=== PATIENT | female | born 1970 | race Caucasian/White ===

== ENCOUNTER 2023-08-01 10:53 | Emergency (ER) | payer OTHER, SELFPAY ==
[2023-08-01 10:53] VITALS: BP 134/74; PULSE 87; RESP 18; TEMP 35.9; O2SAT 99
[2023-08-01 11:59] LABS: Influenza A QL RT-PCR Negative (Negative); Influenza B QL RT-PCR Negative (Negative); SARS-CoV-2 RNA PCR Negative (Negative)
[2023-08-01 12:00] LABS: RSV RNA, RT-PCR Negative (Negative)
--- NOTE | 2023-08-01 12:11 | ED.URI ---
HPI - URI/Sore Throat General Chief Complaint: Upper Respiratory Infection Stated Complaint: body aches/nausea Time Seen by Provider: 08/01/23 10:58 Source: patient Mode of arrival: ambulatory Limitations: no limitations History of Present Illness HPI Narrative: patient is a 52-year-old female with coughing congestion for the past few days. She has multiple sick contacts in the house with the same symptoms. MD elicited complaint: cough and nasal congestion Consistency: constant Severity: mild Able to tolerate fluids by mouth: Yes Exacerbating factors: nothing Relieving factors: nothing Context: sick contacts Associated symptoms: myalgias, headache, nasal congestion and sore throat Treatments prior to arrival: none Related Data Home Medications Medication Instructions Recorded Confirmed albuterol sulfate 2.5 mg/3 mL 2.5 mg inhalation PRN PRN Wheezing 08/01/23 08/01/23 (0.083 %) solution for nebulization atorvastatin 80 mg tablet 80 mg PO DAILY 08/01/23 08/01/23 dulaglutide 0.75 mg/0.5 mL 0.75 mg subcut USEASDIRECTD 08/01/23 08/01/23 subcutaneous pen injector ([employer]) fenofibrate micronized 134 mg 134 mg PO DAILY 08/01/23 08/01/23 capsule furosemide 20 mg tablet 40 mg PO DAILY 08/01/23 08/01/23 gabapentin 300 mg capsule 300 mg PO PRN PRN Pain, Moderate 08/01/23 08/01/23 hydrochlorothiazide 12.5 mg capsule 12.5 mg PO DAILY 08/01/23 08/01/23 metformin 500 mg tablet,extended 1,000 mg PO BID 08/01/23 08/01/23 release 24 hr montelukast 10 mg tablet 10 mg PO DAILY 08/01/23 08/01/23 omeprazole 20 mg capsule,delayed 40 mg PO DAILY 08/01/23 08/01/23 release sitagliptin phosphate 100 mg 100 mg PO DAILY 08/01/23 08/01/23 tablet (Januvia) Allergies Allergy/AdvReac Type Severity Reaction Status Date / Time codeine Allergy Mild n/v Verified 08/01/23 11:05 ampicillin Allergy Unknown Anaphylactic Verified 08/01/23 11:05 Shock latex Allergy Unknown Unknown Verified 08/01/23 11:05 Review of Systems Review of Systems: All systems reviewed & are unremarkable except as noted in HPI and below Constitutional: Constitutional: Reports no additional constitutional complaints Eyes: Eyes: Reports no additional eye complaints ENT: Reports system reviewed and no additional complaints, except as documented Cardiovascular: Cardiovascular: Reports no additional cardiovascular complaints Respiratory: Respiratory: Reports no additional respiratory complaints Gastrointestinal: Gastrointestinal: Reports no additional gastrointestinal complaints Genitourinary: Genitourinary: Reports no additional female genitourinary complaints Musculoskeletal: Musculoskeletal: Reports no additional musculoskeletal complaints Integumentary/Breasts: Skin/Breast: Reports system reviewed and no additional complaints, except as docu Neurologic: Reports system reviewed and no additional complaints, except as documented Psychiatric: Psychiatric: Reports no additional psychiatric complaints Endocrine: Endocrine: Reports no additional endocrine complaints Hematologic/Lymphatic: Hematologic/Lymphatic: Reports no additional hematologic/lymphatic complaints Allergic/Immunologic: Allergic/Immunologic: Reports no additional allergic/immunologic complaints Exam Const: General: healthy appearing, no acute distress and alert Nutritional Appearance: well nourished HENMT: Head: normal to inspection Ears: external ears normal Face/Nose/Sinus: Normal external nose present Eyes: Conjunctivae: conjunctivae normal Pupils: Equal, round and reactive pupils present EOM: EOMs intact bilaterally Chest: Chest palpation & inspection: normal inspection of the chest Resp: Effort & Inspection: normal respiratory effort Auscultation: clear to auscultation bilaterally Cardio: Rate: regular rate Rhythm: regular rhythm Heart sounds: no murmurs GI: Inspection: non-distended GI Palp: Yes Soft to palpation, No Tenderness to palpation present (GI), N
[2023-08-01 12:13] LABS: Glucose Point of Care 250 mg/dl (65-105)
--- NOTE | 2023-08-01 12:59 | PC.NURSE ---
1230 DR THAKKAR IS AWARE OF FSBS, PT TO BE DE HOME.
== END 2023-08-01 12:54 | disposition home or self-care (01) ==
PROVIDERS: Emergency Provider Emergency Medicine; PCP Family Medicine
DX: J06.9 Acute upper respiratory infection, unspecified (principal); Z79.899 Other long term (current) drug therapy; Z79.84 Long term (current) use of oral hypoglycemic drugs; Z20.822 Contact with and (suspected) exposure to COVID-19
CPT/HCPCS: 82948; 87637; 99283

== ENCOUNTER 2024-05-07 21:50 | Emergency (ER) | payer OTHER, SELFPAY ==
--- NOTE | ~2024-05-07 | XR_ITS ---
EXAM: XR hip LT 2V w AP pelvis DATE: 05/07/2024 22:15 HISTORY: FALL,LT HIP BRUISING,LROM . COMPARISON: None available. FINDINGS: Normal mineralization. No fracture or dislocation. No lytic or blastic lesion. Degenerativ e changes in the bilateral hips and pubic symphysis. No erosion or periosteal change. Soft tissues wi thin normal limits. IMPRESSION: No acute osseous finding in the pelvis or left hip. Reviewed, dictated and finalized at location K.
[2024-05-07 21:56] VITALS: BP 154/86; PULSE 100; RESP 18; TEMP 36.6; O2SAT 96
--- NOTE | 2024-05-07 22:08 | ED.GENADULT ---
HPI - General Adult General Chief complaint: Fall Stated complaint: Fall History of Present Illness HPI narrative: This is a 53-year-old female presenting with hip pain. She was pulled over by her dog and landed on her left hip. She now has a bruise. She has been able to ambulate without difficulty. She has not taken anything for pain control. Related Data Home Medications Medication Instructions Recorded Confirmed albuterol sulfate 2.5 mg/3 mL 2.5 mg inhalation PRN PRN Wheezing 08/01/23 08/01/23 (0.083 %) solution for nebulization atorvastatin 80 mg tablet 80 mg PO DAILY 08/01/23 08/01/23 dulaglutide 0.75 mg/0.5 mL 0.75 mg subcut USEASDIRECTD 08/01/23 08/01/23 subcutaneous pen injector (Polar) fenofibrate micronized 134 mg 134 mg PO DAILY 08/01/23 08/01/23 capsule furosemide 20 mg tablet 40 mg PO DAILY 08/01/23 08/01/23 gabapentin 300 mg capsule 300 mg PO PRN PRN Pain, Moderate 08/01/23 08/01/23 hydrochlorothiazide 12.5 mg capsule 12.5 mg PO DAILY 08/01/23 08/01/23 metformin 500 mg tablet,extended 1,000 mg PO BID 08/01/23 08/01/23 release 24 hr montelukast 10 mg tablet 10 mg PO DAILY 08/01/23 08/01/23 omeprazole 20 mg capsule,delayed 40 mg PO DAILY 08/01/23 08/01/23 release sitagliptin phosphate 100 mg 100 mg PO DAILY 08/01/23 08/01/23 tablet (Januvia) Allergies Allergy/AdvReac Type Severity Reaction Status Date / Time codeine Allergy Mild n/v Verified 08/01/23 11:05 ampicillin Allergy Unknown Anaphylactic Verified 08/01/23 11:05 Shock latex Allergy Unknown Unknown Verified 08/01/23 11:05 Exam Narrative: APPEARANCE: No apparent distress. Head: atraumatic. EYES: EOMI, NOSE: Atraumatic NECK: Trachea midline RESPIRATORY: No increased rate of breathing CARDIOVASCULAR: RRR, ABDOMINAL: Non-distended MUSCULOSKELETAl: patient is able ambulate without difficulty NEURO: Alert. Moving 4/4 extremities SKIN:: 2 x 2 cm bruise over the patient's left PSYCHIATRIC: Normal affect Course Vital Signs Vital signs: Vital Signs Temperature 97.8 F 05/07/24 21:56 Pulse Rate 100 05/07/24 21:56 Respiratory Rate 18 05/07/24 21:56 Blood Pressure 154/86 H 05/07/24 21:56 Pulse Oximetry 96 05/07/24 21:56 Oxygen Delivery Room Air 05/07/24 21:56 Temperature 97.8 F 05/07/24 21:56 Pulse Rate 100 05/07/24 21:56 Respiratory Rate 18 05/07/24 21:56 Blood Pressure 154/86 H 05/07/24 21:56 Pulse Oximetry 96 05/07/24 21:56 Oxygen Delivery Room Air 05/07/24 21:56 Medical Decision Making MDM Narrative Medical decision making narrative: Course: for the 3-year-old female presenting ED after a fall. Her injuries include some abrasions on her left forearm and a bruise over her left hip. patient given tetanus MotrinTylenol/robaxin and discharged. Given return precautions. -DDX includes but is not limited to: Soft tissue injury, bony injury -Co-morbidities complicating care: diabetes, diabetic neuropathy -Independent interpretation of studies: pelvis x-ray negative for fracture -Interventions: Tdap, Motrin Tylenol Robaxin -Shared decision making / Disposition: discharged -RX Motrin Tylenol Robaxin Vital Signs Vital Signs: Vital Signs Temperature 97.8 F 05/07/24 21:56 Pulse Rate 100 05/07/24 21:56 Respiratory Rate 18 05/07/24 21:56 Blood Pressure 154/86 H 05/07/24 21:56 Pulse Oximetry 96 05/07/24 21:56 Oxygen Delivery Room Air 05/07/24 21:56 Temperature 97.8 F 05/07/24 21:56 Pulse Rate 100 05/07/24 21:56 Respiratory Rate 18 05/07/24 21:56 Blood Pressure 154/86 H 05/07/24 21:56 Pulse Oximetry 96 05/07/24 21:56 Oxygen Delivery Room Air 05/07/24 21:56 Discharge Plan Discharge Clinical Impression: Superficial bruising of hip Patient Disposition: Home, Self-Care Condition: Stable Instructions: Antibiotic Form, Contusion in Adults (ED), Abrasion (ED) Additional Instructions: he was seen in t
[2024-05-07] MEDS: IBUPROFEN 400 MG TABLET 800 MG PO (22:44)
[2024-05-07] MEDS: IBUPROFEN 400 MG TABLET (22:44)
[2024-05-07] MEDS: methocarbamoL 750 MG TABLET 1500 MG PO (22:44)
--- NOTE | 2024-05-07 22:44 | PC.NURSE ---
patient dropped ibuprofen on the floor. obtained another 400 mg ibuprofen from the pyxis.
[2024-05-07] MEDS: TETANUS,DIPHTHERIA,AC PERTUSSIS ADULT 0.5 ML (ADACEL) IM (22:45)
[2024-05-07] MEDS: ACETAMINOPHEN 500 MG TABLET 1000 MG PO (22:45)
== END 2024-05-07 22:55 | disposition home or self-care (01) ==
LOC: CHSED 22:23
PROVIDERS: Emergency Provider Emergency Medicine; PCP Family Medicine
DX: S70.02XA Contusion of left hip, initial encounter (principal); Z23 Encounter for immunization; W01.0XXA Fall on same level from slipping, tripping and stumbling without subsequent striking against object, initial encounter
CPT/HCPCS: 73502; 90471; 90715; 99283; A9270

== ENCOUNTER 2024-05-27 16:47 | Emergency (ER) | payer OTHER, SELFPAY ==
--- NOTE | ~2024-05-27 | XR_ITS ---
EXAM: XR wrist LT min 3V DATE: 05/27/2024 17:10 HISTORY: wrist injury . COMPARISON: None available. FINDINGS: Decreased mineralization. No fracture or dislocation. No lytic or blastic lesion. Mild deg enerative change in the wrist. Ulnar positive variance with mild changes of impaction syndrome. No er osion or periosteal change. Soft tissues within normal limits. IMPRESSION: No acute osseous finding in the left wrist. Reviewed, dictated and finalized at location K.
--- NOTE | ~2024-05-27 | XR_ITS ---
EXAM: XR ankle LT min 3V DATE: 05/27/2024 17:10 HISTORY: ankle injury . COMPARISON: None available. FINDINGS: Normal mineralization. Small ossific fragment adjacent to the lateral aspect of the calcan eus. Curvilinear ossific fragment projecting superior to the talus in the lateral view. Ankle joint e ffusion. Achilles and plantar enthesopathy. No lytic or blastic lesion. Joint spaces are maintained. No erosion or periosteal change. Anterior and lateral soft tissue swelling. IMPRESSION: Acute appearing anterior capsular avulsion fracture. Acute versus chronic ossific fragmen t adjacent to the lateral calcaneus which can be seen with extensor digitorum brevis avulsion, correl ate for history of prior injury or point tenderness. Reviewed, dictated and finalized at location K. IMPRESSION: Acute appearing anterior capsular avulsion fracture. Acute versus c hronic ossific fragment adjacent to the lateral calcaneus which can be seen wit h extensor digitorum brevis avulsion, correlate for history of prior injury or point tenderness.
[2024-05-27 16:47] VITALS: BP 155/78; PULSE 86; RESP 16; TEMP 36.6; O2SAT 95
[2024-05-27] MEDS: KETOROLAC (*BKC) 60 MG/2 ML VIAL IM (16:59)
--- NOTE | 2024-05-27 17:05 | ED.FALL ---
HPI - Fall General Chief Complaint: Fall Stated Complaint: fall Time Seen by Provider: 05/27/24 16:50 Source: patient Mode of arrival: ambulatory Limitations: no limitations History of Present Illness HPI Narrative: this is a 53-year-old female presents with some ankle and wrist pain on the left side after she sustained a fall while she was outdoors in her yd and she stepped on a bag of soil that toppled over and she fell over injuring her left ankle and left wrist. Has an abrasion to her left knee otherwise patient is up-to-date with her tetanus no other injuries. No loss of consciousness no blurry vision no nausea vomiting. MD complaint: fall Onset (ago): hour(s) Fall from: standing Place fall occurred: home Loss of consciousness: none Prolonged down time: no Symptoms prior to fall: none Context: tripped/slipped Location of injury: other Location of injury - extremities: Left: hand ( tenderness with movement and palpation) and ankle ( Swelling and tenderness with movement palpation) Related Data Home Medications Medication Instructions Recorded Confirmed albuterol sulfate 2.5 mg/3 mL 2.5 mg inhalation PRN PRN Wheezing 08/01/23 08/01/23 (0.083 %) solution for nebulization atorvastatin 80 mg tablet 80 mg PO DAILY 08/01/23 08/01/23 dulaglutide 0.75 mg/0.5 mL 0.75 mg subcut USEASDIRECTD 08/01/23 08/01/23 [facility] fenofibrate micronized 134 mg 134 mg PO DAILY 08/01/23 08/01/23 capsule furosemide 20 mg tablet 40 mg PO DAILY 08/01/23 08/01/23 gabapentin 300 mg capsule 300 mg PO PRN PRN Pain, Moderate 08/01/23 08/01/23 hydrochlorothiazide 12.5 mg capsule 12.5 mg PO DAILY 08/01/23 08/01/23 metformin 500 mg tablet,extended 1,000 mg PO BID 08/01/23 08/01/23 release 24 hr montelukast 10 mg tablet 10 mg PO DAILY 08/01/23 08/01/23 omeprazole 20 mg capsule,delayed 40 mg PO DAILY 08/01/23 08/01/23 release sitagliptin phosphate 100 mg 100 mg PO DAILY 08/01/23 08/01/23 tablet (Januvia) Allergies Allergy/AdvReac Type Severity Reaction Status Date / Time codeine Allergy Mild n/v Verified 05/27/24 17:02 ampicillin Allergy Unknown Anaphylactic Verified 05/27/24 17:02 Shock latex Allergy Unknown Unknown Verified 05/27/24 17:02 Review of Systems Review of Systems: All systems reviewed & are unremarkable except as noted in HPI and below PMFSH Past Medical History Medical History Patient denies medical problems Exam Const: General: healthy appearing and no acute distress Nutritional Appearance: well nourished Orientation/consciousness: patient oriented x3 Limitations: no limitations Eyes: Conjunctivae: conjunctivae normal Neck: Neck: normal visual inspection, no lymphadenopathy and no meningeal signs Chest: Chest palpation & inspection: normal inspection of the chest Resp: Effort & Inspection: normal respiratory effort Auscultation: clear to auscultation bilaterally Cardio: Rate: regular rate Rhythm: regular rhythm Extrem: Other: swelling lateral aspect of her left ankle and tenderness with movement and palpation as well as left wrist pain with movement and palpation. Course Course Emergency Course: She received a dose of 60mg IM Toradol, and x-rays performed and reviewed Vital Signs Vital signs: Vital Signs Temperature 36.6 C 05/27/24 16:47 Pulse Rate 86 05/27/24 16:47 Respiratory Rate 16 05/27/24 16:47 Blood Pressure 155/78 H 05/27/24 16:47 Pulse Oximetry 95 05/27/24 16:47 Oxygen Delivery Room Air 05/27/24 16:47 Temperature 36.7 C 05/27/24 18:06 Pulse Rate 81 05/27/24 18:06 Respiratory Rate 16 05/27/24 18:06 Blood Pressure 122/68 05/27/24 18:06 Pulse Oximetry 96 05/27/24 18:06 Oxygen Delivery Room Air 05/27/24 18:06 Critical Care Time Critical Care Time Critical Care Time: No Discharge Plan Discharge Clinical Impression: Ankle fract
[2024-05-27 18:06] VITALS: BP 122/68; PULSE 81; RESP 16; TEMP 36.7; O2SAT 96
== END 2024-05-27 18:06 | disposition home or self-care (01) ==
PROVIDERS: Emergency Provider Emergency Medicine; PCP Family Medicine
DX: S82.892A Other fracture of left lower leg, initial encounter for closed fracture (principal); S63.502A Unspecified sprain of left wrist, initial encounter; W01.0XXA Fall on same level from slipping, tripping and stumbling without subsequent striking against object, initial encounter; Y92.007 Garden or yard of unspecified non-institutional (private) residence as the place of occurrence of the external cause
CPT/HCPCS: 29515; 73110; 73610; 96372; 99284; J1885

== ENCOUNTER 2024-07-28 20:08 | Emergency (ER) | payer OTHER, SELFPAY ==
--- NOTE | ~2024-07-28 | XR_ITS ---
EXAMINATION: XR ankle RT min 3V, XR tibia fibula RT 2V, XR foot RT min 3V DATE: 07/28/2024 20:28 INDICATION: Anterior and lateral right foot and ankle pain post fall TECHNIQUE: 1. Anteroposterior and lateral views of the right tibia and fibula were obtained. 2. Anteroposterior, mortise, additional oblique and lateral view of the right ankle were obtained. 3. Dorsoplantar, two oblique and lateral views of the right foot were obtained. COMPARISON: None. FINDINGS: Normal alignment from the right knee through the foot. No fracture. Mild osteoarthritis at the first metatarsophalangeal and a few of the tarsal metatarsal and interphalangeal joints. Moderate-sized Ach illes and plantar calcaneal spurs. No right knee or ankle joint effusion. The soft tissues are unrema rkable. IMPRESSION: 1. Degenerative skeletal changes in the right foot. No acute osseous abnormality. Reviewed, dictated and finalized at location A. IMPRESSION: 1. Degenerative skeletal changes in the right foot. No acute osseous abnormalit y. IMPRESSION: 1. Degenerative skeletal changes in the right foot. No acute osseous abnormalit y.
[2024-07-28 20:08] VITALS: BP 158/78; PULSE 81; RESP 18; TEMP 36.8; O2SAT 96
--- NOTE | 2024-07-28 20:15 | ED.LOWEXIN ---
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 She has pain above the ankle at the ankle and below the ankle. MD complaint: leg injury, ankle injury and foot injury Onset (ago): hour(s) (1) Type of Injury: inversion Place: work Severity: moderate Severity scale (1-10): 5 Relieving factors: immobilization Exacerbating factors: weight bearing, movement and palpation Context: fall ( Slipped on a wet floor) Associated symptoms: swelling and able to partially bear weight Other symptoms: none Related Data Home Medications Medication Instructions Recorded Confirmed albuterol sulfate 2.5 mg/3 mL 2.5 mg inhalation PRN PRN Wheezing 08/01/23 07/28/24 (0.083 %) solution for nebulization atorvastatin 80 mg tablet 80 mg PO DAILY 08/01/23 07/28/24 dulaglutide 0.75 mg/0.5 mL 0.75 mg subcut USEASDIRECTD 08/01/23 07/28/24 subcutaneous pen injector ([facility]) fenofibrate micronized 134 mg 134 mg PO DAILY 08/01/23 07/28/24 capsule furosemide 20 mg tablet 40 mg PO DAILY 08/01/23 07/28/24 gabapentin 300 mg capsule 300 mg PO PRN PRN Pain, Moderate 08/01/23 07/28/24 hydrochlorothiazide 12.5 mg capsule 12.5 mg PO DAILY 08/01/23 07/28/24 metformin 500 mg tablet,extended 1,000 mg PO BID 08/01/23 07/28/24 release 24 hr montelukast 10 mg tablet 10 mg PO DAILY 08/01/23 07/28/24 omeprazole 20 mg capsule,delayed 40 mg PO DAILY 08/01/23 07/28/24 release sitagliptin phosphate 100 mg 100 mg PO DAILY 08/01/23 07/28/24 tablet (Januvia) Allergies Allergy/AdvReac Type Severity Reaction Status Date / Time codeine Allergy Mild n/v Verified 05/27/24 17:02 ampicillin Allergy Unknown Anaphylactic Verified 05/27/24 17:02 Shock latex Allergy Unknown Unknown Verified 05/27/24 17:02 Review of Systems Review of Systems: All systems reviewed & are unremarkable except as noted in HPI and below Constitutional: Constitutional: Reports no additional constitutional complaints Eyes: Eyes: Reports no additional eye complaints ENT: Reports system reviewed and no additional complaints, except as documented Cardiovascular: Cardiovascular: Reports no additional cardiovascular complaints Respiratory: Respiratory: Reports no additional respiratory complaints Gastrointestinal: Gastrointestinal: Reports no additional gastrointestinal complaints Genitourinary: Genitourinary: Reports no additional female genitourinary complaints Musculoskeletal: Musculoskeletal: Reports no additional musculoskeletal complaints Integumentary/Breasts: Skin/Breast: Reports system reviewed and no additional complaints, except as docu Neurologic: Reports system reviewed and no additional complaints, except as documented Psychiatric: Psychiatric: Reports no additional psychiatric complaints Endocrine: Endocrine: Reports no additional endocrine complaints Hematologic/Lymphatic: Hematologic/Lymphatic: Reports no additional hematologic/lymphatic complaints Allergic/Immunologic: Allergic/Immunologic: Reports no additional allergic/immunologic complaints PMFSH Past Medical History Medical History Patient denies medical problems Exam Const: General: healthy appearing Nutritional Appearance: well nourished Orientation/consciousness: patient oriented x3 HENMT: Head: normal to inspection Ears: external ears normal Face/Nose/Sinus: Normal external nose present Eyes: Conjunctivae: conjunctivae normal Pupils: Equal, round and reactive pupils present EOM: EOMs intact bilaterally Neck: Neck: normal visual inspection Chest: Chest palpatio
--- NOTE | 2024-07-28 20:17 | PC.NURSE ---
Dr Rose at the bedside. Radiology outside the room
== END 2024-07-28 20:51 | disposition home or self-care (01) ==
PROVIDERS: Emergency Provider Emergency Medicine; PCP Family Medicine
DX: S93.401A Sprain of unspecified ligament of right ankle, initial encounter (principal); S96.911A Strain of unspecified muscle and tendon at ankle and foot level, right foot, initial encounter; Z79.899 Other long term (current) drug therapy; Z79.84 Long term (current) use of oral hypoglycemic drugs; W01.0XXA Fall on same level from slipping, tripping and stumbling without subsequent striking against object, initial encounter
CPT/HCPCS: 29515; 73590; 73610; 73630; 99284; L4350

== ENCOUNTER 2025-02-24 11:14 | Emergency (ER) | payer OTHER, SELFPAY ==
[2025-02-24] VITALS (39 sets, daily range): BP systolic 141–176; BP diastolic 57–91; PULSE 68–115; RESP 12–22; TEMP 36.6–37; O2SAT 90–100
--- NOTE | ~2025-02-24 | CT_ITS ---
EXAMINATION: CT abdomen pelvis w con DATE: 02/24/2025 12:53 INDICATION: 2 days of abdominal pain, nausea and vomiting TECHNIQUE: Computed tomography (CT) of the abdomen and pelvis was performed with 100 mL Omnipaque-350 intravenous contrast. Automated exposure control and iterative reconstruction technique were employe d. The dose-length product was 1053.92 mGy-cm. COMPARISON: None FINDINGS: Lung bases are clear. Heart size is normal. No pericardial or pleural effusion. Small sliding-type hi atal hernia. Mild hepatosplenomegaly with diffuse hepatic steatosis. Focal adenomyomatosis at the gal lbladder fundus. Pancreas, bilateral adrenal glands and kidneys are normal. Bladder is normal. Bowels including the appendix are normal. The uterus is not identified and has likely been surgically resec tal. No free intraperitoneal gas or fluid. No pathologically enlarged abdominal or pelvic lymphade nopathy. Mild lumbar and lower thoracic spondylosis. IMPRESSION: 1. No acute intra-abdominal/pelvic process. 2. Mild hepatosplenomegaly with diffuse hepatic steatosis. 2. Small sliding-type hiatal hernia. Reviewed, dictated and finalized at location B.
[2025-02-24 11:22] LABS: Glucose Point of Care 370 mg/dl (65-105)
--- NOTE | 2025-02-24 11:28 | ED_ITS ---
HPI - General Adult General Chief complaint: Abdominal Pain Stated complaint: vomiting Time Seen by Provider: 02/24/25 11:28 Source: patient Mode of arrival: ambulatory History of Present Illness HPI narrative: 54 years old white female drove herself to the emergency room complaining not feeling well, nausea, vomiting, generalized abdominal pain started yesterday. Patient was not able to take her diabetes medicine for 2 days. History of diabetes hypertension hyperlipidemia, and hysterectomy. Patient denies smoking or drinking or using drugs. Related Data Home Medications ?Medication ?Instructions ?Recorded ?Confirmed ?Last Taken ?Type albuterol sulfate 2.5 mg/3 mL 2.5 mg inhalation PRN PRN Wheezing 08/01/23 07/28/24 Unknown History (0.083 %) solution for nebulization atorvastatin 80 mg tablet 80 mg PO DAILY 08/01/23 07/28/24 Unknown History dulaglutide 0.75 mg/0.5 mL 0.75 mg subcut USEASDIRECTD 08/01/23 07/28/24 Unknown History subcutaneous pen injector ([facility]) fenofibrate micronized 134 mg 134 mg PO DAILY 08/01/23 07/28/24 Unknown History capsule furosemide 20 mg tablet 40 mg PO DAILY 08/01/23 07/28/24 Unknown History gabapentin 300 mg capsule 300 mg PO PRN PRN Pain, Moderate 08/01/23 07/28/24 Unknown History hydrochlorothiazide 12.5 mg capsule 12.5 mg PO DAILY 08/01/23 07/28/24 Unknown History metformin 500 mg tablet,extended 1,000 mg PO BID 08/01/23 07/28/24 Unknown History release 24 hr montelukast 10 mg tablet 10 mg PO DAILY 08/01/23 07/28/24 Unknown History omeprazole 20 mg capsule,delayed 40 mg PO DAILY 08/01/23 07/28/24 Unknown History release sitagliptin phosphate 100 mg 100 mg PO DAILY 08/01/23 07/28/24 Unknown History tablet (Januvia) Allergies Allergy/AdvReac Type Severity Reaction Status Date / Time codeine Allergy Mild n/v Verified 02/24/25 11:24 ampicillin Allergy Unknown Anaphylactic Verified 02/24/25 11:24 Shock latex Allergy Unknown Unknown Verified 02/24/25 11:24 Review of Systems 2 Review of Systems: All systems reviewed & are unremarkable except as noted in HPI and below PMFSH Past Medical History Medical History Patient denies medical problems Exam 2 Narrative: General appearance: Well-developed, well-nourished, ill looking Skin: Normal color Head: Normocephalic, nontraumatic Eyes: Clear conjunctiva ENT: Oropharynx normal, ears normal, nose normal Neck: Supple, nontender Chest and respiratory: Airway patent, no respiratory distress, no accessory muscle use Heart: Regular rate/rhythm Abdomen: Soft, Generalized tenderness,, no organomegaly, quiet bowel sounds Vascular: Normal peripheral pulses, normal capillary refill. Musculoskeletal: Normal range of motion, nontender back Neurologic: Alert and oriented ?3, MANAGER PROGRAM MANAGEMENT is normal as tested, no gross motor deficit Course Consultations Consultation #1: [facility] BRAGG[facility]RS Date: 02/24/25 Consultation #2: DR STARR ICU AT [facility] WHO ACCEPTED PATIENT TRANSFER Date: 02/24/25 Vital Signs Vital signs: Vital Signs Temperature 36.6 C 02/24/25 11:14 Pulse Rate 108 H 02/24/25 11:14 Respiratory Rate 20 02/24/25 11:14 Blood Pressure 160/87 H 02/24/25 11:14 Pulse Oximetry 96 02/24/25 11:14 Oxygen Delivery Room Air 02/24/25 11:14 Temperature 36.6 C 02/24/25 11:14 Pulse Rate 107 H 02/24/25 13:31 Respiratory Rate 16 02/24/25 13:31 Blood Pressure 150/91 H 02/24/25 13:31 Pulse Oximetry 94 02/24/25 13:31 Oxygen Delivery Room Air 02/24/25 11:14 Medical Decision Making [facility] Narrative Medical decision making narrative: patient presents with nausea and vomiting and abdominal pain vital signs showing blood pressure 160/87, heart rate 108 otherwise within normal limit Physical examination showing ill looking patient, with dry heaves Differential diagnosis include DKA, hyperglycemia, electrolyte imbalance, dehydration, colitis, diverticulitis, appendicitis, cholecystitis, noncompliance with medication, urinary tract infection Blood workup today includes CBC, CMP, lipase, phosphorus , hemoglobin A1c, magnesium level, beta hydroxybutyrate, showed HEMOGLOBIN 17.1, HEMOGLOBIN A1C 13.1, GLUCOSE 476 ALT 81, ALKALINE PHOSPHATASE 182 Venous blood gas showed PH OF 7.28 Urinalysis showed RESPIRATORY PANEL NEGATIVE FOR COVID FLU RSV CT abdomen and pelvis with IV contrast NO ACUTE ABNORMALITIES PATIENT WAS ACCEPTED FOR TRANSFER TO [facility] DIAGNOSIS DKA Differential Diagnosis Differential Diagnosis: as above Vital Signs Vital Signs: Vital Signs Temperature 36.6 C 02/24/25 11:14 Pulse Rate 108 H 02/24/25 11:14 Respiratory Rate 20 02/24/25 11:14 Blood Pressure 160/87 H 02/24/25 11:14 Pulse Oximetry 96 02/24/25 11:14 Oxygen Delivery Room Air 02/24/25 11:14 Temperature 36.6 C 02/24/25 11:14 Pulse Rate 107 H 02/24/25 13:31 Respiratory Rate 16 02/24/25 13:31 Blood Pressure 150/91 H 02/24/25 13:31 Pulse Oximetry 94 02/24/25 13:31 Oxygen Delivery Room Air 02/24/25 11:14 Lab Data 02/24/25 11:49 02/24/25 11:49 Labs: Lab Results 02/24/25 02/24/25 02/24/25 Range/Units 11:20 11:49 12:36 WBC 10.2 (4.8-10.8) K/mm3 RBC 6.24 H (4.20-5.40) M/mm3 Hgb 17.1 H (12.0-15.0) g/dL Hct 53.9 H (35.0-49.0) % MCV 86.4 (78.0-102.0) fL MCH 27.4 (27.0-31.0) pg MCHC 31.7 L (32-36) g/dL RDW 12.2 (11.6-14.4) % Plt Count 234 (150-420) K/mm3 MPV 10.8 (9.2-11.8) fl Immature Gran % (Auto) 0.8 H (0.0-0.0) % Neut % (Auto) 90.6 H (50.0-70.0) % Lymph % (Auto) 4.9 L (18.0-42.0) % [place] % (Auto) 3.3 (2.0-11.0) % Eos % (Auto) 0.2 L (1.0-6.0) % Baso % (Auto) 0.2 (0.0-1.0) % Lymph # (Auto) 0.50 L (1.10-4.50) K/mm3 [place] # (Auto) 0.34 (0.10-0.90) K/mm3 Eos # (Auto) 0.02 (0.02-0.50) K/mm3 Baso # (Auto) 0.02 (0.00-0.10) K/mm3 Abs Immat Gran (auto) 0.08 H (0.00-0.00) K/mm3 Absolute Neuts (auto) 9.25 H (1.70-7.20) K/mm3 Absolute Nucleated RBC 0.00 (0.00-0.00) K/mm3 Nucleated RBC % 0.0 (0-0.0) % Sodium 139 (136-145) mmol/L Potassium 4.1 (3.5-5.1) mmol/L Chloride 97 L (98-108) mmol/L Carbon Dioxide 22 (21-32) mmol/L Anion Gap 20 H (4-12) mmol/L BUN 18 (7-18) mg/dL Creatinine 0.99 (0.55-1.02) mg/dL Estim Creat Clear Calc 62 ml/min Estimated GFR 58 L (59 - ) Glucose 476 H* (70-99) mg/dL POC Capillary Glucose 370 H 369 H (65-105) mg/dl Hemoglobin A1c 13.0 H (<5.7) % Calculated Osmolality 310 H (285-295) mOsm/kg Calcium 9.5 (8.5-10.1) mg/dL Phosphorus 6.0 H (2.6-4.7) mg/dL Magnesium 2.3 (1.8-2.4) mg/dL Total Bilirubin 0.9 (0.00-1.00) mg/dL AST 31 (15-37) U/L ALT 81 H (14-59) U/L Alkaline Phosphatase 182 H (46-116) U/L Total Protein 8.8 H (6.4-8.2) g/dL Albumin 4.2 (3.4-5.0) g/dL Lipase 10 L (16-77) U/L Influenza A (RT-PCR) Negative (Negative) Influenza B (RT-PCR) Negative (Negative) RSV (RT-PCR) Negative (Negative) SARS-CoV-2 RNA (RT-PCR) Negative (Negative) 02/24/25 Range/Units 13:42 WBC (4.8-10.8) K/mm3 RBC (4.20-5.40) M/mm3 Hgb (12.0-15.0) g/dL Hct (35.0-49.0) % MCV (78.0-102.0) fL MCH (27.0-31.0) pg MCHC (32-36) g/dL RDW (11.6-14.4) % Plt Count (150-420) K/mm3 MPV (9.2-11.8) fl Immature Gran % (Auto) (0.0-0.0) % Neut % (Auto) (50.0-70.0) % Lymph % (Auto) (18.0-42.0) % [place] % (Auto) (2.0-11.0) % Eos % (Auto) (1.0-6.0) % Baso % (Auto) (0.0-1.0) % Lymph # (Auto) (1.10-4.50) K/mm3 [place] # (Auto) (0.10-0.90) K/mm3 Eos # (Auto) (0.02-0.50) K/mm3 Baso # (Auto) (0.00-0.10) K/mm3 Abs Immat Gran (auto) (0.00-0.00) K/mm3 Absolute Neuts (auto) (1.70-7.20) K/mm3 Absolute Nucleated RBC (0.00-0.00) K/mm3 Nucleated RBC % (0-0.0) % Sodium (136-145) mmol/L Potassium (3.5-5.1) mmol/L Chloride (98-108) mmol/L Carbon Dioxide (21-32) mmol/L Anion Gap (4-12) mmol/L BUN (7-18) mg/dL Creatinine (0.55-1.02) mg/dL Estim Creat Clear Calc ml/min Estimated GFR (59 - ) Glucose (70-99) mg/dL POC Capillary Glucose 325 H (65-105) mg/dl Hemoglobin A1c (<5.7) % Calculated Osmolality (285-295) mOsm/kg Calcium (8.5-10.1) mg/dL Phosphorus (2.6-4.7) mg/dL Magnesium (1.8-2.4) mg/dL Total Bilirubin (0.00-1.00) mg/dL AST (15-37) U/L ALT (14-59) U/L Alkaline Phosphatase (46-116) U/L Total Protein (6.4-8.2) g/dL Albumin (3.4-5.0) g/dL Lipase (16-77) U/L Influenza A (RT-PCR) (Negative) Influenza B (RT-PCR) (Negative) RSV (RT-PCR) (Negative) SARS-CoV-2 RNA (RT-PCR) (Negative) ABG Data ABG results: 02/24/25 11:49 VBG pH 7.28 L VBG pCO2 43.2 VBG pO2 47.0 H VBG HCO3 19.8 L O2 Delivery Device Room air O2 Liters/Min 0.0 Imaging Data Radiologist's impression: Impressions Abdomen/Pelvis CT 02/24/25 12:59 IMPRESSION: 1. No acute intra-abdominal/pelvic process. 2. Mild hepatosplenomegaly with diffuse hepatic steatosis. 2. Small sliding-type hiatal hernia. Critical Care Time Critical Care Time Critical Care Time: Yes Total Critical Care Time: 30 Discharge Plan Discharge Clinical Impression: DKA (diabetic ketoacidosis) Patient Disposition: Acute Care Hospital Condition: Improved Patient Language: Turkmen Prescriptions: No Action ibuprofen 800 mg tablet 800 mg PO TID PRN (Reason: pain) 7 Days Qty: 21 0RF acetaminophen 500 mg tablet 1,000 mg PO TID PRN (Reason: kg) 7 Days Qty: 42 0RF methocarbamol 750 mg tablet 1,500 mg PO TID Qty: 35 0RF atorvastatin 80 mg tablet 80 mg PO DAILY albuterol sulfate 2.5 mg /3 mL (0.083 %) solution for nebulization 2.5 mg inhalation PRN PRN (Reason: Wheezing) fenofibrate micronized 134 mg capsule 134 mg PO DAILY hydrochlorothiazide 12.5 mg capsule 12.5 mg PO DAILY gabapentin 300 mg capsule 300 mg PO PRN PRN (Reason: Pain, Moderate) omeprazole 20 mg capsule,delayed release(DR/EC) 40 mg PO DAILY montelukast 10 mg tablet 10 mg PO DAILY furosemide 20 mg tablet 40 mg PO DAILY metformin 500 mg tablet extended release 24 hr 1,000 mg PO BID Januvia 100 mg tablet 100 mg PO DAILY Trulicity 0.75 mg/0.5 mL pen injector 0.75 mg SUBCUT USEASDIRECTD Rx Instructions: TWICE MONTHLY naproxen 500 mg tablet 500 mg PO BID PRN (Reason: pain) Qty: 14 0RF Follow-up/Referrals: Rush,MD Jose [Primary Care Provider] -
[2025-02-24] MEDS: SODIUM CHLORIDE 0.9% IV 2,000 ML 999 ML IV CONT (11:44)
[2025-02-24] MEDS: ONDANSETRON INJ 4 MG/2 ML VIAL 8 MG IV PUSH (11:45)
[2025-02-24] MEDS: INSULIN HUMAN REGULAR (*BKC) 1,000 UNITS/10 ML VIAL 13.1 UNITS IV PUSH (11:46)
[2025-02-24 11:55] LABS: Basophils Absolute Auto 0.02 K/mm3 (0.00-0.10); Basophils Percent Auto 0.2 % (0.0-1.0); Eosinophils Absolute Auto 0.02 K/mm3 (0.02-0.50); Eosinophils Percent Auto 0.2 % (1.0-6.0); Hematocrit 53.9 % (35.0-49.0); Hemoglobin 17.1 g/dL (12.0-15.0); Immature Granulocyte Absolute 0.08 K/mm3 (0.00-0.00); Immature Granulocyte Percent A 0.8 % (0.0-0.0); Lymphocytes Percent Auto 4.9 % (18.0-42.0); Mean Corpuscular HGB Conc 31.7 g/dL (32-36); Mean Corpuscular Hemoglobin 27.4 pg (27.0-31.0); Mean Corpuscular Volume 86.4 fL (78.0-102.0); Mean Platelet Volume 10.8 fl (9.2-11.8); Monocytes Absolute Auto 0.34 K/mm3 (0.10-0.90); Monocytes Percent Auto 3.3 % (2.0-11.0); Neutrophils Absolute Auto 9.25 K/mm3 (1.70-7.20); Neutrophils Percent Auto 90.6 % (50.0-70.0); Platelet Count Result 234 K/mm3 (150-420); Red Blood Count 6.24 M/mm3 (4.20-5.40); Red Cell Distribution Width 12.2 % (11.6-14.4); White Blood Count 10.2 K/mm3 (4.8-10.8)
[2025-02-24 12:09] LABS: HCO3 VBG 19.8 mEq/l (24.0-30.0); PCO2 VBG 43.2 mmHg (42.0-48.0); pH VBG 7.28 (7.33-7.43)
[2025-02-24 12:11] LABS: Device ROOM AIR
[2025-02-24 12:17] LABS: Alanine Aminotransferase 81 U/L (14-59); Albumin Level 4.2 g/dL (3.4-5.0); Alkaline Phosphatase 182 U/L (46-116); Anion Gap 20 mmol/L (4-12); Aspartate Amino Transferase 31 U/L (15-37); Bilirubin,Total 0.9 mg/dL (0.00-1.00); Blood Urea Nitrogen 18 mg/dL (7-18); Calcium 9.5 mg/dL (8.5-10.1); Carbon Dioxide 22 mmol/L (21-32); Chloride 97 mmol/L (98-108); Estimated CRCL calculation 62 ml/min; Estimated Glomerular Filt Rate 58; Lipase 10 U/L (16-77); Osmolality Calculated 310 mOsm/kg (285-295); Potassium 4.1 mmol/L (3.5-5.1); Sodium 139 mmol/L (136-145); Total Protein 8.8 g/dL (6.4-8.2)
[2025-02-24 12:23] LABS: Glucose 476 mg/dL (70-99)
[2025-02-24 12:32] LABS: Influenza A QL RT-PCR Negative (Negative); Influenza B QL RT-PCR Negative (Negative); RSV RNA, RT-PCR Negative (Negative); SARS-CoV-2 RNA PCR Negative (Negative)
[2025-02-24 12:33] LABS: Magnesium 2.3 mg/dL (1.8-2.4)
[2025-02-24 12:39] LABS: Glucose Point of Care 369 mg/dl (65-105)
--- OUTSIDE RECORDS SUMMARY | 2025-02-24 12:48 | XMS_ITS | Encounter Summary ---
Author Organization [facility] Address [address] [place] [id number] Care Team Providers Care Kaiako Kohanga Reo Name Role Phone Jose Beverly MD Primary Care Provider [phone] Kortney Coronado HOUSE VISITOR Unavailable [phone] Encounter Details Date Type Department Care Team (Latest Contact Info) Description 02/23/2025 Travel Social History Tobacco Use Types Packs/Day Years Used Date Smoking Tobacco: Never Smokeless Tobacco: Never Alcohol Use Standard Drinks/Week Comments Yes 0 (1 standard drink = 0.6 oz pur e alcohol) seldom AUDIT-C Answer Date Recorded Frequency of Alcohol Consumption Never 01/11/2019 Average Number of Drinks Not on file 019 Frequency of Binge Drinking Not on file 12/28 Comments No Sex and Gender Information Value Date Recorded Sex Assigned at Female 01/14/2025 12:08 PM BUSINESS OFFICE TECHNICIAN Legal Sex Female 9:38 PM BUSINESS OFFICE TECHNICIAN Gender Identity Not on file Sexual Orientation Not on file documented as of this encounter Plan of Treatment Not on file documented as of this encounter Visit Diagnoses Not on filedocumented in this encounter Additional Health Concerns Infection Onset Date Last Indicated Resolved Time Respiratory Rule-Out 02/23/2025 02/23/2025 025 11:00 AM CDT documented as of this encounter Care Teams Kaiako Kohanga Reo Relationship Specialty Start Date End Date Jose Beverly MD [address] [place] [phone] PCP - General FAMILY PRACTICE 01/11/19 Kortney Coronado NP [address] [place] [address] Nurse Practitioner Nurse Practitioner Family 03/27/24 documented as of this encounter
--- OUTSIDE RECORDS SUMMARY | 2025-02-24 12:48 | XMS_ITS | Encounter Summary ---
Author Organization [facility] Address [address] [place] [address] Care Team Providers Care Marketing Communications Manager Name Role Phone Jose Beverly MD Primary Care Provider [phone] Brad Riojas MD Unavailable [phone] Kortney Coronado NP Unavailable [phone] Encounter Details Date Type Department Care Team (Late st Contact Info) Description 05/04/2019 Abstract [facility] CONVERSION [address] [place] [address] , Generic Conversion, Social History Tobacco Use Types Packs/Day Years Used Date Smoking Tobacco: Never Smokeless Tobacco: Never Alcohol Use Standard Drinks/Week Comments No 0 (1 standard drink = 0.6 oz pur e alcohol) AUDIT-C Answer Date Recorded Frequency of Alcohol Consumption Never 01/11/2019 Average Number of Drinks Not on file 019 Frequency of Binge Drinking Not on file 12/28 Comments No Sex and Gender Information Value Date Recorded Sex Assigned at Female 01/14/2025 12:08 PM LIVE OUT NANNY Legal Sex Female 9:38 PM LIVE OUT NANNY Gender Identity Not on file Sexual Orientation Not on file documented as of this encounter Plan of Treatment Not on file documented as of this encounter Visit Diagnoses Not on filedocumented in this encounter Additional Health Concerns Infection Onset Date Last Indicated Resolved Time COVID-19 Rule Out 09/16/2022 09/16/2022 09/16/2022 12:39 PM CDT COVID-19 Rule Out 03/13/2024 03/13/2024 03/13/2024 9:19 PM CDT Respiratory Rule-Out 02/23/2025 02/23/2025 025 11:00 AM CDT documented as of this encounter Care Teams Marketing Communications Manager Relationship Specialty Start Date End Date Jose Beverly MD [address] [place] [phone] PCP - General FAMILY PRACTICE 01/11/19 Brad Riojas MD [address] [place] [phone] Vascular/Athletic Events Scorer VASCULAR SURGERY 12/26/23 01/31/25 Kortney Coronado NP [address] [place] [id number] Nurse Practitioner Nurse Practitioner Family 03/27/24 documented as of this encounter
--- OUTSIDE RECORDS SUMMARY | 2025-02-24 12:48 | XMS_ITS | Continuity of Care Document ---
Author Organization [facility]. If a dditional information is needed, contact Health Information Management at [phone] Address [address] [place] [address] Phone Care Team Providers Care Credit Control Manager Name Role Phone Unavailable Unavailable Unavailable Unavailable Unavailable Unavailable Problems Otitis externa Onset:05-Jun-2019 Increased blood pressure Onset:05-Jun-2019 Allergies and Adverse Reactions Penicillins(Allergy) Onset: 05-Jun-2019 Reaction:UNKNOWN latex(Allergy) Onset: 05-Jun-2019 Reaction:UNKNOWN Social History Smoking Status Tobacco smoking consumption unknown Recorded:
--- OUTSIDE RECORDS SUMMARY | 2025-02-24 12:48 | XMS_ITS | Clinical Summary ---
Author Organization 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 Active ATORVASTATIN CALCIUM PO Take 80 mg by mouth daily. Active benzonatate (TESSALON) 100 MG Capsule Take 100 mg by mouth 3 times daily as needed. Active Omeprazole 20 MG Tablet Delayed Response Take 1 Tab by mouth daily. 30 Tab 0 Active Loperamide HCl (Imodium A-D) 2 MG Tablet Take 2 mg by mouth 4 times daily as needed. Active ergocalciferol (VITAMIN D) 43974 UNIT Capsule Take 1 Capsule by mouth daily. 3 Active Fenofibrate Micronized 134 MG Capsule Take 134 mg by mouth daily. 3 Active furosemide (LASIX) 20 MG Tablet Take 20 mg by mouth daily. 2 Active hydroCHLOROthia zide (MICROZIDE) 12.5 MG Capsule Take 12.5 mg by mouth daily. 3 Active gabapentin (NEURONTIN) 300 MG Capsule Take 300 mg by mouth 3 times daily. Active ondansetron (ZOFRAN-ODT) 4 MG TABLET DISPERSIBLE Take 1 Tablet by mouth every 6 hours as needed for Nausea - 1st line. 10 Tablet 3 Active polyethylene glycol (GLYCOLAX, MIRALAX) 17 g Pack Take 1 Packet by mouth 2 times daily as needed for Constipation - 1st line. Dissolve in 4-8 oz of liquid. Indications: Constipation 90 Packet 3 Active senna (SENOKOT) 8.6 MG Tablet Take 1 Tablet by mouth 2 times daily as needed for Constipation - 2nd line. 30 Tablet 3 Active Glucose Blood Strip Diagnosis: Diabetes type 2 Blood testing frequency: 3 times a day 100 Each 3 3 Active naproxen sodium (ANAPROX) 550 MG Tablet Take 1 Tablet by mouth 2 times daily (with meals). 30 Tablet 3 Active Additional Information Patient not taking.Reported on 10/30/2024 albuterol 108 (90 Base) MCG/ACT Aerosol Solution take 2 Puffs by inhalation every 6 hours as needed for Wheezing or Cough. 8 g 4 Active Lancets Misc Use as directed 200 Lancet . 4 Active Insulin Lispro, 1 Unit Dial, (HumaLOG KwikPen) 100 UNIT/ML Solution Pen-injector 12 Units by Subcutaneous route 3 times daily (after meals) for 90 days. In addition to the provided sliding scale. 32.4 mL 4 025 insulin glargine (Lantus SoloStar) 100 UNIT/ML Solution Pen-injector 30 Units by Subcutaneous route every morning for 90 days. 27 mL 4 025 Active Problems Problem Noted Date Diagnosed Date Diabetic ketoacidosis 10/30/2024 Hyperosmolar hyperglycemic state (HHS) 3 Pneumonia due to COVID-19 virus 11/06/2020 Acute respiratory failure with hypoxia 0 Type 2 diabetes mellitus, wi th long-term current use of insulin Hyperlipemia Hypertension Liver disease Overview (11/06/2020): stage 3 Encounters Date Type Department Care Team Description 01/15/2025 10:46 AM IRRIGATION EQUIPMENT REMOVER - 01/15/2025 3:52 PM IRRIGATION EQUIPMENT REMOVER Emergency [facility] Emergency [address] [place] [address] Alejandro Simeon, Chest pain Discharge Disposition: Discharged to home or Selfcare 01/15/2025 Travel from Last 3 Months Social History Tobacco Use Types Packs/Day Years Used Date Smoking Tobacco: Never Smokeless Tobacco: Never Alcohol Use Standard Drinks/Week Comments Yes 1 (1 standard drink = 0.6 oz pur e alcohol) [facility] Utilities Answer Date Recorded In the past 12 months has th e electric, gas, oil, or water company threatened to shut off services in your home? Patient declined 10/30/2024 Social Connection and Isolation Panel [NHANES] A nswer Date Recorded In a typical week, how many times do you talk on the phone with family, friends, or neighbors? Patient declined 10/30/2024 How often do you get togethe r with friends or relatives? Patient declined 10/30/2024 How often do you attend roman catholic or baptism serv ices? Patient declined 10/30/2024 Do you belong to any clubs o r organizations such as roman catholic groups, unions, fraternal or athletic groups, or school groups? Patient declined 10/30/2024 How often do you attend meet ings of the clubs or organizations you belong to? Patient declined 10/30/2024 Are you , , di vorced, , never , or living with a partner? Patient declined 10/30/2024 AUDIT-C Answer Date Recorded Q1: How often do you have a drink containing alc ohol? Patient declined 10/30/2024 Q2: How many drinks containi ng alcohol do you have on a typical day when you are drinking? Patient declined 10/30/2024 Q3: How often do you have si x or more drinks on one occasion? Patient declined 10/30/2024 Overall Financial Resource Strain (CARDIA) Answe r Date Recorded How hard is it for you to pa y for the very basics like food, housing, medical care, and heating? Patient declined 10/30/2024 [facility] [place] [facility] - Occupational Stress Questionnaire Answer Date Recorded Do you feel stress - tense, restless, nervous, or anxious, or unable to sleep at night because your mind is troubled all the time - these days? Patient declined 10/30/2024 Exercise Vital Sign Answer Date Recorde d On average, how many days pe r week do you engage in moderate to strenuous exercise (like a brisk walk)? Patient declined On average, how many minutes do you engage in exercise at this level? Patient declined 10/30/2024 Hunger Vital Sign Answer Date Recorded Within the past 12 months, y ou worried that your food would run out before you got the money to buy more. Patient declined Within the past 12 months, t he food you bought just didn't last and you didn't have money to get more. Patient declined 02/2024 PRAPARE - Transportation Answer Date Re corded In the past 12 months, has l ack of transportation kept you from medical appointments or from getting medications? Patient declined 10/30/2024 In the past 12 months, has l ack of transportation kept you from meetings, work, or from getting things needed for daily living? Patient declined 10/30/2024 Housing Stability Vital Sign Answer Nikolas e Recorded In the last 12 months, was t here a time when you were not able to pay the mortgage or rent on time? Patient declined 10/30/20 24 In the past 12 months, how m any times have you moved where you were living? 0 10/30/2024 At any time in the past 12 m [facility], were you homeless or living in a care home (including now)? Patient declined 10/30/2024 Sexually Active Control Partners Comments Not Currently Comments No Sex and Gender Information Value Date Recorded Sex Assigned at Female 11/02/2024 6:03 AM IRRIGATION EQUIPMENT REMOVER Legal Sex Female 10:10 PM CDT Gender Identity Female 11/02/2024 6:03 AM IRRIGATION EQUIPMENT REMOVER Sexual Orientation Not on file Last Filed Vital Signs Vital Sign Reading Time Taken Comments Blood Pressure 115/63 01/15/2025 3:30 PM IRRIGATION EQUIPMENT REMOVER Pulse 89 01/15/2025 3:45 PM IRRIGATION EQUIPMENT REMOVER Temperature 36.3 C (97.3 F) 01/15/2025 10:51 AM IRRIGATION EQUIPMENT REMOVER Respiratory Rate 19 01/15/2025 3:02 PM IRRIGATION EQUIPMENT REMOVER Oxygen Saturation 92% 01/15/2025 3:45 PM IRRIGATION EQUIPMENT REMOVER Inhaled Oxygen Concentration - - Weight 87.8 kg (193 lb 9 oz) 01/15/2025 10:51 AM IRRIGATION EQUIPMENT REMOVER Height 167.6 cm (5' 6 ) 01/15/2025 10:51 AM IRRIGATION EQUIPMENT REMOVER Body Mass Index 31.24 01/15/2025 10:51 AM IRRIGATION EQUIPMENT REMOVER Plan of Treatment Health Maintenance Due Date Last Done Comments Diabetes: Eye Exam 1968 Diabetes: Foot Exam 1968 Hepatitis B Immunization (1 of 3 - 19+ 3-dose series) 1987 Pneumococcal Immunization (50+ years) (1 of 2 - PCV) 1987 Colonoscopy 2013 Colorectal Cancer Screening 2013 Cologuard 2018 Immunochemical Fecal Occult Blood 2018 Zoster Immunization (1 of 2) 2018 Influenza Immunization (#1) 2024 08/22/2022, 1 SARS-COV-2 Immunization ( season) 2024 Diabetes: Hemoglobin A1c 04/30/2025 024, 04/27/2023, 11/05/2020 Mammogram 01/14/2026 01/14/2025, 12/28, 12/15/2023, Additional history exists Diabetes: Nephropathy Screening 01/15/2026 01/15/2025, 11/02/2024, 07/31/2023, Additional history exists Respiratory Syncytial Virus (RSV) Immunization (Adult) (1 - 1-dose 75+ series) 2043 Hepatitis C Virus (HCV) Screening Completed 11/07/2020 DTaP/Tdap/Td Immunization Discontinued 2023, 12/19/2020, 08/13/2010 TdaP Immunization Completed 05/07/2024, 08/13/2010 Meningococcal Immunization (ACWY) Aged Out No longer eligible based on patient's age to complete this topic Rotavirus Immunization Aged Out No lo nger eligible based on patient's age to complete this topic Procedures Procedure Name Priority Date/Time Associated Diagnosis Comments TROPONIN I, HIGH SENSITIVITY (HSTRP) STAT 01/15/2025 2:10 PM IRRIGATION EQUIPMENT REMOVER XR CHEST SINGLE VIEW PORTABLE STAT 01/15/2025 11:30 AM IRRIGATION EQUIPMENT REMOVER RSV,SARS-COV-2,INFLUE NZA A&B BY PCR STAT 01/15/2025 11:20 AM IRRIGATION EQUIPMENT REMOVER GOLD TOP TUBE STAT 01/15/2025 10:55 AM IRRIGATION EQUIPMENT REMOVER BLUE TOP TUBE STAT 01/15/2025 10:55 AM IRRIGATION EQUIPMENT REMOVER CBC WITH AUTO DIFFERENTIAL STAT 01/15/2025 10:55 AM IRRIGATION EQUIPMENT REMOVER EXTRA TUBES STAT 01/15/2025 10:55 AM IRRIGATION EQUIPMENT REMOVER TROPONIN I, HIGH SENSITIVITY (HSTRP) STAT 01/15/2025 10:55 AM IRRIGATION EQUIPMENT REMOVER COMPLETE BLOOD COUNT (CBC) WITH DIFF STAT 01/15/2025 10:55 AM IRRIGATION EQUIPMENT REMOVER CMP (COMPREHENSIVE METABOLIC PANEL) STAT 01/15/2025 10:55 AM IRRIGATION EQUIPMENT REMOVER EKG 12 LEAD STAT 01/15/2025 10:52 AM IRRIGATION EQUIPMENT REMOVER EKG SCAN 01/15/2025 12:00 AM IRRIGATION EQUIPMENT REMOVER HEMOGLOBIN A1C W/ ESTIMATED GLUCOSE STAT 10/30/2024 1:21 PM IRRIGATION EQUIPMENT REMOVER HEPATITIS PANEL ACUTE (AHP) Routine 11/07/2020 4:30 AM IRRIGATION EQUIPMENT REMOVER from Last 3 Months or Most Recently Relevant to Health Maintenance Results * TROPONIN I, HIGH SENSITIVITY (HSTRP) (01/15/2025 2:10 PM IRRIGATION EQUIPMENT REMOVER) Only the most recent of2 resultswithin the time period is included. TROPONIN I, HIGH SENSITIVITY- PHIPPS <3 <=14 ng/L 01/15/2025 3:18 PM IRRIGATION EQUIPMENT REMOVER [facility] Comment: High-sensitivity troponin I results are reported in ng/L making the result appear to be 1,000 times higher than the contemporary troponin I value which is reported in ng/ml. Results from [facility]. Blood Venipuncture / Unknown 01/15/2025 2:10 PM IRRIGATION EQUIPMENT REMOVER 01/15/2025 2:47 PM IRRIGATION EQUIPMENT REMOVER us Alejandro Simeon DO CHEMISTRY ORDERABLES Fi nal Result [facility] [address] [place] [address] * XR CHEST SINGLE VIEW PORTABLE (01/15/2025 11:30 AM IRRIGATION EQUIPMENT REMOVER) Anatomical Region Laterality Modality Chest N/A Digital Radiogra phy 01/15/2025 12:0 0 PM IRRIGATION EQUIPMENT REMOVER Impressions 01/15/2025 12:03 PM IRRIGATION EQUIPMENT REMOVER IMPRESSION: No radiographic evidence of an acute cardiopulmonary abnormality. Narrative 01/15/2025 12:03 PM IRRIGATION EQUIPMENT REMOVER EXAM DESCRIPTION: XR CHEST SINGLE VIEW PORTABLE REASON FOR STUDY: sob chest pain, dizziness, headache x 1 day. Hx. asthma TECHNIQUE: Single radiographic view of the chest. COMPARISON: 02/16/2024, 07/31/2023, 05/20/2023, 11/16/2020 FINDINGS: Suboptimal evaluation due to patient positioning, rotation, and/or technique. Findings made within these confines. LINES/TUBES: Overlying ECG leads. LUNGS: No focal consolidation. No pneumothorax. No pleural effusion. HEART/MEDIASTINUM: Cardiomediastinal contours are within normal limits. BONES/SOFT TISSUES: No acute osseous abnormality. THIS IS AN ELECTRONICALLY VERIFIED FINAL REPORT 01/15/2025 12:00 PM - Electronically signed by Donny Gould M.D. NS: NS Report ID: [id number] Reading Location: [id number] Procedure Note Donny Gould MD - 01/15/2025 EXAM DESCRIPTION: XR CHEST SINGLE VIEW PORTABLE REASON FOR STUDY: sob chest pain, dizziness, headache x 1 day. Hx. asthma TECHNIQUE: Single radiographic view of the chest. COMPARISON: 02/16/2024, 07/31/2023, 05/20/2023, 11/16/2020 FINDINGS: Suboptimal evaluation due to patient positioning, rotation, and/or technique. Findings made within these confines. LINES/TUBES: Overlying ECG leads. LUNGS: No focal consolidation. No pneumothorax. No pleural effusion. HEART/MEDIASTINUM: Cardiomediastinal contours are within normal limits. BONES/SOFT TISSUES: No acute osseous abnormality. THIS IS AN ELECTRONICALLY VERIFIED FINAL REPORT 01/15/2025 12:00 PM - Electronically signed by Donny Gould M.D. NS: NS Report ID: [id number] Reading Location: [place] [address] IMPRESSION: No radiographic evidence of an acute cardiopulmonary abnormality. us Alejandro Simeon DO IMG DIAGNOSTIC ORDERABL ES Final Result * RSV,SARS-COV-2,INFLUENZA A&B BY PCR (01/15/2025 11:20 AM IRRIGATION EQUIPMENT REMOVER) FLU A Negative Negative, Error 01/15/2025 12:49 PM IRRIGATION EQUIPMENT REMOVER [facility] FLU B Negative Negative 01/15/2025 12:49 PM IRRIGATION EQUIPMENT REMOVER [facility] RESP SYNC VIRUS Negative Negative 12:49 PM IRRIGATION EQUIPMENT REMOVER [facility] SARSCOV2 NOT DETECTED (Reference Range for this test is Not Detected) 01/15/2025 12:49 PM IRRIGATION EQUIPMENT REMOVER [facility] Comment:This test was perfor med by a Reverse Predatory Game Hunter PCR Method. Swab NASOPHARYNGEAL STRUCTURE / Unknown Non-Phlebotomy Collection / Unknown 01/15/2025 11:20 AM IRRIGATION EQUIPMENT REMOVER 01/15/2025 11:44 AM IRRIGATION EQUIPMENT REMOVER us Alejandro Simeon DO MICROBIOLOGY - GENERAL ORDERABLES Final Result [facility] [address] [place] [address] * Gold Top Tube (01/15/2025 10:55 AM IRRIGATION EQUIPMENT REMOVER) Blood No Phlebotomy Charged / Unknown 01/15/2025 10:55 AM IRRIGATION EQUIPMENT REMOVER 01/15/2025 11:05 AM IRRIGATION EQUIPMENT REMOVER us Alejandro Simeon DO CHEMISTRY ORDERABLES Fi nal Result [facility] [address] [place] [address] * Blue Top Tube (01/15/2025 10:55 AM IRRIGATION EQUIPMENT REMOVER) Blood No Phlebotomy Charged / Unknown 01/15/2025 10:55 AM IRRIGATION EQUIPMENT REMOVER 01/15/2025 11:05 AM IRRIGATION EQUIPMENT REMOVER us Alejandro Simeon DO HEMATOLOGY ORDERABLES F inal Result Performing Organization Address City/[facility]/ZIP Co de Phone Number [facility] [address] [place] [address] * CBC with Auto Differential (01/15/2025 10:55 AM IRRIGATION EQUIPMENT REMOVER) WBC 7.64 4.00 - 12.00 10(3)/mcL 01/15/2025 11:08 AM IRRIGATION EQUIPMENT REMOVER [facility] RBC 5.22 3.80 - 5.30 10(6)/mcL 01/15/2025 11:08 AM [facility] HEMOGLOBIN (HGB) 15.1 12.0 - 15.8 g/dL 01/15/2025 11:08 AM [facility] HEMATOCRIT (HCT) 44.4 36.0 - 47.0 % 01/15/2025 11:08 AM IRRIGATION EQUIPMENT REMOVER [facility] MCV 85.1 82.0 - 96.0 fL 01/15/2025 11:08 AM IRRIGATION EQUIPMENT REMOVER [facility] MCH 28.9 26.0 - 34.0 pg 01/15/2025 11:08 AM IRRIGATION EQUIPMENT REMOVER [facility] MCHC 34.0 31.0 - 36.0 g/dL 01/15/2025 11:08 AM IRRIGATION EQUIPMENT REMOVER [facility] PLATELET COUNT 260 140 - 440 10(3)/mcL 01/15/2025 11:08 AM [facility] RDW 12.0 11.8 - 15.5 % 01/15/2025 11:08 AM [facility] MPV 10.6 9.7 - 12.4 fL 01/15/2025 11:08 AM [facility] NEUTROPHILS 53.7 47.0 - 73.0 % 01/15/2025 11:08 AM [facility] LYMPHOCYTES 32.5 18.0 - 42.0 % 01/15/2025 11:08 AM [facility] MONOCYTES 11.0 4.0 - 12.0 % 01/15/2025 11:08 AM [facility] EOSINOPHILS 2.4 0.0 - 5.0 % 01/15/2025 11:08 AM [facility] BASOPHILS 0.4 0.0 - 1.0 % 01/15/2025 11:08 AM [facility] ABSOLUTE NEUTROPHILS 4.11 1.60 - 7.70 10(3)/[facility] 01/15/2025 11:08 AM [facility] ABSOLUTE LYMPHOCYTES 2.48 1.30 - 3.20 10(3)/[facility] 01/15/2025 11:08 AM [facility] ABSOLUTE MONOCYTES 0.84 0.20 - 1.00 10(3)/[facility] 01/15/2025 11:08 AM [facility] ABSOLUTE EOSINOPHIL 0.18 0.00 - 0.40 10(3)/[facility] 01/15/2025 11:08 AM [facility] ABSOLUTE BASOPHILS 0.03 0.00 - 0.10 10(3)/[facility] 01/15/2025 11:08 AM [facility] NRBC PER 100 WBC 0 01/15/20 11:08 AM [facility] Blood Venipuncture / Unknown 01/15/2025 10:55 AM IRRIGATION EQUIPMENT REMOVER 01/15/2025 11:03 AM IRRIGATION EQUIPMENT REMOVER us Alejandro Simeon DO HEMATOLOGY ORDERABLES F inal Result [facility] [address] [place] [address] * (ABNORMAL) CMP (Comprehensive Metabolic Panel) (01/15/2025 10:55 AM IRRIGATION EQUIPMENT REMOVER) SODIUM 139 136 - 145 mmol/L 01/15/2025 11:34 AM [facility] POTASSIUM 3.9 3.5 - 5.1 mmol/L 01/15/2025 11:34 AM [facility] CHLORIDE 101 98 - 107 mmol/L 01/15/2025 11:34 AM [facility] CO2, VENOUS 25 22 - 30 mmol/L 01/15/2025 11:34 AM [facility] ANION GAP 16.9 <18.0 mmol/L 01/15/2025 11:34 AM [facility] GLUCOSE 335(H) 70 - 99 mg/dL 01/15/2025 11:34 AM [facility] BUN 15 10 - 20 mg/dL 01/15/2025 11:34 AM [facility] CREATININE, BLOOD 0.89 0.60 - 1.00 mg/dL 01/15/2025 11:34 AM [facility] BUN/CREATININE RATIO 17 12 - 20 ratio 01/15/2025 11:34 AM [facility] TOTAL PROTEIN 7.7 6.0 - 8.0 g/dL 01/15/2025 11:34 AM [facility] ALBUMIN 4.3 3.5 - 5.0 g/dL 01/15/2025 11:34 AM [facility] A/G RATIO 1.3 1.0 - 2.2 01/15/2025 11:34 AM [facility] CALCIUM 9.7 8.7 - 10.5 mg/dL 01/15/2025 11:34 AM [facility] T BILI 0.3 0.2 - 1.2 mg/dL 01/15/2025 11:34 AM IRRIGATION EQUIPMENT REMOVER [facility] SGOT (AST) 29 <43 U/L 01/15/2025 11:34 AM IRRIGATION EQUIPMENT REMOVER [facility] SGPT (ALT) 35 <56 U/L 01/15/2025 11:34 AM IRRIGATION EQUIPMENT REMOVER [facility] ALKALINE PHOSPHATASE 115 40 - 150 U/L 01/15/2025 11:34 AM IRRIGATION EQUIPMENT REMOVER [facility] GFR, ESTIMATED >60 >=60 01/15/2025 11:34 AM [facility] Comment: Creatinine Clearance is the preferred criteria for selecting drug dose adjustments in renally impaired patients. The GFR is provided as additional pertinent clinical information. GFR is reported in mL/min/1.73 sq m. Calculation based on the Chronic Kidney Disease Epidemiology Collaboration (CKD- EPI) equation refit without adjustment for race. GFR, EST. >60 >=60 11:34 AM IRRIGATION EQUIPMENT REMOVER [facility] GFR, EST. NONAFRICAN >60 >=60 01/15/2025 11:34 AM IRRIGATION EQUIPMENT REMOVER [facility] Blood Venipuncture / Unknown 01/15/2025 10:55 AM IRRIGATION EQUIPMENT REMOVER 01/15/2025 11:03 AM IRRIGATION EQUIPMENT REMOVER us Alejandro Simeon DO CHEMISTRY ORDERABLES Fi nal Result [facility] [address] [place] [address] * EKG 12 LEAD (01/15/2025 10:52 AM IRRIGATION EQUIPMENT REMOVER) Ventricular Rate 99 BPM EXTERNAL EKG Atrial Rate 99 BPM EXTERNAL EKG P-R Interval 152 ms EXTERNAL EKG QRS Duration 78 ms EXTERNAL EKG Q-T Duration 350 ms EXTERNAL EKG QTC CALCULATION 449 ms EXTERNAL EKG P Bennet 43 degrees EXTERNAL EKG R Bennet -13 degrees EXTERNAL EKG T Bennet 49 degrees EXTERNAL EKG 01/15/2025 10:5 2 AM IRRIGATION EQUIPMENT REMOVER Impressions EXTERNAL EKG - 01/16/2025 11:05 PM IRRIGATION EQUIPMENT REMOVER Normal sinus rhythm POOR R-WAVE PROGRESSION Nonspecific ST and T wave abnormality Abnormal ECG When compared with ECG of 30-OCT-2024 13:07, No significant change was found Confirmed by Stephanie Arellano ([id number]) on 01/16/2025 11:05:21 PM Narrative Procedure Note Stephanie Arellano MD - 01/16/2025 IMPRESSION: Normal sinus rhythm POOR R-WAVE PROGRESSION Nonspecific ST and T wave abnormality Abnormal ECG When compared with ECG of 30-OCT-2024 13:07, No significant change was found Confirmed by Stephanie Arellano ([id number]) on 01/16/2025 11:05:21 PM us Alejandro Simeon DO IMG ECG ORDERABLES Kaykay l Result EXTERNAL EKG * EKG SCAN (01/15/2025 12:00 AM IRRIGATION EQUIPMENT REMOVER) 01/15/2025 us Provider Scan IMG ECG ORDERABLES Final Result RESULTING AGENCY * (ABNORMAL) Hemoglobin A1C (10/30/2024 1:21 PM IRRIGATION EQUIPMENT REMOVER) HGB-A1C 13.1(H) 4.0 - 6.0 % 10/30/2024 2:18 PM IRRIGATION EQUIPMENT REMOVER [facility] Est Average Glucose 329.3 mg/dL 10/30/2024 2:18 PM IRRIGATION EQUIPMENT REMOVER [facility] Blood Venipuncture / Unknown 10/30/2024 1:21 PM IRRIGATION EQUIPMENT REMOVER 10/30/2024 1:44 PM IRRIGATION EQUIPMENT REMOVER Narrative [facility] - 10/30/2024 2:18 PM IRRIGATION EQUIPMENT REMOVER HEMOGLOBIN A1C: DIABETIC PATIENTS: WELL-CONTROLLED: 6.2 - 7.0 INTERMEDIATE WELL-CONTROLLED: 7.0 - 9.0 POORLY-CONTROLLED: >9.0 us Mikaela Tang APRN, MARCO CHEMISTRY ORDERABLES Final Result Performing Organization Address City/[facility]/ZIP Co de Phone Number [facility] [address] [place] [address] * Hepatitis Panel Acute (AHP) (11/07/2020 4:30 AM IRRIGATION EQUIPMENT REMOVER) HEPATITIS A IGM ANTIBODY NON DETECTED NON DETECTED [facility] [id number] 11/07/2020 2:40 PM IRRIGATION EQUIPMENT REMOVER [facility] Comment: IGM Antibodies to HAV not detected. Does not exclude early acute or recovered HAV infection. HEP B CORE AB (IGM) NON DETECTED NON DETECTED [facility] [id number] A 11/07/2020 2:40 PM IRRIGATION EQUIPMENT REMOVER [facility] Comment:IGM anti-HBC not det ected. Does not exclude the possibility of exposure to or infection with HBV. HEPATITIS B SURFACE ANTIGEN NON DETECTED NON DETECTED [place] [id number] B 11/07/2020 2:40 PM IRRIGATION EQUIPMENT REMOVER [facility] Comment:A nonreactive test r esult does not exclude the possibility of exposure to or infection with Hepatitis B virus. A nonreactive test result in individuals with prior exposure to hepatitis B may be due to antigen levels below the detection limit of this assay or lack of antigen reactivity to the antibodies in this assay. hepatitis C antibody 0.32 <1 S/CO [facility] [id number] 11/07/2020 2:40 PM IRRIGATION EQUIPMENT REMOVER [facility] Comment: Signal/Cutoff ratio < 0.79 is Nondetected Signal/Cutoff ratio 0.80-0.99 is Grayzone Signal/Cutoff ratio > 0.99 is Detected Supplemental assays are recommended if signal/cutoff ratio is >/=1.00. Signal/cutoff ratio result >/= 5.00 is 97% predictive of positivity for recombinant immunoblot assay (RIBA) and will be reported to the [place] Department of Public Health as required. Blood Venipuncture / Unknown 11/07/2020 4:30 AM IRRIGATION EQUIPMENT REMOVER 11/07/2020 4:45 AM IRRIGATION EQUIPMENT REMOVER us Wellington Lujan MD HEMATOLOGY ORDERABLES Final R esult [facility] [address] [place] [address], from Last 3 Months or Most Recently Relevant to Health Maintenance Insurance MEDICAID [employer] [facility] Advance Directives * Full Code (Latest Code Status on File) Date Activated Date Inactivated Comments 10/30/2024 3:29 PM CPR-Full Treat ment: FULL ARREST: Attempt Resuscitation/CPR wit intubation and mechanical ventilation. PRE-ARREST: Use entire range of life support measures to stabilize the patient. * Full Code Date Activated Date Inactivated Comments 04/27/2023 2:50 AM 04/28/2023 4:58 PM CPR-Full Treat ment: FULL ARREST: Attempt Resuscitation/CPR wit intubation and mechanical ventilation. PRE-ARREST: Use entire range of life support measures to stabilize the patient. * Full Code Date Activated Date Inactivated Comments 11/06/2020 1:13 AM 11/17/2020 9:34 PM CPR-Full T reatment: FULL ARREST: Attempt Resuscitation/CPR wit intubation and mechanical ventilation. PRE-ARREST: Use entire range of life support measures to stabilize the patient. Care Teams Battery Parts Assembler Relationship Specialty Start Date End Date Jose Beverly MD [address] [place] [address] PCP - General Family Medicine 05/02/16
--- OUTSIDE RECORDS SUMMARY | 2025-02-24 12:48 | XMS_ITS | Encounter Summary ---
Author Organization [facility] Address [facility] [place] [address] Care Team Providers Care Operations Lieutenant Name Role Phone Jose Beverly MD Primary Care Provider Brad Riojas MD Unavailable [phone] Kortney Coronado NP Unavailable [phone] Encounter Details Date Type Department Care Team (Late st Contact Info) Description 02/10/2018 Abstract [facility] CONVERSION [address] [place] [address] , Generic Conversion, Social History Tobacco Use Types Packs/Day Years Used Date Smoking Tobacco: Never Assessed Comments Unknown Sex and Gender Information Value Date Recorded Sex Assigned at Female 01/14/2025 12:08 PM TANKMAN Legal Sex Female 9:38 PM TANKMAN Gender Identity Not on file Sexual Orientation [...] 03/13/2024 9:19 PM CDT Respiratory Rule-Out 02/23/2025 02/23/202530/2 025 11:00 AM CDT documented as of this encounter Care Teams Operations Lieutenant Relationship Specialty Start Date End Date Jose Beverly MD [address] [place] [phone] PCP - General FAMILY PRACTICE 01/11/19 Brad Riojas MD [address] [place] [phone] Vascular/Translator VASCULAR SURGERY 12/26/23 01/31/25 Kortney Coronado NP [address] [place] [phone] Nurse Practitioner Nurse Practitioner Family 03/27/24 documented as of this encounter
--- OUTSIDE RECORDS SUMMARY | 2025-02-24 12:48 | XMS_ITS | Encounter Summary ---
Author Organization [facility] Address [address] [place] [address] Care Team Providers Care Pan Shover Name Role Phone Jose Beverly MD Primary Care Provider Kortney Coronado PETROLEUM SAMPLER Unavailable [phone] Reason for Visit * Reason Comments Chest Pain Shortness Of Breath Encounter Details Date Type Department Care Team (Late st Contact Info) Description 02/23/2025 9:47 AM CDT - 02/23/2025 1:18 PM CDT Emergency [facility] Emergency [address] [place] [address] Alex Duarte MD [address] [place] [id number] Chest Pain; Shortness Of Breath Discharge Disposition: Home or Self Care (Routine Discharge) Social History Tobacco Use Types Packs/Day Years [...] Sex Assigned at Female 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 Gender Identity Not on file Sexual Orientation Not on file documented as of this encounter Last Filed Vital Signs Vital Sign Reading Time Taken Comments Blood Pressure 125/68 02/23/2025 12:15 PM CDT Pulse 81 02/23/2025 12:15 PM CDT Temperature 36.6 C (97.9 F) 02/23/2025 9:46 AM CDT Respiratory Rate 19 02/23/2025 12:1 5 PM CDT Oxygen Saturation 96% 02/23/2025 12: 24 PM CDT WALKING PULSE OX Inhaled Oxygen Concentration - - Weight 87.9 kg (193 lb 12.6 oz) 02/23/2025 9:46 AM CDT Height 167.6 cm (5' 6 ) 02/23/2025 9:46 AM CDT Body Mass Index 31.28 02/23/2025 9:46 AM CDT documented in this encounter Discharge Instructions * Discharge Instructions* Alex Duarte MD - 02/23/2025 11:16 AM CDT Follow with your doctor or doctor referral call for appointment to be seen as soon as possible. If prescribed meds, fill them and take as directed. return if change or worsen in condition or if new symptoms develop. We want to provide the highest level of care and hope you are happy with the service you receive. You will be mailed a patient satisfaction survey and hope that you will return it indicating that everything was very good: all 5's Thank you for selecting [facility] Emergency Department * Attachments The following attachments cannot be sent through Care Everywhere. * Chest Pain That Is Not Caused by the Heart Discharge Instructions (Kinyarwanda) documented in this encounter Medications at Time of Discharge albuterol (PROVENTIL) (2.5 MG/3ML) 0.083% nebulizer solution Take 3 mLs (2.5 mg total) by nebulization 4 (four) times daily. 11/09/2022 aspirin EC (ECOTRIN) 81 MG tablet Take 1 tablet (81 mg total) by mouth daily. 90 tablet 3 11/11/2024 atorvastatin (LIPITOR) 80 MG tablet Take 1 tablet (80 mg total) by mouth daily. cilostazol (PLETAL) 100 MG tablet Take 1 tablet (100 mg total) by mouth 2 (two) times daily. 180 tablet 3 11/12/2024 conjugated estrogens (PREMARIN) 0.625 MG/GM vaginal cream Place vaginally daily. fenofibrate micronized (LOFIBRA) 134 MG capsule Take 1 capsule (134 mg total) by mouth daily. 01/09/2023 furosemide (LASIX) 20 MG tablet 1 tablet (20 mg total) 2 (two) times daily. 12/14/2021 gabapentin (NEURONTIN) 400 MG capsule Take 1 capsule (400 mg total) by mouth 3 (three) times daily. hydroCHLOROthiaz rikki (MICROZIDE) 12.5 MG capsule Take 1 capsule (12.5 mg total) by mouth every morning. 12/23/2022 insulin lispro 100 UNIT/ML injection (VIAL) Inject 50 Units into the skin 3 (three) times daily before meals. meloxicam (MOBIC) 15 MG tablet Take 1 tablet (15 mg total) by mouth daily as needed for Pain. 05/02/2024 metFORMIN ER, OSM, (FORTAMET) 500 MG 24 hr tablet Take 2 tablets (1,000 mg total) by mouth 2 (two) times daily with meals. montelukast 10 MG tablet Take 1 tablet (10 mg total) by mouth nightly at bedtime. nystatin (MYCOSTATIN) powder Apply topically 4 (four) times daily. 30 g 04/02/2023 omeprazole (PRILOSEC) 40 MG capsule Take 2 capsules (80 mg total) by mouth daily. vitamin D2, ergocalciferol, (DRISDOL) 1.25 mg capsule Take 1 capsule (1.25 mg total) by mouth every 7 days. documented as of this encounter ED Notes * Carol Walsh MD - 02/23/2025 9:59 AM CDT Emergency Department Note Chief Complaint Chief Complaint Patient presents with Chest Pain Shortness Of Breath History of Present Illness Chest Pain Associated symptoms: cough and shortness of breath Associated symptoms: no abdominal pain, no dizziness, no fever, no headache, no nausea, no palpitations, no vomiting and no weakness Shortness Of Breath Associated symptoms include chest pain. Pertinent negatives include no abdominal pain, fever, headaches, rash, sore throat or vomiting. Shanta Bose is a 54-year-old female who presents to this ED with c/o of chest pain that started at 730 this morning. Pain is left-sided and dull wraps around the side to the back associated with shortness of breath. Patient states that she felt short of breath last night and had a dry cough. She has been afebrile. Patient mentions that the pain caused her to feel nauseous and have dry heaves this morning. Worse with deep inspiration. She also mentions worsening shortness of breath and coughing when lying flat last night. She denies any history of blood clots. No recent long distance travel, trauma, immobilization, surgery, or hospitalization. She is not on any estrogen containing medicines. She reports history of peripheral vascular disease in her right lower extremity and states that this leg has been swollen for about 3 months and she was told that there was not anything to do becausethe artery was too narrow and they could cause more damage. Medical History ALLERGIES: Review of patient's allergies indicates: Allergen Reactions Codeine Dizziness and Vomiting Latex Swelling Penicillins Swelling MEDICATIONS: Prior to Admission medications Medication Sig Start Date End Date Taking? Authorizing Provider albuterol (PROVENTIL) (2.5 MG/3ML) 0.083% nebulizer solution Take 3 mLs (2.5 mg total) by nebulization 4 (four) times daily. 11/09/22 Default History Genericprovider aspirin EC (ECOTRIN) 81 MG tablet Take 1 tablet (81 mg total) by mouth daily. 11/11/24 Brad Riojas MD atorvastatin (LIPITOR) 80 MG tablet Take 1 tablet (80 mg total) by mouth daily. Doc [facility] cilostazol (PLETAL) 100 MG tablet Take 1 tablet (100 mg total) by mouth 2 (two) times daily. 11/12/24 Brad Riojas MD conjugated estrogens (PREMARIN) 0.625 MG/GM vaginal cream Place vaginally daily. Default History Genericprovider fenofibrate micronized (LOFIBRA) 134 MG capsule Take 1 capsule (134 mg total) by mouth daily. 01/09/23 Default History Genericprovider furosemide (LASIX) 20 MG tablet 1 tablet (20 mg total) 2 (two) times daily. 12/14/21 Doc [facility] gabapentin (NEURONTIN) 400 MG capsule Take 1 capsule (400 mg total) by mouth 3 (three) times daily.Doc [facility] hydroCHLOROthiazide (MICROZIDE) 12.5 MG capsule Take 1 capsule (12.5 mg total) by mouth every morning. 12/23/22 Default History Genericprovider insulin lispro 100 UNIT/ML injection (VIAL) Inject 50 Units into the skin 3 (three) times daily before meals. Doc [facility] meloxicam (MOBIC) 15 MG tablet Take 1 tablet (15 mg total) by mouth daily as needed for Pain. 05/02/24 Default History Genericprovider metFORMIN ER, OSM, (FORTAMET) 500 MG 24 hr tablet Take 2 tablets (1,000 mg total) by mouth 2 (two) times daily with meals. Doc [facility] montelukast 10 MG tablet Take 1 tablet (10 mg total) by mouth nightly at bedtime. Doc [facility] nystatin (MYCOSTATIN) powder Apply topically 4 (four) times daily. 04/02/23 Brittany Jimenez, DO omeprazole (PRILOSEC) 40 MG capsule Take 2 capsules (80 mg total) by mouth daily. Doc [facility] vitamin D2, ergocalciferol, (DRISDOL) 1.25 mg capsule Take 1 capsule (1.25 mg total) by mouth every7 days. Default History Genericprovider PAST MEDICAL HISTORY: Past Medical History: Diagnosis Date Chest pain Claudication bilateral calves/feet Diabetes mellitus (CMS/HCC HHS/HCC) Esophageal reflux Hypercholesteremia Hypertension Liver disease Mixed hyperlipidemia Peripheral vascular disease Severe obstructive sleep apnea Thyroid enlarged PAST SURGICAL HISTORY: Past Surgical History: Procedure Laterality Date CARPAL TUNNEL RELEASE Bilateral SECTION x6 HC LAPARASCOPY W/CHOLECYSTECTOMY HYSTERECTOMY FAMILY HISTORY: Family History Problem Relation Name Age of Onset Stroke Mother Heart Disease Mother Cancer Mother Ovarian Cancer Mother 40 Heart Disease Father Ovarian Cancer Maternal Grandmother age unknown SOCIAL HISTORY: Social History Tobacco Use Smoking status: Never Smokeless tobacco: Never Vaping Use Vaping status: Never Used Substance Use Topics Alcohol use: Yes Comment: seldom Drug use: No Review of Systems Review of Systems Constitutional: Negative for chills and fever. HENT: Negative for congestion and sore throat. Eyes: Negative for pain and redness. Respiratory: Positive for cough and shortness of breath. Cardiovascular: Positive for chest pain. Negative for palpitations. Gastrointestinal: Negative for abdominal pain, diarrhea, nausea and vomiting. Genitourinary: Negative for dysuria and hematuria. Musculoskeletal: Negative for arthralgias and myalgias. Skin: Negative for rash. Neurological: Negative for dizziness, weakness and headaches. Psychiatric/Behavioral: Negative for agitation and hallucinations. Physical Exam Filed Vitals: 02/23/25 0946 02/23/25 1215 02/23/25 1224 BP: (!) 155/81 125/68 Pulse: 85 81 Resp: 16 19 Temp: 97.9 ??F (36.6 ??C) TempSrc: Oral SpO2: 94% 92% (S) 96% Weight: 87.9 kg (193 lb 12.6 oz) Height: 1.676 m (5' 6 ) Physical Exam Vitals and nursing note reviewed. Constitutional: Appearance: Normal appearance. She is not ill-appearing or diaphoretic. HENT: Head: Normocephalic and atraumatic. Nose: Nose normal. Mouth/Throat: Mouth: Mucous membranes are moist. Pharynx: Oropharynx is clear. Eyes: Extraocular Movements: Extraocular movements intact. Pupils: Pupils are equal, round, and reactive to light. Cardiovascular: Rate and Rhythm: Normal rate and regular rhythm. Pulses: Normal pulses. Pulmonary: Effort: Pulmonary effort is normal. Breath sounds: Normal breath sounds. No wheezing or rhonchi. Abdominal: General: Abdomen is flat. Bowel sounds are normal. Palpations: Abdomen is soft. Musculoskeletal: Cervical back: Normal range of motion and neck supple. Comments: Right lower extremity is mildly edematous and larger than left, non-pitting Skin: General: Skin is warm and dry. Capillary Refill: Capillary refill takes less than 2 seconds. Neurological: General: No focal deficit present. Mental Status: She is alert and oriented to person, place, and time. Psychiatric: Mood and Affect: Mood normal. Behavior: Behavior normal. Diagnostic Studies / Procedures Orders Placed This Encounter XR CHEST PORTABLE CBC W/DIFF AUTOMATED TROPONIN, QUANT D-DIMER, QUANTITATIVE BASIC METABOLIC PANEL PRO-BRAIN NATRIURETIC PEPTIDE TROPONIN, QUANT ED Cardiac Monitoring DISCONTD: normal saline 0.9 % flush 3-10 mL DISCONTD: normal saline 0.9 % flush 3-10 mL ondansetron (ZOFRAN) injection 4 mg fentaNYL (SUBLIMAZE) injection 50 mcg ECG 12 lead INFLUENZA A & B ELECTROCARDIOGRAMS: Results for orders placed or performed during the hospital encounter of 02/23/25 ECG 12 lead Narrative SJS-ED Test Date: 2025-02-23 Pat Name: SHANTA BOSE Department: 70 Room: EXAM 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7 27.0 - 31.0 PG MCHC 33.7 33.0 - 36.0 G/DL RDW 12.2 11.5 - 14.5 % PLT 189 150 - 350 x10'3/uL MPV 10.9 (H) 7.4 - 10.4 FL DIFFERENTIAL TYPE AUTOMATED DIFFERENTIAL SEG NEUTROPHILS 63.6 % LYMPHOCYTES 23.0 % MONOCYTES 10.7 % EOSINOPHILS 1.9 % BASOPHILS 0.4 % IMMATURE GRANS % 0.4 % ABS. NEUTROPHILS 4.35 1.60 - 8.30 x10'3/uL ABS. LYMPHOCYTES 1.57 0.80 - 4.70 x10'3/uL ABS. MONOCYTES 0.73 0.00 - 1.50 x10'3/uL ABS. EOSINOPHILS 0.13 0.00 - 0.40 x10'3/uL ABS. BASOPHILS 0.03 0.00 - 0.20 x10'3/uL ABS. IMMATURE GRANULOCYTES 0.03 0.00 - 0.03 x10'3/uL ABS. NUCLEATED RBC'S 0.00 0.00 - 0.01 x10'3/uL NRBC % 0.0 % TROPONIN, QUANT Result Value Ref Range TROPONIN I HIGH SENSITIVITY 7 0 - 53 ng/L D-DIMER, QUANTITATIVE Result Value Ref Range D-DIMER 327 0 - 500 ng[FEU]/mL EXCLUSION STATEMENT BASIC METABOLIC PANEL Result Value Ref Range SODIUM S/P/B 131 (L) 136 - 145 MMOL/L POTASSIUM S/P/B 4.1 3.5 - 5.1 MMOL/L CHLORIDE S/P/B 98 97 - 115 MMOL/L CO2 24.0 21.0 - 32.0 MMOL/L GLUCOSE 420 (H) 74 - 106 MG/DL BUN 15 7 - 18 MG/DL CREATININE S/P/B 0.73 0.55 - 1.02 MG/DL CALCIUM S/P/B 10.0 8.5 - 10.1 MG/DL ANION GAP 9.0 2.0 - 10.0 MMOL/L OSMOLALITY (CALC) 291 MOSM/KG GFR ESTIMATE >90 >90 ML/MIN/1.73 M2 GFR NOTES GFR REFERENCES: PRO-BRAIN NATRIURETIC PEPTIDE Result Value Ref Range PRO-B TYPE NATRIURETIC PEPTIDE 37 <125 PG/ML TROPONIN, QUANT Result Value Ref Range TROPONIN I HIGH SENSITIVITY 6 0 - 53 ng/L INFLUENZA A & B Specimen: NASOPHARYNGEAL SWAB Result Value Ref Range SPECIMEN TYPE (INFLUENZA) NASOPHARYNGEAL SWAB INFLUENZA A NEGATIVE NEGATIVE INFLUENZA B NEGATIVE NEGATIVE IMAGING STUDIES XR CHEST PORTABLE Final Result by User, [id number] (02/23 1025) [facility] [address] [place], [place] [address] Examination: XR CHEST PORTABLE Exam time: 02/23/2025 10:02 AM Clinical history: Chest pain and shortness of breath. Comparison: Prior studies were done September 2024. Technique: One view chest. Findings: Cardiac size is normal. Trachea is in the midline. In the lung parenchyma there are no acute infiltrates. There is no pneumothorax or effusion. Osseous structures are intact. IMPRESSION: 1) No acute or focal infiltrates. Ordered By: CAROL WALSH Interpreted By: Gee Orourke MD, 02/23/2025 10:23 AM ED Course / Medical Decision Making MDM Number of Diagnoses or Management Options Non-cardiac chest pain Diagnosis management comments: Patient is a 54-year-old female history of diabetes, hypertension, hyper lipidemia, and peripheral vascular disease who presents today for concerns of left-sided chest pain with associated shortness of breath. She also reports dry cough since yesterday. Pain was worsewith deep inspiration. She does have unilateral leg swelling of the right lower extremity which hasbeen ongoing for the past 3 months. She has been previously evaluated for this and told that it wasassociated with peripheral arterial disease and there was a narrowing in the artery that was not amenable to stenting or other intervention. Will obtain CBC, BMP, troponin x 2, D-dimer, EKG, and chest x-ray. Amount and/or Complexity of Data Reviewed Clinical lab tests: reviewed Tests in the radiology section of CPT??: reviewed Tests in the medicine section of CPT??: reviewed ED Course as of 02/23/25 1704 Sun Feb 23, 2025 1005 54-year-old female presents emergency department complaint of left-sided chest pain which started approximately 7 this morning constant dull 8 out of 10 in severity no exacerbating relieving features wrapping to axilla and left scapula. Associated with shortness of breath. Reports nausea denies vomiting or diarrhea. The patient denies any fevers she has a mild dry cough. The patient does have left lower extremity swelling which is chronic status post arterial surgery. Concerns would be forthromboembolic disorder. Will do serial troponins to exclude acute coronary syndrome. At this time most likely will not be needing held for stress tomorrow. [NB] 1018 Twelve-lead EKG by my independent review and interpretation shows normal sinus rhythm at a rate of 80 without ectopy no evidence of acute ischemia or infarction. [NB] 1037 Cxr neg [NB] 1109 INFLUENZA A: NEGATIVE [NB] 1109 CREATININE S/P/B: 0.73 [NB] 1109 D-DIMER: 327 [NB] 1112 PRO-B TYPE NATRIURETIC PEPTIDE: 37 [NB] 1115 Updated patient with results and need for repeat troponin. She is resting comfortably nausea is better pain is better. [NB] 1300 TROPONIN I HIGH SENSITIVITY: 6 [NB] ED Course User Index [NB] Alex Duarte MD Medications ondansetron (ZOFRAN) injection 4 mg (4 mg Intravenous Given 02/23/25 1020) fentaNYL (SUBLIMAZE) injection 50 mcg (50 mcg Intravenous Given 02/23/25 1020) Clinical Impression Non-cardiac chest pain (Primary) Discharge Medication List as of 02/23/2025 1:05 PM Disposition: Discharge Follow Up: Jose Beverly MD [address] [place] [phone] Carol Walsh MD 02/23/2025 Cosigned by Alex Duarte MD at 02/23/2025 5:46 PM CDT Associated attestation - Alex Duarte MD - 02/23/2025 5:46 PM CDT Teaching Physician - I, ALEX DUARTE MD, performed a History and Physical examination of the patient and discussed the management with the resident. I reviewed the Resident's note and agree withthe findings and plan of care, except as I have documented. Teaching physician supervised resident in person. * Sandi Navarrete RN - 02/23/2025 9:37 AM CDT PT to ED via POV with c/o SOB, cough and chest pain since yesterday. She reports that the pain is worse with deep breathing. She has not taken any OTC meds. documented in this encounter Plan of Treatment Not on file documented as of this encounter Procedures Procedure Name Priority Date/Time Associated Diagnosis Comments TROPONIN, QUANT TIMED 02/23/2025 12:15 PM CDT INFLUENZA A & B Nurse Collected Priority 02/23/2025 10:23 AM CDT PRO-BRAIN NATRIURETIC PEPTIDE STAT 02/23/2025 10:16 AM CDT BASIC METABOLIC PANEL STAT 02/23/2025 10:16 AM CDT D-DIMER, QUANTITATIVE STAT 02/23/2025 10:16 AM CDT CBC W/DIFF AUTOMATED STAT 02/23/2025 10:16 AM CDT TROPONIN, QUANT STAT 02/23/2025 10:16 AM CDT ECG 12-LEAD STAT 02/23/2025 10:15 AM CDT XR CHEST PORTABLE STAT 02/23/2025 10: 05 AM CDT documented in this encounter Results * TROPONIN, QUANT (02/23/2025 12:15 PM CDT) [facility] TROPONIN I HIGH SENSITIVITY 6 0 - 53 ng/L 02/23/2025 12:54 PM CDT [facility] 02/23/2025 12:1 5 PM CDT Alex Duarte MD LABORATORY Final Result [facility] [address] [place] [id number], [id number] * INFLUENZA A & B (02/23/2025 10:23 AM CDT) Pathologist [facility] SPECIMEN TYPE (INFLUENZA) NASOPHARYNGEAL SWAB 02/23/2025 10:24 AM CDT [facility] INFLUENZA A NEGATIVE NEGATIVE 02/23/2025 10:59 AM CDT [facility] Comment:NEGATIVE FOR INFLUEN ZA A VIRUS ANTIGEN INFLUENZA B NEGATIVE NEGATIVE 02/23/2025 10:59 AM CDT [facility] Comment:NEGATIVE FOR INFLUEN ZA B VIRUS ANTIGEN NASOPHARYNGEAL SWAB / Unknown 02/23/2025 10:23 AM CDT us Carol Walsh MD MICROBIOLOGY - GENERAL ORDERABL ES Final Result Performing Organization Address [facility] de Phone Number [facility] [address] [place] [address], [id number] * PRO-BRAIN NATRIURETIC PEPTIDE (02/23/2025 10:16 AM CDT) PRO-B TYPE NATRIURETIC PEPTIDE 37 <125 PG/ML 02/23/2025 11:11 AM CDT [facility] Comment: AGE INDEPENDENT: <300 PG/ML HAS A 99% NEGATIVE PREDICTIVE VALUE FOR EXCLUDING ACUTE CHF <50 YEARS: >450 PG/ML IS CONSISTENT WITH ACUTE CHF 50-75 YEARS: >900 PG/ML IS CONSISTENT WITH ACUTE CHF >75 YEARS: >1800 PG/ML IS CONSISTENT WITH ACUTE CHF IN PATIENTS WITH RENAL INSUFFICIENCY (GFR <60), >1200 PG/ML YIELDS A DIAGNOSTIC SENSITIVITY AND SPECIFICITY OF 89% AND 72% FOR ACUTE CHF. 02/23/2025 10:1 6 AM CDT us Carol Walsh MD LABORATORY Final Result Performing Organization Address [facility] de Phone Number [facility] [address] [place] [address], [place] [phone] * (ABNORMAL) BASIC METABOLIC PANEL (02/23/2025 10:16 AM CDT) SODIUM S/P/B 131(L) 136 - 145 MMOL/L 02/23/2025 11:07 AM CDT [facility] POTASSIUM S/P/B 4.1 3.5 - 5.1 MMOL/L 02/23/2025 11:07 AM CDT [facility] Comment:SLIGHT HEMOLYSIS, RE SULT MAY BE AFFECTED. CHLORIDE S/P/B 98 97 - 115 MMOL/L 02/23/2025 11:07 AM CDT [facility] CO2 24.0 21.0 - 32.0 MMOL/L 02/23/2025 11:07 AM T [facility] GLUCOSE 420(H) 74 - 106 MG/DL 02/23/2025 11:07 AM T [facility] BUN 15 7 - 18 MG/DL 02/23/2025 11:07 AM T [facility] CREATININE S/P/B 0.73 0.55 - 1.02 MG/DL 02/23/2025 11:07 AM T [facility] CALCIUM S/P/B 10.0 8.5 - 10.1 MG/DL 02/23/2025 11:07 AM T [facility] ANION GAP 9.0 2.0 - 10.0 MMOL/L 02/23/2025 11:07 AM T [facility] OSMOLALITY (CALC) 291 MOSM/KG 025 11:07 AM [facility] Comment:REFERENCE RANGE NOT ESTABLISHED GFR ESTIMATE >90 >90 ML/MIN/1. 73 M2 02/23/2025 11:07 AM T [facility] GFR NOTES GFR REFERENCE S: 02/23/2025 11:07 AM [facility] Comment: THE ESTIMATED GFR IS CALCULATED USING THE 2020 CKD-EPI EQUATION. THE FOLLOWING CATEGORIES FOR GRADING RENAL FUNCTION ARE RECOMMENDED BY THE INTERNATIONAL SOCIETY OF NEPHROLOGY (KDIGO 2012 CLINICAL PRACTICE GUIDELINE). G1,NORMAL OR HIGH: >89 ml/min/1.73 m2 G2,MILDLY DECREASED: 60-89 ml/min/1.73 m2 G3A,MILDLY TO MODERATELY DECREASED: 45-59 ml/min/1.73 m2 G3B,MODERATELY TO SEVERELY DECREASED: 30-44 ml/min/1.73 m2 G4,SEVERELY DECREASED: 15-29 ml/min/1.73 m2 G5,KIDNEY FAILURE: <15 ml/min/1.73 m2 02/23/2025 10:1 6 AM CDT Carol Walsh MD LABORATORY Final Result Performing Organization Address [facility] Co de Phone Number [facility] [address] [place] [address], [place] [phone] * D-DIMER, QUANTITATIVE (02/23/2025 10:16 AM CDT) Pathologist [facility] D-DIMER 327 0 - 500 ng{FEU}/mL 02/23/2025 11:03 AM CDT [facility] EXCLUSION STATEMENT 02/23/2025 11:03 AM CDT [facility] Comment: D-Dimer values less than or equal to 500 ng/mL FEU have a negative predictive value of >95% for exclusion of deep vein thrombosis and pulmonary embolism. In patients over 50 (who tend to have higher normal baseline D-Dimer values), recent studies suggest age-adjusted D-Dimer cutoff values (calculated as: age [years] x 10 ng/mL) result in equivalent outcomes and no additional false negative findings. 02/23/2025 10:1 6 AM CDT Carol Walsh MD LABORATORY Final Result Performing Organization Address [facility] de Phone Number [facility] [address] [place] [address], [place] [phone] * TROPONIN, QUANT (02/23/2025 10:16 AM CDT) [facility] TROPONIN I HIGH SENSITIVITY 7 0 - 53 ng/L 02/23/2025 11:11 AM CDT [facility] 02/23/2025 10:1 6 AM CDT Carol Walsh MD LABORATORY Final Result Performing Organization Address [facility] Co de Phone Number [facility] [address] [place] [address], [place] [phone] * (ABNORMAL) CBC W/DIFF AUTOMATED (02/23/2025 10:16 AM CDT) WBC 6.84 4.00 - 10.80 x10'3/uL 02/23/2025 10:43 AM CDT [facility] RBC 5.35 4.10 - 5.40 x10'6/uL 02/23/2025 10:43 AM CDT [facility] HGB 14.8 12.0 - 16.0 G/DL 02/23/2025 10:43 AM CDT [facility] HCT 43.9 36.0 - 47.0 % 02/23/2025 10:43 AM CDT [facility] MCV 82.1 78.0 - 100.0 FL 02/23/2025 10:43 AM CDT [facility] MCH 27.7 27.0 - 31.0 PG 02/23/2025 10:43 AM CDT [facility] MCHC 33.7 33.0 - 36.0 G/DL 02/23/2025 10:43 AM CDT [facility] RDW 12.2 11.5 - 14.5 % 02/23/2025 10:43 AM CDT [facility] PLT 189 150 - 350 x10'3/uL 02/23/2025 10:43 AM CDT [facility] MPV 10.9(H) 7.4 - 10.4 FL 02/23/2025 10:43 AM CDT [facility] DIFFERENTIAL TYPE AUTOMATED DIFFERENTIAL 02/23/2025 10:43 AM CDT [facility] SEG NEUTROPHILS 63.6 % 10:43 AM CDT [facility] LYMPHOCYTES 23.0 % 02/23/2025 10:43 AM CDT [facility] MONOCYTES 10.7 % 02/23/2025 10:43 AM CDT [facility] EOSINOPHILS 1.9 % 02/23/2025 10:43 AM CDT [facility] BASOPHILS 0.4 % 02/23/2025 10:43 AM CDT [facility] IMMATURE GRANS % 0.4 % 02/24/20 10:43 AM CDT [facility] ABS. NEUTROPHILS 4.35 1.60 - 8.30 x10'3/uL 02/23/2025 10:43 AM CDT [facility] ABS. LYMPHOCYTES 1.57 0.80 - 4.70 x10'3/uL 02/23/2025 10:43 AM CDT [facility] ABS. MONOCYTES 0.73 0.00 - 1.50 x10'3/uL 02/23/2025 10:43 AM CDT [facility] ABS. EOSINOPHILS 0.13 0.00 - 0.40 x10'3/uL 02/23/2025 10:43 AM CDT [facility] ABS. BASOPHILS 0.03 0.00 - 0.20 x10'3/uL 02/23/2025 10:43 AM CDT [facility] ABS. IMMATURE GRANULOCYTES 0.03 0.00 - 0.03 x10'3/uL 02/23/2025 10:43 AM CDT [facility] ABS. 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1970 Requested By: CAROL WALSH Order Number: [id number] Reading MD: Bora Hoffman Measurements Intervals Warren Rate: 82 P: 44 HI: 152 QRS: -7 QRSD: 85 T: 42 QT: 390 QTc: 458 Interpretive Statements SINUS RHYTHM POSSIBLE ANTERIOR MYOCARDIAL INFARCTION , PROBABLY OLD [30 ms Q WAVE IN V3/V4, OR R < 0.2 mV IN V4] Procedure Note Bora Hoffman MD - 02/23/2025 [facility] Test Date: 2025-02-23 Pat Name: SHANTA BOSE Department: 70 Room: EXAM QQ 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: Female 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1970 Requested By: CAROL WALSH Order Number: [id number] Reading MD: Bora Hoffman Measurements Intervals Warren Rate: 82 P: 44 HI: 152 QRS: -7 QRSD: 85 T: 42 QT: 390 QTc: 458 Interpretive Statements SINUS RHYTHM POSSIBLE ANTERIOR MYOCARDIAL INFARCTION , PROBABLY OLD [30 ms Q WAVE IN V3/V4, OR R < 0.2 mV IN V4] us Carol Walsh MD ECG ORDERABLES Final Result [facility] * XR CHEST PORTABLE (02/23/2025 10:05 AM CDT) Anatomical Region Laterality Modality Chest Radiographic Lorin ging 02/23/2025 10:2 3 AM CDT Impressions 02/23/2025 10:24 AM CDT IMPRESSION: 1) No acute or focal infiltrates. Ordered By: CAROL WALSH Interpreted By: Gee Orourke MD, 02/23/2025 10:23 AM Narrative 02/23/2025 10:24 AM CDT [facility] [address], [place] [address] Examination: XR CHEST PORTABLE Exam time: 02/23/2025 10:02 AM Clinical history: Chest pain and shortness of breath. Comparison: Prior studies were done September 2024. Technique: One view chest. Findings: Cardiac size is normal. Trachea is in the midline. In the lung parenchyma there are no acute infiltrates. There is no pneumothorax or effusion. Osseous structures are intact. Procedure Note Gee Orourke MD - 02/23/2025 [facility] [address], [place] [address] Examination: XR CHEST PORTABLE Exam time: 02/23/2025 10:02 AM Clinical history: Chest pain and shortness of breath. Comparison: Prior studies were done September 2024. Technique: One view chest. Findings: Cardiac size is normal. Trachea is in the midline. In the lungparenchyma there are no acute infiltrates. There is no pneumothorax oreffusion. Osseous structures are intact. IMPRESSION: 1) No acute or focal infiltrates. Ordered By: CAROL WALSH Interpreted By: Gee Orourke MD, 02/23/2025 10:23 AM Carol Walsh MD GENERAL IMAGING Final Result documented in this encounter Visit Diagnoses Diagnosis Non-cardiac chest pain- Primary Other chest pain documented in this encounter Administered Medications Inactive Administered Medications - up to 3 most recent administrations Medication Order MAR Action Action Date Dose Rate Site fentaNYL (SUBLIMAZE) injection 50 mcg 50 mcg, Intravenous, Once, 1 dose, On 02/23/25 at 1015, If intravenous (IV) route has been ordered, give over 1-2 minutes. Given 02/23/2025 10:20 AM CDT 50 mcg normal saline 0.9 % flush 3-10 mL 3-10 mL, Intravenous, Every 8 hours, First dose on 02/23/25 at 1000, Until Discontinued Given 02/23/2025 10:23 AM CDT 5 mLs normal saline 0.9 % flush 3-10 mL 3-10 mL, Intravenous, As needed, Line care, Starting on 02/23/25 at 0959, Until 02/23/25 at 1518 ondansetron (ZOFRAN) injection 4 mg 4 mg, Intravenous, Once, 1 dose, On 02/23/25 at 1015, IV push over 2-5 minutes. Given 02/23/2025 10:20 AM CDT 4 mg documented in this encounter Active and Recently Administered Medications Times are shown in CDT. Scheduled Medication Order 02/21/2025 02/22/2025 02/23/2025 fentaNYL (SUBLIMAZE) injection 50 mcg (COMPLETED) 50 mcg, Intravenous, Once, 1 dose, On 02/23/25 at 1015, If intravenous (IV) route has been ordered, give over 1-2 minutes. 1020 (Given - Provid er: Moise Marks RN) normal saline 0.9 % flush 3-10 mL 3-10 mL, Intravenous, Every 8 hours, First dose on 02/23/25 at 1000, Until Discontinued 1023 (Given - Provid er: Moise Marks RN) ondansetron (ZOFRAN) injection 4 mg (COMPLETED) 4 mg, Intravenous, Once, 1 dose, On 02/23/25 at 1015, IV push over 2-5 minutes. 1020 (Given - Provid er: Moise Marks RN) PRN Medication Order 02/21/2025 02/22/2025 02/23/2025 normal saline 0.9 % flush 3-10 mL 3-10 mL, Intravenous, As needed, Line care, Starting on 02/23/25 at 0959, Until Mon02/23/25 at 1518 documented in this encounter Additional Health Concerns Infection Onset Date Last Indicated Resolved Time Respiratory Rule-Out 02/23/2025 02/23/2025 025 11:00 AM CDT documented as of this encounter Care Teams Pan Shover Relationship Specialty Start Date End Date Jose Beverly MD [address] [place] [address] PCP - General FAMILY PRACTICE 01/11/19 Kortney Coronado NP [address] [place] [address] Nurse Practitioner Nurse Practitioner Family 03/27/24 documented as of this encounter
--- OUTSIDE RECORDS SUMMARY | 2025-02-24 12:48 | XMS_ITS | Clinical Summary ---
Author Organization [facility] Address [facility] [place] [address] Care Team Providers Care Center Specialists Name Role Phone Jose Delarosa MD Primary Care Provider Kortney Coronado DOOR CLOSER Unavailable [phone] Allergies Active Allergy Reactions Criticality Noted Date Comments Codeine Dizziness,Vomiting 01/11/2019 Latex Swelling 01/11/2019 Penicillins Swelling 01/11/2019 Medications atorvastatin (LIPITOR) 80 MG tablet Take 1 tablet (80 mg total) by mouth daily. Active omeprazole (PRILOSEC) 40 MG capsule Take 2 capsules (80 mg total) by mouth daily. Active montelukast 10 MG tablet Take 1 tablet (10 mg total) by mouth nightly at bedtime. Active insulin lispro 100 UNIT/ML injection (VIAL) Inject 50 Units into the skin 3 (three) times daily before meals. Active gabapentin (NEURONTIN) 400 MG capsule Take 1 capsule (400 mg total) by mouth 3 (three) times daily. Active furosemide (LASIX) 20 MG tablet 1 tablet (20 mg total) 2 (two) times daily. 12/14/19 22 Active metFORMIN ER, OSM, (FORTAMET) 500 MG 24 hr tablet Take 2 tablets (1,000 mg total) by mouth 2 (two) times daily with meals. Active albuterol (PROVENTIL) (2.5 MG/3ML) 0.083% nebulizer solution Take 3 mLs (2.5 mg total) by nebulization 4 (four) times daily. 11/09/20 22 Active fenofibrate micronized (LOFIBRA) 134 MG capsule Take 1 capsule (134 mg total) by mouth daily. 01/09/20 23 Active hydroCHLOROthi azide (MICROZIDE) 12.5 MG capsule Take 1 capsule (12.5 mg total) by mouth every morning. 12/23/19 23 Active vitamin D2, ergocalciferol , (DRISDOL) 1.25 mg capsule Take 1 capsule (1.25 mg total) by mouth every 7 days. Active nystatin (MYCOSTATIN) powder Apply topically 4 (four) times daily. 30 g 04/02/20 23 Active conjugated estrogens (PREMARIN) 0.625 MG/GM vaginal cream Place vaginally daily. Active meloxicam (MOBIC) 15 MG tablet Take 1 tablet (15 mg total) by mouth daily as needed for Pain. 05/02/20 24 Active aspirin EC (ECOTRIN) 81 MG tablet Take 1 tablet (81 mg total) by mouth daily. 90 tablet 3 11/11/20 24 Active cilostazol (PLETAL) 100 MG tablet Take 1 tablet (100 mg total) by mouth 2 (two) times daily. 180 tablet 3 11/12/20 24 Active metoprolol tartrate (LOPRESSOR) 50 MG tablet Please take 2 tablets (100mg) 2 hours before your test. Please bring third tablet with you. 3 tablet 01/22/20 25 025 Discontinu ed(Other- Please enter comment in Notes field) Active Problems Problem Noted Date Diagnosed Date Other chest pain 10/30/2024 Sprain of left ankle, unspec ified ligament, initial encounter 06/20/2024 De Quervain's tenosynovitis, left 06/20/2024 PVD (peripheral vascular disease) 01/09/2024 Encounters Date Type Department Care Team Description 02/23/2025 9:47 AM CDT - 02/23/2025 1:18 PM CDT Emergency [place] [address] [place] [address] Alex Duarte MD Chest Pain; Shortness Of Breath Discharge Disposition: Home or Self Care (Routine Discharge) 02/23/2025 Travel 02/17/2025 Telephone [facility] [address] [place] [address] Kortney Coronado NP Fax 02/10/2025 Telephone [facility] [address] [facility] [address] [place] [address] Apple Middleton PA Referral (Chronic RIGHT ankle pain) 02/06/2025 12:46 PM CDT - 02/06/2025 11:59 PM CDT Hospital Encounter [facility] [address] [place] [address] Belén Goode MD Discharge Disposition: Home or Self Care (Routine Discharge) 02/06/2025 Travel 01/22/2025 9:45 AM REAL ESTATE UNDERWRITER [facility] [address] [place] [phone] Belén Goode MD Follow Up 01/22/2025 7:41 AM REAL ESTATE UNDERWRITER - 01/22/2025 11:59 PM REAL ESTATE UNDERWRITER Hospital Encounter [facility] [address] [place] [address] Zainab Huerta NP Discharge Disposition: Home or Self Care (Routine Discharge) 01/22/2025 Travel 01/17/2025 [facility]phone [facility] [address] [place] [address] Belén Goode MD Appointment Request 01/14/2025 12:09 PM REAL ESTATE UNDERWRITER - 01/14/2025 11:59 PM REAL ESTATE UNDERWRITER Hospital Encounter [facility] [address] [facility] [place] [address] Jose Delarosa MD Discharge Disposition: Home or Self Care (Routine Discharge) 01/14/2025 Travel from Last 3 Months Immunizations Name Administration Dates Next Due Td (TDVAX) 12/19/2020 Family History Medical History Relation Comments Heart Disease Father Ovarian Cancer Maternal Grandmother age unknown Cancer Mother Heart Disease Mother Ovarian Cancer Mother Stroke Mother Relation Status Comments Father Maternal Grandmother Mother Alive Social History Tobacco Use Types Packs/Day Years Used Date Smoking Tobacco: Never Smokeless Tobacco: Never Tobacco Cessation:Counseling Given: Not Answered Alcohol Use Standard Drinks/Week Comments Yes 0 (1 standard drink = 0.6 oz pur e alcohol) seldom AUDIT-C Answer Date Recorded Frequency of Alcohol Consumption Never 01/11/2019 Average Number of Drinks Not on file 019 Frequency of Binge Drinking Not on file 12/28 Comments No Sex and Gender Information Value Date Recorded Sex Assigned at Female 01/14/2025 12:08 PM REAL ESTATE UNDERWRITER Legal Sex Female 9:38 PM REAL ESTATE UNDERWRITER Gender Identity Not on file Sexual Orientation Not on file Last Filed [...] Mass Index 31.28 02/23/2025 9:46 AM CDT Plan of Treatment Health Maintenance Due Date Last Done Comments ASCVD Statin 1970 Colorectal Cancer Screening Colonoscopy (10 Years) 1968 Kidney Health Evaluation 1970 Annual Physical 1971 Pneumococcal Vaccine: Pediatrics (0 to 5 Years) and At-Risk Patients (6 to 64 Years) (1 of 2 - PCV) 1974 Diabetes: Retinopathy Eye Exam 1986 Hepatitis B Vaccines (1 of 3 - 19+ 3-dose series) 1987 Zoster Vaccines (1 of 2) 2018 ASCVD LDL 01/31/2019 01/31/2018, 06/21/2017 DTaP, Tdap and Td Vaccines (1 - Tdap) 12/20/2020 12/19/2020 Lipid Panel 11/13/2021 11/13/2020, 10/27, 01/31/2018, Additional history exists COVID-19 Vaccine ( season) 2024 Hemoglobin A1C 01/28/2025 10/30/2024, 06/0 11/2022, 11/05/2020, Additional history exists Mammogram Screening 01/14/2027 01/14/2025, 12/15/2023, 01/19/2022, Additional history exists Hepatitis C Completed 11/07/2020 Meningococcal B Vaccine Aged Out No l onger eligible based on patient's age to complete this topic Meningococcal Vaccine Aged Out No dayami romeo eligible based on patient's age to complete this topic RSV Immunizations Under 20 Months Aged Out No longer eligible based on patient's age to complete this topic Procedures Procedure Name Priority Date/Time Associated Diagnosis Comments TROPONIN, QUANT TIMED 02/23/2025 12:15 PM CDT INFLUENZA A & B Nurse Collected Priority 02/23/2025 10:23 AM CDT PRO-BRAIN NATRIURETIC PEPTIDE STAT 02/23/2025 10:16 AM CDT BASIC METABOLIC PANEL STAT 02/23/2025 10:16 AM CDT D-DIMER, QUANTITATIVE STAT 02/23/2025 10:16 AM CDT TROPONIN, QUANT STAT 02/23/2025 10:16 AM CDT CBC W/DIFF AUTOMATED STAT 02/23/2025 10:16 AM CDT ECG 12-LEAD STAT 02/23/2025 10:15 AM CDT XR CHEST PORTABLE STAT 02/23/2025 10: 05 AM CDT CTA CORONARY INCIDENTAL FINDINGS Routine 02/06/2025 1:29 PM CDT Other chest pain PVD (peripheral vascular disease) CTA AORTO ILIOFEM RUNOFF Routine 01/22/2025 9:00 AM REAL ESTATE UNDERWRITER Leg pain, bilateral CREATININE STAT 01/22/2025 8:00 AM REAL ESTATE UNDERWRITER MG SCREENING W DOMENICA AMAN DIGI Routine 01/14/2025 12:45 PM REAL ESTATE UNDERWRITER Visit for screening mammogram LIPID PANEL Routine 01/31/2018 11:23 AM REAL ESTATE UNDERWRITER HEMOGLOBIN, GLYCOSYLATED Routine 01/31/2018 11:23 AM REAL ESTATE UNDERWRITER from Last 3 Months or Most Recently Relevant to Health Maintenance Results * TROPONIN, QUANT (02/23/2025 12:15 PM CDT) Only the most recent of2 resultswithin the time period is included. TROPONIN I HIGH SENSITIVITY 6 0 - 53 ng/L 02/23/2025 12:54 PM CDT [facility] 02/23/2025 12:1 5 PM CDT us Alex Duarte MD LABORATORY Final Result Performing Organization Address City/[facility]/ZIP Co de Phone Number [facility] [address] [place] [address], [phone] * INFLUENZA A & B (02/23/2025 10:23 AM CDT) Pathologist [facility] SPECIMEN TYPE (INFLUENZA) NASOPHARYNGEAL SWAB 02/23/2025 10:24 AM CDT [facility] INFLUENZA A NEGATIVE NEGATIVE 02/23/2025 10:59 AM CDT [facility] Comment:NEGATIVE FOR INFLUEN ZA A VIRUS ANTIGEN INFLUENZA B NEGATIVE NEGATIVE 02/23/2025 10:59 AM CDT [facility] Comment:NEGATIVE FOR INFLUEN ZA B VIRUS ANTIGEN NASOPHARYNGEAL SWAB / Unknown 02/23/2025 10:23 AM CDT Carol Walsh MD MICROBIOLOGY - GENERAL ORDERABL ES Final Result [facility] [address] [place] [address], [id number] * PRO-BRAIN NATRIURETIC PEPTIDE (02/23/2025 10:16 AM CDT) PRO-B TYPE NATRIURETIC PEPTIDE 37 <125 PG/ML 02/23/2025 11:11 AM CDT [facility] Comment: AGE INDEPENDENT: <300 PG/ML HAS [...] ACUTE CHF. 02/23/2025 10:1 6 AM CDT Carol Walsh MD LABORATORY Final Result [facility] [address] [place] [address], [id number] * (ABNORMAL) BASIC METABOLIC PANEL (02/23/2025 10:16 AM CDT) SODIUM S/P/B 131(L) 136 - 145 MMOL/L 02/23/2025 11:07 AM CDT [facility] POTASSIUM S/P/B 4.1 3.5 - 5.1 MMOL/L 02/23/2025 11:07 AM CDT [facility] Comment:SLIGHT HEMOLYSIS, RE SULT MAY BE AFFECTED. CHLORIDE S/P/B 98 97 - 115 MMOL/L 02/23/2025 11:07 AM CDT [facility] CO2 24.0 21.0 - 32.0 MMOL/L 02/23/2025 11:07 AM CDT [facility] GLUCOSE 420(H) 74 - 106 MG/DL 02/23/2025 11:07 AM CDT [facility] BUN 15 7 - 18 MG/DL 02/23/2025 11:07 AM CDT [facility] CREATININE S/P/B 0.73 0.55 - 1.02 MG/DL 02/23/2025 11:07 AM CDT [facility] CALCIUM S/P/B 10.0 8.5 - 10.1 MG/DL 02/23/2025 11:07 AM CDT [facility] ANION GAP 9.0 2.0 - 10.0 MMOL/L 02/23/2025 11:07 AM CDT [facility] OSMOLALITY (CALC) 291 MOSM/KG 025 11:07 AM T [facility] Comment:REFERENCE RANGE NOT ESTABLISHED GFR ESTIMATE >90 >90 ML/MIN/1. 73 M2 02/23/2025 11:07 AM CDT [facility] GFR NOTES GFR REFERENCE S: 02/23/2025 11:07 AM T [facility] Comment: THE ESTIMATED GFR IS CALCULATED [...] CDT Carol Walsh MD LABORATORY Final Result [facility] [address] [place] [address], [id number] * D-DIMER, QUANTITATIVE (02/23/2025 10:16 AM CDT) [facility] D-DIMER 327 0 - 500 ng{FEU}/mL 02/23/2025 11:03 AM CDT [facility] EXCLUSION STATEMENT 02/23/2025 11:03 AM CDT [facility] Comment: D-Dimer values less than or [...] negative findings. 02/23/2025 10:1 6 AM CDT us Carol Walsh MD LABORATORY Final Result [facility] [address] [place] [address], [phone] * (ABNORMAL) CBC W/DIFF AUTOMATED (02/23/2025 10:16 AM CDT) [facility] WBC 6.84 4.00 - 10.80 x10'3/uL 02/23/2025 10:43 AM CDT [facility] RBC 5.35 4.10 - 5.40 x10'6/uL 02/23/2025 10:43 AM CDT [facility] HGB 14.8 12.0 - 16.0 G/DL 02/23/2025 10:43 AM CDT [facility] HCT 43.9 36.0 - 47.0 % 02/23/2025 10:43 AM CDT [facility] MCV 82.1 78.0 - 100.0 FL 02/23/2025 10:43 AM CDT [facility] MCH 27.7 27.0 - 31.0 PG 02/23/2025 10:43 AM CDT [facility] MCHC 33.7 33.0 - 36.0 G/DL 02/23/2025 10:43 AM CDT [facility] RDW 12.2 11.5 - 14.5 % 02/23/2025 10:43 AM CDT [facility] PLT 189 150 - 350 x10'3/uL 02/23/2025 10:43 AM CDT [facility] MPV 10.9(H) 7.4 - 10.4 FL 02/23/2025 10:43 AM CDT [facility] DIFFERENTIAL TYPE AUTOMATED DIFFERENTIAL 02/23/2025 10:43 AM CDT [facility] SEG NEUTROPHILS 63.6 % 10:43 AM CDT [facility] LYMPHOCYTES 23.0 % 02/23/2025 10:43 AM CDT [facility] MONOCYTES 10.7 % 02/23/2025 10:43 AM CDT [facility] EOSINOPHILS 1.9 % 02/23/2025 10:43 AM CDT [facility] BASOPHILS 0.4 % 02/23/2025 10:43 AM CDT [facility] IMMATURE GRANS % 0.4 % 02/24/20 10:43 AM CDT [facility] ABS. NEUTROPHILS 4.35 1.60 - 8.30 x10'3/uL 02/23/2025 10:43 AM CDT [facility] ABS. LYMPHOCYTES 1.57 0.80 - 4.70 x10'3/uL 02/23/2025 10:43 AM CDT [facility] ABS. MONOCYTES 0.73 0.00 - 1.50 x10'3/uL 02/23/2025 10:43 AM CDT [facility] ABS. EOSINOPHILS 0.13 0.00 - 0.40 x10'3/uL 02/23/2025 10:43 AM CDT [facility] ABS. BASOPHILS 0.03 0.00 - 0.20 x10'3/uL 02/23/2025 10:43 AM CDT [facility] ABS. IMMATURE GRANULOCYTES 0.03 0.00 - 0.03 x10'3/uL 02/23/2025 10:43 AM CDT [facility] ABS. NUCLEATED RBC'S 0.00 0.00 - 0.01 x10'3/uL 02/23/2025 10:43 AM CDT [facility] NRBC % 0.0 % 02/23/2025 10:43 AM CDT [facility] 02/23/2025 10:1 6 AM CDT Carol Walsh MD LABORATORY Final Result Performing Organization Address City/State/[facility] Co de Phone Number [facility] [address] [place] [phone], [id number] * ECG 12 lead (02/23/2025 10:15 AM CDT) 02/23/2025 10:1 5 AM CDT Narrative [facility] - 02/23/2025 1:25 PM CDT [facility] Test Date: 2025-02-23 Pat Name: SHANTA BOSE Department: 70 Room: EXAM Gender: Female American History Teacher: : 1970 Requested By: CAROL WALSH Order Number: [id number] Reading MD: Bora Hoffman Measurements Intervals [place] Rate: 82 P: 44 CT: 152 QRS: -7 QRSD: 85 T: 42 QT: 390 QTc: 458 Interpretive Statements SINUS RHYTHM POSSIBLE ANTERIOR MYOCARDIAL INFARCTION , PROBABLY OLD [30 ms Q WAVE IN V3/V4, OR R < 0.2 mV IN V4] Procedure Note Bora Hoffman MD - 02/23/2025 [facility] Test Date: 2025-02-23 Pat Name: SHANTA BOSE Department: 70 Room: EXAM QQ Gender: Female American History Teacher: : 1970 Requested By: CAROL WALSH Order Number: [id number] Reading MD: Bora Hoffman Measurements Intervals [place] Rate: 82 P: 44 CT: 152 QRS: -7 QRSD: 85 T: 42 QT: 390 QTc: 458 Interpretive Statements SINUS RHYTHM POSSIBLE ANTERIOR MYOCARDIAL INFARCTION , PROBABLY OLD [30 ms Q WAVE IN V3/V4, OR R < 0.2 mV IN V4] us Carol Walsh MD ECG ORDERABLES Final Result [facility] * XR CHEST PORTABLE (02/23/2025 10:05 AM CDT) Anatomical Region Laterality Modality Chest Radiographic Lorin ging 02/23/2025 10:2 3 AM CDT Impressions 02/23/2025 10:24 AM CDT IMPRESSION: 1) No acute or focal infiltrates. Ordered By: CAROL WALSH Interpreted By: Gee Orourke MD, 02/23/2025 10:23 AM Narrative 02/23/2025 10:24 AM CDT [address] [address] Examination: XR CHEST PORTABLE Exam time: 02/23/2025 [...] Procedure Note Gee Orourke MD - 02/23/[address] [address] Examination: XR CHEST PORTABLE Exam time: 02/23/2025 [...] Carol Walsh MD GENERAL IMAGING Final Result * CTA CORONARY INCIDENTAL FINDINGS (02/06/2025 1:29 PM CDT) Anatomical Region Laterality Modality Chest Computed Tomogra phy 02/07/2025 10:1 7 AM CDT Impressions 02/07/2025 1:26 PM CDT IMPRESSION: 1. Cardiac findings interpreted by equine pharmacology technician. 2. Sub-4 mm lung nodules. Follow-up CT chest in one year. Ordered By: BELÉN GOODE Interpreted By: Sanford Vee MD, 02/07/2025 10:17 AM Narrative 02/07/2025 1:[address] [facility] [address] [place], [place] [address] EXAMINATION: CARDIAC COMPUTED TOMOGRAPHY ANGIOGRAM, ROUTINE CORONARY CTA. LUNG OVER READ. DATE: 02/06/2025 HISTORY: 54-year old female Other chest pain, Peripheral vascular disease, unspecified. Chest pain COMPARISON: CT chest on 09/27/2024 TECHNIQUE: Multidetector computerized tomography coronary angiogram was obtained using retrospective ECG gating after the administration of 80 mL of Isovue-370 intravenous contrast at 5 mL/sec with 50 mL saline push according to coronary CTA protocol. ECG tube modulation was used to reduce the radiation exposure. A dose lowering technique was used for this procedure, which may include, but is not limited to, dose reduction technique, automated exposure control, the use of iterative reconstruction, and ALARA (As Low As Reasonably Achievable) / Image Gently techniques. Medications: Administered by cardiology service. Vital signs: Recorded by cardiology service. Procedure Complications/Allergic reactions: None. Coronary CT angiogram quality: Determined by cardiology service. FINDINGS: CORONARY ARTERY ANGIOGRAM AND OTHER CARDIAC FINDINGS: Interpreted by equine pharmacology technician. EXTRACARDIAC FINDINGS: Sub-4 mm lung nodules. Dependent atelectasis. The visualized thoracic aorta is normal. Visualized pulmonary artery appears normal. Small hiatal hernia. Spondylosis. Procedure Note Sanford Vee MD - 02/07/2025 [place] [address] EXAMINATION: CARDIAC COMPUTED TOMOGRAPHY ANGIOGRAM, ROUTINE CORONARY CTA.LUNG OVER READ. DATE: 02/06/2025 HISTORY: 54-year old female Other chest pain, Peripheral vasculardisease, unspecified. Chest pain COMPARISON: CT chest on 09/27/2024 TECHNIQUE: Multidetector computerized tomography coronary angiogram wasobtained using retrospective ECG gating after the administration of 80 mLof Isovue-370 intravenous contrast at 5 mL/sec with 50 mL saline pushaccording to coronary CTA protocol. ECG tube modulation was used to reducethe radiation exposure. A dose lowering technique was used for thisprocedure, which may include, but is not limited to, dose reductiontechnique, automated exposure control, the use of iterativereconstruction, and ALARA (As Low As Reasonably Achievable) / Image Gentlytechniques. Medications: Administered by cardiology service. Vital signs: Recorded by cardiology service. Procedure Complications/Allergic reactions: None. Coronary CT angiogram quality: Determined by cardiology service. FINDINGS: CORONARY ARTERY ANGIOGRAM AND OTHER CARDIAC FINDINGS: Interpreted bycardiologist. EXTRACARDIAC FINDINGS: Sub-4 mm lung nodules. Dependent atelectasis. The visualized thoracicaorta is normal. Visualized pulmonary artery appears normal. Small hiatalhernia. Spondylosis. IMPRESSION: 1. Cardiac findings interpreted by equine pharmacology technician. 2. Sub-4 mm lung nodules. Follow-up CT chest in one year. Ordered By: BELÉN GOODE Interpreted By: Sanford Vee MD, 02/07/2025 10:17 AM us Belén Goode MD CT Final Result * CTA AORTO ILIOFEM RUNOFF (01/22/2025 9:00 AM REAL ESTATE UNDERWRITER) Anatomical Region Laterality Modality Abdomen, Pelvis, Extremity Compu tal Tomography 01/22/2025 6:25 PM REAL ESTATE UNDERWRITER Impressions 01/22/2025 6:35 PM REAL ESTATE UNDERWRITER IMPRESSION: 1. There is no evidence for abdominal aortic aneurysm or significant stenosis. There are no inflow issues. There is a two-vessel runoff on the right via the anterior tibial artery and peroneal artery. There is a three-vessel runoff on the left. 2. Hepatosplenomegaly. Referred By: ZAINAB HUERTA Interpreted By: Humberto Alvarado MD, 01/22/2025 6:25 PM Narrative 01/22/2025 6:35 PM REAL ESTATE UNDERWRITER [place] [address] [facility] [place] [address] Examination: CTA AORTO ILIOFEM RUNOFF Exam time: 01/22/2025 8:45 AM INDICATION: Right lower leg pain TECHNIQUE: After administration of 120 mL Isovue-370 IV contrast via the right antecubital fossa, arterial phase multidetector CT images were obtained from the lung bases to the feet. Multiplanar and MIP images were created and reviewed. In addition, 3D image processing was performed on a separate workstation by a technologist, with images sent to PACS for review. A dose lowering technique was used for this procedure, which may include, but is not limited to, dose reduction techniques, automated exposure control, the use of a iterative reconstruction, and ALARA (as low as reasonably achievable)/image gently techniques. COMPARISON: CT abdomen and pelvis 04/10/2024 FINDINGS: Vascular findings: Abdominal aorta: There is mild atherosclerosis of the abdominal aorta without aneurysm or significant stenosis. The celiac artery, superior mesenteric artery, and inferior mesenteric artery are patent. There are patent single renal arteries. The left gastric artery has a separate origin from the abdominal aorta, normal variant. Pelvis: The common and external iliac arteries are patent. Right lower extremity: The common femoral artery, deep femoral artery, and superficial femoral artery are patent. The popliteal artery is patent. There is a two-vessel runoff via the anterior tibial artery and peroneal artery. Left lower extremity: The common femoral artery, deep femoral artery, and superficial femoral artery are patent. The popliteal artery is patent. Three-vessel runoff. Nonvascular findings: There is mild dependent atelectasis in the visualized lungs. The liver is enlarged, measuring about 23 cm in length. The spleen is enlarged, measuring about 16.4 cm in length. There is no cholelithiasis. No peripancreatic fluid. No adrenal mass. No hydronephrosis. There is symmetric renal enhancement. No ureteral calculus. There is no calculus in the urinary bladder. Hysterectomy. No bowel obstruction or free intraperitoneal air. There is no lymphadenopathy. No acute osseous abnormality. Procedure Note Humberto Alvarado MD - 01/22/[address] [place] [address] Examination: CTA AORTO ILIOFEM RUNOFF Exam time: 01/22/2025 8:45 AM INDICATION: Right lower leg pain TECHNIQUE: After administration of 120 mL Isovue-370 IV contrast via theright antecubital fossa, arterial phase multidetector CT images wereobtained from the lung bases to the feet. Multiplanar and MIP images werecreated and reviewed. In addition, 3D image processing was performed on MDdat[employer]or workstation by a technologist, with images sent to PACS forreview. A dose lowering technique was used for this procedure, which mayinclude, but is not limited to, dose reduction techniques, automatedexposure control, the use of a iterative reconstruction, and ALARA (as lowas reasonably achievable)/image gently techniques. COMPARISON: CT abdomen and pelvis 04/10/2024 FINDINGS: Vascular findings: Abdominal aorta: There is mild atherosclerosis of the abdominal aortawithout aneurysm or significant stenosis. The celiac artery, superiormesenteric artery, and inferior mesenteric artery are patent. There arepatent single renal arteries. The left gastric artery has a separateorigin from the abdominal aorta, normal variant. Pelvis: The common and external iliac arteries are patent. Right lower extremity: The common femoral artery, deep femoral artery, andsuperficial femoral artery are patent. The popliteal artery is patent.There is a two-vessel runoff via the anterior tibial artery and peronealartery. Left lower extremity: The common femoral artery, deep femoral artery, andsuperficial femoral artery are patent. The popliteal artery is patent.Three-vessel runoff. Nonvascular findings: There is mild dependent atelectasis in thevisualized lungs. The liver is enlarged, measuring about 23 cm in length.The spleen is enlarged, measuring about 16.4 cm in length. There is nocholelithiasis. No peripancreatic fluid. No adrenal mass. Nohydronephrosis. There is symmetric renal enhancement. No ureteralcalculus. There is no calculus in the urinary bladder. Hysterectomy. Nobowel obstruction or free intraperitoneal air. There is nolymphadenopathy. No acute osseous abnormality. IMPRESSION: 1. There is no evidence for abdominal aortic aneurysm or significantstenosis. There are no inflow issues. There is a two-vessel runoff onthe right via the anterior tibial artery and peroneal artery. There is athree-vessel runoff on the left. 2. Hepatosplenomegaly. Referred By: ZAINAB HUERTA Interpreted By: Humberto Alvarado MD, 01/22/2025 6:25 PM us Zainab Huerta DOOR CLOSER CT Fin al Result * CREATININE (01/22/2025 8:00 AM REAL ESTATE UNDERWRITER) CREATININE S/P/B 0.60 0.55 - 1.02 MG/DL 01/22/2025 8:46 AM REAL ESTATE UNDERWRITER [facility] GFR ESTIMATE >90 >89 ML/MIN/1. 73 M2 01/22/2025 8:46 AM REAL ESTATE UNDERWRITER [facility] GFR NOTES GFR REFERENCE S: 01/22/2025 8:46 AM REAL ESTATE UNDERWRITER [facility] Comment: THE ESTIMATED GFR IS CALCULATED [...] ml/min/1.73 m2 G5,KIDNEY FAILURE: <15 ml/min/1.73 m2 01/22/2025 8:00 AM REAL ESTATE UNDERWRITER Zainab Kortneychristine Huerta DOOR [facility] Fin al Result [facility] [address] [place] [id number], * MG SCREENING W DOMENICA AMAN DIGI (01/14/2025 12:45 PM REAL ESTATE UNDERWRITER) Anatomical Region Laterality Modality Breast Bilateral Mammography 01/14/2025 4:10 PM REAL ESTATE UNDERWRITER Impressions 01/14/2025 4:10 PM REAL ESTATE UNDERWRITER IMPRESSION: No suspicious change since the previous exams. Recommendation: 1: Routine Screening Bilateral in 1 Year Assessment: ACR BI-RADS 2 - BENIGN FINDING(S) Ordered By: JOSE DELAROSA Interpreted By: Reji Gao MD, 01/14/2025 4:10 PM Narrative 01/14/2025 4:10 PM REAL ESTATE UNDERWRITER [place] [id number] Examination: Digital screening mammogram with CAD. Clinical history: Asymptomatic patient presents for routine screening. Comparison: 12/15/2023, 01/19/2022, 08/11/2020, 11/02/2017. Technique: Bilateral digital mammograms. The exam was interpreted with the use of a computer-aided detection (CAD) system. Additional 3-D tomosynthesis images were acquired. Tissue density: There are scattered areas of fibroglandular density. Findings: The breast tissue contains scattered fibroglandular densities. Benign-appearing calcification noted. No suspicious mass, microcalcification or area of architectural distortion can be identified. From a mammographic standpoint, routine followup in one year would seem adequate. us Jose Delarosa MD MAMMO Final Resul t * (ABNORMAL) HEMOGLOBIN, GLYCOSYLATED (01/31/2018 11:23 AM REAL ESTATE UNDERWRITER) HGB A1C 10.0(H) 4.5 - 6.0 % 01/31/2018 11:55 AM [facility] Comment: ADA GUIDELINES 23859.7 TO 6.4% INCREASED RISK OF DIABETES> OR = 6.5% CONSISTENT WITH DIABETES ESTIMATED AVG GLUCOSE 240(H) 70 - 99 MG/DL 01/31/2018 11:55 AM [facility] 01/31/2018 11:2 3 AM REAL ESTATE UNDERWRITER 01/31/2018 11:25 AM REAL ESTATE UNDERWRITER us Generic Conversion Md [facility] Final R esult [facility] [address] [place] [address], * (ABNORMAL) LIPID PANEL (01/31/2018 11:23 AM REAL ESTATE UNDERWRITER) CHOLESTEROL 211(H) <200 MG/DL 01/31/2018 12:01 PM [facility] TRIGLYCERIDES 190(H) <150 MG/DL 01/31/2018 12:01 PM [facility] HDL 48 >40 MG/DL 01/31/2018 12:01 PM [facility] LDL (CALCULATED) 125 <130 MG/DL 02/01/20 18 12:01 PM [facility] Comment: AN LDL OF <100 IS OPTIMAL; HOWEVER, ELEVATED IS DEFINED >130.BY ATP III GUIDELINES, LDL GOALS ARE DEPENDENT UPON THE PATIENT'S OTHER RISK FACTORS. CHOL/HDL RATIO 4.4 0.0 - 5.0 01/31/2018 12:01 PM REAL ESTATE UNDERWRITER [facility] 01/31/2018 11:2 3 AM REAL ESTATE UNDERWRITER 01/31/2018 11:25 AM REAL ESTATE UNDERWRITER us Generic Conversion Md [facility] Final R esult [facility] [address] [place] [address], from Last 3 Months or Most Recently Relevant to Health Maintenance Insurance T Care Teams Center Specialists Relationship Specialty Start Date End Date Jose Delarosa MD [address] [place] [phone] PCP - General FAMILY PRACTICE 01/11/19 Kortney Coronado NP [address] [place] [phone] Nurse Practitioner Nurse Practitioner Family 03/27/24
--- OUTSIDE RECORDS SUMMARY | 2025-02-24 12:48 | XMS_ITS | Encounter Summary ---
Author Organization [facility] Address [address] [place] [id number] Care Team Providers Care Diesel Tractor Engine Mechanic Name Role Phone Jose Beverly MD Primary Care Provider Brad Riojas MD Unavailable [phone] oKrtney Coronado NP Unavailable [phone] Encounter Details Date Type Department Care Team (Late st Contact Info) Description 06/20/2024 Lagiart Message Enc [facility] [address] [place] [address] [phone] Apple Middleton PA [address] [place], [place] [phone] Visit Follow Up Social History Tobacco Use Types Packs/Day Years [...] Sex Assigned at Female 01/14/2025 12:08 PM RESISTOR INSPECTOR Legal Sex Female 9:38 PM RESISTOR INSPECTOR Gender Identity Not on file Sexual Orientation Not on file documented as of this encounter Plan of Treatment Not on file documented as of this encounter Visit Diagnoses Not on filedocumented in this encounter Additional Health Concerns Infection Onset Date Last Indicated Resolved Time Respiratory Rule-Out 02/23/2025 02/23/2025 025 11:00 AM CDT documented as of this encounter Care Teams Diesel Tractor Engine Mechanic Relationship Specialty Start Date End Date Jose Beverly MD [address] [place] [phone] PCP - General FAMILY PRACTICE 01/11/19 Brad Riojas MD [address] [place] [phone] Vascular/Commercial Agent VASCULAR SURGERY 12/26/23 01/31/25 Kortney Coronado NP [address] [place] [phone] Nurse Practitioner Nurse Practitioner Family 03/27/24 documented as of this encounter
[2025-02-24] MEDS: diphenhydrAMINE HCl INJ 50 MG/ML VIAL IV PUSH (12:55)
[2025-02-24] MEDS: METOCLOPRAMIDE HCL INJ 10 MG/2 ML VIAL IV PUSH (12:55)
[2025-02-24] MEDS: INSULIN REG 100 UNITS/100 ML 100 UNITS/100 ML BAG 8.75 UNITS IV CONT (12:59)
[2025-02-24 13:45] LABS: Glucose Point of Care 325 mg/dl (65-105)
[2025-02-24] MEDS: SODIUM CHLORIDE 0.9% IV 1,000 ML 150 ML IV CONT (13:54)
[2025-02-24 14:55] LABS: Glucose Point of Care 307 mg/dl (65-105)
[2025-02-24 15:55] LABS: Glucose Point of Care 331 mg/dl (65-105)
[2025-02-24 15:59] LABS: Appearance Urine Clear (Clear); Bilirubin Urine Negative (Negative); Blood Urine Negative (Negative); Color Urine Light Yellow (Yellow); Glucose Urine UA 3+ (Negative); Ketones Urine 3+ (Negative); Leukocyte Esterase Ur Negative LEU/UL (Negative); Nitrate Urine Negative (Negative); Urobilinogen Urine 0.2 mg/dL (0.2-1.0); pH Urine 5.5 (5.0-8.0)
[2025-02-24 16:25] LABS: Add Urine Microscopic? NO; Protein Urine Negative (Negative)
== END 2025-02-24 16:15 | disposition short-term general hospital (02) ==
PROVIDERS: Emergency Provider Emergency Medicine; PCP Family Medicine
DX: E11.10 Type 2 diabetes mellitus with ketoacidosis without coma (principal); E11.9 Type 2 diabetes mellitus without complications; I10 Essential (primary) hypertension; E78.5 Hyperlipidemia, unspecified; Z20.822 Contact with and (suspected) exposure to COVID-19
CPT/HCPCS: 36415; 74177; 80053; 81003; 82010; 82803; 82948; 83036; 83690; 83735; 84100; 85025; 87637; 96361; 96374; 96375; 99285; J1200; J1815; J2405; J2765; J7030; Q9967

== ENCOUNTER 2025-03-04 05:17 | Emergency (ER) | payer OTHER, SELFPAY ==
[2025-03-04] VITALS (18 sets, daily range): BP systolic 117–189; BP diastolic 58–101; PULSE 89–96; RESP 16–32; TEMP 36.3–36.6; O2SAT 91–99
--- NOTE | ~2025-03-04 | XR_ITS ---
Portable chest x-ray Comparison: None Clinical History: Vomiting, DKA Findings: Lungs are clear, without focal consolidation or pleural effusion. Cardiomediastinal silho uette is unremarkable. Bones and soft tissues are unremarkable. Impression: Normal chest Reviewed, dictated and finalized at [facility]. Impression: Normal chest
--- OUTSIDE RECORDS SUMMARY | 2025-03-04 05:20 | XMS_ITS | Encounter Summary ---
Author Organization [facility] Address [address] [place] [phone] Care Team Providers Care Stock Plan Administrator Name Role Phone Jose Beverly MD Primary Care Provider Brad Riojas MD Unavailable [phone] Kortney Coronado NP Unavailable [phone] Encounter Details Date Type Department Care Team (Late st Contact Info) Description 02/10/2018 Abstract [facility] CONVERSION [address] [place] [address] , Generic Conversion, Social History Tobacco Use Types Packs/Day Years Used Date Smoking Tobacco: Never Assessed Comments Unknown Sex and Gender Information Value Date Recorded Sex Assigned at Female 01/14/2025 12:08 PM SHUTTLE FILLER Legal Sex Female 9:38 PM SHUTTLE FILLER Gender Identity Not on file Sexual Orientation [...] Rule-Out 02/23/2025 02/23/2025 025 11:00 AM CDT COVID-19 Rule Out 02/26/2025 02/26/2025 02/26/2025 12:12 PM CDT Respiratory Rule-Out 02/26/2025 02/26/2025 025 1:11 PM CDT documented as of this encounter Care Teams Stock Plan Administrator Relationship Specialty Start Date End Date Jose Beverly MD [address] [place] [phone] PCP - General FAMILY PRACTICE 01/11/19 Brad Riojas MD [address] [place] [phone] Vascular/Varnish Remover VASCULAR SURGERY 12/26/23 01/31/25 Kortney Coronado NP [address] [place] [phone] Nurse Practitioner Nurse Practitioner Family 03/27/24 documented as of this encounter
--- OUTSIDE RECORDS SUMMARY | 2025-03-04 05:20 | XMS_ITS | Clinical Summary ---
Author Organization [facility] Address [address] [place] [address] Phone Care Team Providers Care Micro Computer Specialist Name Role Phone Jose Beverly MD Primary Care Provider Allergies Active Allergy Reactions Criticality Noted Date [...] daily as needed. Active ergocalciferol (VITAMIN D) 55177 UNIT Capsule Take 1 Capsule by mouth [...] as directed 200 [place] . 4 Active Active Problems Problem Noted Date Diagnosed Date Diabetic ketoacidosis 10/30/2024 Hyperosmolar hyperglycemic state (HHS) 3 Pneumonia due to COVID-19 virus 11/06/2020 Acute respiratory failure with hypoxia 0 Type 2 diabetes mellitus, wi th long-term current use of insulin Hyperlipemia Hypertension Liver disease Overview (11/06/2020): stage 3 Encounters Date Type Department Care Team Description 01/15/2025 10:46 AM [facility] [facility] [facility] - 01/15/2025 3:52 PM [facility] [facility] Emergency [facility] Emergency [address] [place] [address] Alejandro Simeon, Chest pain Discharge Disposition: Discharged to home or Selfcare 01/15/2025 Travel from Last 3 Months Social History Tobacco Use Types Packs/Day Years Used Date Smoking Tobacco: Never Smokeless Tobacco: Never Alcohol Use Standard Drinks/Week Comments Yes 1 (1 standard drink = 0.6 oz pur e alcohol) [facility] Utilities Answer Date Recorded In the past 12 months has e electric, gas, oil, or water company [...] declined 10/30/2024 How often do you attend rastafari or mu-ism serv ices? Patient declined 10/30/2024 Do you belong to any clubs o r organizations such as rastafari groups, unions, fraternal or athletic groups, or [...] medical care, and heating? Patient declined 10/30/2024 [facility] - Occupational Stress [...] any time in the past 12 m [facility], were you homeless or living in a correction (including now)? Patient declined 10/30/2024 Sexually Active Control Partners Comments Not Currently Comments No Sex and Gender Information Value Date Recorded Sex Assigned at Female 11/02/2024 6:03 AM [facility] [facility] Legal Sex Female 10:10 PM CDT Gender Identity Female 11/02/2024 6:03 AM [facility] [facility] [facility] Sexual Orientation Not on file Last Filed Vital Signs Vital Sign Reading Time Taken Comments Blood Pressure 115/63 01/15/2025 3:30 PM [facility] [facility] [facility] Pulse 89 01/15/2025 3:45 PM [facility] [facility] Temperature 36.3 C (97.3 F) 01/15/2025 10:51 AM [facility] [facility] [facility] Respiratory Rate 19 01/15/2025 3:02 PM [facility] [facility] [facility] Oxygen Saturation 92% 01/15/2025 3:45 PM [facility] [facility] Inhaled Oxygen Concentration - - Weight 87.8 kg (193 lb 9 oz) 01/15/2025 10:51 AM [facility] [facility] Height 167.6 cm (5' 6 ) 01/15/2025 10:51 AM [facility] [facility] [facility] Body Mass Index 31.24 01/15/2025 10:51 AM [facility] [facility] Plan of Treatment Health Maintenance Due Date Last Done Comments Diabetes: Eye Exam 1968 Diabetes: Foot Exam 1968 Hepatitis B Immunization (1 of 3 - 19+ 3-dose series) 1987 Pneumococcal Immunization (50+ years) (1 of 2 - PCV) 1987 Colonoscopy 2013 Colorectal Cancer Screening 2013 Cologuard 2018 Immunochemical Fecal Occult Blood 2018 Zoster Immunization (1 of 2) 2018 SARS-COV-2 Immunization ( - season) 2024 Diabetes: Hemoglobin A1c 04/30/2025 024, 04/27/2023, 11/05/2020 Influenza Immunization (Season Ended) 2025 08/22/2022, 09/07/2016 Mammogram 01/14/2026 01/14/2025, 12/28, 12/15/2023, Additional history [...] HIGH SENSITIVITY (HSTRP) STAT 01/15/2025 2:10 PM [facility] [facility] XR CHEST SINGLE VIEW PORTABLE STAT 01/15/2025 11:30 AM [facility] [facility] RSV,SARS-COV-2,INFLUE NZA A&B BY PCR STAT 01/15/2025 11:20 AM [facility] [facility] GOLD TOP TUBE STAT 01/15/2025 10:55 AM [facility] [facility] BLUE TOP TUBE STAT 01/15/2025 10:55 AM [facility] [facility] CBC WITH AUTO DIFFERENTIAL STAT 01/15/2025 10:55 AM [facility] [facility] EXTRA TUBES STAT 01/15/2025 10:55 AM [facility] [facility] [facility] TROPONIN I, HIGH SENSITIVITY (HSTRP) STAT 01/15/2025 10:55 AM [facility] [facility] COMPLETE BLOOD COUNT (CBC) WITH DIFF STAT 01/15/2025 10:55 AM [facility] [facility] [facility] CMP (COMPREHENSIVE METABOLIC PANEL) STAT 01/15/2025 10:55 AM [facility] [facility] [facility] EKG 12 LEAD STAT 01/15/2025 10:52 AM [facility] [facility] EKG SCAN 01/15/2025 12:00 AM [facility] [facility] [facility] HEMOGLOBIN A1C W/ ESTIMATED GLUCOSE STAT 10/30/2024 1:21 PM [facility] [facility] [facility] HEPATITIS PANEL ACUTE (AHP) Routine 11/07/2020 4:30 AM [facility] [facility] from Last 3 Months or Most Recently Relevant to Health Maintenance Results * TROPONIN I, HIGH SENSITIVITY (HSTRP) (01/15/2025 2:10 PM [facility] [facility]) Only the most recent of2 resultswithin the time period is included. TROPONIN I, HIGH SENSITIVITY- PHIPPS <3 <=14 ng/L 01/15/2025 3:18 PM [facility] [facility] Comment: High-sensitivity troponin I results are reported in ng/L making the result appear to be 1,000 times higher than the contemporary troponin I value which is reported in ng/ml. Results from [facility]. Blood Venipuncture / Unknown 01/15/2025 2:10 PM [facility] [facility] 01/15/2025 2:47 PM [facility] [facility] us Alejandro Simeon DO CHEMISTRY ORDERABLES Fi nal Result [facility] [address] [place] [address] * XR CHEST SINGLE VIEW PORTABLE (01/15/2025 11:30 AM [facility] [facility]) Anatomical Region Laterality Modality Chest N/A Digital Radiogra phy 01/15/2025 12:0 0 PM [facility] [facility] Impressions 01/15/2025 12:03 PM [facility] [facility] [facility] IMPRESSION: No radiographic evidence of an acute cardiopulmonary abnormality. Narrative 01/15/2025 12:03 PM [facility] [facility] EXAM DESCRIPTION: XR CHEST SINGLE VIEW PORTABLE [...] Donny Gould M.D. NS: NS Report ID: [id number] Reading Location: [id number] Procedure Note Donny Gould MD - 01/15/2025 [...] Donny Gould M.D. NS: NS Report ID: [id number] Reading Location: [id number] IMPRESSION: No radiographic evidence of an acute cardiopulmonary abnormality. us Alejandro Simeon DO IMG DIAGNOSTIC ORDERABL ES Final Result * RSV,SARS-COV-2,INFLUENZA A&B BY PCR (01/15/2025 11:20 AM [facility] [facility]) FLU A Negative Negative, Error 01/15/2025 12:49 PM [place] [facility] FLU B Negative Negative 01/15/2025 12:49 PM [place] [facility] RESP SYNC VIRUS Negative Negative 12:49 PM [place] [facility] SARSCOV2 NOT DETECTED (Reference Range for this test is Not Detected) 01/15/2025 12:49 PM [place] [facility] Comment:This test was perfor med by a Reverse Escalator Service Mechanic PCR Method. Swab NASOPHARYNGEAL STRUCTURE / Unknown Non-Phlebotomy Collection / Unknown 01/15/2025 11:20 AM [facility] [facility] 01/15/2025 11:44 AM [facility] [facility] Alejandro Simeon DO MICROBIOLOGY - GENERAL ORDERABLES Final Result Performing Organization Address City/[facility] Co de Phone Number [facility] [address] [place] [address] * Gold Top Tube (01/15/2025 10:55 AM [facility] [facility]) Blood No Phlebotomy Charged / Unknown 01/15/2025 10:55 AM [facility] [facility] 01/15/2025 11:05 AM [place] [facility] Alejandro Simeon DO CHEMISTRY ORDERABLES Fi nal Result [facility] [address] [place] [address] * Blue Top Tube (01/15/2025 10:55 AM [place] [facility]) Blood No Phlebotomy Charged / Unknown 01/15/2025 10:55 AM [facility] [facility] 01/15/2025 11:05 AM [place] [facility] us Alejandro Simeon DO HEMATOLOGY ORDERABLES F inal Result [facility] [address] [place] [address] * CBC with Auto Differential (01/15/2025 10:55 AM [facility] [facility]) WBC 7.64 4.00 - 12.00 10(3)/[facility] 01/15/2025 11:08 AM [facility] RBC 5.22 3.80 - 5.30 10(6)/[facility] 01/15/2025 11:08 AM [facility] HEMOGLOBIN (HGB) 15.1 12.0 - 15.8 g/dL 01/15/2025 11:08 AM [facility] HEMATOCRIT (HCT) 44.4 36.0 - 47.0 % 01/15/2025 11:08 AM [facility] [facility] MCV 85.1 82.0 - 96.0 fL 01/15/2025 11:08 AM [facility] MCH 28.9 26.0 - 34.0 pg 01/15/2025 11:08 AM [facility] MCHC 34.0 31.0 - 36.0 g/dL 01/15/2025 11:08 AM [facility] PLATELET COUNT 260 140 - 440 10(3)/[facility] 01/15/2025 11:08 AM [facility] [facility] RDW 12.0 11.8 - 15.5 % 01/15/2025 11:08 AM [facility] MPV 10.6 9.7 - 12.4 fL 01/15/2025 11:08 AM [facility] NEUTROPHILS 53.7 47.0 - 73.0 % 01/15/2025 11:08 AM [facility] LYMPHOCYTES 32.5 18.0 - 42.0 % 01/15/2025 11:08 AM [facility] MONOCYTES 11.0 4.0 - 12.0 % 01/15/2025 11:08 AM [facility] EOSINOPHILS 2.4 0.0 - 5.0 % 01/15/2025 11:08 AM [facility] BASOPHILS 0.4 0.0 - 1.0 % 01/15/2025 11:08 AM [facility] ABSOLUTE NEUTROPHILS 4.11 1.60 - 7.70 10(3)/[facility] 01/15/2025 11:08 AM [facility] ABSOLUTE LYMPHOCYTES 2.48 1.30 - 3.20 10(3)/[facility] 01/15/2025 11:08 AM [facility] ABSOLUTE MONOCYTES 0.84 0.20 - 1.00 10(3)/[facility] 01/15/2025 11:08 AM [facility] ABSOLUTE EOSINOPHIL 0.18 0.00 - 0.40 10(3)/[facility] 01/15/2025 11:08 AM [facility] ABSOLUTE BASOPHILS 0.03 0.00 - 0.10 10(3)/[facility] 01/15/2025 11:08 AM [facility] NRBC PER 100 WBC 0 01/15/20 11:08 AM [facility] Blood Venipuncture / Unknown 01/15/2025 10:55 AM [facility] 01/15/2025 11:03 AM [facility] us Alejandro Simeon DO HEMATOLOGY ORDERABLES F inal Result [facility] [address] [place] [address] * (ABNORMAL) CMP (Comprehensive Metabolic Panel) (01/15/2025 10:55 AM [facility]) SODIUM 139 136 - 145 mmol/L 01/15/2025 11:34 AM [facility] POTASSIUM 3.9 3.5 - 5.1 mmol/L 01/15/2025 11:34 AM [facility] CHLORIDE 101 98 - 107 mmol/L 01/15/2025 11:34 AM [facility] CO2, VENOUS 25 22 - 30 mmol/L 01/15/2025 11:34 AM [facility] ANION GAP 16.9 <18.0 mmol/L 01/15/2025 11:34 AM [facility] GLUCOSE 335(H) 70 - 99 mg/dL 01/15/2025 11:34 AM [facility] BUN 15 10 - 20 mg/dL 01/15/2025 11:34 AM [facility] CREATININE, BLOOD 0.89 0.60 - 1.00 mg/dL 01/15/2025 11:34 AM [facility] BUN/CREATININE RATIO 17 12 - 20 ratio 01/15/2025 11:34 AM [facility] TOTAL PROTEIN 7.7 6.0 - 8.0 g/dL 01/15/2025 11:34 AM [facility] ALBUMIN 4.3 3.5 - 5.0 g/dL 01/15/2025 11:34 AM [facility] A/G RATIO 1.3 1.0 - 2.2 01/15/2025 11:34 AM [facility] CALCIUM 9.7 8.7 - 10.5 mg/dL 01/15/2025 11:34 AM [facility] T BILI 0.3 0.2 - 1.2 mg/dL 01/15/2025 11:34 AM [facility] SGOT (AST) 29 <43 U/L 01/15/2025 11:34 AM [facility] SGPT (ALT) 35 <56 U/L 01/15/2025 11:34 AM [facility] ALKALINE PHOSPHATASE 115 40 - 150 U/L 01/15/2025 11:34 AM [facility] GFR, ESTIMATED >60 >=60 01/15/2025 11:34 AM [place] [facility] Comment: Creatinine Clearance is the preferred criteria for selecting drug dose adjustments in renally impaired patients. The GFR is provided as additional pertinent clinical information. GFR is reported in mL/min/1.73 sq m. Calculation based on the Chronic Kidney Disease Epidemiology Collaboration (CKD- EPI) equation refit without adjustment for race. GFR, EST. >60 >=60 025 11:34 AM [place] [facility] GFR, EST. NONAFRICAN >60 >=60 01/15/2025 11:34 AM [place] [facility] Blood Venipuncture / Unknown 01/15/2025 10:55 AM [facility] [facility] 01/15/2025 11:03 AM [place] [facility] us Alejandro Simeon DO CHEMISTRY ORDERABLES Fi nal Result [facility] [address] [place] [address] * EKG 12 LEAD (01/15/2025 10:52 AM [place] [facility]) Ventricular Rate 99 BPM EXTERNAL EKG Atrial Rate 99 BPM EXTERNAL EKG P-R Interval 152 ms EXTERNAL EKG QRS Duration 78 ms EXTERNAL EKG Q-T Duration 350 ms EXTERNAL EKG QTC CALCULATION 449 ms EXTERNAL EKG P [place] 43 degrees EXTERNAL EKG R [place] -13 degrees EXTERNAL EKG T [place] 49 degrees EXTERNAL EKG 01/15/2025 10:5 2 AM [facility] [facility] Impressions EXTERNAL EKG - 01/16/2025 11:05 PM [place] [facility] Normal sinus rhythm POOR R-WAVE PROGRESSION Nonspecific ST and T wave abnormality Abnormal ECG When compared with ECG of 30-OCT-2024 13:07, No significant change was found Confirmed by Stephanie Arellano ([id number]) on 01/16/2025 11:05:21 PM Narrative Procedure Note Stephanie Arellano MD - 01/16/2025 IMPRESSION: Normal sinus rhythm POOR R-WAVE PROGRESSION Nonspecific ST and T wave abnormality Abnormal ECG When compared with ECG of 30-OCT-2024 13:07, No significant change was found Confirmed by Stephanie Arellano ([id number]) on 01/16/2025 11:05:21 PM us Alejandro Simeon DO IMG ECG ORDERABLES Kaykay l Result EXTERNAL EKG * EKG SCAN (01/15/2025 12:00 AM [place] [facility]) 01/15/2025 us Provider Scan IMG ECG ORDERABLES Final Result Performing Organization Address City/[facility]/ZIP Co de Phone Number RESULTING AGENCY * (ABNORMAL) Hemoglobin A1C (10/30/2024 1:21 PM [place] [facility]) Pathologist [facility] HGB-A1C 13.1(H) 4.0 - 6.0 % 10/30/2024 2:18 PM [place] [facility] Est Average Glucose 329.3 mg/dL 10/30/2024 2:18 PM [place] [facility] Blood Venipuncture / Unknown 10/30/2024 1:21 PM [place] [facility] 10/30/2024 1:44 PM [place] [facility] Narrative [facility] - 10/30/2024 2:18 PM [place] [facility] HEMOGLOBIN A1C: DIABETIC PATIENTS: WELL-CONTROLLED: 6.2 - 7.0 INTERMEDIATE WELL-CONTROLLED: 7.0 - 9.0 POORLY-CONTROLLED: >9.0 us Mikaela Tang TUBE MACHINE OPERATOR, FLOWER STRIPPER CHEMISTRY ORDERABLES Final Result Performing Organization Address City/[facility]/ZIP Co de Phone Number [facility] [address] [place] [address] * Hepatitis Panel Acute (AHP) (11/07/2020 4:30 AM [place] [facility]) Pathologist [facility] HEPATITIS A IGM ANTIBODY NON DETECTED NON DETECTED [facility] [id number] A 11/07/2020 2:40 PM [place] [facility] Comment: IGM Antibodies to HAV not detected. Does not exclude early acute or recovered HAV infection. HEP B CORE AB (IGM) NON DETECTED NON DETECTED [facility] [id number] A 11/07/2020 2:40 PM [place] [facility] Comment:IGM anti-HBC not det ected. Does not exclude the possibility of exposure to or infection with HBV. HEPATITIS B SURFACE ANTIGEN NON DETECTED NON DETECTED [facility] [id number] B 11/07/2020 2:40 PM [place] [facility] Comment:A nonreactive test r esult does not exclude the possibility of exposure to or infection with Hepatitis B virus. A nonreactive test result in individuals with prior exposure to hepatitis B may be due to antigen levels below the detection limit of this assay or lack of antigen reactivity to the antibodies in this assay. hepatitis C antibody 0.32 <1 S/CO [facility] [id number] B 11/07/2020 2:40 PM [place] [facility] Comment: Signal/Cutoff ratio < 0.79 is Nondetected Signal/Cutoff ratio 0.80-0.99 is Grayzone Signal/Cutoff ratio > 0.99 is Detected Supplemental assays are recommended if signal/cutoff ratio is >/=1.00. Signal/cutoff ratio result >/= 5.00 is 97% predictive of positivity for recombinant immunoblot assay (RIBA) and will be reported to the [place] [facility] Public [facility] as required. Blood Venipuncture / Unknown 11/07/2020 4:30 AM [place] [facility] 11/07/2020 4:45 AM [place] [facility] us Wellington Lujan MD HEMATOLOGY ORDERABLES Final R esult [facility] [address] [place] [address], from Last 3 Months or Most Recently Relevant to Health Maintenance Insurance MEDICAID [employer] [facility] Advance Directives * Full Code (Latest [...] measures to stabilize the patient. Care Teams Micro Computer Specialist Relationship Specialty Start Date End Date Jose Beverly MD [address] [place] [address] PCP - General Family Medicine 05/02/16
--- OUTSIDE RECORDS SUMMARY | 2025-03-04 05:20 | XMS_ITS | Encounter Summary ---
Author Organization [facility] Address [address] [place] [id number] Care Team Providers Care Sales And Marketing Manager Name Role Phone Jose Beverly MD Primary Care Provider Brad Riojas MD Unavailable [phone] Kortney Coronado NP Unavailable [phone] Encounter Details Date Type Department Care Team (Late st Contact Info) Description 05/04/2019 Abstract [facility] CONVERSION [address] [place] [address] , Generic Conversion, Social History Tobacco Use [...] Sex Assigned at Female 01/14/2025 12:08 PM STUDENT DEVELOPMENT ADVISOR Legal Sex Female 9:38 PM STUDENT DEVELOPMENT ADVISOR Gender Identity Not on file Sexual Orientation [...] documented as of this encounter Care Teams Sales And Marketing Manager Relationship Specialty Start Date End Date Jose Beverly MD [address] [place] [phone] PCP - General FAMILY PRACTICE 01/11/19 Brad Riojas MD [address] [place] [phone] Vascular/Senior Production Manager VASCULAR SURGERY 12/26/23 01/31/25 Kortney Coronado NP [address] [place] [id number] Nurse Practitioner Nurse Practitioner Family 03/27/24 documented as of this encounter
--- OUTSIDE RECORDS SUMMARY | 2025-03-04 05:20 | XMS_ITS | Continuity of Care Document ---
Author Organization [facility]. If a dditional information is needed, contact Health Information Management at [phone] Address [address] [place] [address] Phone Care Team Providers Care Pta Name Role Phone Unavailable Unavailable Unavailable Unavailable Unavailable Unavailable Problems Otitis externa Onset:05-Jun-2019 Increased blood pressure Onset:05-Jun-2019 Allergies and Adverse Reactions Penicillins(Allergy) Onset: 05-Jun-2019 Reaction:UNKNOWN latex(Allergy) Onset: 05-Jun-2019 Reaction:UNKNOWN Social History Smoking Status Tobacco smoking consumption unknown Recorded:
--- OUTSIDE RECORDS SUMMARY | 2025-03-04 05:20 | XMS_ITS | Data Portability ---
Author Organization [facility], [address] [place] ([place]) Address [address] 4th [place] [address] Care Team Providers Care Director Of Exhibits Name Role Phone LUX DELAROSA Primary Care Provider [phone] RAJAT COBB Forensics Team Director [phone] Assessment Encounter Date Assessment Date Assessment LastModified by Organization Details LastModified Time 04/30/2024 04/30/2024 In terms of her hepatic steatosis I did tell her she will need to make a different appointment, separate appointment to discuss this, we will see her back in 6 months we will check some liver enzymes, as well as FibroSure blood study. She is well aware that fatty liver can lead to liver cirrhosis down the road, hopefully tightening her diabetic control will help with that, she knows she needs to work harder at losing weight in a gradual fashion, watching her diet better, etc. I told her she does not require any more EGDs for Garrison's surveillance. For this history, her reflux history she will continue on the omeprazole as previous. For her chronic constipation, her IBS-C, I told her she may take MiraLAX chronically, this is safe to do so especially if it really helps her with her bowel movements, I told her how to titrate this to effect. In terms of her epigastric discomfort after eating we will check an ultrasound of her gallbladder for this. In terms of this left upper quadrant discomfort I told her I really cannot tell her what is causing this, it does not appear there is anything with GI given the extensive workup as outlined in the below. I did tell her if there is any concern for her splenomegaly in the setting of not having liver cirrhosis I told her this is not a GI organ, this is a lymphatic/hemat ologic organ if her PCP feels this is contributing to any left upper quadrant discomfort which, which I do feel it is not, she can touch base with her PCP about this. I cannot tell her what is causing the left upper quadrant discomfort, does not appear to be anything GI. She appeared to be perfectly fine with this plan at this point. Not available 04/30/2024 13:54:04 09/09/2024 09/09/2024 Discussed with her in great detail about her LFTs which other than an ALT of 45 the rest the panel was fine, also went over her FibroScan results with her in great detail. She will continue to lose weight in a gradual fashion, does sound like her A1c is slowly decreasing with her insulin pump, we will see her back in 1 year with LFTs and FibroScan prior to that office visit. I did not weigh her today, I just saw her a couple of weeks ago for some other issues please refer that weight as well as the weight from FibroScan report. [email or web address] Not available 09/09/2024 12:09:58 Plan of Treatment Reminders Order Date Submit Date Provider Last Modified By Organization Details Last Modified Time Details Appointments None record ed. Lab None record ed. Referral None record ed. Procedures None record ed. Surgeries None record ed. Imaging None record ed. Medication Orders None record ed. Patient TargetsNo targets recorded. Patient InstructionsNo instructions recorded. Reason for Referral None Reported. Results Created Date Observation Date Name Description Value Unit Range Abnormal Flag Note LastModifiedBy Organization Detail LastModifiedTime 09/02/2009/02/2024 hepat ic funct ion panel , serum liver function panel Not Available [facility] [address] [place] [address], [id number], 09/02/2024 18:42:17 09/02/2009/02/2024 hepat ic funct ion panel , serum albumin 4.5 g/dL 3.5-5. 3 Not Available [facility] [address] [place] [address], [id number], 09/02/2024 18:42:17 09/02/2009/02/2024 hepat ic funct ion panel , serum direct bilirubin <0.1 mg/dL 0.1-0. 5 low Not Available [facility] [address] [place] [address], [id number], 09/02/2024 18:42:17 09/02/20 24 09/02/2024 hepat ic funct ion panel , serum indirect bilirubin * mg/dL 0.1-0. 6 Unabl e to calcu late Indir ect Bilir ubin due to low Direc t Bilir ubin Not Available [facility] [address] [place] [address], [id number], 09/02/2024 18:42:17 09/02/2009/02/2024 hepat ic funct ion panel , serum total bilirubin 0.3 mg/dL 0.2-1. 0 Not Available [facility] [address] [place] [address], [id number], 09/02/2024 18:42:17 09/02/20 24 09/02/2024 hepat ic funct ion panel , serum ALP 125 U/L 44 - 127 Not Available [facility] [address] [place] [address], [id number], 09/02/2024 18:42:17 09/02/20 24 09/02/2024 hepat ic funct ion panel , serum AST (SGOT) 33 U/L 10-40 Not Available [facility] [address] [place] [address], [id number], 09/02/2024 18:42:17 09/02/20 24 09/02/2024 hepat ic funct ion panel , serum ALT (SGPT) 45 U/L 8-35 high Not Available [facility] [address] [place] [address], [id number], 09/02/2024 18:42:17 09/02/20 24 09/02/2024 hepat ic funct ion panel , serum total protein 7.1 g/dL 6.4-8. 3 Not Available [facility] [address] [place] [address], [id number], 09/02/2024 18:42:17 05/13/20 24 05/13/2024 US, abdom en, limit ed [address] [address] Teleph one [phone] Name: Mendez Hernández od [id number] Exam Date: 2023 Age: 53 Physic chelsy: MOISE Berman, Romie harp : 1969 Examin ation: US ABDOME N LIMITE D Examin ation: US ABDOME N LIMITE D Compar racquel: gallbl adder ultras ound 2013 Histor y: Postpr andial epigas tric pain for 10 months Techni que: Transa bdomin al graysc akbar and select ed color images of the gallbl adder were obtain ed. Findin gs: The gallbl adder is free of stones and sludge . There is a normal wall thickn ess. No sonogr aphic Conrad sign. No intra or extrah epatic biliar y dilata tion. Within the gallbl adder fossa there is an oval hypoec hoic area of focal fatty sparin g as there is diffus e fatty infilt ration of the visual ized portio n of the liver. Right kidney is nonhyd roneph rotic. IMPRES CATINA: Negati ve study. Electr onical ly signed in Allen cribe by: AKASH Garnica MD on:04/27 9:35 AM cc: Page [facility] Sc Only - Sc Radiology [facility], [address], 05/16/2024 16:29:07 09/25/20 24 11/03/2023 imagi ng/di agnos tic resul t No observ ation record ed. [email or web address] Not Available 12:56:23 03/03/20 25 02/06/2025 CT, angio gram, coron honey arter ies, [facility] [address] [place] [id number] EXAMIN ATION: CARDIA C COMPUT ED TOMOGR APHY with HIDALGO RY ANGIOG EMMA and HIDALGO RY CALCIU M SCORE. EXAMIN ATION DATE: 025. INDICA TION: Chest pain. TECHNI QUE: 192 dual source multid etecto r comput erized tomogr aphy high pitch (Flash ) non-co ntrast cardia c scan was obtain ed for calciu m scorin g. 192 dual source multid etecto r comput erized tomogr aphy hidalgo ry angiog emma was obtain ed using ECG gating after the admini strati on of 76-100 mL of Isovue -[address] at 5-6 mL/sec with 40 mL saline push accord ing to hidalgo ry CTA protoc ol. In order to provid e better evalua tion of the anatom y and diseas e proces s, advanc ed off-li ne 3-D post proces sing techni ques, includ ing multip lanar recons tructi on, roseanna l intens ity projec tions, curved recons tructi ons, and volume render ing were perfor med at [employer] 3-D workst [facility]. To reduce radiat ion dose, sequen tial scan/p rospec tive gating was prefer red over spiral scan/r etrosp ective gating except when otherw ise dictat ed by proced ure indica tion or type of arrhyt hmia. Other radiat ion dose loweri ng techni ques used for this proced ure may includ e, but are not limite d to, the follow ing: automa tal exposu re contro l, iterat lisbeth recons tructi on and ECG dose modula tion. In genera l, the ALARA (As Low As Reason ably Achiev able) princi ple was adhere d to. Medica tions: Nitrog lyceri n was given to dilate hidalgo ry vessel s. When indica tal, beta-b locker s were given to slow down the heart rate and or reduce heart rate variab ility. Proced ure Compli cation s/Mane rgic reacti ons: None. Hidalgo ry CT angiog emma qualit y: Fair. FINDIN GS: HIDALGO RY ARTERY ANGIOG EMMA FINDIN GS: Hidalgo ry stenos is taylor henley is report ed using the follow ing scheme : Normal : 0% stenos is. Minima l: Plaque with <25 % stenos is. Mild: 25% to 49% stenos is. Modera te: 50-69% stenos is. Severe : 70-99% stenos is. Occlud ed: Occlus ion. Domina nce and origin s of the hidalgo ry artery system : Left domina nt with normal origin s and course . Left main hidalgo ry: Normal . Left anteri or descen ding artery : Normal . Left circum flex artery : Normal . Right hidalgo ry artery : Normal . NONCOR ONARY CARDIA C FINDIN GS: Ventri cular and atrial septum : No ASD or VSD visual ized Perica rdium: Normal . Pulmon honey veins: 3 pulmon honey veins enteri ng normal ly into the left atrium . On the left side there is a common left pulmon honey vein. On the right side there is a right superi or and a right inferi or pulmon honey vein AORTIC ROOT/S INUSES OF VALSAL VA: Aortic root is normal in size. Please see radiol ogist report for evalua tion of portio n of aorta above aortic root. HIDALGO RY CALCIU M SCORE: Calciu m score of 0 . IMPRES CATINA: 1. Normal Hidalgo ry CT Angiog emma. 2. Calciu m score of 0. Ordere d By: BELÉN GOODE Electr onical ly Signed By: Dwayne Olson on 03/03/20 1:22 PM Interp reted By: Dwayne Olson, 03/03/20 1:12 PM [email or web address] Ms Only - [facility] [address] [place], [address], 03/03/2025 15:38:06 Result Notes None recorded. Problems Name Problem SNOMED Code Status Onset Date Resolution Date Notes Provider Name and Address Organization Details Recorded Time Type 2 diabetes mellitus 96801208 Active 2023 Hina Drake [place], [place] - [facility] 14:56:54 Esophageal reflux finding 253351759 Active 2023 Hina Drake null, [facility] 4 14:57:07 Steatosis of liver 391296357 Active 2023 Hina Drake null, [facility] 4 14:57:17 Garrison's esophagus 298030654 Active 2023 Hina Drake null, [facility] 4 14:57:22 Essential hypertension 32785189 Active 2023 Hina Drake null, [facility] 4 14:57:33 Abdominal pain 81990886 Active 2023 Charles Berman APRN, SALVATIONIST [address] [place] [address], [phone], [facility] 4 13:54:09 Obesity 739144395 Active 2023 Charles Berman APRN, SALVATIONIST [address] [place] [address], [address], [facility] 4 13:54:34 Gastroesophage al reflux disease without esophagitis 529859116 Active 2023 Charles Berman APRN, SALVATIONIST [address] [place] [address], [phone], [facility] 4 13:54:44 Uncontrolled type 2 diabetes mellitus 534587507 Active 2023 Charles Berman APRN, SALVATIONIST [address] [place] [address], [address], [facility] 4 13:55:31 Problem Notes None recorded. Procedures Surgical History Date Name Laterality Status Provider Name and Address Organization Details Recorded Time 4 SC Fibroscan completed Rajat Cobb MD [address] [place] [address], [phone], [facility] 09/03/2024 09:55:36 Imaging Results Imaging Date Name Status LastModified by Organ atformerly [facility] Details LastModified Time 05/13/2024 US, abdomen, limited completed [email or web address] Ms Only - [facility] Radiology [address] [facility], [place], [address], 05/16/2024 16:29:07 11/03/2023 imaging/diagn ostic result completed [email or web address] Information not available 09/25/2024 12:56:23 02/06/2025 CT, angiogram, coronary arteries, w/ contrast completed [email or web address] Ms Only - [facility] [address] [place], [address], 03/03/2025 15:38:06 Procedure Notes None recorded. Medical Equipment None Reported. Allergies Allergen ID Allergen Name Allergen Category Reaction Reaction Severity Criticality Documentation Date Start Date Code Code System Note Provider Name and Address Organization Details Recorded Time 5570694 mold extract environme nt Not available Not available Not available 12/27/20232007 10383 8 RxNorm Comme nt: Mold ; Not Available Not Available Not Available 8810545 latex gloves medicatio n Not available Not available Not available 12/27/20232011 62705 UNK Not Available Not Available Not Available 4740982 POLLEN EXTRACTS medicatio n Not available Not available Not available 09/04/20242007 51895 6 RxNorm Comme nt: Polle n ; Not Available Not Available Not Available 613848 Product containin g penicilli n (product) medicatio n swelling Not available Not available 12/25/20232007 51402 8001 SNOMED React ion: Swell ing; Not Available Not Available Not Available 969274 Tylenol with Codeine medicatio n swelling Not available Not available 12/25/20232007 34463 6 RxNorm React ion: Swell ing; Not Available Not Available Not Available Medications Name Sig Start Date Stop Date Status Note LastModified by Organization Details LastModified Time atorvastatin 80 mg tablet active Not Available Not Available Not Available clindamycin HCl 300 mg capsule active Not Available Not Available Not Available albuterol sulfate 2.5 mg/3 mL (0.083 %) solution for nebulization active Not Available Not Available Not Available azithromycin 250 mg tablet active Not Available Not Available Not Available ibuprofen 800 mg tablet active Not Available Not Available Not Available fluconazole 150 mg tablet active Not Available Not Available Not Available clarithromyc in 500 mg tablet active Not Available Not Available Not Available hydrocodone 5 mg-acetamino phen 325 mg tablet active Not Available Not Available Not Available meloxicam 15 mg tablet active Not Available Not Available No t Available ondansetron HCl 4 mg tablet active Not Available Not Available Not Available prednisone 20 mg tablet active Not Available Not Available Not Available gabapentin 400 mg capsule active Not Available Not Available Not Available clobetasol 0.05 % topical cream APPLY 1 APPLICATION TO AFFECTED SKIN TWICE DAILY active Not Available Not Available No t Available Lantus U-100 Insulin 100 unit/mL subcutaneous solution active Not Available Not Available Not Available metronidazol e 500 mg tablet active Not Available Not Available Not Available ciprofloxaci n 250 mg tablet active Not Available Not Available Not Available sulfamethoxa zole 800 mg-trimethop rim 160 mg tablet TAKE 1 TABLET BY MOUTH TWICE DAILY FOR 7 DAYS active Not Available Not Available No t Available omeprazole 40 mg capsule,gudelia yed release active Not Available Not Available Not Available fenofibrate micronized 134 mg capsule active Not Available Not Available Not Available meloxicam 7.5 mg tablet active Not Available Not Available Not Available terbinafine HCl 250 mg tablet active Not Available Not Available Not Available methocarbamo l 750 mg tablet active Not Available Not Available Not Available hydrochlorot hiazide 12.5 mg capsule active Not Available Not Available N ot Available gabapentin 300 mg capsule active Not Available Not Available Not Available omeprazole 20 mg capsule,gudelia yed release active Not Available Not Available Not Available montelukast 10 mg tablet active Not Available Not Available Not Available furosemide 20 mg tablet active Not Available Not Available Not Available ergocalcifer ol (vitamin D2) 1,250 mcg (50,000 unit) capsule active Not Available Not Available Not Available nystatin 100,000 unit/gram topical powder active Not Available Not Available Not Available insulin lispro (U-100) 100 unit/mL subcutaneous solution active Not Available Not Available Not Available albuterol sulfate HFA 90 mcg/actuatio n aerosol inhaler active Not Available Not Available Not Available ondansetron 4 mg disintegrati ng tablet active Not Available Not Available No t Available metformin ER 500 mg tablet,exten ded release 24 hr active Not Available Not Available Not Available naproxen 500 mg tablet active Not Available Not Available No t Available neomycin-natty ymyxin-hydro tony 3.5 mg-10,000 unit/mL-1 % ear drops,susp active Not Available Not Available N ot Available cyclobenzapr ine 5 mg tablet active Not Available Not Available Not Available Premarin 0.625 mg/gram vaginal cream active Not Available Not Available Not Available Pain Relief Extra Strength (acetaminoph en) 500 mg tablet active Not Available Not Available Not Available Januvia 100 mg tablet active Not Available Not Available No t Available Lantus Solostar U-100 Insulin 100 unit/mL (3 mL) subcutaneous pen Inject 50 units every day by subcutaneou s route. 2024 active Not Available Not Available Not Avai lable Humalog KwikPen (U-100) Insulin 100 unit/mL subcutaneous Inject 25 units 3 times a day by subcutaneou s route. 2024 active Not Available Not Available Not Avai lable ClearLax 17 gram/dose oral powder active Not Available Not Available Not Available OneTouch Verio test strips active Not Available Not Available Not Available TRUEplus Insulin 1 mL 31 gauge x 5/16 syringe active Not Available Not Available Not Available Jardiance 10 mg tablet active Not Available Not Available No t Available Jardiance 25 mg tablet active Not Available Not Available No t Available Trulicity 1.5 mg/0.5 mL subcutaneous pen injector active Not Available Not Available Not Available Trulicity 0.75 mg/0.5 mL subcutaneous pen injector active Not Available Not Available Not Available OneTouch Verio Flex Meter active Not Available Not Available Not Available TRUEplus Pen Needle 29 gauge x 1/2 active Not Available Not Available Not Available TRUEplus Pen Needle 31 gauge x 1/4 active Not Available Not Available Not Available TRUEplus Pen Needle 32 gauge x 5/32 active Not Available Not Available Not Available OneTouch Delica Plus Lancet 33 gauge active Not Available Not Available Not Available Trulicity 3 mg/0.5 mL subcutaneous pen injector active Not Available Not Available Not Available Guardian 4 Glucose Sensor device CHANGE sensor every FIVE TO SEVEN DAYS as directed active Not Available Not Available No t Available Guardian 4 Transmitter device USE with Guardian 4 Sensors TO monitor blood glucose as directed active Not Available Not Available No t Available Vitals Date Recorded Body height Body mass index (BMI) Body weight Systolic blood pressure Diastolic blood pressure Provider Name and Address Organization Details Last Updated DateTime 04/30/2024 167.64 cm 32.3 kg/m2 39165.47 g 120 mm[Hg] 80 mm[Hg] Charles Berman APRN, SALVATIONIST [facility] [place] [address], [phone] [place] [address] 13:48:15 Date Recorded Body height Body mass index (BMI) Body weight Provider Name and Address Organization Details Last Updated DateTime 09/02/2024 167.64 cm 30.7 kg/m2 06090.55 g Chele Conrad [facility] 09/02/2024 16:49:06 Social History None recorded. Functional Status None recorded. Mental Status None recorded. Family History Nothing Reported. Medical History No medical history recorded. Gynecological HistoryNo gynecological history recorded. Obstetrics History GPAL:G 0 P 0 0 0 0 Past Encounters Encounter ID Performer Location Encounter Start Date Encounter Closed Date Diagnosis/Indication Diagnosis SNOMED-CT Code Diagnosis ICD10 Code Diagnosis Note [id number] Charles Berman APRN, [place] [address] [place] ([place]) [facility] [address] [address] 04/30/2024 12:44:03 04/30/2024 14:11:58 Abdominal pain 00249537 R10.9 Obesity 786650076 E66.9 Gastroesop hageal reflux disease without esophagitis 317609155 K21.9 History of Garrison's esophagus 4571260546 2135351 Z87.19 Uncontroll ed type 2 diabetes mellitus 411512579 E11.65 [id number] Rajat Cobb MD [place] [address] [place] [phone] 09/02/2024 16:37:02 09/02/2024 16:50:44 Steatosis of liver 311126409 K76.0 [id number] Charles Berman APRN, [place] GARC[facility] [place]) [facility] [address] [place] [phone] 09/09/2024 11:45:15 09/09/2024 12:37:22 Steatosis of liver 222296309 K76.0 Health Concerns Section Related Observation LastModified by Organization Detai ls LastModified Time None Recorded Concern Status LastModified by Organization Details LastModified Time None Recorded Advance Directives Directive None Recorded Payers Encounter Date Sequence Insurance Name Policy Number Policy Jj Covered Member ID Jj Member ID Guarantor Name 04/30/2024 1 [employer] [place] ON [place] AFTER 2020 (MEDICAID REPLACEMENT - HMO) Maranda Nolankwood [id number] Maranda Pond Lidya 09/02/2024 1 [employer] [place] 2020 (MEDICAID REPLACEMENT - [place]MO) Maranad Fry Lidya [id number] Maranda Pond Lidya 09/09/2024 1 [employer] [place] ON [place] AFTER 2020 (MEDICAID REPLACEMENT - HMO) Maranda Fry Lidya [id number] Maranda Bose Notes Date Note Type Note Provider Name and Address Organization Details Recorded Time 04/30/2024 text/html 53-year-old mariama n with chronic GI complaints being seen in GI clinic once again.She continues to complain of various sites of abdominal discomfort, she reports some early satiety, some dyspeptic type of issues, some left upper quadrant discomfort, etc. We also discussed her probable IBS-C. We also discussed her hepatic steatosis history, several issues were discussed in clinic today aside from the reason for why she is here which is abdominal discomfort.The epigastric discomfort is worse with eating, there does not appear to be any radiation with this, no nausea or vomiting. She also has left upper quadrant discomfort that comes and goes.In terms of her probable IBS-C when she takes MiraLAX it does help her to have a bowel movement, this can help with some of her GI complaints she has not tried taking the MiraLAX regularly.She has had at least a couple, maybe 3 CT scans done of her abdomen and pelvis for once again abdominal discomfort. She just had 1 of these done again here through an ER visit, gallbladder was not optimally seen, she did have some apparent splenomegaly that appeared stable from prior exam. She also has known hepatic steatosis.She had a FibroScan done in August [address] Cobb that showed F2 fibrosis, and severe liver fat.She is diabetic, she does admit to me for a number of years her diabetes has not been under adequate control, I believe she said now she is on an insulin pump and this really has helped with diabetic control.No nausea or vomiting with any of this. She also has a history of Garrison's esophagus however she has had at least 2 EGDs done in a row with no Garrison's esophagus thus Dr. Cobb did not recommend any more further EGDs for Garrison's surveillance. She does take omeprazole 20 mg twice daily this controls these typical symptoms.Most recent colonoscopy was done in July 2022, EGD was done in July 2023. Charles Berman APRN, SALVATIONIST [address] [place] [address], [phone], [facility] 04/30/2024 13:55:58 09/09/2024 text/html Patient is here to discuss her recent FibroScan, LFTs that were done prior to this office visit.FibroScan was just done recently this was interpreted by Dr. Cobb as F1/F2 fibrosis. Severe steatosis. Patient did tell me she fairly recently has gotten an insulin pump this really has improved her A1c, she also tells me she has lost 20 to 30 pounds the last several months. Charles Berman APRN, SALVATIONIST [address] [place] [address], [phone], [facility] 09/09/2024 12:10:50 OBGyn Episode No OBEpisode recorded.
--- OUTSIDE RECORDS SUMMARY | 2025-03-04 05:20 | XMS_ITS | Clinical Summary ---
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 Active montelukast 10 MG tablet Take 1 tablet (10 mg total) by mouth nightly at bedtime. Active albuterol (PROVENTIL) (2.5 MG/3ML) 0.083% nebulizer solution Take 3 mLs (2.5 mg total) by nebulization every 6 (six) hours as needed for Shortness of breath. 11/09/20 22 Active vitamin D2, ergocalcifero l, (DRISDOL) 1.25 mg capsule Take 1 capsule (1.25 mg total) by mouth every 7 days. Active nystatin (MYCOSTATIN) powder Apply topically 4 (four) times daily. 30 g 04/02/20 23 Active conjugated estrogens (PREMARIN) 0.625 MG/GM vaginal cream Place vaginally daily. Active aspirin EC (ECOTRIN) 81 MG tablet Take 1 tablet (81 mg total) by mouth daily. 90 tablet 3 11/11/20 24 Active cilostazol (PLETAL) 100 MG tablet Take 1 tablet (100 mg total) by mouth 2 (two) times daily. 180 tablet 3 11/12/20 24 Active insulin glargine (LANTUS) 100 UNIT/ML injection (VIAL) Inject 50 Units into the skin nightly at bedtime. Active sucralfate (CARAFATE) 1 GM/10ML suspension Take 10 mLs (1 g total) by mouth 3 (three) times daily as needed (indigestion/th roat burning). 420 mL 03/02/20 25 025 Active metoclopramid e (REGLAN) 10 MG tablet Take 0.5 tablets (5 mg total) by mouth 3 (three) times daily before meals for 10 days. 15 tablet 03/02/20 25 025 Active omeprazole (PRILOSEC) 40 MG capsule Take 1 capsule (40 mg total) by mouth daily. 30 capsule 1 03/02/20 25 Active insulin lispro (HUMALOG/ADME LOG) 100 UNIT/ML injection (VIAL) Inject 22 Units into the skin 3 (three) times daily before meals. Historical med dose changed 03/02/20 25 Active omeprazole (PRILOSEC) 40 MG capsule Take 2 capsules (80 mg total) by mouth daily. 025 Discontinued insulin lispro 100 UNIT/ML injection (VIAL) Inject 25 Units into the skin 3 (three) times daily before meals. 025 Discontinued(S top Taking at Discharge) gabapentin (NEURONTIN) 400 MG capsule Take 1 capsule (400 mg total) by mouth 3 (three) times daily. 025 Discontinued(S top Taking at Discharge) furosemide (LASIX) 20 MG tablet 1 tablet (20 mg total) 2 (two) times daily. 12/14/19 22 025 Discontinued(S top Taking at Discharge) metFORMIN ER, OSM, (FORTAMET) 500 MG 24 hr tablet Take 2 tablets (1,000 mg total) by mouth 2 (two) times daily with meals. 025 Discontinued(S top Taking at Discharge) fenofibrate micronized (LOFIBRA) 134 MG capsule Take 1 capsule (134 mg total) by mouth daily. 01/09/20 025 Discontinued(S top Taking at Discharge) hydroCHLOROth iazide (MICROZIDE) 12.5 MG capsule Take 1 capsule (12.5 mg total) by mouth every morning. 12/23/19 025 Discontinued(S top Taking at Discharge) meloxicam (MOBIC) 15 MG tablet Take 1 tablet (15 mg total) by mouth daily as needed for Pain. 05/02/20 24 025 Discontinued(S top Taking at Discharge) metoprolol tartrate (LOPRESSOR) 50 MG tablet Please take 2 tablets (100mg) 2 hours before your test. Please bring third tablet with you. 3 tablet 01/22/20 025 Discontinued(O ther- Please enter comment in Notes field) insulin glargine (LANTUS) 100 UNIT/ML injection (VIAL) Inject 36 Units into the skin nightly at bedtime. Historical med dose changed 03/02/20 25 025 Discontinued insulin lispro (HUMALOG/ADME LOG) 100 UNIT/ML injection (VIAL) Inject 15 Units into the skin 3 (three) times daily before meals. Historical med dose changed 03/02/20 025 Discontinued insulin lispro (HUMALOG/ADME LOG) 100 UNIT/ML injection (VIAL) Inject 0-5 Units into the skin 3 (three) times daily with meals. From sliding scale insulin subcut med order set - For TDI 30 - 59 units To be given in addition to scheduled prandial lispro. Please give even if patient not eating: Blood Glucose: (Less than 70: Initiate Hypoglycemia Standing Orders) (150 - 199, administer +3 unit) (200 - 249, administer +4 units) (250 - 300, administer +5 units) Please notify [facility] for glucose <80 or >300. Thank you. 03/02/20 025 Discontinued(S top Taking at Discharge) insulin glargine (LANTUS) 100 UNIT/ML injection (VIAL) Inject 50 Units into the skin nightly at bedtime. Historical med dose changed 03/02/20 25 025 Discontinued(S top Taking at Discharge) Active Problems Problem Noted Date Diagnosed Date DKA (diabetic ketoacidosis) ([facility]) Intractable vomiting with nausea 02/24/2025 Other chest pain 10/30/2024 Sprain of left ankle, unspec ified ligament, initial encounter 06/20/2024 De Quervain's tenosynovitis, left 06/20/2024 PVD (peripheral vascular disease) 01/09/2024 Encounters Date Type Department Care Team Description 02/28/2025 12:50 PM CDT - 02/28/2025 1:35 PM CDT Surgery [facility] Endo/GI [address] [place] [address] Karely Gee MD EGD WITH BIOPSY 02/28/2025 12:22 PM CDT Anesthesia Event [facility] Endo/GI [address] [place] [address] Lily Solorzano MD Bolash-Best, Lacey M RN 02/24/2025 5:38 PM CDT - 03/02/2025 6:42 PM CDT Hospital Encounter [facility] 4th Floor Medical [address] [place] [address] Reg Bernardo MD Goyal, Pankaj, MD Mardani, Fareed, MD Discharge Disposition: Home or Self Care (Routine Discharge) 02/24/2025 Travel 02/23/2025 9:47 AM CDT - 02/23/2025 1:18 PM CDT Emergency [facility] Emergency [address] [place] [address] Alex Duarte MD Chest Pain; Shortness Of Breath Discharge Disposition: Home or Self Care (Routine Discharge) 02/23/2025 Travel 02/17/2025 Telephone [facility] [address] [place] [address] Kortney Coronado NP Fax 02/10/2025 Telephone [facility] [address] [facility] [address] [address] [place] [address] Apple Middleton PA Referral (Chronic RIGHT ankle pain) 02/06/2025 12:46 PM CDT - 02/06/2025 11:59 PM CDT Hospital Encounter [facility] CT [address] [place] [address] Belén Goode MD Discharge Disposition: Home or Self Care (Routine Discharge) 02/06/2025 Travel 01/22/2025 9:45 AM WOOD TANK ERECTOR Office Visit [facility] [address] [place] [phone] Belén Goode MD Follow Up 01/22/2025 7:41 AM WOOD TANK ERECTOR - 01/22/2025 11:59 PM WOOD TANK ERECTOR Hospital Encounter [facility] [address] [facility] [place] [address] Zainab Huerta NP Discharge Disposition: Home or Self Care (Routine Discharge) 01/22/2025 Travel 01/17/2025 Telephone [facility] [address] [place] [phone] Belén Goode MD Appointment Request 01/14/2025 12:09 PM WOOD TANK ERECTOR - 01/14/2025 11:59 PM WOOD TANK ERECTOR Hospital Encounter [facility] [address] [place] [address] Jose Delarosa MD Discharge Disposition: Home or [...] = 0.6 oz pur e alcohol) seldom [facility] Utilities Answer Date Recorded In the past 12 months has th e [employer], gas, oil, or water [employer] threatened to shut off services in your home? No 02/24/2025 Humiliation, Afraid, Rape, and Kick questionnair e Answer Date Recorded Within the last year, have y ou been afraid of your partner or ex-partner? No 02/24/2025 Within the last year, have y ou been humiliated or emotionally abused in other ways by your partner or ex-partner? No Within the last year, have y ou been kicked, hit, slapped, or otherwise physically hurt by your partner or ex-partner? No 02/24/2025 Within the last year, have y ou been raped or forced to have any kind of sexual activity by your partner or ex-partner? No 02/24/2025 AUDIT-C Answer Date Recorded Frequency of Alcohol Consumption Never 01/11/2019 Average Number of Drinks Not on file 019 Frequency of Binge Drinking Not on file 12/28 Overall Financial Resource Strain (CARDIA) Answe r Date Recorded How hard is it for you to pa y for the very basics like food, housing, medical care, and heating? Not hard at all 02/24/2025 Hunger Vital Sign Answer Date Recorded Within the past 12 months, y ou worried that your food would run out before you got the money to buy more. Never true 02/25/20 25 Within the past 12 months, t he food you bought just didn't last and you didn't have money to get more. Never true 02/24/2025 PRAPARE - Transportation Answer Date Re corded In the past 12 months, has l ack of transportation kept you from medical appointments or from getting medications? No 01/27 In the past 12 months, has l ack of transportation kept you from meetings, work, or from getting things needed for daily living? No 02/24/2025 Housing Stability Vital Sign Answer Nikolas e Recorded In the last 12 months, was t here a time when you were not able to pay the mortgage or rent on time? No 02/24/2025 In the past 12 months, how m any times have you moved where you were living? 0 02/24/2025 At any time in the past 12 m [facility], were you homeless or living in a penitentiary (including now)? No 02/24/2025 Comments No Sex and Gender Information Value Date Recorded Sex Assigned at Female 01/14/2025 12:08 PM WOOD TANK ERECTOR Legal Sex Female 9:38 PM WOOD TANK E[employer]OR Gender Identity Not on file Sexual Orientation Not on file Last Filed Vital Signs Vital Sign Reading Time Taken Comments Blood Pressure 108/66 03/02/2025 8:08 AM CDT Pulse 91 03/02/2025 8:08 AM CDT Temperature 36.7 C (98.1 F) 03/02/2025 8:08 AM CDT Respiratory Rate 24 03/02/2025 8:08 AM CDT Oxygen Saturation 93% 03/02/2025 8:08 AM CDT Inhaled Oxygen Concentration - - Weight 86.3 kg (190 lb 4.1 oz) 03/02/2025 5:00 A M CDT Height 167.6 cm (5' 6 ) 02/24/2025 5:59 PM CDT Body Mass Index 30.71 02/24/2025 5:59 PM CDT Plan of Treatment Health Maintenance Due [...] 10/27, 01/31/2018, Additional history exists COVID-19 Vaccine (1 - 2023- season) 2024 Hemoglobin A1C 05/26/2025 02/24/2025, 12/0 02/2024, 04/27/2023, Additional history exists Mammogram Screening 01/14/2027 01/14/2025, [...] Procedure Name Priority Date/Time Associated Diagnosis Comments POCT GLUCOSE - PHIPPS DOCKED DEVICE Routine 03/02/2025 5:16 PM CDT POCT GLUCOSE - PHIPPS DOCKED DEVICE Routine 03/02/2025 12:10 PM CDT POCT GLUCOSE - PHIPPS DOCKED DEVICE Routine 03/02/2025 5:50 AM CDT BASIC METABOLIC PANEL Routine 03/02/2025 4:44 AM CDT CBC W/DIFF AUTOMATED Routine 03/02/2025 4:44 AM CDT POCT GLUCOSE - PHIPPS DOCKED DEVICE Routine 03/01/2025 8:02 PM CDT POCT GLUCOSE - PHIPPS DOCKED DEVICE Routine 03/01/2025 5:03 PM CDT POCT GLUCOSE - PHIPPS DOCKED DEVICE Routine 03/01/2025 12:06 PM CDT BASIC METABOLIC PANEL Routine 03/01/2025 10:30 AM CDT POCT GLUCOSE - PHIPPS DOCKED DEVICE Routine 03/01/2025 6:08 AM CDT POCT GLUCOSE - PHIPPS DOCKED DEVICE Routine 02/28/2025 4:39 PM CDT POCT GLUCOSE - PHIPPS DOCKED DEVICE Routine 02/28/2025 12:51 PM CDT UPPER GI ENDOSCOPY,BIOPSY 02/28/2025 12:10 PM CDT Intractable vomiting with nausea Case Notes BAY 6 ENDOSCOPY (SCAN ORDER) 02/28/2025 12:07 PM CDT POCT GLUCOSE - PHIPPS DOCKED DEVICE Routine 02/28/2025 10:35 AM CDT POCT GLUCOSE - PHIPPS DOCKED DEVICE Routine 02/28/2025 8:04 AM CDT POCT GLUCOSE - PHIPPS DOCKED DEVICE Routine 02/28/2025 6:36 AM CDT COMPREHENSIVE METABOLIC PANEL Routine 02/28/2025 4:35 AM CDT CBC W/DIFF AUTOMATED Routine 02/28/2025 4:35 AM CDT PATHOLOGY Routine 02/28/2025 12:00 AM CDT POCT GLUCOSE - PHIPPS DOCKED DEVICE Routine 02/27/2025 11:23 PM CDT POCT GLUCOSE - PHIPPS DOCKED DEVICE Routine 02/27/2025 5:39 PM CDT BASIC METABOLIC PANEL TIMED 02/27/2025 3:58 PM CDT CORTISOL, TOTAL Routine 02/27/2025 2:39 PM CDT POCT GLUCOSE - PHIPPS DOCKED DEVICE Routine 02/27/2025 12:15 PM CDT POCT GLUCOSE - PHIPPS DOCKED DEVICE Routine 02/27/2025 5:32 AM CDT COMPREHENSIVE METABOLIC PANEL Routine 02/27/2025 4:30 AM CDT CBC W/DIFF AUTOMATED Routine 02/27/2025 4:30 AM CDT POCT GLUCOSE - PHIPPS DOCKED DEVICE Routine 02/26/2025 10:05 PM CDT POCT GLUCOSE - PHIPPS DOCKED DEVICE Routine 02/26/2025 4:[address] ABD+PEL W CON Today 02/26/2025 3:10 PM CDT RESPIRATORY PCR PANEL 2 TIMED 02/26/2025 11:37 AM CDT XR CHEST PORTABLE Today 02/26/2025 11: 08 AM CDT POCT GLUCOSE - PHIPPS DOCKED DEVICE Routine 02/26/2025 11:06 AM CDT URINE BACTERIA CULTURE Nurse Collected Priority 02/26/2025 9:10 AM CDT DRUG SCREEN RAPID Nurse Collected Priority 02/26/2025 9:00 AM CDT KETONES URINE Nurse Collected Priority 02/26/2025 9:00 AM CDT BLOOD GAS, VENOUS Routine 02/26/2025 8:1 4 AM CDT LACTIC ACID TIMED 02/26/2025 8:14 AM CDT CULTURE, BACTERIA, BLOOD STAT 02/26/2025 8:13 AM CDT POCT GLUCOSE - PHIPPS DOCKED DEVICE Routine 02/26/2025 5:59 AM CDT LIPASE Routine 02/26/2025 5:15 AM CDT COMPREHENSIVE METABOLIC PANEL Routine 02/26/2025 5:15 AM CDT CBC W/DIFF AUTOMATED Routine 02/26/2025 5:15 AM CDT POCT GLUCOSE - PHIPPS DOCKED DEVICE Routine 02/25/2025 7:37 PM CDT POCT GLUCOSE - PHIPPS DOCKED DEVICE Routine 02/25/2025 4:30 PM CDT POCT GLUCOSE - PHIPPS DOCKED DEVICE Routine 02/25/2025 11:25 AM CDT POTASSIUM, SERUM TIMED 02/25/2025 9:25 AM CDT POCT GLUCOSE - PHIPPS DOCKED DEVICE Routine 02/25/2025 5:00 AM CDT CBC W/DIFF AUTOMATED Routine 02/25/2025 3:10 AM CDT PHOSPHORUS, INORGANIC PHOSPHATE Routine 02/25/2025 3:10 AM CDT MAGNESIUM Routine 02/25/2025 3:10 AM CDT BASIC METABOLIC PANEL Routine 02/25/2025 3:10 AM CDT POCT ACUTE VENOUS PANEL Routine 02/24/2025 10:19 PM CDT BETA-HYDROXYBUTYRATE TIMED 02/24/2025 10:17 PM CDT HEMOGLOBIN, GLYCOSYLATED Routine 02/24/2025 10:17 PM CDT PHOSPHORUS, INORGANIC PHOSPHATE TIMED 02/24/2025 10:17 PM CDT BASIC METABOLIC PANEL TIMED 02/24/2025 10:17 PM CDT CBC W/DIFF AUTOMATED Routine 02/24/2025 10:17 PM CDT POCT GLUCOSE - PHIPPS DOCKED DEVICE Routine 02/24/2025 10:02 PM CDT POCT GLUCOSE - PHIPPS DOCKED DEVICE Routine 02/24/2025 9:19 PM CDT POCT GLUCOSE - PHIPPS DOCKED DEVICE Routine 02/24/2025 8:04 PM CDT POCT GLUCOSE - PHIPPS DOCKED DEVICE Routine 02/24/2025 7:04 PM CDT MAGNESIUM STAT 02/24/2025 6:45 PM CDT COMPREHENSIVE METABOLIC PANEL STAT 02/24/2025 6:45 PM CDT HC URINALYSIS AUTO W/MICRO Nurse Collected Priority 02/24/2025 6:30 PM CDT HC MRSA AMP Nurse Collected Priority 02/24/2025 6:00 PM CDT POCT GLUCOSE - PHIPPS DOCKED DEVICE Routine 02/24/2025 5:55 PM CDT TROPONIN, QUANT TIMED 02/23/2025 12:15 PM CDT [...] chest pain PVD (peripheral vascular disease) CTA CORONARY W SCORING Routine 02/06/2025 1:29 PM CDT Other chest pain PVD (peripheral vascular disease) CTA AORTO ILIOFEM RUNOFF Routine 01/22/2025 9:00 AM WOOD TANK ERECTOR Leg pain, bilateral CREATININE STAT 01/22/2025 8:00 AM WOOD TANK ERECTOR MG SCREENING W DOMENICA AMAN DIGI Routine 01/14/2025 12:45 PM WOOD TANK ERECTOR Visit for screening mammogram LIPID PANEL Routine 01/31/2018 11:23 AM WOOD TANK ERECTOR from Last 3 Months or Most Recently Relevant to Health Maintenance Results * (ABNORMAL) POCT glucose (03/02/2025 5:16 PM CDT) Only the most recent of29 resultswithin the time period is included. GLUCOSE POC 289(H) 70 - 109 03/02/2025 5:34 PM CDT [facility] 03/02/2025 5:16 PM CDT Mg Kendrick MD POCT ORDERABLES - DEVICE Final Result [facility] [address] [place] [address], [id number] * (ABNORMAL) BASIC METABOLIC PANEL (03/02/2025 4:44 AM CDT) Only the most recent of6 resultswithin the time period is included. SODIUM S/P/B 133(L) 136 - 145 MMOL/L 03/02/2025 5:42 AM CDT [facility] POTASSIUM S/P/B 3.3(L) 3.5 - 5.1 MMOL/L 03/02/2025 5:42 AM CDT [facility] CHLORIDE S/P/B 101 97 - 115 MMOL/L 03/02/2025 5:42 AM CDT [facility] CO2 26.2 21.0 - 32.0 MMOL/L 03/02/2025 5:42 AM CDT [facility] GLUCOSE 209(H) 74 - 106 MG/DL 03/02/2025 5:42 AM CDT [facility] BUN 14 7 - 18 MG/DL 03/02/2025 5:42 AM CDT [facility] CREATININE S/P/B 0.54(L) 0.55 - 1.02 MG/DL 03/02/2025 5:42 AM CDT [facility] CALCIUM S/P/B 8.7 8.5 - 10.1 MG/DL 03/02/2025 5:42 AM CDT [facility] ANION GAP 5.8 2.0 - 10.0 MMOL/L 03/02/2025 5:42 AM CDT [facility] OSMOLALITY (CALC) 283 MOSM/KG 025 5:42 AM CDT [facility] Comment:REFERENCE RANGE NOT ESTABLISHED GFR ESTIMATE >90 >90 ML/MIN/1. 73 M2 03/02/2025 5:42 AM CDT [facility] GFR NOTES GFR REFERENCE S: 03/02/2025 5:42 AM CDT [facility] Comment: THE ESTIMATED GFR [...] ml/min/1.73 m2 G5,KIDNEY FAILURE: <15 ml/min/1.73 m2 03/02/2025 4:44 AM CDT us Mg Kendrick MD LABORATORY Final Result [facility] [address] [place] [address], [id number] * (ABNORMAL) CBC W/DIFF AUTOMATED (03/02/2025 4:44 AM CDT) Only the most recent of7 resultswithin the time period is included. [facility] WBC 10.26 4.00 - 10.80 x10'3/uL 03/02/2025 5:15 AM CDT [facility] RBC 5.26 4.10 - 5.40 x10'6/uL 03/02/2025 5:15 AM CDT [facility] HGB 14.7 12.0 - 16.0 G/DL 03/02/2025 5:15 AM CDT [facility] HCT 43.1 36.0 - 47.0 % 03/02/2025 5:15 AM CDT [facility] MCV 81.9 78.0 - 100.0 FL 03/02/2025 5:15 AM CDT [facility] MCH 27.9 27.0 - 31.0 PG 03/02/2025 5:15 AM CDT [facility] MCHC 34.1 33.0 - 36.0 G/DL 03/02/2025 5:15 AM CDT [facility] RDW 12.3 11.5 - 14.5 % 03/02/2025 5:15 AM CDT [facility] PLT 215 150 - 350 x10'3/uL 03/02/2025 5:15 AM CDT [facility] MPV 9.7 7.4 - 10.4 FL 03/02/2025 5:15 AM CDT [facility] DIFFERENTIAL TYPE AUTOMATED DIFFERENTIAL 03/02/2025 5:15 AM CDT [facility] SEG NEUTROPHILS 46.5 % 5:15 AM CDT [facility] LYMPHOCYTES 39.2 % 03/02/2025 5:15 AM CDT [facility] MONOCYTES 11.1 % 03/02/2025 5:15 AM CDT [facility] EOSINOPHILS 1.9 % 03/02/2025 5:15 AM CDT [facility] BASOPHILS 0.3 % 03/02/2025 5:15 AM CDT [facility] IMMATURE GRANS % 1.0 % 03/02/20 5:15 AM CDT [facility] ABS. NEUTROPHILS 4.78 1.60 - 8.30 x10'3/uL 03/02/2025 5:15 AM CDT [facility] ABS. LYMPHOCYTES 4.02 0.80 - 4.70 x10'3/uL 03/02/2025 5:15 AM CDT [facility] ABS. MONOCYTES 1.14 0.00 - 1.50 x10'3/uL 03/02/2025 5:15 AM CDT [facility] ABS. EOSINOPHILS 0.19 0.00 - 0.40 x10'3/uL 03/02/2025 5:15 AM CDT [facility] ABS. BASOPHILS 0.03 0.00 - 0.20 x10'3/uL 03/02/2025 5:15 AM CDT [facility] ABS. IMMATURE GRANULOCYTES 0.10(H) 0.00 - 0.03 x10'3/uL 03/02/2025 5:15 AM CDT [facility] ABS. NUCLEATED RBC'S 0.00 0.00 - 0.01 x10'3/uL 03/02/2025 5:15 AM CDT [facility] NRBC % 0.0 % 03/02/2025 5:15 AM CDT [facility] 03/02/2025 4:44 AM CDT us Mg Kendrick MD LABORATORY Final Result [facility] [address] [place] [address], [id number] * ENDOSCOPY (SCAN ORDER) (02/28/2025 12:07 PM CDT) us Karely Gee MD SCANNING Final Resul t * (ABNORMAL) COMPREHENSIVE METABOLIC PANEL (02/28/2025 4:35 AM CDT) Only the most recent of4 resultswithin the time period is included. SODIUM S/P/B 132(L) 136 - 145 MMOL/L 02/28/2025 5:18 AM CDT [facility] POTASSIUM S/P/B 3.0(L) 3.5 - 5.1 MMOL/L 02/28/2025 5:18 AM CDT [facility] CHLORIDE S/P/B 96(L) 97 - 115 MMOL/L 02/28/2025 5:18 AM CDT [facility] CO2 26.4 21.0 - 32.0 MMOL/L 02/28/2025 5:18 AM CDT [facility] GLUCOSE 174(H) 74 - 106 MG/DL 02/28/2025 5:18 AM CDT [facility] BUN 6(L) 7 - 18 MG/DL 02/28/2025 5:18 AM CDT [facility] CREATININE S/P/B 0.49(L) 0.55 - 1.02 MG/DL 02/28/2025 5:18 AM CDT [facility] CALCIUM S/P/B 8.5 8.5 - 10.1 MG/DL 02/28/2025 5:18 AM CDT [facility] BILIRUBIN TOTAL S/P/B 0.7 0.2 - 1.0 MG/DL 02/28/2025 5:18 AM CDT [facility] ALKALINE PHOSPHATASE S/P/B 119(H) 46 - 118 U/L 02/28/2025 5:18 AM CDT [facility] AST 27 15 - 37 U/L 02/28/2025 5:18 AM CDT [facility] ALT 47 13 - 56 U/L 02/28/2025 5:18 AM CDT [facility] TOTAL PROTEIN S/P/B 6.8 6.4 - 8.2 G/DL 02/28/2025 5:18 AM CDT [facility] ALBUMIN S/P/B 3.2(L) 3.4 - 5.0 G/DL 02/28/2025 5:18 AM CDT [facility] ANION GAP 9.6 2.0 - 10.0 MMOL/L 02/28/2025 5:18 AM CDT [facility] OSMOLALITY (CALC) 276 MOSM/KG 025 5:18 AM CDT [facility] Comment:REFERENCE RANGE NOT ESTABLISHED GFR ESTIMATE >90 >90 ML/MIN/1. 73 M2 02/28/2025 5:18 AM CDT [facility] GFR NOTES GFR REFERENCE S: 02/28/2025 5:18 AM CDT [facility] Comment: THE ESTIMATED GFR [...] ml/min/1.73 m2 G5,KIDNEY FAILURE: <15 ml/min/1.73 m2 02/28/2025 4:35 AM CDT Mg Kendrick MD LABORATORY Final Result [facility] [address] [place] [address], [id number] * CORTISOL, TOTAL (02/27/2025 2:39 PM CDT) CORTISOL 30.0 mcg/dL 02/27/2025 6:14 PM CDT [facility] Comment: A.M. SPECIMENS: 5.3 TO 22.5 mcg/dL P.M. SPECIMENS: 3.4 TO 16.8 mcg/dL ASSAY PERFORMED BY CHEMILUMINESCENCE METHODOLOGY USING SIEMENS CENTAUR XPT REAGENT. PATIENT RESULTS DETERMINED BY ASSAYS USING DIFFERENT MANUFACTURERS FOR METHODS MAY NOT BE COMPARABLE. 02/27/2025 2:39 PM CDT Mg Kendrick MD LABORATORY Final Result [facility] [address] [place] [address], [id number] * CT ABD+PEL W CON (02/26/2025 3:10 PM CDT) Anatomical Region Laterality Modality Abdomen Computed Tomogra phy 02/26/2025 3:13 PM CDT Impressions 02/26/2025 3:43 PM CDT Impression: 1. No acute abnormality identified within the abdomen or pelvis. 2. Low-density liver may indicate steatosis. 3. Slight thickening of the gallbladder fundus which may represent adenomyomatosis. No stones or inflammatory changes noted. 4. Redemonstrated splenomegaly. Ordered By: MG KENDRICK Interpreted By: Moise Duarte MD, 02/26/2025 3:13 PM Narrative 02/26/2025 3:43 PM CDT [facility] [address] [place], [place] [address] Examination: CT abdomen and pelvis with IV contrast. Clinical Information: ABDOMINAL PAIN, NAUSEA, VOMITING Comparison:CT 04/10/2024. Technique: IV contrast: 100 mL Isovue 370. Oral contrast: None. Technical comments: Standard technique. Dose reduction: This CT exam was performed using one or more of the following dose reduction techniques: Automated exposure control, adjustment of the mA and/or kV according to patient size, and/or use of iterative reconstruction technique. Findings: LOWER CHEST Heart is normal in size. Lung bases are clear. No pleural or pericardial effusions. UPPER ABDOMEN Liver and bile ducts: Low-density liver may indicate steatosis. Portal vein and hepatic veins are patent. No biliary dilatation. Gallbladder: Slight thickening of the gallbladder fundus which may represent adenomyomatosis. No stones or inflammatory changes noted. Pancreas: Unremarkable. Spleen: Redemonstrated splenomegaly measuring 14.8 cm craniocaudal. RETROPERITONEUM Adrenals: Normal. Kidneys: Unremarkable. Lymph nodes: No lymphadenopathy in the abdomen or pelvis. BOWEL AND PERITONEUM Bowel: Normal in caliber and wall thickness. Free air or fluid: None. VASCULATURE The abdominal aorta is normal in caliber. PELVIS No abnormality. BONES/SOFT TISSUES No significant lesion. Procedure Note Moise Duarte MD - 02/26/2025 [place] [id number] Examination: CT abdomen and pelvis with IV contrast. Clinical Information: ABDOMINAL PAIN, NAUSEA, VOMITING Comparison:CT 04/10/2024. Technique: IV contrast: 100 mL Isovue 370. Oral contrast: None. Technical comments: Standard technique. Dose reduction: This CT exam was performed using one or more of thefollowing dose reduction techniques: Automated exposure control,adjustment of the mA and/or kV according to patient size, and/or use ofiterative reconstruction technique. Findings: LOWER CHEST Heart is normal in size. Lung bases are clear. No pleural or pericardialeffusions. UPPER ABDOMEN Liver and bile ducts: Low-density liver may indicate steatosis. Portalvein and hepatic veins are patent. No biliary dilatation. Gallbladder: Slight thickening of the gallbladder fundus which mayrepresent adenomyomatosis. No stones or inflammatory changes noted. Pancreas: Unremarkable. Spleen: Redemonstrated splenomegaly measuring 14.8 cm craniocaudal. RETROPERITONEUM Adrenals: Normal. Kidneys: Unremarkable. Lymph nodes: No lymphadenopathy in the abdomen or pelvis. BOWEL AND PERITONEUM Bowel: Normal in caliber and wall thickness. Free air or fluid: None. VASCULATURE The abdominal aorta is normal in caliber. PELVIS No abnormality. BONES/SOFT TISSUES No significant lesion. Impression: 1. No acute abnormality identified within the abdomen or pelvis. 2. Low-density liver may indicate steatosis. 3. Slight thickening of the gallbladder fundus which may representadenomyomatosis. No stones or inflammatory changes noted. 4. Redemonstrated splenomegaly. Ordered By: MG KENDRICK Interpreted By: Moise Duarte MD, 02/26/2025 3:13 PM us Mg Kendrick MD CT Final Result * RESPIRATORY PCR PANEL 2 (02/26/2025 11:37 AM CDT) ADENOVIRUS PCR (RESP) NOT DETECTED NOT DETECTED 02/26/2025 1:11 PM CDT [facility] CORONAVIRUS 229E PCR (RESP) NOT DETECTED NOT DETECTED 02/26/2025 1:11 PM CDT [facility] CORONAVIRUS HKU1 PCR (RESP) NOT DETECTED NOT DETECTED 02/26/2025 1:11 PM CDT [facility] CORONAVIRUS NL63 PCR (RESP) NOT DETECTED NOT DETECTED 02/26/2025 1:11 PM CDT [facility] CORONAVIRUS OC43 PCR (RESP) NOT DETECTED NOT DETECTED 02/26/2025 1:11 PM CDT [facility] METAPNEUMOVIRUS PCR (RESP) NOT DETECTED NOT DETECTED 02/26/2025 1:11 PM CDT [facility] RHINOVIRUS/ENTEROV IRUS PCR (RESP) NOT DETECTED NOT DETECTED 02/26/2025 1:11 PM CDT [facility] INFLUENZA A PCR (RESP) NOT DETECTED NOT DETECTED 02/26/2025 1:11 PM CDT [facility] INFLUENZA B PCR (RESP) NOT DETECTED NOT DETECTED 02/26/2025 1:11 PM CDT [facility] PARAINFLUENZA 1 PCR (RESP) NOT DETECTED NOT DETECTED 02/26/2025 1:11 PM CDT [facility] PARAINFLUENZA 2 PCR (RESP) NOT DETECTED NOT DETECTED 02/26/2025 1:11 PM CDT [facility] PARAINFLUENZA 3 PCR (RESP) NOT DETECTED NOT DETECTED 02/26/2025 1:11 PM CDT [facility] PARAINFLUENZA 4 PCR (RESP) NOT DETECTED NOT DETECTED 02/26/2025 1:11 PM CDT [facility] RSV PCR (RESP) NOT DETECTED NOT DETECTED 02/26/2025 1:11 PM CDT [facility] B PARAPERTUSIS PCR (RESP) NOT DETECTED NOT DETECTED 02/26/2025 1:11 PM CDT [facility] BORDETELLA PERTUSSIS PCR (RESP) NOT DETECTED NOT DETECTED 02/26/2025 1:11 PM CDT [facility] CHLAMYDOPHILA PNEUMONIAE PCR (RESP) NOT DETECTED NOT DETECTED 02/26/2025 1:11 PM CDT [facility] MYCOPLASMA PNEUMONIAE PCR (RESP) NOT DETECTED NOT DETECTED 02/26/2025 1:11 PM CDT [facility] CORONAVIRUS SARS COV 2 PCR (RESP) NOT DETECTED NOT DETECTED 02/26/2025 1:11 PM CDT [facility] 02/26/2025 11:3 7 AM CDT Mg Kendrick MD MICROBIOLOGY - GENERAL ORDERAB LES Final Result [facility] [address] [place] [address], [id number] * XR CHEST PORTABLE (02/26/2025 11:08 AM CDT) Only the most recent of2 resultswithin the time period is included. Anatomical Region Laterality Modality Chest Radiographic Lorin ging 02/26/2025 11:5 2 AM CDT Impressions 02/26/2025 11:52 AM CDT IMPRESSION: 1. No acute cardiopulmonary process is identified. Referred By: KRISTEN RUBIO Interpreted By: Ofe Claudio MD, 02/26/2025 11:52 AM Narrative 02/26/2025 11:52 AM CDT [address] [address] PROCEDURE: XR CHEST PORTABLE. 02/26/2025 11:07 AM. TECHNIQUE: A single view of the chest (AP or PA) was performed. HISTORY: Rule out pneumonia. COMPARISON: AP chest radiograph, 01/27/2025 FINDINGS: Support Devices: None. Cardiac Silhouette/Mediastinum/Loretta: The cardiac, mediastinal, and hilar contours are unchanged in appearance Lungs/Pleural Spaces: No focal consolidation. The pleural spaces are clear. Chest Wall/Diaphragm/Upper Abdomen: The thoracic musculoskeletal structures and the upper abdomen are unchanged in appearance. Procedure Note Ofe Claudio MD - 02/26/[address] [address] PROCEDURE: XR CHEST PORTABLE. 02/26/2025 11:07 AM. TECHNIQUE: A single view of the chest (AP or PA) was performed. HISTORY: Rule out pneumonia. COMPARISON: AP chest radiograph, 01/27/2025 FINDINGS: Support Devices: None. Cardiac Silhouette/Mediastinum/Loretta: The cardiac, mediastinal, and hilarcontours are unchanged in appearance Lungs/Pleural Spaces: No focal consolidation. The pleural spaces areclear. Chest Wall/Diaphragm/Upper Abdomen: The thoracic musculoskeletalstructures and the upper abdomen are unchanged in appearance. IMPRESSION: 1. No acute cardiopulmonary process is identified. Referred By: KRISTEN RUBIO Interpreted By: Ofe Claudio MD, 02/26/2025 11:52 AM Mg Kendrick MD GENERAL IMAGING Final Result * CULTURE, URINE (02/26/2025 9:10 AM CDT) SPEC DESCRIPTION URINE CLEAN CATCH 02/26/2025 8:54 AM CDT [facility] SPECIAL REQUESTS NO SPECIAL REQUEST 02/26/2025 8:54 AM CDT [facility] CULTURE RESULT NO GROWTH (< OR = 1,000 CFU/ML) 02/27/2025 10:25 AM CDT [facility] URINE SPECIMEN OBTAINED BY CLEAN CATCH PROCEDURE / Unknown 02/26/2025 9:10 AM CDT 02/26/2025 9:25 AM CDT us Mg Kendrick MD MICROBIOLOGY - GENERAL ORDERAB LES Final Result Performing Organization Address [facility] Co de Phone Number [facility] [address] [place] [address], [place] [phone] * (ABNORMAL) KETONES URINE (02/26/2025 9:00 AM CDT) KETONES MG/DL (U) ABOVE MEASUREMENT RANGE(A) NEGATIVE 02/26/2025 9:17 AM CDT [facility] URINE SPECIMEN / Unknown 02/26/2025 9:00 AM CDT us Mg Kendrick MD URINE ORDERABLES Final Result Performing Organization Address [facility] de Phone Number [facility] [address] [place] [address], [place] [phone] * URINE DRUG SCREEN (TOXICOLOGY) (02/26/2025 9:00 AM CDT) PHENCYCLIDINE PCP (U) NEGATIVE NEGATIVE 02/26/2025 9:31 AM CDT [facility] BENZODIAZEPINES SCREEN (U) NEGATIVE NEGATIVE 02/26/2025 9:31 AM CDT [facility] COCAINE METABOLITES (U) NEGATIVE NEGATIVE 02/26/2025 9:31 AM CDT [facility] AMPHETAMINE (U) NEGATIVE NEGATIVE 9:31 AM CDT [facility] CANNABINOIDS SCREEN (U) NEGATIVE NEGATIVE 02/26/2025 9:31 AM CDT [facility] OPIATE SCREEN (U) NEGATIVE NEGATIVE 025 9:31 AM CDT [facility] BARBITURATES SCREEN (U) NEGATIVE NEGATIVE 02/26/2025 9:31 AM CDT [facility] URINE TOX COMMENT Unconfirmed screening results are to be used only for medical purposes. 02/26/2025 8:54 AM CDT [facility] CUTOFF CONCENTRATION (U) Cut-off Concentration for a positive result 02/26/2025 8:54 AM CDT [facility] Comment: Phencyclidine 25 ng/mL Benzodiazepines 200 ng/mL Cocaine 300 ng/mL Amphetamine 1000 ng/mL Cannabinoids 50 ng/mL Opiates 300 ng/mL Barbiturates 200 ng/mL URINE SPECIMEN / Unknown 02/26/2025 9:00 AM CDT us Mg Kendrick MD URINE ORDERABLES Final Result [facility] [address] [place] [address], [id number] * (ABNORMAL) Blood gas, venous (02/26/2025 8:14 AM CDT) PH VENOUS 7.40 7.32 - 7.42 02/26/2025 10:14 AM CDT [facility] PCO2 VENOUS 39.9(L) 41.0 - 51.0 MMHG 02/26/2025 10:14 AM CDT [facility] PO2 VENOUS 33.2 25.0 - 40.0 MM HG 02/26/2025 10:14 AM CDT [facility] BICARB VENOUS 23.9(L) 24 - 28 MMOL/L 02/26/2025 10:14 AM CDT [facility] TOTAL CO2 VENOUS 25.2 25.0 - 29.0 MMOL/L 02/26/2025 10:14 AM CDT [facility] BASE DEFICIT VENOUS 0.3 0.0 - 3.0 MMOL/L 02/26/2025 10:14 AM CDT [facility] O2 SAT VENOUS 61 <75 % 02/26/2025 10:14 AM CDT [facility] 02/26/2025 8:14 AM CDT us Mg Kendrick MD LABORATORY Final Result Performing Organization Address City/[facility]/ZIP Co de Phone Number [facility] [address] [place] [address], [place] [phone] * LACTIC ACID - SINGLE (02/26/2025 8:14 AM CDT) LACTIC ACID VENOUS 1.8 0.4 - 2.0 MMOL/L 02/26/2025 8:41 AM CDT [facility] 02/26/2025 8:14 AM CDT us Mg Kendrick MD LABORATORY Final Result Performing Organization Address [facility] Co de Phone Number [facility] [address] [place] [address], [id number] * LIPASE (02/26/2025 5:15 AM CDT) LIPASE 13 13 - 75 UNITS/L 02/26/2025 7:18 AM CDT [facility] 02/26/2025 5:15 AM CDT us Mg Kendrick MD LABORATORY Final Result Performing Organization Address [facility] Co de Phone Number [facility] [address] [place] [address], [id number] * POTASSIUM, SERUM (02/25/2025 9:25 AM CDT) POTASSIUM S/P/B 4.3 3.5 - 5.1 MMOL/L 02/25/2025 10:22 AM CDT [facility] Comment:MILD HEMOLYSIS, RESU LT MAY BE AFFECTED. 02/25/2025 9:25 AM CDT us Reg Bernardo MD LABORATORY Final Result Performing Organization Address [facility]/ZIP Co de Phone Number [facility] [address] [place] [address], [phone] * (ABNORMAL) PHOSPHORUS, INORGANIC PHOSPHATE (02/25/2025 3:10 AM CDT) Only the most recent of2 resultswithin the time period is included. PHOSPHORUS 2.0(L) 2.5 - 4.9 MG/DL 02/25/2025 3:45 AM CDT [facility] 02/25/2025 3:10 AM CDT us Walt Moreno MD LABORATORY Final Result Performing Organization Address [facility] Co de Phone Number [facility] [address] [place] [address], [phone] * MAGNESIUM (02/25/2025 3:10 AM CDT) Only the most recent of2 resultswithin the time period is included. MAGNESIUM 2.1 1.6 - 2.6 MG/DL 02/25/2025 3:45 AM CDT [facility] 02/25/2025 3:10 AM CDT us Walt Moreno MD LABORATORY Final Result Performing Organization Address City/[facility] Co de Phone Number [facility] [address] [place] [address], [phone] * POCT ACUTE VENOUS PANEL (02/24/2025 10:19 PM CDT) SODIUM WHOLE BLOOD 140 138 - 146 mmol/L 02/24/2025 10:23 PM CDT [facility] POTASSIUM WHOLE BLOOD 3.8 3.5 - 4.9 mmol/L 02/24/2025 10:23 PM CDT [facility] CA IONIZED WH BLOOD 1.17 1.12 - 1.32 mmol/L 02/24/2025 10:23 PM CDT [facility] POC PH VENOUS 7.321 7.31 - 7.41 02/24/2025 10:23 PM CDT [facility] POC PCO2 VENOUS 46.9 41.0 - 51.0 MMHG 02/24/2025 10:23 PM CDT [facility] POC PO2 VENOUS 27 25 - 40 MMHG 02/24/2025 10:23 PM CDT [facility] POC HCO3 VENOUS 24.2 23 - 28 MMOL/L 02/24/2025 10:23 PM CDT [facility] POC TCO2 VENOUS 26 24 - 29 MMOL/L 02/24/2025 10:23 PM CDT [facility] POC BASE DEFICIT VENOUS 2 0 - 2 MMOL/L 02/24/2025 10:23 PM CDT [facility] POC HEMATOCRIT 46 38 - 51 % 02/24/2025 10:23 PM CDT [facility] TIME TEST WAS PERFORMED: 221802/24/2025 10:23 PM CDT [facility] 02/24/2025 10:1 9 PM CDT us Obiora Rsoalio Bernardo MD POCT ORDERABLES - DEVICE Kaykay l Result [facility] [address] [place] [address], [phone] * (ABNORMAL) BETA-HYDROXYBUTYRATE (02/24/2025 10:17 PM CDT) BETA-HYDROXYBU TYRATE 1.8(H) 0.0 - 0.3 MMOL/L 02/24/2025 10:24 PM CDT [facility] 02/24/2025 10:1 7 PM CDT us Reg Bernardo MD LABORATORY Final Result Performing Organization Address [facility] de Phone Number [facility] [address] [place] [address], [place] [phone] * (ABNORMAL) HEMOGLOBIN, GLYCATED (02/24/2025 10:17 PM CDT) HGB A1C 11.9(H) <5.7 % 02/25/2025 2:06 AM CDT [facility] ESTIMATED AVG GLUCOSE 295(H) 74 - 114 MG/DL 02/25/2025 2:06 AM CDT [facility] 02/24/2025 10:1 7 PM CDT us Reg Bernardo MD LABORATORY Final Result Performing Organization Address [facility] Phone Number [facility] [address] [place] [address], [place] [phone] * (ABNORMAL) URINALYSIS (02/24/2025 6:30 PM CDT) COLOR (U) COLORLESS 02/24/2025 7:32 PM CDT [facility] TRANSPARENCY CLEAR 02/24/2025 7:32 PM CDT [facility] SPECIFIC GRAVITY (U) 1.047(H) 1.002 - 1.035 02/24/2025 7:32 PM CDT [facility] U PH 5.0 5 - 8 02/24/2025 7:32 PM CDT [facility] PROTEIN RANDOM (U) 20(A) NEGATIVE 02/24/2025 7:32 PM CDT [facility] GLUCOSE (U) ABOVE MEASUREMENT RANGE(A) NEGATIVE MG/DL 02/24/2025 7:32 PM CDT [facility] KETONES MG/DL (U) 80(A) NEGATIVE 02/24/2025 7:32 PM CDT [facility] BILIRUBIN (U) NEGATIVE NEGATIVE 02/24/2025 7:32 PM CDT [facility] BLOOD (U) NEGATIVE NEGATIVE 02/24/2025 7:32 PM CDT [facility] NITRITES NEGATIVE NEGATIVE 02/24/2025 7:32 PM CDT [facility] UROBILINOGEN NORMAL 0 - 1 EU/DL 02/24/2025 7:32 PM CDT [facility] LEUKOCYTES (U) NEGATIVE NEGATIVE 02/24/2025 7:32 PM CDT [facility] RBC/HPF <1 0 - 3 /HPF 02/24/2025 7:32 PM CDT [facility] WBC/HPF NONE 0 - 6 /HPF 02/24/2025 7:32 PM CDT [facility] BACTERIA (U) NONE /HPF 02/24/2025 7:32 PM CDT [facility] SQUAMOUS EPITHELIALS <1 02/24/2025 7:32 PM CDT [facility] BUDDING YEAST PRESENT 02/24/2025 7:32 PM CDT [facility] URINE SPECIMEN FROM URETHRA / Unknown 02/24/2025 6:30 PM CDT us Obiora I Tova VALDIVIA URINE ORDERABLES Final Result [facility] [address] [place] [address], [phone] * MRSA PCR nares SCREENING (02/24/2025 6:00 PM CDT) SPECIMEN SOURCE RESPIRATORY, NOSE 02/24/2025 6:02 PM CDT [facility] MRSA BY PCR NASAL METHICILLIN RESISTANT STAPH AUREUS NOT DETECTED METHICILLIN RESISTANT STAPH AUREUS NOT DETECTED 02/25/2025 10:56 AM CDT [facility] NASAL STRUCTURE / Unknown 02/24/2025 6:00 PM CDT Reg Bernardo MD MICROBIOLOGY - GENERAL ORDERA BLES Final Result Performing Organization Address [facility] Co de Phone Number [facility] [address] [place] [address], [phone] * TROPONIN, QUANT (02/23/2025 12:15 PM CDT) Only the most recent of2 resultswithin the time period is included. [facility] TROPONIN I HIGH SENSITIVITY 6 0 - 53 ng/L 02/23/2025 12:54 PM CDT [facility] 02/23/2025 12:1 5 PM CDT Alex Duarte MD LABORATORY Final Result Performing Organization Address [facility] Co de Phone Number [facility] [address] [place] [address], [phone] * INFLUENZA A & B (02/23/2025 10:23 AM CDT) [facility] SPECIMEN TYPE (INFLUENZA) NASOPHARYNGEAL SWAB 02/23/2025 10:24 AM CDT [facility] INFLUENZA A NEGATIVE NEGATIVE 02/23/2025 10:59 AM CDT [facility] Comment:NEGATIVE FOR INFLUEN ZA A VIRUS ANTIGEN INFLUENZA B NEGATIVE NEGATIVE 02/23/2025 10:59 AM CDT [facility] Comment:NEGATIVE FOR INFLUEN ZA B VIRUS ANTIGEN NASOPHARYNGEAL SWAB / Unknown 02/23/2025 10:23 AM CDT Carol Walsh MD MICROBIOLOGY - GENERAL ORDERABL ES Final Result Performing Organization Address [facility] Co de Phone Number [facility] [address] [place] [address], [place] [phone] * PRO-BRAIN NATRIURETIC PEPTIDE (02/23/2025 10:16 AM CDT) PRO-B TYPE NATRIURETIC PEPTIDE 37 <125 PG/ML 02/23/2025 11:11 AM CDT [facility] Comment: AGE INDEPENDENT: <300 PG/ML HAS [...] MD LABORATORY Final Result Performing Organization Address [facility] de Phone Number [facility] [address] [place] [address], [place] [phone] * D-DIMER, QUANTITATIVE (02/23/2025 10:16 AM CDT) D-DIMER 327 0 - 500 ng{FEU}/mL 02/23/2025 11:03 AM CDT [facility] EXCLUSION STATEMENT 02/23/2025 11:03 AM CDT [facility] Comment: D-Dimer values less than or [...] CDT Carol Walsh MD LABORATORY Final Result [facility] [address] [place] [address], [phone] * ECG 12 lead (02/23/2025 10:15 AM CDT) 02/23/2025 10:1 5 AM CDT Narrative [facility] - 02/23/2025 1:25 PM CDT [facility] Test Date: 2025-02-23 Pat Name: SHANTA BOSE Department: 70 Room: EXAM QQ 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1970 Requested By: CAROL WALSH Order Number: [id number] Reading MD: Bora Hoffman Measurements Intervals [place] Rate: 82 P: 44 IN: 152 QRS: -7 QRSD: 85 T: 42 QT: 390 QTc: 458 Interpretive Statements SINUS RHYTHM POSSIBLE ANTERIOR MYOCARDIAL INFARCTION , PROBABLY OLD [30 ms Q WAVE IN V3/V4, OR R < 0.2 mV IN V4] Procedure Note Bora Hoffman MD - 02/23/2025 [facility] Test Date: 2025-02-23 Pat Name: SHANTA COREASKWOOD Department: 70 Room: EXAM QQ 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 Cardiac findings interpreted by work force advisor. 2. Sub-4 mm lung nodules. Follow-up CT chest in one year. Ordered By: BELÉN GOODE Interpreted By: Sanford Vee MD, 02/07/2025 10:17 AM Narrative 02/07/2025 1:26 PM CDT [facility] [address] [place] [id number] EXAMINATION: CARDIAC COMPUTED TOMOGRAPHY ANGIOGRAM, ROUTINE CORONARY [...] ANGIOGRAM AND OTHER CARDIAC FINDINGS: Interpreted by work force advisor. EXTRACARDIAC FINDINGS: Sub-4 mm lung nodules. Dependent atelectasis. The visualized thoracic aorta is normal. Visualized pulmonary artery appears normal. Small hiatal hernia. Spondylosis. Procedure Note Sanford Vee MD - 02/07/2025 [facility] [address] [place], [place] [address] EXAMINATION: CARDIAC COMPUTED TOMOGRAPHY ANGIOGRAM, ROUTINE CORONARY [...] Spondylosis. IMPRESSION: 1. Cardiac findings interpreted by work force advisor. 2. Sub-4 mm lung nodules. Follow-up CT chest in one year. Ordered By: BELÉN GOODE Interpreted By: Sanford Vee MD, 02/07/2025 10:17 AM us Belén Goode MD CT Final Result * CTA CORONARY W SCORING (02/06/2025 1:29 PM CDT) Anatomical Region Laterality Modality Chest Computed Tomogra phy 03/03/2025 1:12 PM CDT Impressions 03/03/2025 1:22 PM CDT IMPRESSION: 1. Normal Coronary CT Angiogram. 2. Calcium score of 0. Ordered By: BELÉN GOODE Interpreted By: Clive Olson, 03/03/2025 1:12 PM Narrative 03/03/2025 1:[address] PM [address]T [address] [address] EXAMINATION: CARDIAC COMPUTED TOMOGRAPHY with CORONARY ANGIOGRAM and CORONARY CALCIUM SCORE. EXAMINATION DATE: 02/06/2025. INDICATION: Chest pain. TECHNIQUE: 192 dual source multidetector computerized tomography high pitch (Flash) non-contrast cardiac scan was obtained for calcium scoring. 192 dual source multidetector computerized tomography coronary angiogram was obtained using ECG gating after the administration of 76-100 mL of Isovue-370 intravenous contrast at 5-6 mL/sec with 40 mL saline push according to coronary CTA protocol. In order to provide better evaluation of the anatomy and disease process, advanced off-line 3-D post processing techniques, including multiplanar reconstruction, maximal intensity projections, curved reconstructions, and volume rendering were performed at separate dedicated 3-D workstation. To reduce radiation dose, sequential scan/prospective gating was preferred over spiral scan/retrospective gating except when otherwise dictated by procedure indication or type of arrhythmia. Other radiation dose lowering techniques used for this procedure may include, but are not limited to, the following: automated exposure control, iterative reconstruction and ECG dose modulation. In general, the ALARA (As Low As Reasonably Achievable) principle was adhered to. Medications: Nitroglycerin was given to dilate coronary vessels. When indicated, beta-blockers were given to slow down the heart rate and or reduce heart rate variability. Procedure Complications/Allergic reactions: None. Coronary CT angiogram quality: Fair. FINDINGS: CORONARY ARTERY ANGIOGRAM FINDINGS: Coronary stenosis grading is reported using the following scheme: Normal: 0% stenosis. Minimal: Plaque with <25% stenosis. Mild: 25% to 49% stenosis. Moderate: 50-69% stenosis. Severe: 70-99% stenosis. Occluded: Occlusion. Dominance and origins of the coronary artery system: Left dominant with normal origins and course. Left main coronary: Normal. Left anterior descending artery: Normal. Left circumflex artery: Normal. Right coronary artery: Normal. NONCORONARY CARDIAC FINDINGS: Ventricular and atrial septum: No ASD or VSD visualized Pericardium: Normal. Pulmonary veins: 3 pulmonary veins entering normally into the left atrium. On the left side there is a common left pulmonary vein. On the right side there is a right superior and a right inferior pulmonary vein AORTIC ROOT/SINUSES OF VALSALVA: Aortic root is normal in size. Please see radiologist report for evaluation of portion of aorta above aortic root. CORONARY CALCIUM SCORE: Calcium score of 0 . Procedure Note Clive Olson MD - 03/03/[address] [address] EXAMINATION: CARDIAC COMPUTED TOMOGRAPHY with CORONARY ANGIOGRAM andCORONARY CALCIUM SCORE. EXAMINATION DATE: 02/06/2025. INDICATION: Chest pain. TECHNIQUE: 192 dual source multidetector computerized tomography highpitch (Flash) non-contrast cardiac scan was obtained for calcium scoring.192 dual source multidetector computerized tomography coronary angiogramwas obtained using ECG gating after the administration of 76-100 mL ofIsovue-370 intravenous contrast at 5-6 mL/sec with 40 mL saline pushaccording to coronary CTA protocol. In order to provide better evaluationof the anatomy and disease process, advanced off-line 3-D post processingtechniques, including multiplanar reconstruction, maximal intensityprojections, curved reconstructions, and volume rendering were performedat separate dedicated 3-D workstation. To reduce radiation dose,sequential scan/prospective gating was preferred over spiralscan/retrospective gating except when otherwise dictated by procedureindication or type of arrhythmia. Other radiation dose loweringtechniques used for this procedure may include, but are not limited to,the following: automated exposure control, iterative reconstruction andECG dose modulation. In general, the ALARA (As Low As ReasonablyAchievable) principle was adhered to. Medications: Nitroglycerin was given to dilate coronary vessels. Whenindicated, beta-blockers were given to slow down the heart rate and orreduce heart rate variability. Procedure Complications/Allergic reactions: None. Coronary CT angiogram quality: Fair. FINDINGS: CORONARY ARTERY ANGIOGRAM FINDINGS: Coronary stenosis grading is reported using the following scheme: Normal: 0% stenosis. Minimal: Plaque with <25% stenosis. Mild: 25% to 49% stenosis. Moderate: 50-69% stenosis. Severe: 70-99% stenosis. Occluded: Occlusion. Dominance and origins of the coronary artery system: Left dominant withnormal origins and course. Left main coronary: Normal. Left anterior descending artery: Normal. Left circumflex artery: Normal. Right coronary artery: Normal. NONCORONARY CARDIAC FINDINGS: Ventricular and atrial septum: No ASD or VSD visualized Pericardium: Normal. Pulmonary veins: 3 pulmonary veins entering normally into the left atrium.On the left side there is a common left pulmonary vein. On the right sidethere is a right superior and a right inferior pulmonary vein AORTIC ROOT/SINUSES OF VALSALVA: Aortic root is normal in size. Please see radiologist report for evaluation of portion of aorta aboveaortic root. CORONARY CALCIUM SCORE: Calcium score of 0 . IMPRESSION: 1. Normal Coronary CT Angiogram. 2. Calcium score of 0. Ordered By: BELÉN GOODE Interpreted By: Clive Olson, 03/03/2025 1:12 PM Belén Goode MD CT Final Result * CTA AORTO ILIOFEM RUNOFF (01/22/2025 9:00 AM WOOD TANK ERECTOR) Anatomical Region Laterality Modality Abdomen, Pelvis, Extremity Compu tal Tomography 01/22/2025 6:25 PM WOOD TANK ERECTOR Impressions 01/22/2025 6:35 PM WOOD TANK ERECTOR IMPRESSION: 1. There is no evidence for abdominal aortic aneurysm or significant stenosis. There are no inflow issues. There is a two-vessel runoff on the right via the anterior tibial artery and peroneal artery. There is a three-vessel runoff on the left. 2. Hepatosplenomegaly. Referred By: ZAINAB HUERTA Interpreted By: Humberto Alvarado MD, 01/22/2025 6:25 PM Narrative 01/22/2025 6:35 PM [employer] E[employer]OR [address] [place] [address] Examination: CTA AORTO ILIOFEM RUNOFF Exam time: [...] Procedure Note Humberto Alvarado MD - 01/22/2025 [place] [id number] [facility] [place] [address] Examination: CTA AORTO ILIOFEM RUNOFF Exam time: 01/22/2025 8:45 AM INDICATION: Right lower leg pain TECHNIQUE: After administration of 120 mL Isovue-370 IV contrast via theright antecubital fossa, arterial phase multidetector CT images wereobtained from the lung bases to the feet. Multiplanar and MIP images werecreated and reviewed. In addition, 3D image processing was performed on setObject workstation by a technologist, with images sent [...] By: Humberto Alvarado MD, 01/22/2025 6:25 PM Zainab Huerta DIRECTOR CARDIOLOGY CT Fin al Result * CREATININE (01/22/2025 8:00 AM WOOD TANK ERECTOR) CREATININE S/P/B 0.60 0.55 - 1.02 MG/DL 01/22/2025 8:46 AM WOOD TANK ERECTOR [facility] GFR ESTIMATE >90 >89 ML/MIN/1. 73 M2 01/22/2025 8:46 AM WOOD TANK ERECTOR [facility] GFR NOTES GFR REFERENCE S: 01/22/2025 8:46 AM WOOD TANK E[employer]OR [facility] Comment: THE ESTIMATED GFR IS CALCULATED [...] FAILURE: <15 ml/min/1.73 m2 01/22/2025 8:00 AM WO[employer] TANK ERECTOR Zainab Huerta DIRECTOR CARDIOLOGY LABORATORY Fin al Result [facility] [address] [place] [address], * MG SCREENING W DOMENICA AMAN DIGI (01/14/2025 12:45 PM WOOD TANK ERECTOR) Anatomical Region Laterality Modality Breast Bilateral Mammography 01/14/2025 4:10 PM WO[employer] T[employer] E[employer]OR Impressions 01/14/2025 4:10 PM WOOD TANK ERECTOR IMPRESSION: No suspicious change since the previous exams. Recommendation: 1: Routine Screening Bilateral in 1 Year Assessment: ACR BI-RADS 2 - BENIGN FINDING(S) Ordered By: JOSE DELAROSA Interpreted By: Reji Gao MD, 01/14/2025 4:10 PM Narrative 01/14/2025 4:10 PM WO[employer] TANK E[employer]OR [address] [place] [address] Examination: Digital screening mammogram with CAD. Clinical [...] MD MAMMO Final Resul t * (ABNORMAL) LIPID PANEL (01/31/2018 11:23 AM WOOD TANK ERECTOR) CHOLESTEROL 211(H) <200 MG/DL 01/31/2018 12:01 PM [facility] TRIGLYCERIDES 190(H) <150 MG/DL 01/31/2018 12:01 PM [facility] HDL 48 >40 MG/DL 01/31/2018 12:01 PM [facility] LDL (CALCULATED) 125 <130 MG/DL 02/01/20 12:01 PM [facility] Comment: AN LDL OF <100 IS OPTIMAL; HOWEVER, ELEVATED IS DEFINED >130.BY ATP III GUIDELINES, LDL GOALS ARE DEPENDENT UPON THE PATIENT'S OTHER RISK FACTORS. 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
--- OUTSIDE RECORDS SUMMARY | 2025-03-04 05:20 | XMS_ITS | Encounter Summary ---
Author Organization [facility] Address [address] [place] [id number] Care Team Providers Care Jet Engine Mechanic Name Role Phone Jose Beverly MD Primary Care Provider [phone] Brad Riojas MD Unavailable [phone] Kortney Coronado NP Unavailable [phone] Encounter Details Date Type Department Care Team (Late st Contact Info) Description 06/20/2024 [employer] Message Enc [facility] [address] [address] [place] PA [address] [place] [phone] Visit Follow Up Social History Tobacco Use [...] Sex Assigned at Female 01/14/2025 12:08 PM [employer] Legal Sex Female 9:38 PM [employer] Gender Identity Not on file Sexual Orientation [...] documented as of this encounter Care Teams Jet Engine Mechanic Relationship Specialty Start Date End Date Jose Beverly MD [address] [place] [phone] PCP - General FAMILY PRACTICE 01/11/19 Brad Riojas MD [address] [place] [phone] Vascular/Supervisor Weaving VASCULAR SURGERY 12/26/23 01/31/25 Kortney Coronado NP [address] [place] [phone] Nurse Practitioner Nurse Practitioner Family 03/27/24 documented as of this encounter
[2025-03-04 05:30] LABS: Glucose Point of Care 306 mg/dl (65-105)
--- NOTE | 2025-03-04 05:33 | ED.NAVMDI ---
HPI - Nausea/Vomiting/Diarrhea General Chief complaint: Nausea/Vomiting/Diarrhea <Alexis Boudreaux MD - Last Filed: 03/04/25 07:03> Stated complaint: vomiting, possible DKA <Alexis Boudreaux MD - Last Filed: 03/04/25 07:03> Time Seen by Provider: 03/04/25 05:31 <Alexis Boudreaux MD - Last Filed: 03/04/25 07:03> Source: patient and family <Alexis Boudreaux MD - Last Filed: 03/04/25 07:03> Mode of arrival: ambulatory <Alexis Boudreaux MD - Last Filed: 03/04/25 07:03> Limitations: no limitations <Alexis Boudreaux MD - Last Filed: 03/04/25 07:03> History of Present Illness HPI Narrative: 54 years old white female came to the ED from home by private car complaining of nausea and frequent vomiting, weakness lightheadedness and dizziness started 24 hours ago. Patient was discharged from [facility] 36 hours ago 40 kg. She denies any fever or chills or diarrhea, patient denies any pain. Patient is telling me that she been taking her medication as usual <Alexis Boudreaux MD - Last Filed: 03/04/25 07:03> MD elicited complaint: nausea and vomiting <Alexis Boudreaux MD - Last Filed: 03/04/25 07:03> Description of vomiting: watery <Alexis Boudreaux MD - Last Filed: 03/04/25 07:03> Description of diarrhea: other ( none) <Alexis Boudreaux MD - Last Filed: 03/04/25 07:03> Associated nausea: Yes <Alexis Boudreaux MD - Last Filed: 03/04/25 07:03> Associated abdominal pain: No <MD Marilee Flanagan Last Filed: 03/04/25 07:03> Related Data Home medications: Home Medications ?Medication ?Instructions ?Recorded ?Confirmed ?Last Taken ?Type albuterol sulfate 2.5 mg/3 mL 2.5 mg inhalation PRN PRN Wheezing 08/01/23 07/28/24 Unknown History (0.083 %) solution for nebulization atorvastatin 80 mg tablet 80 mg PO DAILY 08/01/23 07/28/24 Unknown History dulaglutide 0.75 mg/0.5 mL 0.75 mg subcut USEASDIRECTD 08/01/23 07/28/24 Unknown History [facility] fenofibrate micronized 134 mg 134 mg PO DAILY 08/01/23 07/28/24 Unknown History capsule furosemide 20 mg tablet 40 mg PO DAILY 08/01/23 07/28/24 Unknown History gabapentin 300 mg capsule 300 mg PO PRN PRN Pain, Moderate 08/01/23 07/28/24 Unknown History hydrochlorothiazide 12.5 mg capsule 12.5 mg PO DAILY 08/01/23 07/28/24 Unknown History metformin 500 mg tablet,extended 1,000 mg PO BID 08/01/23 07/28/24 Unknown History release 24 hr montelukast 10 mg tablet 10 mg PO DAILY 08/01/23 07/28/24 Unknown History omeprazole 20 mg capsule,delayed 40 mg PO DAILY 08/01/23 07/28/24 Unknown History release sitagliptin phosphate 100 mg 100 mg PO DAILY 08/01/23 07/28/24 Unknown History tablet (Januvia) blood sugar diagnostic (OneTouch 03/04/25 03/04/25 Unknown History Verio test strips) pen needle, diabetic 31 gauge x 03/04/25 03/04/25 Unknown History 1/4 (TRUEplus Pen Needle) sucralfate 100 mg/mL oral 100 mg PO DAILY 03/04/25 03/04/25 Unknown History suspension <Alexis Boudreaux MD - Last Filed: 03/04/25 07:03> Allergies/Adverse reactions: Allergies Allergy/AdvReac Type Severity Reaction Status Date / Time codeine Allergy Mild n/v Verified 03/04/25 05:22 ampicillin Allergy Unknown Anaphylactic Verified 03/04/25 05:22 Shock latex Allergy Unknown Unknown Verified 03/04/25 05:22 <Alexis Boudreaux MD - Last Filed: 03/04/25 07:03> Review of Systems Review of Systems: All systems reviewed & are unremarkable except as noted in HPI and below <Alexis Boudreaux MD - Last Filed: 03/04/25 07:03> [facility] Past Medical History Medical History: Medical History Patient denies medical problems <Alexis Boudreaux MD - Last Filed: 03/04/25 07:03> Exam Narrative: General appearance: Well-developed, well-nourished, restless, dry heaving Skin: Normal color Head: Normocephalic, nontraumatic Eyes: Clear conjunctiva ENT: Oropharynx normal, ears normal, nose normal Neck: Supple, nontender Chest and respiratory: Airway patent, no respiratory distress, no accessory muscle use Heart: Regular rate/rhythm Abdomen: Soft, nontender, no organomegaly, quiet bowel sounds Vascular: Normal peripheral pulses, normal capillary refill. Musculoskeletal: Normal range of motion, nontender back Neurologic: Alert and oriented ?3, [employer] is normal as tested, no gross motor deficit <Alexis Boudreaux MD - Last Filed: 03/04/25 07:03> Course Vital Signs Vital signs: Vital Signs Temperature 36.3 C L 03/04/25 05:17 Pulse Rate 96 03/04/25 05:17 Respiratory Rate 18 03/04/25 05:17 Blood Pressure 189/101 H 03/04/25 05:17 Pulse Oximetry 97 03/04/25 05:17 Oxygen Delivery Room Air 03/04/25 05:17 Temperature 36.3 C L 03/04/25 05:17 Pulse Rate 96 03/04/25 05:17 Respiratory Rate 18 03/04/25 05:17 Blood Pressure 117/68 03/04/25 06:30 Pulse Oximetry 91 03/04/25 06:31 Oxygen Delivery Room Air 03/04/25 05:17 <Alexis Boudreaux MD - Last Filed: 03/04/25 07:03> Vital Signs Temperature 36.3 C L 03/04/25 05:17 Pulse Rate 96 03/04/25 05:17 Respiratory Rate 18 03/04/25 05:17 Blood Pressure 189/101 H 03/04/25 05:17 Pulse Oximetry 97 03/04/25 05:17 Oxygen Delivery Room Air 03/04/25 05:17 Temperature 36.3 C L 03/04/25 05:17 Pulse Rate 96 03/04/25 05:17 Respiratory Rate 18 03/04/25 05:17 Blood Pressure 117/68 03/04/25 06:30 Pulse Oximetry 91 03/04/25 06:31 Oxygen Delivery Room Air 03/04/25 05:17 <Jefe Rose MD - Last Filed: 03/04/25 07:27> MDM - Nausea/Vomiting/Diarrhea MDM Narrative Medical decision making narrative: patient came to the ED with nausea and vomiting, lightheadedness and dizziness vital signs showing blood pressure 189/101 otherwise within normal limit Physical examination showing no dry heaving patient, holding vomiting bag in hands, restless Differential diagnosis include viral gastroenteritis, DKA, urinary tract infection, electrolyte imbalance, dehydration. Blood workup today includes CBC, CMP, phosphorus, magnesium, beta hydroxybutyrate, hemoglobin 16.5 sodium 133 glucose 344 magnesium 1.6 ALT 94 alkaline phosphatase 173 otherwise within normal limit Urinalysis showed no evidence of infection Patient tested negative for COVID flu RSV Chest x-ray showed no acute abnormalities diagnosis : Diabetic hyperglycemia, vomiting possibly secondary to viral infection Discharged home on Zofran. <Alexis Boudreaux MD - Last Filed: 03/04/25 07:03> patient came to the ED with nausea and vomiting, lightheadedness and dizziness vital signs showing blood pressure 189/101 otherwise within normal limit Physical examination showing no dry heaving patient, holding vomiting bag in hands, restless Differential diagnosis include viral gastroenteritis, DKA, urinary tract infection, electrolyte imbalance, dehydration. Blood workup today includes CBC, CMP, phosphorus, magnesium, beta hydroxybutyrate, hemoglobin 16.5 sodium 133 glucose 344 magnesium 1.6 ALT 94 alkaline phosphatase 173 otherwise within normal limit Urinalysis showed no evidence of infection Patient tested negative for COVID flu RSV Chest x-ray showed no acute abnormalities diagnosis : Diabetic hyperglycemia, vomiting possibly secondary to viral infection Discharged home on Zofran. I accidentally opened this chart and my name got on the chart; patient is discharged already from prior MD; I did not see this patient or do any work on this patient. TZ <Jefe Rose MD - Last Filed: 03/04/25 07:27> Differential Diagnosis Differential diagnosis: Likely other ( As above) <Alexis Boudreaux MD - Last Filed: 03/04/25 07:03> Medical Records Attestation: I reviewed the patient's medical records. <Alexis Boudreaux MD - Last Filed: 03/04/25 07:03> Lab Data Attestation: I reviewed the patient's lab results. <Alexis Boudreaux MD - Last Filed: 03/04/25 07:03> Result diagrams: 03/04/25 05:43 03/04/25 05:43 <Alexis Boudreaux MD - Last Filed: 03/04/25 07:03> Labs: Lab Results 03/04/25 03/04/25 03/04/25 Range/Units 05:26 05:43 05:53 WBC 10.8 (4.8-10.8) K/mm3 RBC 5.99 H (4.20-5.40) M/mm3 Hgb 16.5 H (12.0-15.0) g/dL Hct 49.9 H (35.0-49.0) % MCV 83.3 (78.0-102.0) fL MCH 27.5 (27.0-31.0) pg MCHC 33.1 (32-36) g/dL RDW 12.2 (11.6-14.4) % Plt Count 332 (150-420) K/mm3 MPV 9.8 (9.2-11.8) fl Immature Gran % (Auto) 1.4 H (0.0-0.0) % Neut % (Auto) 78.7 H (50.0-70.0) % Lymph % (Auto) 13.4 L (18.0-42.0) % [place] % (Auto) 5.8 (2.0-11.0) % Eos % (Auto) 0.2 L (1.0-6.0) % Baso % (Auto) 0.5 (0.0-1.0) % Lymph # (Auto) 1.45 (1.10-4.50) K/mm3 [place] # (Auto) 0.63 (0.10-0.90) K/mm3 Eos # (Auto) 0.02 (0.02-0.50) K/mm3 Baso # (Auto) 0.05 (0.00-0.10) K/mm3 Abs Immat Gran (auto) 0.15 H (0.00-0.00) K/mm3 Absolute Neuts (auto) 8.49 H (1.70-7.20) K/mm3 Absolute Nucleated RBC 0.00 (0.00-0.00) K/mm3 Nucleated RBC % 0.0 (0-0.0) % Sodium 133 L (136-145) mmol/L Potassium 3.6 (3.5-5.1) mmol/L Chloride 92 L (98-108) mmol/L Carbon Dioxide 32 (21-32) mmol/L Anion Gap 9 (4-12) mmol/L BUN 8 (7-18) mg/dL Creatinine 0.67 (0.55-1.02) mg/dL Estim Creat Clear Calc 89 ml/min Estimated GFR > 60 (59 - ) Glucose 344 H (70-99) mg/dL POC Capillary Glucose 306 H (65-105) mg/dl Calculated Osmolality 288 (285-295) mOsm/kg Calcium 9.2 (8.5-10.1) mg/dL Phosphorus 3.0 (2.6-4.7) mg/dL Magnesium 1.6 L (1.8-2.4) mg/dL Total Bilirubin 0.7 (0.00-1.00) mg/dL AST 30 (15-37) U/L ALT 94 H (14-59) U/L Alkaline Phosphatase 173 H (46-116) U/L Total Protein 8.3 H (6.4-8.2) g/dL Albumin 4.2 (3.4-5.0) g/dL Urine Color Light yellow (Yellow) Urine Appearance Clear (Clear) Urine pH 8.0 (5.0-8.0) Ur Specific [place] 1.015 (1.010-1.020) Urine Protein 1+ H (Negative) Urine Glucose (UA) 3+ H (Negative) Urine Ketones 1+ H (Negative) Ur Blood (Man) Negative (Negative) Urine Nitrate Negative (Negative) Urine Bilirubin Negative (Negative) Urine Urobilinogen 0.2 (0.2-1.0) mg/dL Leukocyte Esterase Rfl Negative (Negative) BAHMAN/UL Urine RBC None seen (0-2) /hpf Urine WBC None seen (0-3) /hpf Ur Squamous Epith Cells Rare (Few) /hpf Urine Bacteria 1+ H (None) /hpf Urine Opiates Screen Negative (Negative) Urine Methadone Screen Negative (Negative) Ur Barbiturates Screen Negative (Negative) Ur Phencyclidine Scrn Negative (Negative) Ur Amphetamine Screen Negative (Negative) U Benzodiazepines Scrn Negative (Negative) Urine Cocaine Screen Negative (Negative) U Cannabinoids Screen Negative (Negative) Acetone Level Negative (Negative) Influenza A (RT-PCR) (Negative) Influenza B (RT-PCR) (Negative) RSV (RT-PCR) (Negative) SARS-CoV-2 RNA (RT-PCR) (Negative) 03/04/25 03/04/25 Range/Units 06:00 06:45 WBC (4.8-10.8) K/mm3 RBC (4.20-5.40) M/mm3 Hgb (12.0-15.0) g/dL Hct (35.0-49.0) % MCV (78.0-102.0) fL MCH (27.0-31.0) pg MCHC (32-36) g/dL RDW (11.6-14.4) % Plt Count (150-420) K/mm3 MPV (9.2-11.8) fl Immature Gran % (Auto) (0.0-0.0) % Neut % (Auto) (50.0-70.0) % Lymph % (Auto) (18.0-42.0) % [place] % (Auto) (2.0-11.0) % Eos % (Auto) (1.0-6.0) % Baso % (Auto) (0.0-1.0) % Lymph # (Auto) (1.10-4.50) K/mm3 [place] # (Auto) (0.10-0.90) K/mm3 Eos # (Auto) (0.02-0.50) K/mm3 Baso # (Auto) (0.00-0.10) K/mm3 Abs Immat Gran (auto) (0.00-0.00) K/mm3 Absolute Neuts (auto) (1.70-7.20) K/mm3 Absolute Nucleated RBC (0.00-0.00) K/mm3 Nucleated RBC % (0-0.0) % Sodium (136-145) mmol/L Potassium (3.5-5.1) mmol/L Chloride (98-108) mmol/L Carbon Dioxide (21-32) mmol/L Anion Gap (4-12) mmol/L BUN (7-18) mg/dL Creatinine (0.55-1.02) mg/dL Estim Creat Clear Calc ml/min Estimated GFR (59 - ) Glucose (70-99) mg/dL POC Capillary Glucose 339 H (65-105) mg/dl Calculated Osmolality (285-295) mOsm/kg Calcium (8.5-10.1) mg/dL Phosphorus (2.6-4.7) mg/dL Magnesium (1.8-2.4) mg/dL Total Bilirubin (0.00-1.00) mg/dL AST (15-37) U/L ALT (14-59) U/L Alkaline Phosphatase (46-116) U/L Total Protein (6.4-8.2) g/dL Albumin (3.4-5.0) g/dL Urine Color (Yellow) Urine Appearance (Clear) Urine pH (5.0-8.0) Ur Specific [place] (1.010-1.020) Urine Protein (Negative) Urine Glucose (UA) (Negative) Urine Ketones (Negative) Ur Blood (Man) (Negative) Urine Nitrate (Negative) Urine Bilirubin (Negative) Urine Urobilinogen (0.2-1.0) mg/dL Leukocyte Esterase Rfl (Negative) BAHMAN/UL Urine RBC (0-2) /hpf Urine WBC (0-3) /hpf Ur Squamous Epith Cells (Few) /hpf Urine Bacteria (None) /hpf Urine Opiates Screen (Negative) Urine Methadone Screen (Negative) Ur Barbiturates Screen (Negative) Ur Phencyclidine Scrn (Negative) Ur Amphetamine Screen (Negative) U Benzodiazepines Scrn (Negative) Urine Cocaine Screen (Negative) U Cannabinoids Screen (Negative) Acetone Level (Negative) Influenza A (RT-PCR) Negative (Negative) Influenza B (RT-PCR) Negative (Negative) RSV (RT-PCR) Negative (Negative) SARS-CoV-2 RNA (RT-PCR) Negative (Negative) <Alexis Boudreaux MD - Last Filed: 03/04/25 07:03> Lab Results 03/04/25 03/04/25 03/04/25 Range/Units 05:26 05:43 05:53 WBC 10.8 (4.8-10.8) K/mm3 RBC 5.99 H (4.20-5.40) M/mm3 Hgb 16.5 H (12.0-15.0) g/dL Hct 49.9 H (35.0-49.0) % MCV 83.3 (78.0-102.0) fL MCH 27.5 (27.0-31.0) pg MCHC 33.1 (32-36) g/dL RDW 12.2 (11.6-14.4) % Plt Count 332 (150-420) K/mm3 MPV 9.8 (9.2-11.8) fl Immature Gran % (Auto) 1.4 H (0.0-0.0) % Neut % (Auto) 78.7 H (50.0-70.0) % Lymph % (Auto) 13.4 L (18.0-42.0) % [place] % (Auto) 5.8 (2.0-11.0) % Eos % (Auto) 0.2 L (1.0-6.0) % Baso % (Auto) 0.5 (0.0-1.0) % Lymph # (Auto) 1.45 (1.10-4.50) K/mm3 [place] # (Auto) 0.63 (0.10-0.90) K/mm3 Eos # (Auto) 0.02 (0.02-0.50) K/mm3 Baso # (Auto) 0.05 (0.00-0.10) K/mm3 Abs Immat Gran (auto) 0.15 H (0.00-0.00) K/mm3 Absolute Neuts (auto) 8.49 H (1.70-7.20) K/mm3 Absolute Nucleated RBC 0.00 (0.00-0.00) K/mm3 Nucleated RBC % 0.0 (0-0.0) % Sodium 133 L (136-145) mmol/L Potassium 3.6 (3.5-5.1) mmol/L Chloride 92 L (98-108) mmol/L Carbon Dioxide 32 (21-32) mmol/L Anion Gap 9 (4-12) mmol/L BUN 8 (7-18) mg/dL Creatinine 0.67 (0.55-1.02) mg/dL Estim Creat Clear Calc 89 ml/min Estimated GFR > 60 (59 - ) Glucose 344 H (70-99) mg/dL POC Capillary Glucose 306 H (65-105) mg/dl Calculated Osmolality 288 (285-295) mOsm/kg Calcium 9.2 (8.5-10.1) mg/dL Phosphorus 3.0 (2.6-4.7) mg/dL Magnesium 1.6 L (1.8-2.4) mg/dL Total Bilirubin 0.7 (0.00-1.00) mg/dL AST 30 (15-37) U/L ALT 94 H (14-59) U/L Alkaline Phosphatase 173 H (46-116) U/L Total Protein 8.3 H (6.4-8.2) g/dL Albumin 4.2 (3.4-5.0) g/dL Urine Color Light yellow (Yellow) Urine Appearance Clear (Clear) Urine pH 8.0 (5.0-8.0) Ur Specific [place] 1.015 (1.010-1.020) Urine Protein 1+ H (Negative) Urine Glucose (UA) 3+ H (Negative) Urine Ketones 1+ H (Negative) Ur Blood (Man) Negative (Negative) Urine Nitrate Negative (Negative) Urine Bilirubin Negative (Negative) Urine Urobilinogen 0.2 (0.2-1.0) mg/dL Leukocyte Esterase Rfl Negative (Negative) BAHMAN/UL Urine RBC None seen (0-2) /hpf Urine WBC None seen (0-3) /hpf Ur Squamous Epith Cells Rare (Few) /hpf Urine Bacteria 1+ H (None) /hpf Urine Opiates Screen Negative (Negative) Urine Methadone Screen Negative (Negative) Ur Barbiturates Screen Negative (Negative) Ur Phencyclidine Scrn Negative (Negative) Ur Amphetamine Screen Negative (Negative) U Benzodiazepines Scrn Negative (Negative) Urine Cocaine Screen Negative (Negative) U Cannabinoids Screen Negative (Negative) Acetone Level Negative (Negative) Influenza A (RT-PCR) (Negative) Influenza B (RT-PCR) (Negative) RSV (RT-PCR) (Negative) SARS-CoV-2 RNA (RT-PCR) (Negative) 03/04/25 03/04/25 Range/Units 06:00 06:45 WBC (4.8-10.8) K/mm3 RBC (4.20-5.40) M/mm3 Hgb (12.0-15.0) g/dL Hct (35.0-49.0) % MCV (78.0-102.0) fL MCH (27.0-31.0) pg MCHC (32-36) g/dL RDW (11.6-14.4) % Plt Count (150-420) K/mm3 MPV (9.2-11.8) fl Immature Gran % (Auto) (0.0-0.0) % Neut % (Auto) (50.0-70.0) % Lymph % (Auto) (18.0-42.0) % [place] % (Auto) (2.0-11.0) % Eos % (Auto) (1.0-6.0) % Baso % (Auto) (0.0-1.0) % Lymph # (Auto) (1.10-4.50) K/mm3 [place] # (Auto) (0.10-0.90) K/mm3 Eos # (Auto) (0.02-0.50) K/mm3 Baso # (Auto) (0.00-0.10) K/mm3 Abs Immat Gran (auto) (0.00-0.00) K/mm3 Absolute Neuts (auto) (1.70-7.20) K/mm3 Absolute Nucleated RBC (0.00-0.00) K/mm3 Nucleated RBC % (0-0.0) % Sodium (136-145) mmol/L Potassium (3.5-5.1) mmol/L Chloride (98-108) mmol/L Carbon Dioxide (21-32) mmol/L Anion Gap (4-12) mmol/L BUN (7-18) mg/dL Creatinine (0.55-1.02) mg/dL Estim Creat Clear Calc ml/min Estimated GFR (59 - ) Glucose (70-99) mg/dL POC Capillary Glucose 339 H (65-105) mg/dl Calculated Osmolality (285-295) mOsm/kg Calcium (8.5-10.1) mg/dL Phosphorus (2.6-4.7) mg/dL Magnesium (1.8-2.4) mg/dL Total Bilirubin (0.00-1.00) mg/dL AST (15-37) U/L ALT (14-59) U/L Alkaline Phosphatase (46-116) U/L Total Protein (6.4-8.2) g/dL Albumin (3.4-5.0) g/dL Urine Color (Yellow) Urine Appearance (Clear) Urine pH (5.0-8.0) Ur Specific [place] (1.010-1.020) Urine Protein (Negative) Urine Glucose (UA) (Negative) Urine Ketones (Negative) Ur Blood (Man) (Negative) Urine Nitrate (Negative) Urine Bilirubin (Negative) Urine Urobilinogen (0.2-1.0) mg/dL Leukocyte Esterase Rfl (Negative) BAHMAN/UL Urine RBC (0-2) /hpf Urine WBC (0-3) /hpf Ur Squamous Epith Cells (Few) /hpf Urine Bacteria (None) /hpf Urine Opiates Screen (Negative) Urine Methadone Screen (Negative) Ur Barbiturates Screen (Negative) Ur Phencyclidine Scrn (Negative) Ur Amphetamine Screen (Negative) U Benzodiazepines Scrn (Negative) Urine Cocaine Screen (Negative) U Cannabinoids Screen (Negative) Acetone Level (Negative) Influenza A (RT-PCR) Negative (Negative) Influenza B (RT-PCR) Negative (Negative) RSV (RT-PCR) Negative (Negative) SARS-CoV-2 RNA (RT-PCR) Negative (Negative) <Jefe Rose MD - Last Filed: 03/04/25 07:27> ABG Data ABG results: 03/04/25 06:00 VBG pH 7.52 H VBG pCO2 32.0 L VBG pO2 231.4 H VBG HCO3 25.8 O2 Delivery Device Room air O2 Liters/Min 0.0 <Alexis Boudreaux MD - Last Filed: 03/04/25 07:03> 03/04/25 06:00 VBG pH 7.52 H VBG pCO2 32.0 L VBG pO2 231.4 H VBG HCO3 25.8 O2 Delivery Device Room air O2 Liters/Min 0.0 <Jefe Rose MD - Last Filed: 03/04/25 07:27> Imaging Data Radiologist's impression: Impressions Chest X-Ray 03/04/25 06:24 Impression: Normal chest <Alexis Boudreaux MD - Last Filed: 03/04/25 07:03> Critical Care Time Critical Care Time Critical Care Time: No <Alexis Boudreaux MD - Last Filed: 03/04/25 07:03> Discharge Plan Discharge Clinical Impression: Hyperglycemia due to diabetes mellitus Vomiting Qualifiers: Vomiting type: unspecified Nausea presence: with nausea Qualified Code(s): R11.2 - Nausea with vomiting, unspecified <Alexis Boudreaux MD - Last Filed: 03/04/25 07:03> Patient Disposition: Home <Alexis Boudreaux MD - Last Filed: 03/04/25 07:03> Condition: Improved <Alexis Boudreaux MD - Last Filed: 03/04/25 07:03> Instructions: Acute Nausea and Vomiting (ED), Diabetic Hyperglycemia (ED) <Alexis Boudreaux MD - Last Filed: 03/04/25 07:03> Additional Instructions: Return if symptoms are worsening , call your family physician for appointment, take Tylenol as as needed for aches and pain, continue home medications. <Alexis Boudreaux MD - Last Filed: 03/04/25 07:03> Patient Language: Martiniquais <Alexis Boudreaux MD - Last Filed: 03/04/25 07:03> Prescriptions: New ondansetron 4 mg tablet,disintegrating 4 mg PO Q4H Qty: 10 0RF Rx Instructions: give 1st dose 30min before emetogenic chemo No Action ibuprofen 800 mg tablet 800 mg PO TID PRN (Reason: pain) 7 Days Qty: 21 0RF acetaminophen 500 mg tablet 1,000 mg PO TID PRN (Reason: kg) 7 Days Qty: 42 0RF methocarbamol 750 mg tablet 1,500 mg PO TID Qty: 35 0RF sucralfate 100 mg/mL suspension 100 mg PO DAILY (DME) OneTouch Verio test strips Strip MISCELLANEOUS (DME) pen needle, diabetic [TRUEplus Pen Needle] 31 gauge x 1/4 needle MISCELLANEOUS atorvastatin 80 mg tablet 80 mg PO DAILY albuterol sulfate 2.5 mg /3 mL (0.083 %) solution for nebulization 2.5 mg inhalation PRN PRN (Reason: Wheezing) fenofibrate micronized 134 mg capsule 134 mg PO DAILY hydrochlorothiazide 12.5 mg capsule 12.5 mg PO DAILY gabapentin 300 mg capsule 300 mg PO PRN PRN (Reason: Pain, Moderate) omeprazole 20 mg capsule,delayed release(DR/EC) 40 mg PO DAILY montelukast 10 mg tablet 10 mg PO DAILY furosemide 20 mg tablet 40 mg PO DAILY metformin 500 mg tablet extended release 24 hr 1,000 mg PO BID Januvia 100 mg tablet 100 mg PO DAILY Trulicity 0.75 mg/0.5 mL pen injector 0.75 mg SUBCUT USEASDIRECTD Rx Instructions: TWICE MONTHLY naproxen 500 mg tablet 500 mg PO BID PRN (Reason: pain) Qty: 14 0RF <Alexis Boudreaux MD - Last Filed: 03/04/25 07:03> Follow-up/Referrals: Zully,MD Jose [Primary Care Provider] - <Alexis Boudreaux MD - Last Filed: 03/04/25 07:03> Time of Disposition: 07:24 <Alexis Boudreaux MD - Last Filed: 03/04/25 07:03> 07:24 <Jefe Rose MD - Last Filed: 03/04/25 07:27>
[2025-03-04 05:46] LABS: Basophils Absolute Auto 0.05 K/mm3 (0.00-0.10); Basophils Percent Auto 0.5 % (0.0-1.0); Eosinophils Absolute Auto 0.02 K/mm3 (0.02-0.50); Eosinophils Percent Auto 0.2 % (1.0-6.0); Hematocrit 49.9 % (35.0-49.0); Hemoglobin 16.5 g/dL (12.0-15.0); Immature Granulocyte Absolute 0.15 K/mm3 (0.00-0.00); Immature Granulocyte Percent A 1.4 % (0.0-0.0); Lymphocytes Absolute Auto 1.45 K/mm3 (1.10-4.50); Lymphocytes Percent Auto 13.4 % (18.0-42.0); Mean Corpuscular HGB Conc 33.1 g/dL (32-36); Mean Corpuscular Hemoglobin 27.5 pg (27.0-31.0); Mean Corpuscular Volume 83.3 fL (78.0-102.0); Mean Platelet Volume 9.8 fl (9.2-11.8); Monocytes Absolute Auto 0.63 K/mm3 (0.10-0.90); Monocytes Percent Auto 5.8 % (2.0-11.0); Neutrophils Absolute Auto 8.49 K/mm3 (1.70-7.20); Neutrophils Percent Auto 78.7 % (50.0-70.0); Platelet Count Result 332 K/mm3 (150-420); Red Blood Count 5.99 M/mm3 (4.20-5.40); Red Cell Distribution Width 12.2 % (11.6-14.4); White Blood Count 10.8 K/mm3 (4.8-10.8)
[2025-03-04] MEDS: ONDANSETRON INJ 4 MG/2 ML VIAL 8 MG IV PUSH (05:47)
[2025-03-04] MEDS: INSULIN HUMAN REGULAR (*BKC) 1,000 UNITS/10 ML VIAL 12.8 UNITS IV PUSH (05:47)
[2025-03-04] MEDS: SODIUM CHLORIDE 0.9% IV 1,000 ML 999 ML IV CONT (05:48)
--- OUTSIDE RECORDS SUMMARY | 2025-03-04 05:51 | XMS_ITS | Clinical Summary ---
Author Organization [facility] Address [address] [place] [address] Phone Care Team Providers Care Stock Patcher Name Role Phone Jose Beverly MD Primary Care Provider [phone] Allergies Active Allergy Reactions Criticality Noted Date [...] daily as needed. Active ergocalciferol (VITAMIN D) 46567 UNIT Capsule Take 1 Capsule by mouth [...] Department Care Team Description 01/15/2025 10:46 AM ECONOMIC HISTORY TEACHER - 01/15/2025 3:52 PM ECONOMIC HISTORY TEACHER Emergency [facility] Emergency [address] [place] [address] Alejandro Simeon, Chest pain Discharge Disposition: Discharged to home or Selfcare 01/15/2025 Travel from Last 3 Months Social History Tobacco Use Types Packs/Day Years Used Date Smoking Tobacco: Never Smokeless Tobacco: Never Alcohol Use Standard Drinks/Week Comments Yes 1 (1 standard drink = 0.6 oz pur e alcohol) [facility] Utilities Answer Date Recorded In the [...] declined 10/30/2024 How often do you attend tenriism or restoration serv ices? Patient declined 10/30/2024 Do you belong to any clubs o r organizations such as tenriism groups, unions, fraternal or athletic groups, or [...] medical care, and heating? Patient declined 10/30/2024 [facility] - Occupational [...] any time in the past 12 m [facility], were you homeless or living in a jail (including now)? Patient declined 10/30/2024 Sexually Active Control Partners Comments Not Currently Comments No Sex and Gender Information Value Date Recorded Sex Assigned at Female 11/02/2024 6:03 AM ECONOMIC HISTORY TEACHER Legal Sex Female 10:10 PM CDT Gender Identity Female 11/02/2024 6:03 AM ECONOMIC HISTORY TEACHER Sexual Orientation Not on file Last Filed Vital Signs Vital Sign Reading Time Taken Comments Blood Pressure 115/63 01/15/2025 3:30 PM ECONOMIC HISTORY TEACHER Pulse 89 01/15/2025 3:45 PM ECONOMIC HISTORY TEACHER Temperature 36.3 C (97.3 F) 01/15/2025 10:51 AM ECONOMIC HISTORY TEACHER Respiratory Rate 19 01/15/2025 3:02 PM ECONOMIC HISTORY TEACHER Oxygen Saturation 92% 01/15/2025 3:45 PM ECONOMIC HISTORY TEACHER Inhaled Oxygen Concentration - - Weight 87.8 kg (193 lb 9 oz) 01/15/2025 10:51 AM ECONOMIC HISTORY TEACHER Height 167.6 cm (5' 6 ) 01/15/2025 10:51 AM ECONOMIC HISTORY TEACHER Body Mass Index 31.24 01/15/2025 10:51 AM ECONOMIC HISTORY TEACHER Plan of Treatment Health Maintenance Due Date [...] HIGH SENSITIVITY (HSTRP) STAT 01/15/2025 2:10 PM ECONOMIC HISTORY TEACHER XR CHEST SINGLE VIEW PORTABLE STAT 01/15/2025 11:30 AM ECONOMIC HISTORY TEACHER RSV,SARS-COV-2,INFLUE NZA A&B BY PCR STAT 01/15/2025 11:20 AM ECONOMIC HISTORY TEACHER GOLD TOP TUBE STAT 01/15/2025 10:55 AM ECONOMIC HISTORY TEACHER BLUE TOP TUBE STAT 01/15/2025 10:55 AM ECONOMIC HISTORY TEACHER CBC WITH AUTO DIFFERENTIAL STAT 01/15/2025 10:55 AM ECONOMIC HISTORY TEACHER EXTRA TUBES STAT 01/15/2025 10:55 AM ECONOMIC HISTORY TEACHER TROPONIN I, HIGH SENSITIVITY (HSTRP) STAT 01/15/2025 10:55 AM ECONOMIC HISTORY TEACHER COMPLETE BLOOD COUNT (CBC) WITH DIFF STAT 01/15/2025 10:55 AM ECONOMIC HISTORY TEACHER CMP (COMPREHENSIVE METABOLIC PANEL) STAT 01/15/2025 10:55 AM ECONOMIC HISTORY TEACHER EKG 12 LEAD STAT 01/15/2025 10:52 AM ECONOMIC HISTORY TEACHER EKG SCAN 01/15/2025 12:00 AM ECONOMIC HISTORY TEACHER HEMOGLOBIN A1C W/ ESTIMATED GLUCOSE STAT 10/30/2024 1:21 PM ECONOMIC HISTORY TEACHER HEPATITIS PANEL ACUTE (AHP) Routine 11/07/2020 4:30 AM ECONOMIC HISTORY TEACHER from Last 3 Months or Most Recently Relevant to Health Maintenance Results * TROPONIN I, HIGH SENSITIVITY (HSTRP) (01/15/2025 2:10 PM ECONOMIC HISTORY TEACHER) Only the most recent of2 resultswithin the time period is included. TROPONIN I, HIGH SENSITIVITY- PHIPPS <3 <=14 ng/L 01/15/2025 3:18 PM ECONOMIC HISTORY TEACHER [facility] Comment: High-sensitivity troponin I results are reported in ng/L making the result appear to be 1,000 times higher than the contemporary troponin I value which is reported in ng/ml. Results from [facility]. Blood Venipuncture / Unknown 01/15/2025 2:10 PM ECONOMIC HISTORY TEACHER 01/15/2025 2:47 PM ECONOMIC HISTORY TEACHER us Alejandro Simeon DO CHEMISTRY ORDERABLES Fi nal Result [facility] [address] [place] [address] * XR CHEST SINGLE VIEW PORTABLE (01/15/2025 11:30 AM ECONOMIC HISTORY TEACHER) Anatomical Region Laterality Modality Chest N/A Digital Radiogra phy 01/15/2025 12:0 0 PM ECONOMIC HISTORY TEACHER Impressions 01/15/2025 12:03 PM ECONOMIC HISTORY TEACHER IMPRESSION: No radiographic evidence of an acute cardiopulmonary abnormality. Narrative 01/15/2025 12:03 PM ECONOMIC HISTORY TEACHER EXAM DESCRIPTION: XR CHEST SINGLE VIEW PORTABLE [...] Donny Gould M.D. NS: NS Report ID: [id number] Reading Location: [id number] Procedure Note Donny Gould MD - 01/15/2025 [...] Donny Gould M.D. NS: NS Report ID: [id number] Reading Location: [id number] IMPRESSION: No radiographic evidence of an acute cardiopulmonary abnormality. us Alejandro Simeon DO IMG DIAGNOSTIC ORDERABL ES Final Result * RSV,SARS-COV-2,INFLUENZA A&B BY PCR (01/15/2025 11:20 AM ECONOMIC HISTORY TEACHER) FLU A Negative Negative, Error 01/15/2025 12:49 PM ECONOMIC HISTORY TEACHER [facility] FLU B Negative Negative 01/15/2025 12:49 PM ECONOMIC HISTORY TEACHER [facility] RESP SYNC VIRUS Negative Negative 12:49 PM ECONOMIC HISTORY TEACHER [facility] SARSCOV2 NOT DETECTED (Reference Range for this test is Not Detected) 01/15/2025 12:49 PM ECONOMIC HISTORY TEACHER [facility] Comment:This test was perfor med by a Reverse Torch Operator PCR Method. Swab NASOPHARYNGEAL STRUCTURE / Unknown Non-Phlebotomy Collection / Unknown 01/15/2025 11:20 AM ECONOMIC HISTORY TEACHER 01/15/2025 11:44 AM ECONOMIC HISTORY TEACHER Alejandro Simeon DO MICROBIOLOGY - GENERAL ORDERABLES Final Result Performing Organization Address City/[facility] Co de Phone Number [facility] [address] [place] [address] * Gold Top Tube (01/15/2025 10:55 AM ECONOMIC HISTORY TEACHER) Blood No Phlebotomy Charged / Unknown 01/15/2025 10:55 AM ECONOMIC HISTORY TEACHER 01/15/2025 11:05 AM ECONOMIC HISTORY TEACHER Alejandro Simeon DO CHEMISTRY ORDERABLES Fi nal Result [facility] [address] [place] [address] * Blue Top Tube (01/15/2025 10:55 AM ECONOMIC HISTORY TEACHER) Blood No Phlebotomy Charged / Unknown 01/15/2025 10:55 AM ECONOMIC HISTORY TEACHER 01/15/2025 11:05 AM ECONOMIC HISTORY TEACHER us Alejandro Simeon DO HEMATOLOGY ORDERABLES F inal Result [facility] [address] [place] [address] * CBC with Auto Differential (01/15/2025 10:55 AM ECONOMIC HISTORY TEACHER) WBC 7.64 4.00 - 12.00 10(3)/[facility] 01/15/2025 11:08 AM [facility] RBC 5.22 3.80 - 5.30 10(6)/[facility] 01/15/2025 11:08 AM [facility] HEMOGLOBIN (HGB) 15.1 12.0 - 15.8 g/dL 01/15/2025 11:08 AM [facility] HEMATOCRIT (HCT) 44.4 36.0 - 47.0 % 01/15/2025 11:08 AM ECONOMIC HISTORY TEACHER [facility] MCV 85.1 82.0 - 96.0 fL 01/15/2025 11:08 AM [facility] MCH 28.9 26.0 - 34.0 pg 01/15/2025 11:08 AM [facility] MCHC 34.0 31.0 - 36.0 g/dL 01/15/2025 11:08 AM [facility] PLATELET COUNT 260 140 - 440 10(3)/[facility] 01/15/2025 11:08 AM ECONOMIC HISTORY TEACHER [facility] RDW 12.0 11.8 - 15.5 % 01/15/2025 11:08 AM [facility] MPV 10.6 9.7 - 12.4 fL 01/15/2025 11:08 AM [facility] NEUTROPHILS 53.7 47.0 - 73.0 % 01/15/2025 11:08 AM [facility] LYMPHOCYTES 32.5 18.0 - 42.0 % 01/15/2025 11:08 AM [facility] MONOCYTES 11.0 4.0 - 12.0 % 01/15/2025 11:08 AM [facility] EOSINOPHILS 2.4 0.0 - 5.0 % 01/15/2025 11:08 AM [facility] BASOPHILS 0.4 0.0 - 1.0 % 01/15/2025 11:08 AM [facility] ABSOLUTE NEUTROPHILS 4.11 1.60 - 7.70 10(3)/[facility] 01/15/2025 11:08 AM [facility] ABSOLUTE LYMPHOCYTES 2.48 1.30 - 3.20 10(3)/[facility] 01/15/2025 11:08 AM [facility] ABSOLUTE MONOCYTES 0.84 0.20 - 1.00 10(3)/[facility] 01/15/2025 11:08 AM [facility] ABSOLUTE EOSINOPHIL 0.18 0.00 - 0.40 10(3)/[facility] 01/15/2025 11:08 AM [facility] ABSOLUTE BASOPHILS 0.03 0.00 - 0.10 10(3)/[facility] 01/15/2025 11:08 AM [facility] NRBC PER 100 WBC 0 01/15/20 11:08 AM [facility] Blood Venipuncture / Unknown 01/15/2025 10:55 AM [facility] 01/15/2025 11:03 AM [facility] us Alejandro Simeon DO HEMATOLOGY ORDERABLES F inal Result [facility] [address] [place] [address] * (ABNORMAL) CMP (Comprehensive Metabolic Panel) (01/15/2025 10:55 AM [facility]) SODIUM 139 136 - 145 mmol/L 01/15/2025 11:34 AM [facility] POTASSIUM 3.9 3.5 - 5.1 mmol/L 01/15/2025 11:34 AM [facility] CHLORIDE 101 98 - 107 mmol/L 01/15/2025 11:34 AM [facility] CO2, VENOUS 25 22 - 30 mmol/L 01/15/2025 11:34 AM [facility] ANION GAP 16.9 <18.0 mmol/L 01/15/2025 11:34 AM [facility] GLUCOSE 335(H) 70 - 99 mg/dL 01/15/2025 11:34 AM [facility] BUN 15 10 - 20 mg/dL 01/15/2025 11:34 AM [facility] CREATININE, BLOOD 0.89 0.60 - 1.00 mg/dL 01/15/2025 11:34 AM [facility] BUN/CREATININE RATIO 17 12 - 20 ratio 01/15/2025 11:34 AM [facility] TOTAL PROTEIN 7.7 6.0 - 8.0 g/dL 01/15/2025 11:34 AM [facility] ALBUMIN 4.3 3.5 - 5.0 g/dL 01/15/2025 11:34 AM [facility] A/G RATIO 1.3 1.0 - 2.2 01/15/2025 11:34 AM [facility] CALCIUM 9.7 8.7 - 10.5 mg/dL 01/15/2025 11:34 AM [facility] T BILI 0.3 0.2 - 1.2 mg/dL 01/15/2025 11:34 AM [facility] SGOT (AST) 29 <43 U/L 01/15/2025 11:34 AM [facility] SGPT (ALT) 35 <56 U/L 01/15/2025 11:34 AM [facility] ALKALINE PHOSPHATASE 115 40 - 150 U/L 01/15/2025 11:34 AM [facility] GFR, ESTIMATED >60 >=60 01/15/2025 11:34 AM ECONOMIC HISTORY TEACHER [facility] Comment: Creatinine Clearance is the preferred criteria for selecting drug dose adjustments in renally impaired patients. The GFR is provided as additional pertinent clinical information. GFR is reported in mL/min/1.73 sq m. Calculation based on the Chronic Kidney Disease Epidemiology Collaboration (CKD- EPI) equation refit without adjustment for race. GFR, EST. >60 >=60 025 11:34 AM ECONOMIC HISTORY TEACHER [facility] GFR, EST. NONAFRICAN >60 >=60 01/15/2025 11:34 AM ECONOMIC HISTORY TEACHER [facility] Blood Venipuncture / Unknown 01/15/2025 10:55 AM ECONOMIC HISTORY TEACHER 01/15/2025 11:03 AM ECONOMIC HISTORY TEACHER us Alejandro Simeon DO CHEMISTRY ORDERABLES Fi nal Result [facility] [address] [place] [address] * EKG 12 LEAD (01/15/2025 10:52 AM ECONOMIC HISTORY TEACHER) Ventricular Rate 99 BPM EXTERNAL EKG Atrial Rate 99 BPM EXTERNAL EKG P-R Interval 152 ms EXTERNAL EKG QRS Duration 78 ms EXTERNAL EKG Q-T Duration 350 ms EXTERNAL EKG QTC CALCULATION 449 ms EXTERNAL EKG P [place] 43 degrees EXTERNAL EKG R [place] -13 degrees EXTERNAL EKG T [place] 49 degrees EXTERNAL EKG 01/15/2025 10:5 2 AM ECONOMIC HISTORY TEACHER Impressions EXTERNAL EKG - 01/16/2025 11:05 PM ECONOMIC HISTORY TEACHER Normal sinus rhythm POOR R-WAVE PROGRESSION Nonspecific ST and T wave abnormality Abnormal ECG When compared with ECG of 30-OCT-2024 13:07, No significant change was found Confirmed by Stephanie Arellano ([id number]) on 01/16/2025 11:05:21 PM Narrative Procedure Note Stephanie Arellano MD - 01/16/2025 IMPRESSION: Normal sinus rhythm POOR R-WAVE PROGRESSION Nonspecific ST and T wave abnormality Abnormal ECG When compared with ECG of 30-OCT-2024 13:07, No significant change was found Confirmed by Stephanie Arellano ([id number]) on 01/16/2025 11:05:21 PM us Alejandro Simeon DO IMG ECG ORDERABLES Kaykay l Result EXTERNAL EKG * EKG SCAN (01/15/2025 12:00 AM ECONOMIC HISTORY TEACHER) 01/15/2025 us Provider Scan IMG ECG ORDERABLES Final Result Performing Organization Address City/[facility]/ZIP Co de Phone Number RESULTING AGENCY * (ABNORMAL) Hemoglobin A1C (10/30/2024 1:21 PM ECONOMIC HISTORY TEACHER) Pathologist [facility] HGB-A1C 13.1(H) 4.0 - 6.0 % 10/30/2024 2:18 PM ECONOMIC HISTORY TEACHER [facility] Est Average Glucose 329.3 mg/dL 10/30/2024 2:18 PM ECONOMIC HISTORY TEACHER [facility] Blood Venipuncture / Unknown 10/30/2024 1:21 PM ECONOMIC HISTORY TEACHER 10/30/2024 1:44 PM ECONOMIC HISTORY TEACHER Narrative [facility] - 10/30/2024 2:18 PM ECONOMIC HISTORY TEACHER HEMOGLOBIN A1C: DIABETIC PATIENTS: WELL-CONTROLLED: 6.2 - 7.0 INTERMEDIATE WELL-CONTROLLED: 7.0 - 9.0 POORLY-CONTROLLED: >9.0 us Mikaela Tang NCR OPERATOR, DISH ROOM WORKER CHEMISTRY ORDERABLES Final Result Performing Organization Address City/[facility]/ZIP Co de Phone Number [facility] [address] [place] [address] * Hepatitis Panel Acute (AHP) (11/07/2020 4:30 AM ECONOMIC HISTORY TEACHER) Pathologist [facility] HEPATITIS A IGM ANTIBODY NON DETECTED NON DETECTED [facility] [id number] A 11/07/2020 2:40 PM ECONOMIC HISTORY TEACHER [facility] Comment: IGM Antibodies to HAV not detected. Does not exclude early acute or recovered HAV infection. HEP B CORE AB (IGM) NON DETECTED NON DETECTED [facility] [id number] A 11/07/2020 2:40 PM ECONOMIC HISTORY TEACHER [facility] Comment:IGM anti-HBC not det ected. Does not exclude the possibility of exposure to or infection with HBV. HEPATITIS B SURFACE ANTIGEN NON DETECTED NON DETECTED [facility] [id number] B 11/07/2020 2:40 PM ECONOMIC HISTORY TEACHER [facility] Comment:A nonreactive test r esult does not exclude the possibility of exposure to or infection with Hepatitis B virus. A nonreactive test result in individuals with prior exposure to hepatitis B may be due to antigen levels below the detection limit of this assay or lack of antigen reactivity to the antibodies in this assay. hepatitis C antibody 0.32 <1 S/CO [facility] [id number] B 11/07/2020 2:40 PM ECONOMIC HISTORY TEACHER [facility] Comment: Signal/Cutoff ratio < 0.79 is Nondetected Signal/Cutoff ratio 0.80-0.99 is Grayzone Signal/Cutoff ratio > 0.99 is Detected Supplemental assays are recommended if signal/cutoff ratio is >/=1.00. Signal/cutoff ratio result >/= 5.00 is 97% predictive of positivity for recombinant immunoblot assay (RIBA) and will be reported to the [place] Department of Public Health as required. Blood Venipuncture / Unknown 11/07/2020 4:30 AM ECONOMIC HISTORY TEACHER 11/07/2020 4:45 AM ECONOMIC HISTORY TEACHER us Wellington Lujan MD HEMATOLOGY ORDERABLES Final R esult [facility] [address] [place] [address], from Last 3 Months or Most Recently Relevant to Health Maintenance Insurance MEDICAID [employer] [facility] Advance Directives * Full Code [...] measures to stabilize the patient. Care Teams Stock Patcher Relationship Specialty Start Date End Date Jose Beverly MD [address] [place] [address] PCP - General Family Medicine 05/02/16
--- OUTSIDE RECORDS SUMMARY | 2025-03-04 05:51 | XMS_ITS | Clinical Summary ---
Author Organization [facility] Address [address] [place] [id number] Care Team Providers Care Plastics Heat Welder Name Role Phone Jose Delarosa MD Primary Care Provider Kortney Coronado TRADE EMBALMER Unavailable [phone] Allergies Active Allergy Reactions Criticality Noted Date [...] Noted Date Diagnosed Date DKA (diabetic ketoacidosis) ([facility]) Intractable vomiting with nausea 02/24/2025 Other chest pain 10/30/2024 Sprain of left ankle, unspec ified ligament, initial encounter 06/20/2024 De Quervain's tenosynovitis, left 06/20/2024 PVD (peripheral vascular disease) 01/09/2024 Encounters Date Type Department Care Team Description 02/28/2025 12:50 PM CDT - 02/28/2025 1:35 PM CDT Surgery [facility] Endo/GI [address] [place] [address] Karely Gee MD EGD WITH BIOPSY 02/28/2025 12:22 PM CDT Anesthesia Event [facility] Endo/GI [address] [place] [address] Lily Solorzano MD Bolash-Best, Lacey M RN 02/24/2025 5:38 PM CDT - 03/02/2025 6:42 PM CDT Hospital Encounter [facility] 4th Floor Medical [address] [place] [address] Reg Bernardo MD Goyal, Pankaj, MD Mardani, Fareed, MD Discharge Disposition: Home or Self Care (Routine Discharge) 02/24/2025 Travel 02/23/2025 9:47 AM CDT - 02/23/2025 1:18 PM CDT Emergency [facility] Emergency [address] [place] [address] Alex Duarte MD Chest Pain; Shortness Of Breath Discharge Disposition: Home or Self Care (Routine Discharge) 02/23/2025 Travel 02/17/2025 Telephone [facility] [address] [place] [address] Kortney Coronado NP Fax 02/10/2025 Telephone [facility] [address] [facility] [place] [address] Apple Middleton PA Referral (Chronic RIGHT ankle pain) 02/06/2025 12:46 PM CDT - 02/06/2025 11:59 PM CDT Hospital Encounter [facility] [address] [place] [address] Belén Goode MD Discharge Disposition: Home or Self Care (Routine Discharge) 02/06/2025 Travel 01/22/2025 9:45 AM ACCOUNTS PAYABLE PROCESSOR Office Visit [facility] [address] [place] [phone] Belén Goode MD Follow Up 01/22/2025 7:41 AM ACCOUNTS PAYABLE PROCESSOR - 01/22/2025 11:59 PM ACCOUNTS PAYABLE PROCESSOR Hospital Encounter [facility] [address] [facility] [place] [address] Zainab Huerta NP Discharge Disposition: Home or Self Care (Routine Discharge) 01/22/2025 Travel 01/17/2025 Telephone [facility] [address] [place] [phone] Belén Goode MD Appointment Request 01/14/2025 12:09 PM ACCOUNTS PAYABLE PROCESSOR - 01/14/2025 11:59 PM ACCOUNTS PAYABLE PROCESSOR Hospital Encounter [facility] [address] [place] [address] Jose Delarosa MD Discharge Disposition: Home or [...] = 0.6 oz pur e alcohol) seldom [facility] Utilities Answer Date Recorded In the past 12 months has th e [employer], gas, oil, or water [employer] threatened to shut off services in your [...] any time in the past 12 m [facility], were you homeless or living in a residential (including now)? No 02/24/2025 Comments No Sex and Gender Information Value Date Recorded Sex Assigned at Female 01/14/2025 12:08 PM ACCOUNTS PAYABLE PROCESSOR Legal Sex Female 9:38 PM ACCOUNTS PAYABLE PROCESSOR Gender Identity Not on file Sexual Orientation [...] AORTO ILIOFEM RUNOFF Routine 01/22/2025 9:00 AM ACCOUNTS PAYABLE PROCESSOR Leg pain, bilateral CREATININE STAT 01/22/2025 8:00 AM ACCOUNTS PAYABLE PROCESSOR MG SCREENING W DOMENICA AMAN DIGI Routine 01/14/2025 12:45 PM ACCOUNTS PAYABLE PROCESSOR Visit for screening mammogram LIPID PANEL Routine 01/31/2018 11:23 AM ACCOUNTS PAYABLE PROCESSOR from Last 3 Months or Most Recently Relevant to Health Maintenance Results * (ABNORMAL) POCT glucose (03/02/2025 5:16 PM CDT) Only the most recent of29 resultswithin the time period is included. GLUCOSE POC 289(H) 70 - 109 03/02/2025 5:34 PM CDT [facility] 03/02/2025 5:16 PM CDT Mg Kendrick MD POCT ORDERABLES - DEVICE Final Result [facility] [address] [place] [address], [id number] * (ABNORMAL) BASIC METABOLIC PANEL (03/02/2025 4:44 AM CDT) Only the most recent of6 resultswithin the time period is included. SODIUM S/P/B 133(L) 136 - 145 MMOL/L 03/02/2025 5:42 AM CDT [facility] POTASSIUM S/P/B 3.3(L) 3.5 - 5.1 MMOL/L 03/02/2025 5:42 AM CDT [facility] CHLORIDE S/P/B 101 97 - 115 MMOL/L 03/02/2025 5:42 AM CDT [facility] CO2 26.2 21.0 - 32.0 MMOL/L 03/02/2025 5:42 AM CDT [facility] GLUCOSE 209(H) 74 - 106 MG/DL 03/02/2025 5:42 AM CDT [facility] BUN 14 7 - 18 MG/DL 03/02/2025 5:42 AM CDT [facility] CREATININE S/P/B 0.54(L) 0.55 - 1.02 MG/DL 03/02/2025 5:42 AM CDT [facility] CALCIUM S/P/B 8.7 8.5 - 10.1 MG/DL 03/02/2025 5:42 AM CDT [facility] ANION GAP 5.8 2.0 - 10.0 MMOL/L 03/02/2025 5:42 AM CDT [facility] OSMOLALITY (CALC) 283 MOSM/KG 025 5:42 AM CDT [facility] Comment:REFERENCE RANGE NOT ESTABLISHED GFR ESTIMATE >90 >90 ML/MIN/1. 73 M2 03/02/2025 5:42 AM CDT [facility] GFR NOTES GFR REFERENCE S: 03/02/2025 5:42 AM CDT [facility] Comment: THE ESTIMATED GFR IS CALCULATED [...] us Mg Kendrick MD LABORATORY Final Result [facility] [address] [place] [address], [id number] * (ABNORMAL) CBC W/DIFF AUTOMATED (03/02/2025 4:44 AM CDT) Only the most recent of7 resultswithin the time period is included. [facility] WBC 10.26 4.00 - 10.80 x10'3/uL 03/02/2025 5:15 AM CDT [facility] RBC 5.26 4.10 - 5.40 x10'6/uL 03/02/2025 5:15 AM CDT [facility] HGB 14.7 12.0 - 16.0 G/DL 03/02/2025 5:15 AM CDT [facility] HCT 43.1 36.0 - 47.0 % 03/02/2025 5:15 AM CDT [facility] MCV 81.9 78.0 - 100.0 FL 03/02/2025 5:15 AM CDT [facility] MCH 27.9 27.0 - 31.0 PG 03/02/2025 5:15 AM CDT [facility] MCHC 34.1 33.0 - 36.0 G/DL 03/02/2025 5:15 AM CDT [facility] RDW 12.3 11.5 - 14.5 % 03/02/2025 5:15 AM CDT [facility] PLT 215 150 - 350 x10'3/uL 03/02/2025 5:15 AM CDT [facility] MPV 9.7 7.4 - 10.4 FL 03/02/2025 5:15 AM CDT [facility] DIFFERENTIAL TYPE AUTOMATED DIFFERENTIAL 03/02/2025 5:15 AM CDT [facility] SEG NEUTROPHILS 46.5 % 5:15 AM CDT [facility] LYMPHOCYTES 39.2 % 03/02/2025 5:15 AM CDT [facility] MONOCYTES 11.1 % 03/02/2025 5:15 AM CDT [facility] EOSINOPHILS 1.9 % 03/02/2025 5:15 AM CDT [facility] BASOPHILS 0.3 % 03/02/2025 5:15 AM CDT [facility] IMMATURE GRANS % 1.0 % 03/02/20 5:15 AM CDT [facility] ABS. NEUTROPHILS 4.78 1.60 - 8.30 x10'3/uL 03/02/2025 5:15 AM CDT [facility] ABS. LYMPHOCYTES 4.02 0.80 - 4.70 x10'3/uL 03/02/2025 5:15 AM CDT [facility] ABS. MONOCYTES 1.14 0.00 - 1.50 x10'3/uL 03/02/2025 5:15 AM CDT [facility] ABS. EOSINOPHILS 0.19 0.00 - 0.40 x10'3/uL 03/02/2025 5:15 AM CDT [facility] ABS. BASOPHILS 0.03 0.00 - 0.20 x10'3/uL 03/02/2025 5:15 AM CDT [facility] ABS. IMMATURE GRANULOCYTES 0.10(H) 0.00 - 0.03 x10'3/uL 03/02/2025 5:15 AM CDT [facility] ABS. NUCLEATED RBC'S 0.00 0.00 - 0.01 x10'3/uL 03/02/2025 5:15 AM CDT [facility] NRBC % 0.0 % 03/02/2025 5:15 AM CDT [facility] 03/02/2025 4:44 AM CDT us Mg Kendrick MD LABORATORY Final Result [facility] [address] [place] [address], [id number] * ENDOSCOPY (SCAN ORDER) (02/28/2025 12:07 PM CDT) us Karely Gee MD SCANNING Final Resul t * (ABNORMAL) COMPREHENSIVE METABOLIC PANEL (02/28/2025 4:35 AM CDT) Only the most recent of4 resultswithin the time period is included. SODIUM S/P/B 132(L) 136 - 145 MMOL/L 02/28/2025 5:18 AM CDT [facility] POTASSIUM S/P/B 3.0(L) 3.5 - 5.1 MMOL/L 02/28/2025 5:18 AM CDT [facility] CHLORIDE S/P/B 96(L) 97 - 115 MMOL/L 02/28/2025 5:18 AM CDT [facility] CO2 26.4 21.0 - 32.0 MMOL/L 02/28/2025 5:18 AM CDT [facility] GLUCOSE 174(H) 74 - 106 MG/DL 02/28/2025 5:18 AM CDT [facility] BUN 6(L) 7 - 18 MG/DL 02/28/2025 5:18 AM CDT [facility] CREATININE S/P/B 0.49(L) 0.55 - 1.02 MG/DL 02/28/2025 5:18 AM CDT [facility] CALCIUM S/P/B 8.5 8.5 - 10.1 MG/DL 02/28/2025 5:18 AM CDT [facility] BILIRUBIN TOTAL S/P/B 0.7 0.2 - 1.0 MG/DL 02/28/2025 5:18 AM CDT [facility] ALKALINE PHOSPHATASE S/P/B 119(H) 46 - 118 U/L 02/28/2025 5:18 AM CDT [facility] AST 27 15 - 37 U/L 02/28/2025 5:18 AM CDT [facility] ALT 47 13 - 56 U/L 02/28/2025 5:18 AM CDT [facility] TOTAL PROTEIN S/P/B 6.8 6.4 - 8.2 G/DL 02/28/2025 5:18 AM CDT [facility] ALBUMIN S/P/B 3.2(L) 3.4 - 5.0 G/DL 02/28/2025 5:18 AM CDT [facility] ANION GAP 9.6 2.0 - 10.0 MMOL/L 02/28/2025 5:18 AM CDT [facility] OSMOLALITY (CALC) 276 MOSM/KG 025 5:18 AM CDT [facility] Comment:REFERENCE RANGE NOT ESTABLISHED GFR ESTIMATE >90 >90 ML/MIN/1. 73 M2 02/28/2025 5:18 AM CDT [facility] GFR NOTES GFR REFERENCE S: 02/28/2025 5:18 AM CDT [facility] Comment: THE ESTIMATED GFR IS CALCULATED [...] CDT Mg Kendrick MD LABORATORY Final Result [facility] [address] [place] [address], [id number] * CORTISOL, TOTAL (02/27/2025 2:39 PM CDT) CORTISOL 30.0 mcg/dL 02/27/2025 6:14 PM CDT [facility] Comment: A.M. SPECIMENS: 5.3 TO 22.5 mcg/dL P.M. SPECIMENS: 3.4 TO 16.8 mcg/dL ASSAY PERFORMED BY CHEMILUMINESCENCE METHODOLOGY USING SIEMENS CENTAUR XPT REAGENT. PATIENT RESULTS DETERMINED BY ASSAYS USING DIFFERENT MANUFACTURERS FOR METHODS MAY NOT BE COMPARABLE. 02/27/2025 2:39 PM CDT Mg Kendrick MD LABORATORY Final Result [facility] [address] [place] [address], [id number] * CT ABD+PEL W CON (02/26/2025 3:10 [...] 3:13 PM Narrative 02/26/2025 3:43 PM CDT [facility] [address] [place], [place] [address] Examination: CT abdomen and pelvis with IV [...] Procedure Note Moise Duarte MD - 02/26/2025 [place] [id number] Examination: CT abdomen and pelvis with IV [...] DETECTED NOT DETECTED 02/26/2025 1:11 PM CDT [facility] CORONAVIRUS 229E PCR (RESP) NOT DETECTED NOT DETECTED 02/26/2025 1:11 PM CDT [facility] CORONAVIRUS HKU1 PCR (RESP) NOT DETECTED NOT DETECTED 02/26/2025 1:11 PM CDT [facility] CORONAVIRUS NL63 PCR (RESP) NOT DETECTED NOT DETECTED 02/26/2025 1:11 PM CDT [facility] CORONAVIRUS OC43 PCR (RESP) NOT DETECTED NOT DETECTED 02/26/2025 1:11 PM CDT [facility] METAPNEUMOVIRUS PCR (RESP) NOT DETECTED NOT DETECTED 02/26/2025 1:11 PM CDT [facility] RHINOVIRUS/ENTEROV IRUS PCR (RESP) NOT DETECTED NOT DETECTED 02/26/2025 1:11 PM CDT [facility] INFLUENZA A PCR (RESP) NOT DETECTED NOT DETECTED 02/26/2025 1:11 PM CDT [facility] INFLUENZA B PCR (RESP) NOT DETECTED NOT DETECTED 02/26/2025 1:11 PM CDT [facility] PARAINFLUENZA 1 PCR (RESP) NOT DETECTED NOT DETECTED 02/26/2025 1:11 PM CDT [facility] PARAINFLUENZA 2 PCR (RESP) NOT DETECTED NOT DETECTED 02/26/2025 1:11 PM CDT [facility] PARAINFLUENZA 3 PCR (RESP) NOT DETECTED NOT DETECTED 02/26/2025 1:11 PM CDT [facility] PARAINFLUENZA 4 PCR (RESP) NOT DETECTED NOT DETECTED 02/26/2025 1:11 PM CDT [facility] RSV PCR (RESP) NOT DETECTED NOT DETECTED 02/26/2025 1:11 PM CDT [facility] B PARAPERTUSIS PCR (RESP) NOT DETECTED NOT DETECTED 02/26/2025 1:11 PM CDT [facility] BORDETELLA PERTUSSIS PCR (RESP) NOT DETECTED NOT DETECTED 02/26/2025 1:11 PM CDT [facility] CHLAMYDOPHILA PNEUMONIAE PCR (RESP) NOT DETECTED NOT DETECTED 02/26/2025 1:11 PM CDT [facility] MYCOPLASMA PNEUMONIAE PCR (RESP) NOT DETECTED NOT DETECTED 02/26/2025 1:11 PM CDT [facility] CORONAVIRUS SARS COV 2 PCR (RESP) NOT DETECTED NOT DETECTED 02/26/2025 1:11 PM CDT [facility] 02/26/2025 11:3 7 AM CDT Mg Kendrick MD MICROBIOLOGY - GENERAL ORDERAB LES Final Result [facility] [address] [place] [address], [id number] * XR CHEST PORTABLE (02/26/2025 11:08 AM CDT) Only the most recent of2 resultswithin the time period is included. Anatomical Region Laterality Modality Chest Radiographic Lorin ging 02/26/2025 11:5 2 AM CDT Impressions 02/26/2025 11:52 AM CDT IMPRESSION: 1. No acute cardiopulmonary process is identified. Referred By: KRISTEN RUBIO Interpreted By: Ofe Claudio MD, 02/26/2025 11:52 AM Narrative 02/26/2025 11:52 AM CDT [address] [address] PROCEDURE: XR CHEST PORTABLE. 02/26/2025 11:07 AM. [...] Procedure Note Ofe Claudio MD - 02/26/[address] [address] PROCEDURE: XR CHEST PORTABLE. 02/26/2025 11:07 AM. [...] URINE CLEAN CATCH 02/26/2025 8:54 AM CDT [facility] SPECIAL REQUESTS NO SPECIAL REQUEST 02/26/2025 8:54 AM CDT [facility] CULTURE RESULT NO GROWTH (< OR = 1,000 CFU/ML) 02/27/2025 10:25 AM CDT [facility] URINE SPECIMEN OBTAINED BY CLEAN CATCH PROCEDURE / Unknown 02/26/2025 9:10 AM CDT 02/26/2025 9:25 AM CDT us Mg Kendrick MD MICROBIOLOGY - GENERAL ORDERAB LES Final Result Performing Organization Address [facility] Co de Phone Number [facility] [address] [place] [address], [place] [phone] [id number] * (ABNORMAL) KETONES URINE (02/26/2025 9:00 AM CDT) KETONES MG/DL (U) ABOVE MEASUREMENT RANGE(A) NEGATIVE 02/26/2025 9:17 AM CDT [facility] URINE SPECIMEN / Unknown 02/26/2025 9:00 AM CDT us Mg Kendrick MD URINE ORDERABLES Final Result Performing Organization Address [facility] de Phone Number [facility] [address] [place] [address], [place] [phone] * URINE DRUG SCREEN (TOXICOLOGY) (02/26/2025 9:00 AM CDT) PHENCYCLIDINE PCP (U) NEGATIVE NEGATIVE 02/26/2025 9:31 AM CDT [facility] BENZODIAZEPINES SCREEN (U) NEGATIVE NEGATIVE 02/26/2025 9:31 AM CDT [facility] COCAINE METABOLITES (U) NEGATIVE NEGATIVE 02/26/2025 9:31 AM CDT [facility] AMPHETAMINE (U) NEGATIVE NEGATIVE 9:31 AM CDT [facility] CANNABINOIDS SCREEN (U) NEGATIVE NEGATIVE 02/26/2025 9:31 AM CDT [facility] OPIATE SCREEN (U) NEGATIVE NEGATIVE 025 9:31 AM CDT [facility] BARBITURATES SCREEN (U) NEGATIVE NEGATIVE 02/26/2025 9:31 AM CDT [facility] URINE TOX COMMENT Unconfirmed screening results are to be used only for medical purposes. 02/26/2025 8:54 AM CDT [facility] CUTOFF CONCENTRATION (U) Cut-off Concentration for a positive result 02/26/2025 8:54 AM CDT [facility] Comment: Phencyclidine 25 ng/mL Benzodiazepines 200 ng/mL Cocaine 300 ng/mL Amphetamine 1000 ng/mL Cannabinoids 50 ng/mL Opiates 300 ng/mL Barbiturates 200 ng/mL URINE SPECIMEN / Unknown 02/26/2025 9:00 AM CDT us Mg Kendrick MD URINE ORDERABLES Final Result [facility] [address] [place] [address], [id number] * (ABNORMAL) Blood gas, venous (02/26/2025 8:14 AM CDT) PH VENOUS 7.40 7.32 - 7.42 02/26/2025 10:14 AM CDT [facility] PCO2 VENOUS 39.9(L) 41.0 - 51.0 MMHG 02/26/2025 10:14 AM CDT [facility] PO2 VENOUS 33.2 25.0 - 40.0 MM HG 02/26/2025 10:14 AM CDT [facility] BICARB VENOUS 23.9(L) 24 - 28 MMOL/L 02/26/2025 10:14 AM CDT [facility] TOTAL CO2 VENOUS 25.2 25.0 - 29.0 MMOL/L 02/26/2025 10:14 AM CDT [facility] BASE DEFICIT VENOUS 0.3 0.0 - 3.0 MMOL/L 02/26/2025 10:14 AM CDT [facility] O2 SAT VENOUS 61 <75 % 02/26/2025 10:14 AM CDT [facility] 02/26/2025 8:14 AM CDT us Mg Kendrick MD LABORATORY Final Result Performing Organization Address City/[facility]/ZIP Co de Phone Number [facility] [address] [place] [address], [place] [phone] [phone] * LACTIC ACID - SINGLE (02/26/2025 8:14 AM CDT) LACTIC ACID VENOUS 1.8 0.4 - 2.0 MMOL/L 02/26/2025 8:41 AM CDT [facility] 02/26/2025 8:14 AM CDT us Mg Kendrick MD LABORATORY Final Result Performing Organization Address [facility] Co de Phone Number [facility] [address] [place] [address], [id number] * LIPASE (02/26/2025 5:15 AM CDT) LIPASE 13 13 - 75 UNITS/L 02/26/2025 7:18 AM CDT [facility] 02/26/2025 5:15 AM CDT us Mg Kendrick MD LABORATORY Final Result Performing Organization Address [facility] Co de Phone Number [facility] [address] [place] [id number], [id number] * POTASSIUM, SERUM (02/25/2025 9:25 AM CDT) POTASSIUM S/P/B 4.3 3.5 - 5.1 MMOL/L 02/25/2025 10:22 AM CDT [facility] Comment:MILD HEMOLYSIS, RESU LT MAY BE AFFECTED. 02/25/2025 9:25 AM CDT us Reg Bernardo MD LABORATORY Final Result Performing Organization Address [facility]/ZIP Co de Phone Number [facility] [address] [place] [address], [id number] * (ABNORMAL) PHOSPHORUS, INORGANIC PHOSPHATE (02/25/2025 3:10 AM CDT) Only the most recent of2 resultswithin the time period is included. PHOSPHORUS 2.0(L) 2.5 - 4.9 MG/DL 02/25/2025 3:45 AM CDT [facility] 02/25/2025 3:10 AM CDT us Walt Moreno MD LABORATORY Final Result Performing Organization Address [facility] Co de Phone Number [facility] [address] [place] [address], [id number] * MAGNESIUM (02/25/2025 3:10 AM CDT) Only the most recent of2 resultswithin the time period is included. MAGNESIUM 2.1 1.6 - 2.6 MG/DL 02/25/2025 3:45 AM CDT [facility] 02/25/2025 3:10 AM CDT us Walt Moreno MD LABORATORY Final Result Performing Organization Address City/[facility] Co de Phone Number [facility] [address] [place] [address], [id number] * POCT ACUTE VENOUS PANEL (02/24/2025 10:19 PM CDT) SODIUM WHOLE BLOOD 140 138 - 146 mmol/L 02/24/2025 10:23 PM CDT [facility] POTASSIUM WHOLE BLOOD 3.8 3.5 - 4.9 mmol/L 02/24/2025 10:23 PM CDT [facility] CA IONIZED WH BLOOD 1.17 1.12 - 1.32 mmol/L 02/24/2025 10:23 PM CDT [facility] POC PH VENOUS 7.321 7.31 - 7.41 02/24/2025 10:23 PM CDT [facility] POC PCO2 VENOUS 46.9 41.0 - 51.0 MMHG 02/24/2025 10:23 PM CDT [facility] POC PO2 VENOUS 27 25 - 40 MMHG 02/24/2025 10:23 PM CDT [facility] POC HCO3 VENOUS 24.2 23 - 28 MMOL/L 02/24/2025 10:23 PM CDT [facility] POC TCO2 VENOUS 26 24 - 29 MMOL/L 02/24/2025 10:23 PM CDT [facility] POC BASE DEFICIT VENOUS 2 0 - 2 MMOL/L 02/24/2025 10:23 PM CDT [facility] POC HEMATOCRIT 46 38 - 51 % 02/24/2025 10:23 PM CDT [facility] TIME TEST WAS PERFORMED: 221802/24/2025 10:23 PM CDT [facility] 02/24/2025 10:1 9 PM CDT us Obiora Rosalio Bernardo MD POCT ORDERABLES - DEVICE Kaykay l Result [facility] [address] [place] [address], [id number] * (ABNORMAL) BETA-HYDROXYBUTYRATE (02/24/2025 10:17 PM CDT) BETA-HYDROXYBU TYRATE 1.8(H) 0.0 - 0.3 MMOL/L 02/24/2025 10:24 PM CDT [facility] 02/24/2025 10:1 7 PM CDT us Reg Bernardo MD LABORATORY Final Result Performing Organization Address [facility] de Phone Number [facility] [address] [place] [address], [place] [phone] [id number] * (ABNORMAL) HEMOGLOBIN, GLYCATED (02/24/2025 10:17 PM CDT) HGB A1C 11.9(H) <5.7 % 02/25/2025 2:06 AM CDT [facility] ESTIMATED AVG GLUCOSE 295(H) 74 - 114 MG/DL 02/25/2025 2:06 AM CDT [facility] 02/24/2025 10:1 7 PM CDT us Reg Bernardo MD LABORATORY Final Result Performing Organization Address [facility] Phone Number [facility] [address] [place] [address], [place] [phone] * (ABNORMAL) URINALYSIS (02/24/2025 6:30 PM CDT) COLOR (U) COLORLESS 02/24/2025 7:32 PM CDT [facility] TRANSPARENCY CLEAR 02/24/2025 7:32 PM CDT [facility] SPECIFIC GRAVITY (U) 1.047(H) 1.002 - 1.035 02/24/2025 7:32 PM CDT [facility] U PH 5.0 5 - 8 02/24/2025 7:32 PM CDT [facility] PROTEIN RANDOM (U) 20(A) NEGATIVE 02/24/2025 7:32 PM CDT [facility] GLUCOSE (U) ABOVE MEASUREMENT RANGE(A) NEGATIVE MG/DL 02/24/2025 7:32 PM CDT [facility] KETONES MG/DL (U) 80(A) NEGATIVE 02/24/2025 7:32 PM CDT [facility] BILIRUBIN (U) NEGATIVE NEGATIVE 02/24/2025 7:32 PM CDT [facility] BLOOD (U) NEGATIVE NEGATIVE 02/24/2025 7:32 PM CDT [facility] NITRITES NEGATIVE NEGATIVE 02/24/2025 7:32 PM CDT [facility] UROBILINOGEN NORMAL 0 - 1 EU/DL 02/24/2025 7:32 PM CDT [facility] LEUKOCYTES (U) NEGATIVE NEGATIVE 02/24/2025 7:32 PM CDT [facility] RBC/HPF <1 0 - 3 /HPF 02/24/2025 7:32 PM CDT [facility] WBC/HPF NONE 0 - 6 /HPF 02/24/2025 7:32 PM CDT [facility] BACTERIA (U) NONE /HPF 02/24/2025 7:32 PM CDT [facility] SQUAMOUS EPITHELIALS <1 02/24/2025 7:32 PM CDT [facility] BUDDING YEAST PRESENT 02/24/2025 7:32 PM CDT [facility] URINE SPECIMEN FROM URETHRA / Unknown 02/24/2025 6:30 PM CDT us Obiora I Tova VALDIVIA URINE ORDERABLES Final Result [facility] [address] [place] [address], [id number] * MRSA PCR nares SCREENING (02/24/2025 6:00 PM CDT) SPECIMEN SOURCE RESPIRATORY, NOSE 02/24/2025 6:02 PM CDT [facility] MRSA BY PCR NASAL METHICILLIN RESISTANT STAPH AUREUS NOT DETECTED METHICILLIN RESISTANT STAPH AUREUS NOT DETECTED 02/25/2025 10:56 AM CDT [facility] NASAL STRUCTURE / Unknown 02/24/2025 6:00 PM CDT Reg Bernardo MD MICROBIOLOGY - GENERAL ORDERA BLES Final Result Performing Organization Address [facility] Co de Phone Number [facility] [address] [place] [address], [id number] * TROPONIN, QUANT (02/23/2025 12:15 PM CDT) Only the most recent of2 resultswithin the time period is included. [facility] TROPONIN I HIGH SENSITIVITY 6 0 - 53 ng/L 02/23/2025 12:54 PM CDT [facility] 02/23/2025 12:1 5 PM CDT Alex Duarte MD LABORATORY Final Result Performing Organization Address [facility] Co de Phone Number [facility] [address] [place] [address], [id number] * INFLUENZA A & B (02/23/2025 10:23 AM CDT) [facility] SPECIMEN TYPE (INFLUENZA) NASOPHARYNGEAL SWAB 02/23/2025 10:24 AM CDT [facility] INFLUENZA A NEGATIVE NEGATIVE 02/23/2025 10:59 AM CDT [facility] [facility] Comment:NEGATIVE FOR INFLUEN ZA A VIRUS ANTIGEN INFLUENZA B NEGATIVE NEGATIVE 02/23/2025 10:59 AM CDT [facility] Comment:NEGATIVE FOR INFLUEN ZA B VIRUS ANTIGEN NASOPHARYNGEAL SWAB / Unknown 02/23/2025 10:23 AM CDT Carol Walsh MD MICROBIOLOGY - GENERAL ORDERABL ES Final Result Performing Organization Address [facility] Co de Phone Number [facility] [address] [place] [address], [place] [phone] * PRO-BRAIN NATRIURETIC PEPTIDE (02/23/2025 10:16 AM CDT) PRO-B TYPE NATRIURETIC PEPTIDE 37 <125 PG/ML 02/23/2025 11:11 AM CDT [facility] Comment: AGE INDEPENDENT: <300 PG/ML [...] MD LABORATORY Final Result Performing Organization Address [facility] de Phone Number [facility] [address] [place] [address], [place] [phone] * D-DIMER, QUANTITATIVE (02/23/2025 10:16 AM CDT) D-DIMER 327 0 - 500 ng{FEU}/mL 02/23/2025 11:03 AM CDT [facility] EXCLUSION STATEMENT 02/23/2025 11:03 AM CDT [facility] Comment: D-Dimer values less than [...] CDT Carol Walsh MD LABORATORY Final Result [facility] [address] [place] [address], [id number] * ECG 12 lead (02/23/2025 10:15 AM CDT) 02/23/2025 10:1 5 AM CDT Narrative [facility] - 02/23/2025 1:25 PM CDT [facility] Test Date: 2025-02-23 Pat Name: SHANTA BOSE Department: 70 Room: EXAM QQ 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1970 Requested By: CAROL WALSH Order Number: [id number] Reading MD: Bora Hoffman Measurements Intervals [place] Rate: 82 P: 44 CT: 152 QRS: -7 QRSD: 85 T: 42 QT: 390 QTc: 458 Interpretive Statements SINUS RHYTHM POSSIBLE ANTERIOR MYOCARDIAL INFARCTION , PROBABLY OLD [30 ms Q WAVE IN V3/V4, OR R < 0.2 mV IN V4] Procedure Note Bora Hoffman MD - 02/23/2025 [facility] Test Date: 2025-02-23 Pat Name: SHANTA COREASKWOOD Department: 70 Room: EXAM QQ 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 Cardiac findings interpreted by bow maker production. 2. Sub-4 mm lung nodules. Follow-up CT chest in one year. Ordered By: BELÉN GOODE Interpreted By: Sanford Vee MD, 02/07/2025 10:17 AM Narrative 02/07/2025 1:26 PM CDT [facility] [address] [id number] EXAMINATION: CARDIAC COMPUTED TOMOGRAPHY ANGIOGRAM, ROUTINE CORONARY [...] ANGIOGRAM AND OTHER CARDIAC FINDINGS: Interpreted by bow maker production. EXTRACARDIAC FINDINGS: Sub-4 mm lung nodules. Dependent atelectasis. The visualized thoracic aorta is normal. Visualized pulmonary artery appears normal. Small hiatal hernia. Spondylosis. Procedure Note Sanford Vee MD - 02/07/2025 [facility] [address] [place], [place] [address] EXAMINATION: CARDIAC COMPUTED TOMOGRAPHY ANGIOGRAM, ROUTINE CORONARY [...] Spondylosis. IMPRESSION: 1. Cardiac findings interpreted by bow maker production. 2. Sub-4 mm lung nodules. Follow-up CT [...] 1:12 PM Narrative 03/03/2025 1:22 PM CDT [address] [address] EXAMINATION: CARDIAC COMPUTED TOMOGRAPHY with CORONARY ANGIOGRAM [...] Procedure Note Clive Olson MD - 03/03/[address] [address] EXAMINATION: CARDIAC COMPUTED TOMOGRAPHY with CORONARY ANGIOGRAM [...] CTA AORTO ILIOFEM RUNOFF (01/22/2025 9:00 AM ACCOUNTS PAYABLE PROCESSOR) Anatomical Region Laterality Modality Abdomen, Pelvis, Extremity Compu tal Tomography 01/22/2025 6:25 PM ACCOUNTS PAYABLE PROCESSOR Impressions 01/22/2025 6:35 PM ACCOUNTS PAYABLE PROCESSOR IMPRESSION: 1. There is no evidence for abdominal aortic aneurysm or significant stenosis. There are no inflow issues. There is a two-vessel runoff on the right via the anterior tibial artery and peroneal artery. There is a three-vessel runoff on the left. 2. Hepatosplenomegaly. Referred By: ZAINAB HUERTA Interpreted By: Humberto Alvarado MD, 01/22/2025 6:25 PM Narrative 01/22/2025 6:35 PM ACCOUNTS PAYABLE PROCESSOR [address] [place] [address] Examination: CTA AORTO ILIOFEM RUNOFF Exam time: [...] Procedure Note Humberto Alvarado MD - 01/22/2025 [place] [id number] [facility] [place] [address] Examination: CTA AORTO ILIOFEM RUNOFF Exam time: 01/22/2025 8:45 AM INDICATION: Right lower leg pain TECHNIQUE: After administration of 120 mL Isovue-370 IV contrast via theright antecubital fossa, arterial phase multidetector CT images wereobtained from the lung bases to the feet. Multiplanar and MIP images werecreated and reviewed. In addition, 3D image processing was performed on Robert Applebaum MD workstation by a technologist, with images sent [...] Alvarado MD, 01/22/2025 6:25 PM Zainab Huerta TRADE EMBALMER CT Fin al Result * CREATININE (01/22/2025 8:00 AM ACCOUNTS PAYABLE PROCESSOR) CREATININE S/P/B 0.60 0.55 - 1.02 MG/DL 01/22/2025 8:46 AM ACCOUNTS PAYABLE PROCESSOR [facility] GFR ESTIMATE >90 >89 ML/MIN/1. 73 M2 01/22/2025 8:46 AM ACCOUNTS PAYABLE PROCESSOR [facility] GFR NOTES GFR REFERENCE S: 01/22/2025 8:46 AM ACCOUNTS PAYABLE PROCESSOR [facility] Comment: THE ESTIMATED GFR IS [...] FAILURE: <15 ml/min/1.73 m2 01/22/2025 8:00 AM ACCOUNTS PAYABLE PROCESSOR Zainab Huerta TRADE EMBALMER [facility] Fin al Result [facility] [address] [place] [address], * MG SCREENING W DOMENICA AMAN DIGI (01/14/2025 12:45 PM ACCOUNTS PAYABLE PROCESSOR) Anatomical Region Laterality Modality Breast Bilateral Mammography 01/14/2025 4:10 PM ACCOUNTS PAYABLE PROCESSOR Impressions 01/14/2025 4:10 PM ACCOUNTS PAYABLE PROCESSOR IMPRESSION: No suspicious change since the previous exams. Recommendation: 1: Routine Screening Bilateral in 1 Year Assessment: ACR BI-RADS 2 - BENIGN FINDING(S) Ordered By: JOSE DELAROSA Interpreted By: Reji Gao MD, 01/14/2025 4:10 PM Narrative 01/14/2025 4:10 PM ACCOUNTS PAYABLE PROCESSOR [address] [place] [address] Examination: Digital screening mammogram with CAD. Clinical [...] * (ABNORMAL) LIPID PANEL (01/31/2018 11:23 AM ACCOUNTS PAYABLE PROCESSOR) CHOLESTEROL 211(H) <200 MG/DL 01/31/2018 12:[address] [facility] TRIGLYCERIDES 190(H) <150 MG/DL 01/31/2018 12:[address] [facility] HDL 48 >40 MG/DL 01/31/2018 12:[address] [facility] LDL (CALCULATED) 125 <130 MG/DL 02/01/20 12:[address] [facility] Comment: AN LDL OF <100 IS OPTIMAL; HOWEVER, ELEVATED IS DEFINED >130.BY ATP III GUIDELINES, LDL GOALS ARE DEPENDENT UPON THE PATIENT'S OTHER RISK FACTORS. CHOL/HDL RATIO 4.4 0.0 - 5.0 01/31/2018 12:[address] [facility] 01/31/2018 11:2 3 AM ACCOUNTS PAYABLE PROCESSOR 01/31/2018 11:25 AM ACCOUNTS PAYABLE PROCESSOR us Generic Conversion Md [facility] Final R esult [facility] [address] [place] [address], from Last 3 Months or Most Recently Relevant to Health Maintenance Insurance [employer] Advance Directives * Full Code (Latest Code Status on File) Date Activated Date Inactivated Comments 02/24/2025 5:45 PM 03/02/2025 8:52 PM Care Teams Plastics Heat Welder Relationship Specialty Start Date End Date Jose Delarosa MD [address] [place] [phone] PCP - General FAMILY PRACTICE 01/11/19 Kortney Coronado NP [address] [place] [phone] Nurse Practitioner Nurse Practitioner Family 03/27/24
--- OUTSIDE RECORDS SUMMARY | 2025-03-04 05:51 | XMS_ITS | Encounter Summary ---
Author Organization [facility] [place] Address [address] [place] [address] Care Team Providers Care Fur Cleaner Name Role Phone Jose Beverly MD Primary Care Provider Brad Riojas MD Unavailable [phone] Kortney Coronado NP Unavailable [phone] Encounter Details Date Type Department Care Team (Late st Contact Info) Description 06/20/2024 [employer] Message Enc [facility] [address] [address] Apple Middleton PA [address] [place] [phone] Visit Follow Up Social History Tobacco Use [...] Sex Assigned at Female 01/14/2025 12:08 PM PROPELLER INSPECTOR Legal Sex Female 9:38 PM PROPELLER INSPECTOR Gender Identity Not on file Sexual [...] documented as of this encounter Care Teams Fur Cleaner Relationship Specialty Start Date End Date Jose Beverly MD [address] [place] [phone] PCP - General FAMILY PRACTICE 01/11/19 Brad Riojas MD [address] [place] [phone] Vascular/Alteration Specialist VASCULAR SURGERY 12/26/23 01/31/25 Kortney Coronado NP [address] [place] [phone] Nurse Practitioner Nurse Practitioner Family 03/27/24 documented as of this encounter
--- OUTSIDE RECORDS SUMMARY | 2025-03-04 05:51 | XMS_ITS | Encounter Summary ---
Author Organization [facility] Address [address] [place] [address] Care Team Providers Care Electronics Parts Sales Representative Name Role Phone Jose Beverly MD Primary Care Provider Brad Riojas MD Unavailable [phone] Kortney Coronado NP Unavailable [phone] Encounter Details Date Type Department Care Team (Late st Contact Info) Description 02/10/2018 Abstract [facility] [address] [place] [address] , Generic Conversion, Social History Tobacco Use Types Packs/Day Years Used Date Smoking Tobacco: Never Assessed Comments Unknown Sex and Gender Information Value Date Recorded Sex Assigned at Female 01/14/2025 12:08 PM CUSHION GUM APPLICATOR Legal Sex Female 9:38 PM CUSHION GUM APPLICATOR Gender Identity Not on file Sexual Orientation [...] documented as of this encounter Care Teams Electronics Parts Sales Representative Relationship Specialty Start Date End Date Jose Beverly MD [address] [place] [phone] PCP - General FAMILY PRACTICE 01/11/19 Brad Riojas MD [address] [place] [phone] Vascular/Morning Show Host VASCULAR SURGERY 12/26/23 01/31/25 Kortney Coronado NP [address] [place] [phone] Nurse Practitioner Nurse Practitioner Family 03/27/24 documented as of this encounter
--- OUTSIDE RECORDS SUMMARY | 2025-03-04 05:51 | XMS_ITS | Encounter Summary ---
Author Organization [facility] Address [address] [place] [address] Care Team Providers Care Police Reserves Commander Name Role Phone Jose Beverly MD Primary Care Provider [phone] Brad Riojas MD Unavailable [phone] Kortney Coronado NP Unavailable [phone] Encounter Details Date Type Department Care Team (Late st Contact Info) Description 05/04/2019 Abstract [facility] [address] [place] [address] , Generic Conversion, Social History Tobacco Use [...] Sex Assigned at Female 01/14/2025 12:08 PM CASING FINISHER AND STUFFER Legal Sex Female 9:38 PM CASING FINISHER AND STUFFER Gender Identity Not on file Sexual Orientation [...] documented as of this encounter Care Teams Police Reserves Commander Relationship Specialty Start Date End Date Jose Beverly MD [address] [place] [phone] PCP - General FAMILY PRACTICE 01/11/19 Brad Riojas MD [address] [place] [phone] Vascular/Embossing Calender Operator VASCULAR SURGERY 12/26/23 01/31/25 Kortney Coronado NP [address] [place] [phone] Nurse Practitioner Nurse Practitioner Family 03/27/24 documented as of this encounter
[2025-03-04] MEDS: INSULIN REG 100 UNITS/100 ML 100 UNITS/100 ML BAG 8.55 UNITS IV CONT (05:58)
[2025-03-04 06:02] LABS: Alanine Aminotransferase 94 U/L (14-59); Albumin Level 4.2 g/dL (3.4-5.0); Alkaline Phosphatase 173 U/L (46-116); Anion Gap 9 mmol/L (4-12); Aspartate Amino Transferase 30 U/L (15-37); Bilirubin,Total 0.7 mg/dL (0.00-1.00); Blood Urea Nitrogen 8 mg/dL (7-18); Calcium 9.2 mg/dL (8.5-10.1); Carbon Dioxide 32 mmol/L (21-32); Chloride 92 mmol/L (98-108); Estimated CRCL calculation 89 ml/min; Estimated Glomerular Filt Rate > 60; Glucose 344 mg/dL (70-99); Magnesium 1.6 mg/dL (1.8-2.4); Osmolality Calculated 288 mOsm/kg (285-295); Potassium 3.6 mmol/L (3.5-5.1); Sodium 133 mmol/L (136-145); Total Protein 8.3 g/dL (6.4-8.2)
[2025-03-04 06:09] LABS: HCO3 VBG 25.8 mEq/l (24.0-30.0); PO2 VBG 231.4 mmHg (35.0-45.0); pH VBG 7.52 (7.33-7.43)
[2025-03-04 06:13] LABS: Device ROOM AIR
[2025-03-04 06:14] LABS: Add Urine Microscopic? YES; Appearance Urine Clear (Clear); Bilirubin Urine Negative (Negative); Blood Urine Negative (Negative); Color Urine Light Yellow (Yellow); Glucose Urine UA 3+ (Negative); Ketones Urine 1+ (Negative); Leukocyte Esterase Ur Negative LEU/UL (Negative); Nitrate Urine Negative (Negative); Protein Urine 1+ (Negative); Specific Grav Ur 1.015 (1.010-1.020); Urobilinogen Urine 0.2 mg/dL (0.2-1.0)
[2025-03-04 06:29] LABS: RBC Urine None seen /hpf (0-2); Squamous Epithelial Cell Urine Rare /hpf (Few); WBC Urine None seen /hpf (0-3)
[2025-03-04 06:30] LABS: Bacteria Urine 1+ /hpf
[2025-03-04 06:46] LABS: Influenza A QL RT-PCR Negative (Negative); Influenza B QL RT-PCR Negative (Negative); RSV RNA, RT-PCR Negative (Negative); SARS-CoV-2 RNA PCR Negative (Negative)
[2025-03-04 06:47] LABS: Glucose Point of Care 339 mg/dl (65-105)
[2025-03-04 06:51] LABS: Acetone Negative (Negative)
[2025-03-04 06:53] LABS: Amphetamine Screen Urine Negative (Negative); Barbiturate Screen Urine Negative (Negative); Benzodiazepines Screen Urine Negative (Negative); Cannabinoid Screen Urine Negative (Negative); Cocaine Screen Urine Negative (Negative); Methadone Screen Urine Negative (Negative); Opiate Screen Urine Negative (Negative); Phencyclidine Screen Urine Negative (Negative)
--- NOTE | 2025-03-04 07:00 | PC.NURSE ---
report from sabino Brink. pt is currently sleeping in exam room, vss per monitor. pt is to be dc home, awaiting ivf bolus to infuse at this time. insulin drip has been discontinued. pt is aware of plan of care. will continue to monitor.
[2025-03-04 07:50] LABS: Glucose Point of Care 238 mg/dl (65-105)
--- NOTE | 2025-03-04 08:39 | PC.NURSE ---
AFTER MULTIPLE ATTEMPTS TO CONTACT CHILDREN AND MOTHER FOR RIDE HOME, MOTHER ANSWERS THE PHONE AT THIS TIME, REPORTS SHE WILL COME [facility]ACLE SPECIALIST PT FOR TRANSPORT HOME. PT HAS BEEN ADVISED.
== END 2025-03-04 08:45 | disposition home or self-care (01) ==
PROVIDERS: Emergency Provider Emergency Medicine; PCP Family Medicine
DX: E11.65 Type 2 diabetes mellitus with hyperglycemia (principal); R11.2 Nausea with vomiting, unspecified; Z20.822 Contact with and (suspected) exposure to COVID-19
CPT/HCPCS: 36415; 71045; 80053; 80307; 81001; 82010; 82803; 82948; 83735; 84100; 85025; 87637; 96365; 96366; 96375; 99284; J1815; J2405; J7030

== ENCOUNTER 2025-03-05 07:07 | Emergency (ER) | payer OTHER, SELFPAY ==
[2025-03-05] VITALS (22 sets, daily range): BP systolic 160–186; BP diastolic 72–101; PULSE 78–96; RESP 16–24; TEMP 35.6–35.9; O2SAT 90–99
--- OUTSIDE RECORDS SUMMARY | 2025-03-05 07:09 | XMS_ITS | Clinical Summary ---
Author Organization [facility] Address [address] [place] [id number] Care Team Providers Care Teacher Public Health Name Role Phone Jose Delarosa MD Primary Care Provider [phone] Kortney Coronado MAKE READY WORKER Unavailable [phone] Allergies Active Allergy Reactions Criticality Noted Date [...] Noted Date Diagnosed Date DKA (diabetic ketoacidosis) ([facility]) Intractable vomiting with nausea 02/24/2025 Other chest pain 10/30/2024 Sprain of left ankle, unspec ified ligament, initial encounter 06/20/2024 De Quervain's tenosynovitis, left 06/20/2024 PVD (peripheral vascular disease) 01/09/2024 Encounters Date Type Department Care Team Description 02/28/2025 12:50 PM CDT - 02/28/2025 1:35 PM CDT Surgery [facility] Endo/GI [address] [place] [address] Karely Gee MD EGD WITH BIOPSY 02/28/2025 12:22 PM CDT Anesthesia Event [facility] Endo/GI [address] [place] [address] Lily Solorzano MD Bolash-Best, Lacey M RN 02/24/2025 5:38 PM CDT - 03/02/2025 6:42 PM CDT Hospital Encounter [facility] 4th Floor Medical [address] [place] [address] Reg Bernardo MD Goyal, Pankaj, MD Mardani, Fareed, MD Discharge Disposition: Home or Self Care (Routine Discharge) 02/24/2025 Travel 02/23/2025 9:47 AM CDT - 02/23/2025 1:18 PM CDT Emergency [facility] Emergency [address] [place] [address] Alex Duarte MD Chest Pain; Shortness Of Breath Discharge Disposition: Home or Self Care (Routine Discharge) 02/23/2025 Travel 02/17/2025 Telephone [facility] [address] [place] [address] Kortney Coronado NP Fax 02/10/2025 Telephone [facility] [address] [facility] [address] [place] [address] Apple Middleton PA Referral (Chronic RIGHT ankle pain) 02/06/2025 12:46 PM CDT - 02/06/2025 11:59 PM CDT Hospital Encounter [facility] [address] [place] [address] Belén Goode MD Discharge Disposition: Home or Self Care (Routine Discharge) 02/06/2025 Travel 01/22/2025 9:45 AM FREELANCE MAKEUP ARTIST Office Visit [facility] [address] [place] [phone] Belén Goode MD Follow Up 01/22/2025 7:41 AM FREELANCE MAKEUP ARTIST - 01/22/2025 11:59 PM FREELANCE MAKEUP ARTIST Hospital Encounter [facility] [address] [facility] [place] [address] Zainab Huerta NP Discharge Disposition: Home or Self Care (Routine Discharge) 01/22/2025 Travel 01/17/2025 Telephone [facility] [address] [place] [phone] Belén Goode MD Appointment Request 01/14/2025 12:09 PM FREELANCE MAKEUP ARTIST - 01/14/2025 11:59 PM FREELANCE MAKEUP ARTIST Hospital Encounter [facility] [address] [place] [address] Jose Delarosa MD Discharge Disposition: Home or [...] = 0.6 oz pur e alcohol) seldom [facility] Utilities Answer Date Recorded In the past 12 months has th e [employer], gas, oil, or water [employer] threatened to shut off services in your [...] any time in the past 12 m [facility], were you homeless or living in a intermediate (including now)? No 02/24/2025 Comments No Sex and Gender Information Value Date Recorded Sex Assigned at Female 01/14/2025 12:08 PM FREELANCE MAKEUP ARTIST Legal Sex Female 9:38 PM FREELANCE MAKEUP ARTIST Gender Identity Not on file Sexual Orientation [...] AORTO ILIOFEM RUNOFF Routine 01/22/2025 9:00 AM FREELANCE MAKEUP ARTIST Leg pain, bilateral CREATININE STAT 01/22/2025 8:00 AM FREELANCE MAKEUP ARTIST MG SCREENING W DOMENICA AMAN DIGI Routine 01/14/2025 12:45 PM FREELANCE MAKEUP ARTIST Visit for screening mammogram LIPID PANEL Routine 01/31/2018 11:23 AM FREELANCE MAKEUP ARTIST from Last 3 Months or Most Recently Relevant to Health Maintenance Results * (ABNORMAL) POCT glucose (03/02/2025 5:16 PM CDT) Only the most recent of29 resultswithin the time period is included. GLUCOSE POC 289(H) 70 - 109 03/02/2025 5:34 PM CDT [facility] 03/02/2025 5:16 PM CDT Mg Kendrick MD POCT ORDERABLES - DEVICE Final Result [facility] [address] [place] [address], [id number] * (ABNORMAL) BASIC METABOLIC PANEL (03/02/2025 4:44 AM CDT) Only the most recent of6 resultswithin the time period is included. SODIUM S/P/B 133(L) 136 - 145 MMOL/L 03/02/2025 5:42 AM CDT [facility] POTASSIUM S/P/B 3.3(L) 3.5 - 5.1 MMOL/L 03/02/2025 5:42 AM CDT [facility] CHLORIDE S/P/B 101 97 - 115 MMOL/L 03/02/2025 5:42 AM CDT [facility] CO2 26.2 21.0 - 32.0 MMOL/L 03/02/2025 5:42 AM CDT [facility] GLUCOSE 209(H) 74 - 106 MG/DL 03/02/2025 5:42 AM CDT [facility] BUN 14 7 - 18 MG/DL 03/02/2025 5:42 AM CDT [facility] CREATININE S/P/B 0.54(L) 0.55 - 1.02 MG/DL 03/02/2025 5:42 AM CDT [facility] CALCIUM S/P/B 8.7 8.5 - 10.1 MG/DL 03/02/2025 5:42 AM CDT [facility] ANION GAP 5.8 2.0 - 10.0 MMOL/L 03/02/2025 5:42 AM CDT [facility] OSMOLALITY (CALC) 283 MOSM/KG 025 5:42 AM CDT [facility] Comment:REFERENCE RANGE NOT ESTABLISHED GFR ESTIMATE >90 >90 ML/MIN/1. 73 M2 03/02/2025 5:42 AM CDT [facility] GFR NOTES GFR REFERENCE S: 03/02/2025 5:42 AM CDT [facility] Comment: THE ESTIMATED GFR IS [...] us Mg Kendrick MD LABORATORY Final Result [facility] [address] [place] [address], [id number] * (ABNORMAL) CBC W/DIFF AUTOMATED (03/02/2025 4:44 AM CDT) Only the most recent of7 resultswithin the time period is included. WBC 10.26 4.00 - 10.80 x10'3/uL 03/02/2025 5:15 AM CDT [facility] RBC 5.26 4.10 - 5.40 x10'6/uL 03/02/2025 5:15 AM CDT [facility] HGB 14.7 12.0 - 16.0 G/DL 03/02/2025 5:15 AM CDT [facility] HCT 43.1 36.0 - 47.0 % 03/02/2025 5:15 AM CDT [facility] MCV 81.9 78.0 - 100.0 FL 03/02/2025 5:15 AM CDT [facility] MCH 27.9 27.0 - 31.0 PG 03/02/2025 5:15 AM CDT [facility] MCHC 34.1 33.0 - 36.0 G/DL 03/02/2025 5:15 AM CDT [facility] RDW 12.3 11.5 - 14.5 % 03/02/2025 5:15 AM CDT [facility] PLT 215 150 - 350 x10'3/uL 03/02/2025 5:15 AM CDT [facility] MPV 9.7 7.4 - 10.4 FL 03/02/2025 5:15 AM CDT [facility] DIFFERENTIAL TYPE AUTOMATED DIFFERENTIAL 03/02/2025 5:15 AM CDT [facility] SEG NEUTROPHILS 46.5 % 5:15 AM CDT [facility] LYMPHOCYTES 39.2 % 03/02/2025 5:15 AM CDT [facility] MONOCYTES 11.1 % 03/02/2025 5:15 AM CDT [facility] EOSINOPHILS 1.9 % 03/02/2025 5:15 AM CDT [facility] BASOPHILS 0.3 % 03/02/2025 5:15 AM CDT [facility] IMMATURE GRANS % 1.0 % 03/02/20 5:15 AM CDT [facility] ABS. NEUTROPHILS 4.78 1.60 - 8.30 x10'3/uL 03/02/2025 5:15 AM CDT [facility] ABS. LYMPHOCYTES 4.02 0.80 - 4.70 x10'3/uL 03/02/2025 5:15 AM CDT [facility] ABS. MONOCYTES 1.14 0.00 - 1.50 x10'3/uL 03/02/2025 5:15 AM CDT [facility] ABS. EOSINOPHILS 0.19 0.00 - 0.40 x10'3/uL 03/02/2025 5:15 AM CDT [facility] ABS. BASOPHILS 0.03 0.00 - 0.20 x10'3/uL 03/02/2025 5:15 AM CDT [facility] ABS. IMMATURE GRANULOCYTES 0.10(H) 0.00 - 0.03 x10'3/uL 03/02/2025 5:15 AM CDT [facility] ABS. NUCLEATED RBC'S 0.00 0.00 - 0.01 x10'3/uL 03/02/2025 5:15 AM CDT [facility] NRBC % 0.0 % 03/02/2025 5:15 AM CDT [facility] 03/02/2025 4:44 AM CDT us Mg Kendrick MD LABORATORY Final Result [facility] [address] [place] [address], [id number] * ENDOSCOPY (SCAN ORDER) (02/28/2025 12:07 PM CDT) us Karely Gee MD SCANNING Final Resul t * (ABNORMAL) COMPREHENSIVE METABOLIC PANEL (02/28/2025 4:35 AM CDT) Only the most recent of4 resultswithin the time period is included. SODIUM S/P/B 132(L) 136 - 145 MMOL/L 02/28/2025 5:18 AM CDT [facility] POTASSIUM S/P/B 3.0(L) 3.5 - 5.1 MMOL/L 02/28/2025 5:18 AM CDT [facility] CHLORIDE S/P/B 96(L) 97 - 115 MMOL/L 02/28/2025 5:18 AM CDT [facility] CO2 26.4 21.0 - 32.0 MMOL/L 02/28/2025 5:18 AM CDT [facility] GLUCOSE 174(H) 74 - 106 MG/DL 02/28/2025 5:18 AM CDT [facility] BUN 6(L) 7 - 18 MG/DL 02/28/2025 5:18 AM CDT [facility] CREATININE S/P/B 0.49(L) 0.55 - 1.02 MG/DL 02/28/2025 5:18 AM CDT [facility] CALCIUM S/P/B 8.5 8.5 - 10.1 MG/DL 02/28/2025 5:18 AM CDT [facility] BILIRUBIN TOTAL S/P/B 0.7 0.2 - 1.0 MG/DL 02/28/2025 5:18 AM CDT [facility] ALKALINE PHOSPHATASE S/P/B 119(H) 46 - 118 U/L 02/28/2025 5:18 AM CDT [facility] AST 27 15 - 37 U/L 02/28/2025 5:18 AM CDT [facility] ALT 47 13 - 56 U/L 02/28/2025 5:18 AM CDT [facility] TOTAL PROTEIN S/P/B 6.8 6.4 - 8.2 G/DL 02/28/2025 5:18 AM CDT [facility] ALBUMIN S/P/B 3.2(L) 3.4 - 5.0 G/DL 02/28/2025 5:18 AM CDT [facility] ANION GAP 9.6 2.0 - 10.0 MMOL/L 02/28/2025 5:18 AM CDT [facility] OSMOLALITY (CALC) 276 MOSM/KG 025 5:18 AM CDT [facility] Comment:REFERENCE RANGE NOT ESTABLISHED GFR ESTIMATE >90 >90 ML/MIN/1. 73 M2 02/28/2025 5:18 AM CDT [facility] GFR NOTES GFR REFERENCE S: 02/28/2025 5:18 AM CDT [facility] Comment: THE ESTIMATED GFR IS [...] <15 ml/min/1.73 m2 02/28/2025 4:35 AM CDT us Mg Kendrick MD LABORATORY Final Result [facility] [address] [place] [address], [id number] * Pathology (02/28/2025 12:00 AM CDT) PATHOLOGY [facility] Department of Laboratory Medicine [address] [place] [address] , extension [phone] Pathology Report Surgical Pathology Report Name: SHANTA BOSE Specimen #: [id number] Age: 10 1970 (Age: 54) Location: [address] Sex: F Procedure Date: 02/28/2025 Hospital #: [id number] Date Received: 02/28/2025 Date Reported: 03/04/2025 Provider: REG KENDRICK MD Source: A: Gastric biopsies B: Duodenum, biopsies Clinical History: Intractable vomiting with nausea; H pylori (2022) FINAL DIAGNOSIS: A. Stomach, biopsies: -Mild chronic inactive gastritis. -Immunohistochemical stain for Helicobacter pylori is negative. B. Small intestine, duodenum, biopsies: -No significant histopathologic abnormality. Gross Description: A. Received in formalin, labeled with a patient label and as gastric biopsies are 7 pieces of wiseman tissue ranging from 0.1 to 0.3 cm. The specimen is entirely submitted in cassette A1. B. Received in formalin, labeled with a patient label and as small bowel biopsies are multiple pieces of wiseman tissue, 0.8 x 0.6 x 0.2 cm in aggregate. The specimen is entirely submitted in cassette B1. Gross examination (when applicable), interpretation, and sign out were performed at [facility], [address] [place] [address]. All immunohistochemical and histochemical tests were developed by and performed at [facility], [address] [place] [address]. All tests reported here have not been cleared or approved by the U.S. Food and Drug Administration (FDA). This laboratory is regulated under CLIA as qualified to perform high-complexity testing. These tests are used for clinical purposes. They should not be regarded as investigational or for research. Positive and negative controls show appropriate reactivity. Electronically Signed Out LIOR LAUREANO MD [facility] TISSUE GASTRIC BIOPSY SPECIMEN / Unknown 02/28/2025 12:29 PM CDT Tissue specimen (specimen) DUODENAL STRUCTURE / Unknown 02/28/2025 12:31 PM CDT Karely Gee MD PATHOLOGY/CYTOLOGY ORDERABL ES Final Result Performing Organization Address [facility] Co de Phone Number [facility] [address] [place] [address], [id number] * CORTISOL, TOTAL (02/27/2025 2:39 PM CDT) CORTISOL 30.0 mcg/dL 02/27/2025 6:14 PM CDT [facility] Comment: A.M. SPECIMENS: 5.3 TO 22.5 mcg/dL P.M. SPECIMENS: 3.4 TO 16.8 mcg/dL ASSAY PERFORMED BY CHEMILUMINESCENCE METHODOLOGY USING SIEMENS QoofAUR XPT REAGENT. PATIENT RESULTS DETERMINED BY ASSAYS USING DIFFERENT MANUFACTURERS FOR METHODS MAY NOT BE COMPARABLE. 02/27/2025 2:39 PM CDT Mg Kendrick MD LABORATORY Final Result Performing Organization Address [facility] Co de Phone Number [facility] [address] [place] [address], [id number] * CT ABD+PEL W CON (02/26/2025 3:10 [...] 3:13 PM Narrative 02/26/2025 3:43 PM CDT [facility] [address] [place], [place] [address] Examination: CT abdomen and pelvis with IV [...] Procedure Note Moise Duarte MD - 02/26/2025 [facility] [address] [place], [place] [address] Examination: CT abdomen and pelvis with IV [...] By: Moise Duarte MD, 02/26/2025 3:13 PM Mg Kendrick MD CT Final Result * RESPIRATORY PCR PANEL 2 (02/26/2025 11:37 AM CDT) ADENOVIRUS PCR (RESP) NOT DETECTED NOT DETECTED 02/26/2025 1:11 PM CDT [facility] CORONAVIRUS 229E PCR (RESP) NOT DETECTED NOT DETECTED 02/26/2025 1:11 PM CDT [facility] CORONAVIRUS HKU1 PCR (RESP) NOT DETECTED NOT DETECTED 02/26/2025 1:11 PM CDT [facility] CORONAVIRUS NL63 PCR (RESP) NOT DETECTED NOT DETECTED 02/26/2025 1:11 PM CDT [facility] CORONAVIRUS OC43 PCR (RESP) NOT DETECTED NOT DETECTED 02/26/2025 1:11 PM CDT [facility] METAPNEUMOVIRUS PCR (RESP) NOT DETECTED NOT DETECTED 02/26/2025 1:11 PM CDT [facility] RHINOVIRUS/ENTEROV IRUS PCR (RESP) NOT DETECTED NOT DETECTED 02/26/2025 1:11 PM CDT [facility] INFLUENZA A PCR (RESP) NOT DETECTED NOT DETECTED 02/26/2025 1:11 PM CDT [facility] INFLUENZA B PCR (RESP) NOT DETECTED NOT DETECTED 02/26/2025 1:11 PM CDT [facility] PARAINFLUENZA 1 PCR (RESP) NOT DETECTED NOT DETECTED 02/26/2025 1:11 PM CDT [facility] PARAINFLUENZA 2 PCR (RESP) NOT DETECTED NOT DETECTED 02/26/2025 1:11 PM CDT [facility] PARAINFLUENZA 3 PCR (RESP) NOT DETECTED NOT DETECTED 02/26/2025 1:11 PM CDT [facility] PARAINFLUENZA 4 PCR (RESP) NOT DETECTED NOT DETECTED 02/26/2025 1:11 PM CDT [facility] RSV PCR (RESP) NOT DETECTED NOT DETECTED 02/26/2025 1:11 PM CDT [facility] B PARAPERTUSIS PCR (RESP) NOT DETECTED NOT DETECTED 02/26/2025 1:11 PM CDT [facility] BORDETELLA PERTUSSIS PCR (RESP) NOT DETECTED NOT DETECTED 02/26/2025 1:11 PM CDT [facility] CHLAMYDOPHILA PNEUMONIAE PCR (RESP) NOT DETECTED NOT DETECTED 02/26/2025 1:11 PM CDT [facility] MYCOPLASMA PNEUMONIAE PCR (RESP) NOT DETECTED NOT DETECTED 02/26/2025 1:11 PM CDT [facility] CORONAVIRUS SARS COV 2 PCR (RESP) NOT DETECTED NOT DETECTED 02/26/2025 1:11 PM CDT [facility] 02/26/2025 11:3 7 AM CDT us Mg Kendrick MD MICROBIOLOGY - GENERAL ORDERAB LES Final Result [facility] [address] [place] [address], [phone] * XR CHEST PORTABLE (02/26/2025 11:08 AM CDT) Only the most recent of2 resultswithin the time period is included. Anatomical Region Laterality Modality Chest Radiographic Lorin ging 02/26/2025 11:5 2 AM CDT Impressions 02/26/2025 11:52 AM CDT IMPRESSION: 1. No acute cardiopulmonary process is identified. Referred By: KRISTEN RUBIO Interpreted By: Ofe Claudio MD, 02/26/2025 11:52 AM Narrative 02/26/2025 11:52 AM CDT [address] [address] PROCEDURE: XR CHEST PORTABLE. 02/26/2025 11:07 AM. [...] Procedure Note Ofe Claudio MD - 02/26/[address] [address] PROCEDURE: XR CHEST PORTABLE. 02/26/2025 11:07 AM. [...] cardiopulmonary process is identified. Referred By: KRISTEN RBUIO Interpreted By: Ofe Claudio MD, 02/26/2025 11:52 AM us Mg Kendrick MD GENERAL IMAGING Final Result * CULTURE, URINE (02/26/2025 9:10 AM CDT) SPEC DESCRIPTION URINE CLEAN CATCH 02/26/2025 8:54 AM CDT [facility] SPECIAL REQUESTS NO SPECIAL REQUEST 02/26/2025 8:54 AM CDT [facility] CULTURE RESULT NO GROWTH (< OR = 1,000 CFU/ML) 02/27/2025 10:25 AM CDT [facility] URINE SPECIMEN OBTAINED BY CLEAN CATCH PROCEDURE / Unknown 02/26/2025 9:10 AM CDT 02/26/2025 9:25 AM CDT us Mg Kendrick MD MICROBIOLOGY - GENERAL ORDERAB LES Final Result Performing Organization Address [facility] Co de Phone Number [facility] [address] [place] [address], [phone] * (ABNORMAL) KETONES URINE (02/26/2025 9:00 AM CDT) [facility] KETONES MG/DL (U) ABOVE MEASUREMENT RANGE(A) NEGATIVE 02/26/2025 9:17 AM CDT [facility] URINE SPECIMEN / Unknown 02/26/2025 9:00 AM CDT us Mg Kendrick MD URINE ORDERABLES Final Result Performing Organization Address [facility] Co de Phone Number [facility] [address] [place] [address], [id number] * URINE DRUG SCREEN (TOXICOLOGY) (02/26/2025 9:00 AM CDT) Pathologist [facility] PHENCYCLIDINE PCP (U) NEGATIVE NEGATIVE 02/26/2025 9:31 AM CDT [facility] BENZODIAZEPINES SCREEN (U) NEGATIVE NEGATIVE 02/26/2025 9:31 AM CDT [facility] COCAINE METABOLITES (U) NEGATIVE NEGATIVE 02/26/2025 9:31 AM CDT [facility] AMPHETAMINE (U) NEGATIVE NEGATIVE 9:31 AM CDT [facility] CANNABINOIDS SCREEN (U) NEGATIVE NEGATIVE 02/26/2025 9:31 AM CDT [facility] OPIATE SCREEN (U) NEGATIVE NEGATIVE 025 9:31 AM CDT [facility] BARBITURATES SCREEN (U) NEGATIVE NEGATIVE 02/26/2025 9:31 AM CDT [facility] URINE TOX COMMENT Unconfirmed screening results are to be used only for medical purposes. 02/26/2025 8:54 AM CDT [facility] CUTOFF CONCENTRATION (U) Cut-off Concentration for a positive result 02/26/2025 8:54 AM CDT [facility] Comment: Phencyclidine 25 ng/mL Benzodiazepines 200 ng/mL Cocaine 300 ng/mL Amphetamine 1000 ng/mL Cannabinoids 50 ng/mL Opiates 300 ng/mL Barbiturates 200 ng/mL URINE SPECIMEN / Unknown 02/26/2025 9:00 AM CDT Mg Kendrick MD URINE ORDERABLES Final Result [facility] [address] [place] [address], [id number] * (ABNORMAL) Blood gas, venous (02/26/2025 8:14 AM CDT) PH VENOUS 7.40 7.32 - 7.42 02/26/2025 10:14 AM CDT [facility] PCO2 VENOUS 39.9(L) 41.0 - 51.0 MMHG 02/26/2025 10:14 AM CDT [facility] PO2 VENOUS 33.2 25.0 - 40.0 MM HG 02/26/2025 10:14 AM CDT [facility] BICARB VENOUS 23.9(L) 24 - 28 MMOL/L 02/26/2025 10:14 AM CDT [facility] TOTAL CO2 VENOUS 25.2 25.0 - 29.0 MMOL/L 02/26/2025 10:14 AM CDT [facility] BASE DEFICIT VENOUS 0.3 0.0 - 3.0 MMOL/L 02/26/2025 10:14 AM CDT [facility] O2 SAT VENOUS 61 <75 % 02/26/2025 10:14 AM CDT [facility] 02/26/2025 8:14 AM CDT us Mg Kendrick MD LABORATORY Final Result [facility] [address] [place] [address], [id number] * LACTIC ACID - SINGLE (02/26/2025 8:14 AM CDT) LACTIC ACID VENOUS 1.8 0.4 - 2.0 MMOL/L 02/26/2025 8:41 AM CDT [facility] 02/26/2025 8:14 AM CDT us Mg Kendrick MD LABORATORY Final Result Performing Organization Address City/[facility]/ZIP Co de Phone Number [facility] [address] [place] [address], [phone] * LIPASE (02/26/2025 5:15 AM CDT) LIPASE 13 13 - 75 UNITS/L 02/26/2025 7:18 AM CDT [facility] 02/26/2025 5:15 AM CDT Mg Kendrick MD LABORATORY Final Result Performing Organization Address [facility] Co de Phone Number [facility] [address] [place] [address], [phone] * POTASSIUM, SERUM (02/25/2025 9:25 AM CDT) POTASSIUM S/P/B 4.3 3.5 - 5.1 MMOL/L 02/25/2025 10:22 AM CDT [facility] Comment:MILD HEMOLYSIS, RESU LT MAY BE AFFECTED. 02/25/2025 9:25 AM CDT Reg Bernardo MD LABORATORY Final Result Performing Organization Address [facility] de Phone Number [facility] [address] [place] [address], [phone] * (ABNORMAL) PHOSPHORUS, INORGANIC PHOSPHATE (02/25/2025 3:10 AM CDT) Only the most recent of2 resultswithin the time period is included. PHOSPHORUS 2.0(L) 2.5 - 4.9 MG/DL 02/25/2025 3:45 AM CDT [facility] 02/25/2025 3:10 AM CDT Walt Moreno MD LABORATORY Final Result Performing Organization Address [facility] de Phone Number [facility] [address] [place] [address], [phone] * MAGNESIUM (02/25/2025 3:10 AM CDT) Only the most recent of2 resultswithin the time period is included. MAGNESIUM 2.1 1.6 - 2.6 MG/DL 02/25/2025 3:45 AM CDT [facility] 02/25/2025 3:10 AM CDT Walt Moreno MD LABORATORY Final Result [facility] [address] [place] [address], [id number] * POCT ACUTE VENOUS PANEL (02/24/2025 10:19 PM CDT) SODIUM WHOLE BLOOD 140 138 - 146 mmol/L 02/24/2025 10:23 PM CDT [facility] POTASSIUM WHOLE BLOOD 3.8 3.5 - 4.9 mmol/L 02/24/2025 10:23 PM CDT [facility] CA IONIZED WH BLOOD 1.17 1.12 - 1.32 mmol/L 02/24/2025 10:23 PM CDT [facility] POC PH VENOUS 7.321 7.31 - 7.41 02/24/2025 10:23 PM CDT [facility] POC PCO2 VENOUS 46.9 41.0 - 51.0 MMHG 02/24/2025 10:23 PM CDT [facility] POC PO2 VENOUS 27 25 - 40 MMHG 02/24/2025 10:23 PM CDT [facility] POC HCO3 VENOUS 24.2 23 - 28 MMOL/L 02/24/2025 10:23 PM CDT [facility] POC TCO2 VENOUS 26 24 - 29 MMOL/L 02/24/2025 10:23 PM CDT [facility] POC BASE DEFICIT VENOUS 2 0 - 2 MMOL/L 02/24/2025 10:23 PM CDT [facility] POC HEMATOCRIT 46 38 - 51 % 02/24/2025 10:23 PM CDT [facility] TIME TEST WAS PERFORMED: 221802/24/2025 10:23 PM CDT [facility] 02/24/2025 10:1 9 PM CDT us Reg Bernardo MD POCT ORDERABLES - DEVICE Kaykay l Result Performing Organization Address [facility] Co de Phone Number [facility] [address] [place] [address], [place] [phone] * (ABNORMAL) BETA-HYDROXYBUTYRATE (02/24/2025 10:17 PM CDT) Pathologist [facility] BETA-HYDROXYBU TYRATE 1.8(H) 0.0 - 0.3 MMOL/L 02/24/2025 10:24 PM CDT [facility] 02/24/2025 10:1 7 PM CDT us Reg Bernardo MD LABORATORY Final Result Performing Organization Address [facility] Co de Phone Number [facility] [address] [place] [address], [place] [phone] * (ABNORMAL) HEMOGLOBIN, GLYCATED (02/24/2025 10:17 PM CDT) [facility] HGB A1C 11.9(H) <5.7 % 02/25/2025 2:06 AM CDT [facility] ESTIMATED AVG GLUCOSE 295(H) 74 - 114 MG/DL 02/25/2025 2:06 AM CDT [facility] 02/24/2025 10:1 7 PM CDT us Reg Bernardo MD LABORATORY Final Result Performing Organization Address [facility] Co de Phone Number [facility] [address] [place] [address], [place] [phone] * (ABNORMAL) URINALYSIS (02/24/2025 6:30 PM CDT) COLOR (U) COLORLESS 02/24/2025 7:32 PM CDT [facility] TRANSPARENCY CLEAR 02/24/2025 7:32 PM CDT [facility] SPECIFIC GRAVITY (U) 1.047(H) 1.002 - 1.035 02/24/2025 7:32 PM CDT [facility] U PH 5.0 5 - 8 02/24/2025 7:32 PM CDT [facility] PROTEIN RANDOM (U) 20(A) NEGATIVE 02/24/2025 7:32 PM CDT [facility] GLUCOSE (U) ABOVE MEASUREMENT RANGE(A) NEGATIVE MG/DL 02/24/2025 7:32 PM CDT [facility] KETONES MG/DL (U) 80(A) NEGATIVE 02/24/2025 7:32 PM CDT [facility] BILIRUBIN (U) NEGATIVE NEGATIVE 02/24/2025 7:32 PM CDT [facility] BLOOD (U) NEGATIVE NEGATIVE 02/24/2025 7:32 PM CDT [facility] NITRITES NEGATIVE NEGATIVE 02/24/2025 7:32 PM CDT [facility] UROBILINOGEN NORMAL 0 - 1 EU/DL 02/24/2025 7:32 PM CDT [facility] LEUKOCYTES (U) NEGATIVE NEGATIVE 02/24/2025 7:32 PM CDT [facility] RBC/HPF <1 0 - 3 /HPF 02/24/2025 7:32 PM CDT [facility] WBC/HPF NONE 0 - 6 /HPF 02/24/2025 7:32 PM CDT [facility] BACTERIA (U) NONE /HPF 02/24/2025 7:32 PM CDT [facility] SQUAMOUS EPITHELIALS <1 02/24/2025 7:32 PM CDT [facility] BUDDING YEAST PRESENT 02/24/2025 7:32 PM CDT [facility] URINE SPECIMEN FROM URETHRA / Unknown 02/24/2025 6:30 PM CDT us Reg Bernardo MD URINE ORDERABLES Final Result Performing Organization Address [facility] Co de Phone Number [facility] [address] [place] [address], [place] [phone] * MRSA PCR nares SCREENING (02/24/2025 6:00 PM CDT) SPECIMEN SOURCE RESPIRATORY, NOSE 02/24/2025 6:02 PM CDT [facility] MRSA BY PCR NASAL METHICILLIN RESISTANT STAPH AUREUS NOT DETECTED METHICILLIN RESISTANT STAPH AUREUS NOT DETECTED 02/25/2025 10:56 AM CDT [facility] NASAL STRUCTURE / Unknown 02/24/2025 6:00 PM CDT us Reg Bernardo MD MICROBIOLOGY - GENERAL ORDERA BLES Final Result Performing Organization Address [facility] de Phone Number [facility] [address] [place] [address], [place] [phone] * TROPONIN, QUANT (02/23/2025 12:15 PM CDT) Only the most recent of2 resultswithin the time period is included. TROPONIN I HIGH SENSITIVITY 6 0 - 53 ng/L 02/23/2025 12:54 PM CDT [facility] 02/23/2025 12:1 5 PM CDT us Alex Duarte MD LABORATORY Final Result Performing Organization Address [facility] Co de Phone Number [facility] [address] [place] [address], [place] [phone] * INFLUENZA A & B (02/23/2025 10:23 AM CDT) SPECIMEN TYPE (INFLUENZA) NASOPHARYNGEAL SWAB 02/23/2025 10:24 AM CDT [facility] INFLUENZA A NEGATIVE NEGATIVE 02/23/2025 10:59 AM CDT [facility] Comment:NEGATIVE FOR INFLUEN ZA A VIRUS ANTIGEN INFLUENZA B NEGATIVE NEGATIVE 02/23/2025 10:59 AM CDT [facility] Comment:NEGATIVE FOR INFLUEN ZA B VIRUS ANTIGEN NASOPHARYNGEAL SWAB / Unknown 02/23/2025 10:23 AM CDT Carol Walsh MD MICROBIOLOGY - GENERAL ORDERABL ES Final Result [facility] [address] [place] [address], [phone] * PRO-BRAIN NATRIURETIC PEPTIDE (02/23/2025 10:16 AM CDT) [facility] PRO-B TYPE NATRIURETIC PEPTIDE 37 <125 PG/ML 02/23/2025 11:11 AM CDT [facility] Comment: AGE INDEPENDENT: <300 PG/ML [...] CDT Carol Walsh MD LABORATORY Final Result [facility] [address] [place] [address], [phone] * D-DIMER, QUANTITATIVE (02/23/2025 10:16 AM CDT) [facility] D-DIMER 327 0 - 500 ng{FEU}/mL 02/23/2025 11:03 AM CDT [facility] EXCLUSION STATEMENT 02/23/2025 11:03 AM CDT [facility] Comment: D-Dimer values less than [...] us Carol Walsh MD LABORATORY Final Result [facility] [address] [place] [address], [phone] * ECG 12 lead (02/23/2025 10:15 AM CDT) 02/23/2025 10:1 5 AM CDT Narrative [facility] - 02/23/2025 1:25 PM CDT [facility] Test Date: 2025-02-23 Pat Name: SHANTA BOSE Department: Room: [facility] Gender: Female Panel Monitor: : 1970 Requested By: CAROL WALSH Order Number: [id number] Reading MD: Bora Hoffman Measurements Intervals [place] Rate: 82 P: 44 MN: 152 QRS: -7 QRSD: 85 T: 42 QT: 390 QTc: 458 Interpretive Statements SINUS RHYTHM POSSIBLE ANTERIOR MYOCARDIAL INFARCTION , PROBABLY OLD [30 ms Q WAVE IN V3/V4, OR R < 0.2 mV IN V4] Procedure Note Bora Hoffman MD - 02/23/2025 [facility] Test Date: 2025-02-23 Pat Name: SHANTA BOSE Department: 70 Room: EXAM QQ Gender: Female Panel Monitor: : 1970 Requested By: CAROL WALSH Order Number: [id number] Reading MD: Bora Hoffman Measurements Intervals [place] Rate: 82 P: 44 MN: 152 QRS: -7 QRSD: 85 T: 42 QT: 390 QTc: 458 Interpretive Statements SINUS RHYTHM POSSIBLE ANTERIOR MYOCARDIAL INFARCTION , PROBABLY OLD [30 ms Q WAVE IN V3/V4, OR R < 0.2 mV IN V4] us Carol Wlash MD ECG ORDERABLES Final Result [facility] * CTA CORONARY INCIDENTAL FINDINGS (02/06/2025 1:29 PM CDT) Anatomical Region Laterality Modality Chest Computed Tomogra phy 02/07/2025 10:1 7 AM CDT Impressions 02/07/2025 1:26 PM CDT IMPRESSION: 1. Cardiac findings interpreted by hosted services analyst. 2. Sub-4 mm lung nodules. Follow-up CT chest in one year. Ordered By: BELÉN GOODE Interpreted By: Sanford Vee MD, 02/07/2025 10:17 AM Narrative 02/07/2025 1:26 PM CDT [facility] [address] [place], [place] [address] EXAMINATION: CARDIAC COMPUTED TOMOGRAPHY ANGIOGRAM, ROUTINE CORONARY [...] ANGIOGRAM AND OTHER CARDIAC FINDINGS: Interpreted by hosted services analyst. EXTRACARDIAC FINDINGS: Sub-4 mm lung nodules. Dependent atelectasis. The visualized thoracic aorta is normal. Visualized pulmonary artery appears normal. Small hiatal hernia. Spondylosis. Procedure Note Sanford Vee MD - 02/07/[address] [address] EXAMINATION: CARDIAC COMPUTED TOMOGRAPHY ANGIOGRAM, ROUTINE CORONARY [...] Spondylosis. IMPRESSION: 1. Cardiac findings interpreted by hosted services analyst. 2. Sub-4 mm lung nodules. Follow-up CT chest in one year. Ordered By: BELÉN GOODE Interpreted By: Sanford Vee MD, 02/07/2025 10:17 AM Belén Goode MD CT Final Result * CTA CORONARY W SCORING (02/06/2025 1:29 PM CDT) Anatomical Region Laterality Modality Chest Computed Tomogra phy 03/03/2025 1:12 PM CDT Impressions 03/03/2025 1:22 PM CDT IMPRESSION: 1. Normal Coronary CT Angiogram. 2. Calcium score of 0. Ordered By: BELÉN GOODE Interpreted By: Clive Olson, 03/03/2025 1:12 PM Narrative 03/03/2025 1:22 PM CDT [place] [address] EXAMINATION: CARDIAC COMPUTED TOMOGRAPHY with CORONARY ANGIOGRAM [...] Procedure Note Clive Olson MD - 03/03/2025 [place] [address] EXAMINATION: CARDIAC COMPUTED TOMOGRAPHY with CORONARY ANGIOGRAM [...] Interpreted By: Clive Olson, 03/03/2025 1:12 PM us Belén Goode MD CT Final Result * CTA AORTO ILIOFEM RUNOFF (01/22/2025 9:00 AM FREELANCE MAKEUP ARTIST) Anatomical Region Laterality Modality Abdomen, Pelvis, Extremity Compu tal Tomography 01/22/2025 6:25 PM FREELANCE MAKEUP ARTIST Impressions 01/22/2025 6:35 PM FREELANCE MAKEUP ARTIST IMPRESSION: 1. There is no evidence for abdominal aortic aneurysm or significant stenosis. There are no inflow issues. There is a two-vessel runoff on the right via the anterior tibial artery and peroneal artery. There is a three-vessel runoff on the left. 2. Hepatosplenomegaly. Referred By: ZAINAB HUERTA Interpreted By: Humberto Alvarado MD, 01/22/2025 6:25 PM Narrative 01/22/2025 6:35 PM FREELANCE MAKEUP ARTIST [place] [id number] [place] [address] Examination: CTA AORTO ILIOFEM RUNOFF Exam time: [...] Procedure Note Humberto Alvarado MD - 01/22/2025 [place] [id number] [place] [address] Examination: CTA AORTO ILIOFEM RUNOFF Exam time: 01/22/2025 8:45 AM INDICATION: Right lower leg pain TECHNIQUE: After administration of 120 mL Isovue-370 IV contrast via theright antecubital fossa, arterial phase multidetector CT images wereobtained from the lung bases to the feet. Multiplanar and MIP images werecreated and reviewed. In addition, 3D image processing was performed on [employer] workstation by a technologist, with images sent [...] MD, 01/22/2025 6:25 PM us Zainab Huerta MAKE READY WORKER CT Fin al Result * CREATININE (01/22/2025 8:00 AM FREELANCE MAKEUP ARTIST) CREATININE S/P/B 0.60 0.55 - 1.02 MG/DL 01/22/2025 8:46 AM FREELANCE MAKEUP ARTIST [facility] GFR ESTIMATE >90 >89 ML/MIN/1. 73 M2 01/22/2025 8:46 AM FREELANCE MAKEUP ARTIST [facility] GFR NOTES GFR REFERENCE S: 01/22/2025 8:46 AM FREELANCE MAKEUP ARTIST [facility] Comment: THE ESTIMATED GFR IS [...] FAILURE: <15 ml/min/1.73 m2 01/22/2025 8:00 AM FREELANCE MAKEUP ARTIST Zainab Huerta MAKE READY WORKER LABORATORY Fin al Result [facility] [address] [place] [address], * MG SCREENING W DOMENICA AMAN DIGI (01/14/2025 12:45 PM FREELANCE MAKEUP ARTIST) Anatomical Region Laterality Modality Breast Bilateral Mammography 01/14/2025 4:10 PM FREELANCE MAKEUP ARTIST Impressions 01/14/2025 4:10 PM FREELANCE MAKEUP ARTIST IMPRESSION: No suspicious change since the previous exams. Recommendation: 1: Routine Screening Bilateral in 1 Year Assessment: ACR BI-RADS 2 - BENIGN FINDING(S) Ordered By: JOSE DELAROSA Interpreted By: Reji Gao MD, 01/14/2025 4:10 PM Narrative 01/14/2025 4:10 PM [place] [address] Examination: Digital screening mammogram with CAD. Clinical [...] * (ABNORMAL) LIPID PANEL (01/31/2018 11:23 AM FREELANCE MAKEUP ARTIST) CHOLESTEROL 211(H) <200 MG/DL 01/31/2018 12:01 PM FREELANCE MAKEUP ARTIST [facility] TRIGLYCERIDES 190(H) <150 MG/DL 01/31/2018 12:01 PM FREELANCE MAKEUP ARTIST [facility] HDL 48 >40 MG/DL 01/31/2018 12:01 PM FREELANCE MAKEUP ARTIST [facility] LDL (CALCULATED) 125 <130 MG/DL 02/01/20 18 12:01 PM FREELANCE MAKEUP ARTIST [facility] Comment: AN LDL OF <100 IS OPTIMAL; HOWEVER, ELEVATED IS DEFINED >130.BY ATP III GUIDELINES, LDL GOALS ARE DEPENDENT UPON THE PATIENT'S OTHER RISK FACTORS. CHOL/HDL RATIO 4.4 0.0 - 5.0 01/31/2018 12:01 PM FREELANCE MAKEUP ARTIST [facility] 01/31/2018 11:2 3 AM FREELANCE MAKEUP ARTIST 01/31/2018 11:25 AM FREELANCE MAKEUP ARTIST us Generic Conversion Md [facility] Final R esult [facility] [address] [place] [address], from Last 3 Months or Most Recently Relevant to Health Maintenance Insurance [facility] Advance Directives * Full Code (Latest Code Status on File) Date Activated Date Inactivated Comments 02/24/2025 5:45 PM 03/02/2025 8:52 PM Care Teams Teacher Public Health Relationship Specialty Start Date End Date Jose Delarosa MD [address] [place] [phone] PCP - General FAMILY PRACTICE 01/11/19 Kortney Coronado NP [address] [place] [address] Nurse Practitioner Nurse Practitioner Family 03/27/24
--- OUTSIDE RECORDS SUMMARY | 2025-03-05 07:09 | XMS_ITS | Encounter Summary ---
Author Organization [facility] / [facility] Address [address] [place] [address] Care Team Providers Care Dress Fitter Name Role Phone Jose Beverly MD Primary Care Provider Brad Riojas MD Unavailable [phone] Kortney Coronado NP Unavailable [phone] Encounter Details Date Type Department Care Team (Late st Contact Info) Description 02/10/2018 Abstract [facility] CONVERSION [address] [place] [address] , Generic Conversion, Social History Tobacco Use Types Packs/Day Years Used Date Smoking Tobacco: Never Assessed Comments Unknown Sex and Gender Information Value Date Recorded Sex Assigned at Female 01/14/2025 12:08 PM CONTRACT SHELTERED WORKSHOP SUPERVISOR Legal Sex Female 9:38 PM CONTRACT SHELTERED WORKSHOP SUPERVISOR Gender Identity Not on file Sexual Orientation [...] documented as of this encounter Care Teams Dress Fitter Relationship Specialty Start Date End Date Jose Beverly MD [address] [place] [phone] PCP - General FAMILY PRACTICE 01/11/19 Brad Riojas MD [address] [place] [phone] Vascular/Flower Maker VASCULAR SURGERY 12/26/23 01/31/25 Kortney Coronado NP [address] [place] [address] Nurse Practitioner Nurse Practitioner Family 03/27/24 documented as of this encounter
--- NOTE | 2025-03-05 07:10 | ED.NAVMDI ---
HPI - Nausea/Vomiting/Diarrhea General Chief complaint: Nausea/Vomiting/Diarrhea Stated complaint: vomiting Time Seen by Provider: 03/05/25 07:10 Source: patient Mode of arrival: ambulatory Limitations: no limitations History of Present Illness HPI Narrative: 54-year-old female with a history of hypertension, diabetes mellitus, dyslipidemia, [place] presents to the ED with -- nausea without any vomiting -- abdominal pain- Pain is in the periumbilical region. Pain is intermittent. No exacerbating or relieving factors. No radiation of the pain. -- headache -- dizziness the patient had had the symptoms since 02/24/2025. She was diagnosed to have DKA on 02/24 and admitted to [facility] in [place]. She presented to the ED yesterday with similar symptoms and was noted to have elevated blood sugars without any evidence of diabetic ketoacidosis. She was noted to be dehydrated. The patient was discharged home on Zofran. The patient has not picked up her medication from the pharmacy. The patient has taken Lantus and Humalog today. MD elicited complaint: nausea Onset (ago): day(s) Associated nausea: Yes Associated abdominal pain: Yes Location of pain: periumbilical Pain consistency: intermittent Quality: aching Exacerbating factors: none Relieving factors: none Associated symptoms: nausea/vomiting and weakness Related Data Home Medications ?Medication ?Instructions ?Recorded ?Confirmed ?Last Taken ?Type albuterol sulfate 2.5 mg/3 mL 2.5 mg inhalation PRN PRN Wheezing 08/01/23 07/28/24 Unknown History (0.083 %) solution for nebulization atorvastatin 80 mg tablet 80 mg PO DAILY 08/01/23 07/28/24 Unknown History dulaglutide 0.75 mg/0.5 mL 0.75 mg subcut USEASDIRECTD 08/01/23 07/28/24 Unknown History subcutaneous pen injector (Trulicity) fenofibrate micronized 134 mg 134 mg PO DAILY 08/01/23 07/28/24 Unknown History capsule furosemide 20 mg tablet 40 mg PO DAILY 08/01/23 07/28/24 Unknown History gabapentin 300 mg capsule 300 mg PO PRN PRN Pain, Moderate 08/01/23 07/28/24 Unknown History hydrochlorothiazide 12.5 mg capsule 12.5 mg PO DAILY 09/05/23 09/01/24 Unknown History metformin 500 mg tablet,extended 1,000 mg PO BID 08/01/23 07/28/24 Unknown History release 24 hr montelukast 10 mg tablet 10 mg PO DAILY 08/01/23 07/28/24 Unknown History omeprazole 20 mg capsule,delayed 40 mg PO DAILY 08/01/23 07/28/24 Unknown History release sitagliptin phosphate 100 mg 100 mg PO DAILY 08/01/23 07/28/24 Unknown History tablet (Januvia) blood sugar diagnostic (OneTouch 03/04/25 03/04/25 Unknown History Verio test strips) pen needle, diabetic 31 gauge x 03/04/25 03/04/25 Unknown History 1/ (TRUEplus Pen Needle) sucralfate 100 mg/mL oral 100 mg PO DAILY 03/04/25 03/04/25 Unknown History suspension Allergies Allergy/AdvReac Type Severity Reaction Status Date / Time codeine Allergy Mild n/v Verified 03/04/25 05:22 ampicillin Allergy Unknown Anaphylactic Verified 03/04/25 05:22 Shock latex Allergy Unknown Unknown Verified 03/04/25 05:22 Review of Systems Review of Systems: All systems reviewed & are unremarkable except as noted in HPI and below Constitutional: Constitutional: Reports as per HPI and Reports no additional constitutional complaints Eyes: Eyes: Reports as per HPI and Reports no additional eye complaints ENT: Reports system reviewed and no additional complaints, except as documented and Reports as per HPI Cardiovascular: Cardiovascular: Reports as per HPI and Reports no additional cardiovascular complaints Respiratory: Respiratory: Reports as per HPI and Reports no additional respiratory complaints Gastrointestinal: Gastrointestinal: Reports as per HPI, Reports no additional gastrointestinal complaints, Reports abdominal pain and Reports nausea Genitourinary: Genitourinary: Reports no additional female genitourinary complaints Musculoskeletal: Musculoskeletal: Reports no additional musculoskeletal complaints and Reports as per HPI Integumentary/Breasts: Skin/Breast: Reports system reviewed and no additional complaints, except as docu and Reports as per HPI Neurologic: Reports system reviewed and no additional complaints, except as documented and Reports as per HPI Psychiatric: Psychiatric: Reports no additional psychiatric complaints and Reports as per HPI Endocrine: Endocrine: Reports no additional endocrine complaints and Reports as per HPI Hematologic/Lymphatic: Hematologic/Lymphatic: Reports no additional hematologic/lymphatic complaints and Reports as per HPI Allergic/Immunologic: Allergic/Immunologic: Reports no additional allergic/immunologic complaints and Reports as per HPI [facility] Past Medical History Medical History (Updated 03/05/25 @ 09:41 by Ghassan Santiago MD) MEADOWS (nonalcoholic steatohepatitis) Dyslipidemia Hypertension Diabetes mellitus Patient denies medical problems Exam Narrative: blood pressure is noted to be 186/101 with a heart rate of 88. Patient is afebrile. Patient is saturating 99% on room air. Const: General: ill appearing Orientation/consciousness: patient oriented x3 Limitations: no limitations HENMT: Head: normal to inspection Ears: external ears normal Face/Nose/Sinus: Normal external nose present Face and sinus: normal facial exam Mouth: Yes Normal oral and palatal mucosa present Throat: posterior oropharynx normal Eyes: Conjunctivae: conjunctivae normal Cornea: corneas normal Pupils: Equal, round and reactive pupils present EOM: EOMs intact bilaterally Neck: Neck: normal visual inspection, no lymphadenopathy and no meningeal signs Chest: Chest palpation & inspection: normal inspection of the chest Resp: Effort & Inspection: normal respiratory effort Auscultation: clear to auscultation bilaterally Cardio: Rate: regular rate Rhythm: regular rhythm GI: GI Palp: Yes Soft to palpation Auscultation: normal bowel sounds Other: No tenderness/rigidity / rebound. : General: Yes no CVA tenderness Back/Spine/Pelvis: Back: no CVA tenderness Skin: General skin exam: normal color Rashes: no rashes Wounds: no wounds Neuro: General: patient oriented x3, moves all extremities, no meningeal signs, no focal motor deficits and CN's II-XI intact bilaterally Cranial nerves: Yes Nystagmus not present Speech: normal speech Gait exam (Neuro): Normal gait present Extrem: General: normal to inspection and no clubbing, cyanosis or edema Psych: Mental Status: mental status grossly normal Affect: normal affect Attitude: cooperative Course Course Emergency Course: Nausea without any vomiting/ Abdominal pain-- no evidence of acute abdomen on palpation of the abdomen. Patient received Compazine with improvement of symptoms. patient is not taking Trulicity. She is unable to tolerate Reglan. Zofran does not seem to be helpful. Would prescribe Compazine. Hypertension-- Blood pressure resolved spontaneously and is currently 169/77. Vital Signs Vital signs: Vital Signs Temperature 35.6 C L 03/05/25 07:07 Pulse Rate 88 03/05/25 07:07 Respiratory Rate 20 03/05/25 07:07 Blood Pressure 186/101 H 03/05/25 07:07 Pulse Oximetry 99 03/05/25 07:07 Oxygen Delivery Room Air 03/05/25 07:07 Temperature 35.6 C L 03/05/25 07:07 Pulse Rate 87 03/05/25 09:31 Respiratory Rate 20 03/05/25 09:31 Blood Pressure 176/85 H 03/05/25 09:30 Pulse Oximetry 93 03/05/25 09:15 Oxygen Delivery Room Air 03/05/25 07:07 MDM - Nausea/Vomiting/Diarrhea MDM Narrative Medical decision making narrative: Hyperglycemia nausea Differential Diagnosis Differential diagnosis: Likely food poisoning and gastroenteritis Medical Records Attestation: I reviewed the patient's medical records. Lab Data Attestation: I reviewed the patient's lab results. 03/05/25 07:47 03/05/25 07:47 Labs: Lab Results 03/05/25 03/05/25 03/05/25 Range/Units 07:27 07:47 08:52 WBC 8.5 (4.8-10.8) K/mm3 RBC 5.64 H (4.20-5.40) M/mm3 Hgb 15.5 H (12.0-15.0) g/dL Hct 47.9 (35.0-49.0) % MCV 84.9 (78.0-102.0) fL MCH 27.5 (27.0-31.0) pg MCHC 32.4 (32-36) g/dL RDW 12.1 (11.6-14.4) % Plt Count 249 (150-420) K/mm3 MPV 9.7 (9.2-11.8) fl Immature Gran % (Auto) 1.1 H (0.0-0.0) % Neut % (Auto) 74.9 H (50.0-70.0) % Lymph % (Auto) 16.3 L (18.0-42.0) % [place] % (Auto) 7.0 (2.0-11.0) % Eos % (Auto) 0.2 L (1.0-6.0) % Baso % (Auto) 0.5 (0.0-1.0) % Lymph # (Auto) 1.39 (1.10-4.50) K/mm3 [place] # (Auto) 0.60 (0.10-0.90) K/mm3 Eos # (Auto) 0.02 (0.02-0.50) K/mm3 Baso # (Auto) 0.04 (0.00-0.10) K/mm3 Abs Immat Gran (auto) 0.09 H (0.00-0.00) K/mm3 Absolute Neuts (auto) 6.39 (1.70-7.20) K/mm3 Absolute Nucleated RBC 0.00 (0.00-0.00) K/mm3 Nucleated RBC % 0.0 (0-0.0) % Sodium 135 L (136-145) mmol/L Potassium 3.5 (3.5-5.1) mmol/L Chloride 94 L (98-108) mmol/L Carbon Dioxide 28 (21-32) mmol/L Anion Gap 13 H (4-12) mmol/L BUN 8 (7-18) mg/dL Creatinine 0.64 (0.55-1.02) mg/dL Estim Creat Clear Calc 92 ml/min Estimated GFR > 60 (59 - ) Glucose 324 H (70-99) mg/dL POC Capillary Glucose 320 H 236 H (65-105) mg/dl Calculated Osmolality 291 (285-295) mOsm/kg Lactic Acid 1.7 (0.4-2.0) mmol/L Calcium 8.7 (8.5-10.1) mg/dL Magnesium 1.7 L (1.8-2.4) mg/dL Total Bilirubin 0.6 (0.00-1.00) mg/dL AST 46 H (15-37) U/L ALT 86 H (14-59) U/L Alkaline Phosphatase 12 L (46-116) U/L Troponin I 5.2 (0.00-60.4) ng/L Total Protein 7.6 (6.4-8.2) g/dL Albumin 3.7 (3.4-5.0) g/dL Lipase 23 (16-77) U/L TSH 1.01 (0.36-3.74) uIU/mL Urine Color (Yellow) Urine Appearance (Clear) Urine pH (5.0-8.0) Ur Specific [place] (1.010-1.020) Urine Protein (Negative) Urine Glucose (UA) (Negative) Urine Ketones (Negative) Ur Blood (Man) (Negative) Urine Nitrate (Negative) Urine Bilirubin (Negative) Urine Urobilinogen (0.2-1.0) mg/dL Leukocyte Esterase Rfl (Negative) BAHMAN/UL Urine RBC (0-2) /hpf Urine WBC (0-3) /hpf Ur Squamous Epith Cells (Few) /hpf Urine Bacteria (None) /hpf 03/05/25 Range/Units 09:00 WBC (4.8-10.8) K/mm3 RBC (4.20-5.40) M/mm3 Hgb (12.0-15.0) g/dL Hct (35.0-49.0) % MCV (78.0-102.0) fL MCH (27.0-31.0) pg MCHC (32-36) g/dL RDW (11.6-14.4) % Plt Count (150-420) K/mm3 MPV (9.2-11.8) fl Immature Gran % (Auto) (0.0-0.0) % Neut % (Auto) (50.0-70.0) % Lymph % (Auto) (18.0-42.0) % [place] % (Auto) (2.0-11.0) % Eos % (Auto) (1.0-6.0) % Baso % (Auto) (0.0-1.0) % Lymph # (Auto) (1.10-4.50) K/mm3 [place] # (Auto) (0.10-0.90) K/mm3 Eos # (Auto) (0.02-0.50) K/mm3 Baso # (Auto) (0.00-0.10) K/mm3 Abs Immat Gran (auto) (0.00-0.00) K/mm3 Absolute Neuts (auto) (1.70-7.20) K/mm3 Absolute Nucleated RBC (0.00-0.00) K/mm3 Nucleated RBC % (0-0.0) % Sodium (136-145) mmol/L Potassium (3.5-5.1) mmol/L Chloride (98-108) mmol/L Carbon Dioxide (21-32) mmol/L Anion Gap (4-12) mmol/L BUN (7-18) mg/dL Creatinine (0.55-1.02) mg/dL Estim Creat Clear Calc ml/min Estimated GFR (59 - ) Glucose (70-99) mg/dL POC Capillary Glucose (65-105) mg/dl Calculated Osmolality (285-295) mOsm/kg Lactic Acid (0.4-2.0) mmol/L Calcium (8.5-10.1) mg/dL Magnesium (1.8-2.4) mg/dL Total Bilirubin (0.00-1.00) mg/dL AST (15-37) U/L ALT (14-59) U/L Alkaline Phosphatase (46-116) U/L Troponin I (0.00-60.4) ng/L Total Protein (6.4-8.2) g/dL Albumin (3.4-5.0) g/dL Lipase (16-77) U/L TSH (0.36-3.74) uIU/mL Urine Color Light yellow (Yellow) Urine Appearance Sl cloudy A (Clear) Urine pH 8.0 (5.0-8.0) Ur Specific [place] 1.015 (1.010-1.020) Urine Protein Negative (Negative) Urine Glucose (UA) 3+ H (Negative) Urine Ketones 1+ H (Negative) Ur Blood (Man) Negative (Negative) Urine Nitrate Negative (Negative) Urine Bilirubin Negative (Negative) Urine Urobilinogen 0.2 (0.2-1.0) mg/dL Leukocyte Esterase Rfl Negative (Negative) BAHMAN/UL Urine RBC None seen (0-2) /hpf Urine WBC None seen (0-3) /hpf Ur Squamous Epith Cells None seen (Few) /hpf Urine Bacteria 3+ H (None) /hpf ECG Data EKG #1: ECG completion date: 03/05/25 ECG completion time: 07:39 Interpretation: normal sinus rhythm. Normal axis. Poor R-wave progression in anterior leads. No ST elevation. Discharge Plan Discharge Clinical Impression: Nausea Diabetes mellitus Qualifiers: Diabetes mellitus type: type 2 Diabetes mellitus manager terminal insulin use: with manager terminal use Diabetes mellitus complication status: without complication Qualified Code(s): E11.9 - Type 2 diabetes mellitus without complications Hyperglycemia due to type 2 diabetes mellitus Qualifiers: Diabetes mellitus residential insulin use: with residential use Qualified Code(s): E11.65 - Type 2 diabetes mellitus with hyperglycemia Patient Disposition: Home Condition: Stable Instructions: Antibiotic Form, Acute Nausea and Vomiting (ED), Diabetic Hyperglycemia (ED), Gastroparesis (ED) Patient Language: Croatian Prescriptions: New prochlorperazine maleate [Compazine] 5 mg tablet 5 mg PO Q8H PRN (Reason: nausea and vomiting) 2 Days Qty: 14 0RF No Action ibuprofen 800 mg tablet 800 mg PO TID PRN (Reason: pain) 7 Days Qty: 21 0RF acetaminophen 500 mg tablet 1,000 mg PO TID PRN (Reason: kg) 7 Days Qty: 42 0RF methocarbamol 750 mg tablet 1,500 mg PO TID Qty: 35 0RF sucralfate 100 mg/mL suspension 100 mg PO DAILY (DME) OneTouch Verio test strips Strip MISCELLANEOUS (DME) pen needle, diabetic [TRUEplus Pen Needle] 31 gauge x 1/4 needle MISCELLANEOUS ondansetron 4 mg tablet,disintegrating 4 mg PO Q4H Qty: 10 0RF Rx Instructions: give 1st dose 30min before emetogenic chemo atorvastatin 80 mg tablet 80 mg PO DAILY albuterol sulfate 2.5 mg /3 mL (0.083 %) solution for nebulization 2.5 mg inhalation PRN PRN (Reason: Wheezing) fenofibrate micronized 134 mg capsule 134 mg PO DAILY hydrochlorothiazide 12.5 mg capsule 12.5 mg PO DAILY gabapentin 300 mg capsule 300 mg PO PRN PRN (Reason: Pain, Moderate) omeprazole 20 mg capsule,delayed release(DR/EC) 40 mg PO DAILY montelukast 10 mg tablet 10 mg PO DAILY furosemide 20 mg tablet 40 mg PO DAILY metformin 500 mg tablet extended release 24 hr 1,000 mg PO BID Januvia 100 mg tablet 100 mg PO DAILY Trulicity 0.75 mg/0.5 mL pen injector 0.75 mg SUBCUT USEASDIRECTD Rx Instructions: TWICE MONTHLY naproxen 500 mg tablet 500 mg PO BID PRN (Reason: pain) Qty: 14 0RF Follow-up/Referrals: Rush,MD Jose [Primary Care Provider] - Time of Disposition: 09:41
--- OUTSIDE RECORDS SUMMARY | 2025-03-05 07:10 | XMS_ITS | Data Portability ---
Author Organization [facility], [address] [facility] ([place]) Address [address] 4th [place] [address] Care Team Providers Care Scallop Dredger Name Role Phone LUX DELAROSA Primary Care Provider RAJAT COBB Gill Net Stringer [phone] Assessment Encounter Date Assessment Date Assessment LastModified [...] fine with this plan at this point. [email or web address] Not available 04/30/2024 13:54:04 09/09/2024 09/09/2024 Discussed [...] well as the weight from FibroScan report. [email or web address] Not available 09/09/2024 12:09:58 Plan of Treatment Reminders Order Date Submit Date Provider Last Modified By Organization Details Last Modified Time Details Appointments New Patient Visit 15.NEW 2024 11:00A M Dr. Belén Riojas Not available Not available Not available Lab None recorded . Referral None recorded . Procedures None recorded . Surgeries None recorded . Imaging None recorded . Medication Orders None recorded . Patient TargetsNo targets recorded. Patient InstructionsNo instructions recorded. Reason for Referral None Reported. Results Created Date Observation Date Name Description Value Unit Range Abnormal Flag Note LastModifiedBy Organization Detail LastModifiedTime 09/02/2009/02/2024 hepat ic funct ion panel , serum liver function panel Not Available [facility] [address], [address], 09/02/2024 18:42:17 09/02/2009/02/2024 hepat ic funct ion panel , serum albumin 4.5 g/dL 3.5-5. 3 Not Available [facility] [address], [address], 09/02/2024 18:42:17 09/02/2009/0209/02/2024 hepat ic funct ion panel , serum direct bilirubin <0.1 mg/dL 0.1-0. 5 low Not Available Ne Only - [facility] [address] [place] [address], [address], 09/02/2024 18:42:17 09/02/20 24 09/02/2024 hepat ic funct ion panel , serum indirect bilirubin * mg/dL 0.1-0. 6 Unabl e to calcu late Indir ect Bilir ubin due to low Direc t Bilir ubin Not Available [facility] Only - [facility] [address] [place] [address], [address], 09/02/2024 18:42:17 09/02/20 24 09/02/2024 hepat ic funct ion panel , serum total bilirubin 0.3 mg/dL 0.2-1. 0 Not Available [facility] Only - [facility] [address] [place] [address], [address], 09/02/2024 18:42:17 09/02/20 24 09/02/2024 hepat ic funct ion panel , serum ALP 125 U/L 44 - 127 Not Available [facility] Only - [facility] [address] [place] [address], [address], 09/02/2024 18:42:17 09/02/20 24 09/02/2024 hepat ic funct ion panel , serum AST (SGOT) 33 U/L 10-40 Not Available [facility] - [facility] [address] [place] [address], [address], 09/02/2024 18:42:17 09/02/20 24 09/02/2024 hepat ic funct ion panel , serum ALT (SGPT) 45 U/L 8-35 high Not Available [facility] [address] [place] [address], [address], 09/02/2024 18:42:17 09/02/20 24 09/02/2024 hepat ic funct ion panel , serum total protein 7.1 g/dL 6.4-8. 3 Not Available [facility] [address] [place] [address], [address], 09/02/2024 18:42:17 05/13/20 24 05/13/2024 US, abdom en, limit ed [facility] [address] [place] [address] Teleph one [phone] Name: Mendez Hernández od [id number] Exam Date: 2023 Age: 53 Physic chelsy: [...] 9:35 AM cc: Page PAGE 1 of [facility] 1 [email or web address] [facility] Only - [facility] [address] [place], [address], 05/16/2024 16:29:07 09/25/20 24 11/03/2023 imagi ng/di agnos tic resul t No observ ation record ed. [email or web address] Not Available 12:56:23 03/03/20 25 02/06/2025 CT, angio gram, coron honey arter ies, w[facility] [address] [place] [id number] EXAMIN ATION: CARDIA C COMPUT ED TOMOGR [...] volume render ing were perfor [facility]. To reduce radiat ion dose, sequen [...] FINDIN GS: Hidalgo ry stenos is taylor lory is report ed using the follow ing [...] score of 0. Ordere d By: BELÉN Watkins onical ly Signed By: Dwayne Olson on 03/03/20 1:22 PM Interp reted By: Dwayne Olson, 03/03/20 1:12 PM [email or web address] Ne Only - [facility] [address] [place], [address], 03/03/2025 15:38:06 Result Notes None recorded. 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 2023 Hina Drake null, [facility] 4 14:57:22 Essential hypertension 34585170 Active 2023 Hina Parsonsvinod null, [facility] 4 14:57:33 Abdominal pain 51896664 Active 2023 Charles Berman APRN, [facility] [address] [place] [address], [phone], [facility] 4 13:54:09 Obesity 899222097 Active 2023 Charles Berman APRN, [facility] [address] [place] [address], [address], [facility] 4 13:54:34 Gastroesophage al reflux disease without esophagitis 544249407 Active 2023 Charles Berman APRN, [facility] [address] [place] [address], [address], [facility] 4 13:54:44 Uncontrolled type 2 diabetes mellitus 966101932 Active 2023 Charles Berman APRN, [facility] [address] [place] [address], [address], [facility] 4 13:55:31 Problem Notes None recorded. Procedures Surgical History Date Name Laterality Status Provider Name and Address Organization Details Recorded Time 4 SC Fibroscan completed Rajat Cobb MD [address] [place] [address], [phone], [facility] 09/03/2024 09:55:36 Imaging Results Imaging Date Name Status [facility] Details LastModified Time 05/13/2024 US, abdomen, limited completed [email or web address] [facility] [address] , [place], [address], 05/16/2024 16:29:07 11/03/2023 imaging/diagn ostic result completed [email or web address] Information not available 09/25/2024 12:56:23 02/06/2025 CT, angiogram, coronary arteries, w/ contrast completed [email or web address] Sc Only - hs Rad [address] [place], [address], 03/03/2025 15:38:06 Procedure Notes None recorded. Medical Equipment None Reported. Allergies Allergen ID Allergen Name Allergen Category Reaction Reaction Severity Criticality Documentation Date Start Date Code Code System Note Provider Name and Address Organization Details Recorded Time 3919762 mold extract environme nt Not available Not available Not available 12/27/20232007 31459 8 RxNorm Comme nt: Mold ; Not Available Not Available Not Available 8457423 latex gloves medicatio n Not available Not available Not available 12/27/20232011 86252 UNK Not Available Not Available Not Available 3206553 POLLEN EXTRACTS medicatio n Not available Not available Not available 09/04/20242007 61313 6 RxNorm Comme nt: Polle n ; Not Available Not Available Not Available 156310 Product containin g penicilli n (product) medicatio n swelling Not available Not available 12/25/20232007 37647 8001 SNOMED React ion: Swell ing; Not Available Not Available Not Available 043664 Tylenol with Codeine medicatio n swelling Not available Not available 12/25/20232007 72884 6 RxNorm React ion: Swell ing; Not [...] Updated DateTime 04/30/2024 167.64 cm 32.3 kg/m2 13689.47 g 120 mm[Hg] 80 mm[Hg] Charles Berman APRN, [facility] [place] [address], [phone], [facility] 4 13:48:15 Date Recorded Body height Body mass index (BMI) Body weight Provider Name and Address Organization Details Last Updated DateTime 09/02/2024 167.64 cm 30.7 kg/m2 83530.55 g Chele Conrad [facility] 09/02/2024 16:49:06 Social History None recorded. Functional Status None recorded. Mental Status None recorded. Family History Nothing Reported. Medical History No medical history recorded. Gynecological HistoryNo gynecological history recorded. Obstetrics History GPAL:G 0 P 0 0 0 0 Past Encounters Encounter ID Performer Location Encounter Start Date Encounter Closed Date Diagnosis/Indication Diagnosis SNOMED-CT Code Diagnosis ICD10 Code Diagnosis Note [id number] Charles Berman APRN, [facility] [address] [facility] ([place]) [facility] [address] 04/30/2024 12:44:03 04/30/2024 14:11:58 Abdominal pain 81295128 R10.9 Obesity 639090337 E66.9 Gastroesop hageal reflux disease without esophagitis 060996972 K21.9 History of Garrison's esophagus 1634056716 7319371 Z87.19 Uncontroll ed type 2 diabetes mellitus 176767114 E11.65 [id number] Rajat Cobb MD [place] [address] [place] [phone] 09/02/2024 16:37:02 09/02/2024 16:50:44 Steatosis of liver 184436921 K76.0 [id number] Charles Berman APRN, [facility] [place] [facility] [place] [phone] 09/09/2024 11:45:15 09/09/2024 12:37:22 Steatosis of liver 816928888 K76.0 Health Concerns Section Related Observation LastModified [...] 2020 (MEDICAID REPLACEMENT - HMO) Maranda Fry [place] [id number] Maranda Pond Lidya 09/02/2024 1 [employer] [place] ON [place] AFTER 2020 (MEDICAID REPLACEMENT - HMO) Maranda Fry [place] [id number] Maranda Pond [place] 09/09/2024 1 [employer] [place] ON [place] 2020 (MEDICAID REPLACEMENT - HMO) Maranda Fry [place] [id number] Maranda [place] Notes Date Note Type Note Provider Name [...] done in July 2023. Charles Berman APRN, [facility] [address] [place] [address], [phone], [facility] 04/30/2024 13:55:58 09/09/2024 text/html Patient is here [...] the last several months. Charles Berman APRN, [facility] [address] [place] [address], [phone], [facility] 09/09/2024 12:10:50 OBGyn Episode No OBEpisode recorded.
--- OUTSIDE RECORDS SUMMARY | 2025-03-05 07:10 | XMS_ITS | Clinical Summary ---
Author Organization [facility] Address [address] [place] [address] Phone Care Team Providers Care Architectural Superintendent Name Role Phone Jose Beverly MD Primary Care Provider [phone] Allergies Active Allergy Reactions Criticality Noted Date [...] daily as needed. Active ergocalciferol (VITAMIN D) 47405 UNIT Capsule Take 1 Capsule by mouth [...] Department Care Team Description 01/15/2025 10:46 AM DIRECTOR ONLINE MARKETING - 01/15/2025 3:52 PM DIRECTOR ONLINE MARKETING Emergency [facility] Emergency [address] [place] [address] Alejandro Simeon, Chest pain Discharge Disposition: Discharged to home or Selfcare 01/15/2025 Travel from Last 3 Months Social History Tobacco Use Types Packs/Day Years Used Date Smoking Tobacco: Never Smokeless Tobacco: Never Alcohol Use Standard Drinks/Week Comments Yes 1 (1 standard drink = 0.6 oz pur e alcohol) [facility] Utilities Answer Date Recorded In the [...] declined 10/30/2024 How often do you attend pres[employer]ian or mosque serv ices? Patient declined 10/30/2024 Do you belong to any clubs o r organizations such as [employer] groups, unions, fraternal or athletic groups, or [...] medical care, and heating? Patient declined 10/30/2024 [facility] - Occupational [...] any time in the past 12 m [facility], were you homeless or living in a detention (including now)? Patient declined 10/30/2024 Sexually Active Control Partners Comments Not Currently Comments No Sex and Gender Information Value Date Recorded Sex Assigned at Female 11/02/2024 6:03 AM DIRECTOR ONLINE MARKETING Legal Sex Female 10:10 PM CDT Gender Identity Female 11/02/2024 6:03 AM DIRECTOR ONLINE MARKETING Sexual Orientation Not on file Last Filed Vital Signs Vital Sign Reading Time Taken Comments Blood Pressure 115/63 01/15/2025 3:30 PM DIRECTOR ONLINE MARKETING Pulse 89 01/15/2025 3:45 PM DIRECTOR ONLINE MARKETING Temperature 36.3 C (97.3 F) 01/15/2025 10:51 AM DIRECTOR ONLINE MARKETING Respiratory Rate 19 01/15/2025 3:02 PM DIRECTOR ONLINE MARKETING Oxygen Saturation 92% 01/15/2025 3:45 PM DIRECTOR ONLINE MARKETING Inhaled Oxygen Concentration - - Weight 87.8 kg (193 lb 9 oz) 01/15/2025 10:51 AM DIRECTOR ONLINE MARKETING Height 167.6 cm (5' 6 ) 01/15/2025 10:51 AM DIRECTOR ONLINE MARKETING Body Mass Index 31.24 01/15/2025 10:51 AM DIRECTOR ONLINE MARKETING Plan of Treatment Health Maintenance Due Date [...] HIGH SENSITIVITY (HSTRP) STAT 01/15/2025 2:10 PM DIRECTOR ONLINE MARKETING XR CHEST SINGLE VIEW PORTABLE STAT 01/15/2025 11:30 AM DIRECTOR ONLINE MARKETING RSV,SARS-COV-2,INFLUE NZA A&B BY PCR STAT 01/15/2025 11:20 AM DIRECTOR ONLINE MARKETING GOLD TOP TUBE STAT 01/15/2025 10:55 AM DIRECTOR ONLINE MARKETING BLUE TOP TUBE STAT 01/15/2025 10:55 AM DIRECTOR ONLINE MARKETING CBC WITH AUTO DIFFERENTIAL STAT 01/15/2025 10:55 AM DIRECTOR ONLINE MARKETING EXTRA TUBES STAT 01/15/2025 10:55 AM DIRECTOR ONLINE MARKETING TROPONIN I, HIGH SENSITIVITY (HSTRP) STAT 01/15/2025 10:55 AM DIRECTOR ONLINE MARKETING COMPLETE BLOOD COUNT (CBC) WITH DIFF STAT 01/15/2025 10:55 AM DIRECTOR ONLINE MARKETING CMP (COMPREHENSIVE METABOLIC PANEL) STAT 01/15/2025 10:55 AM DIRECTOR ONLINE MARKETING EKG 12 LEAD STAT 01/15/2025 10:52 AM DIRECTOR ONLINE MARKETING EKG SCAN 01/15/2025 12:00 AM DIRECTOR ONLINE MARKETING HEMOGLOBIN A1C W/ ESTIMATED GLUCOSE STAT 10/30/2024 1:21 PM DIRECTOR ONLINE MARKETING HEPATITIS PANEL ACUTE (AHP) Routine 11/07/2020 4:30 AM DIRECTOR ONLINE MARKETING from Last 3 Months or Most Recently Relevant to Health Maintenance Results * TROPONIN I, HIGH SENSITIVITY (HSTRP) (01/15/2025 2:10 PM DIRECTOR ONLINE MARKETING) Only the most recent of2 resultswithin the time period is included. TROPONIN I, HIGH SENSITIVITY- PHIPPS <3 <=14 ng/L 01/15/2025 3:18 PM DIRECTOR ONLINE MARKETING [facility] Comment: High-sensitivity troponin I results are reported in ng/L making the result appear to be 1,000 times higher than the contemporary troponin I value which is reported in ng/ml. Results from [facility]. Blood Venipuncture / Unknown 01/15/2025 2:10 PM DIRECTOR ONLINE MARKETING 01/15/2025 2:47 PM DIRECTOR ONLINE MARKETING us Alejandro Simeon DO CHEMISTRY ORDERABLES Fi nal Result [facility] [address] [place] [address] * XR CHEST SINGLE VIEW PORTABLE (01/15/2025 11:30 AM DIRECTOR ONLINE MARKETING) Anatomical Region Laterality Modality Chest N/A Digital Radiogra phy 01/15/2025 12:0 0 PM DIRECTOR ONLINE MARKETING Impressions 01/15/2025 12:03 PM DIRECTOR ONLINE MARKETING IMPRESSION: No radiographic evidence of an acute cardiopulmonary abnormality. Narrative 01/15/2025 12:03 PM DIRECTOR ONLINE MARKETING EXAM DESCRIPTION: XR CHEST SINGLE VIEW PORTABLE [...] Donny Gould M.D. NS: NS Report ID: [id number] Reading Location: [id number] Procedure Note Donny Gould MD - 01/15/2025 [...] Donny Gould M.D. NS: NS Report ID: [id number] Reading Location: [id number] IMPRESSION: No radiographic evidence of an acute cardiopulmonary abnormality. us Alejandro Simeon DO IMG DIAGNOSTIC ORDERABL ES Final Result * RSV,SARS-COV-2,INFLUENZA A&B BY PCR (01/15/2025 11:20 AM DIRECTOR ONLINE MARKETING) FLU A Negative Negative, Error 01/15/2025 12:49 PM DIRECTOR ONLINE MARKETING [facility] FLU B Negative Negative 01/15/2025 12:49 PM DIRECTOR ONLINE MARKETING [facility] RESP SYNC VIRUS Negative Negative 12:49 PM DIRECTOR ONLINE MARKETING [facility] SARSCOV2 NOT DETECTED (Reference Range for this test is Not Detected) 01/15/2025 12:49 PM DIRECTOR ONLINE MARKETING [facility] Comment:This test was perfor med by a Reverse Cable Coverer PCR Method. Swab NASOPHARYNGEAL STRUCTURE / Unknown Non-Phlebotomy Collection / Unknown 01/15/2025 11:20 AM DIRECTOR ONLINE MARKETING 01/15/2025 11:44 AM DIRECTOR ONLINE MARKETING Alejandro Simeon DO MICROBIOLOGY - GENERAL ORDERABLES Final Result Performing Organization Address City/[facility] Co de Phone Number [facility] [address] [place] [address] * Gold Top Tube (01/15/2025 10:55 AM DIRECTOR ONLINE MARKETING) Blood No Phlebotomy Charged / Unknown 01/15/2025 10:55 AM DIRECTOR ONLINE MARKETING 01/15/2025 11:05 AM DIRECTOR ONLINE MARKETING Alejandro Simeon DO CHEMISTRY ORDERABLES Fi nal Result [facility] [address] [place] [address] * Blue Top Tube (01/15/2025 10:55 AM DIRECTOR ONLINE MARKETING) Blood No Phlebotomy Charged / Unknown 01/15/2025 10:55 AM DIRECTOR ONLINE MARKETING 01/15/2025 11:05 AM DIRECTOR ONLINE MARKETING us Alejandro Simeon DO HEMATOLOGY ORDERABLES F inal Result [facility] [address] [place] [address] * CBC with Auto Differential (01/15/2025 10:55 AM DIRECTOR ONLINE MARKETING) WBC 7.64 4.00 - 12.00 10(3)/[facility] 01/15/2025 11:08 AM [facility] RBC 5.22 3.80 - 5.30 10(6)/[facility] 01/15/2025 11:08 AM [facility] HEMOGLOBIN (HGB) 15.1 12.0 - 15.8 g/dL 01/15/2025 11:08 AM [facility] HEMATOCRIT (HCT) 44.4 36.0 - 47.0 % 01/15/2025 11:08 AM DIRECTOR ONLINE MARKETING [facility] MCV 85.1 82.0 - 96.0 fL 01/15/2025 11:08 AM [facility] MCH 28.9 26.0 - 34.0 pg 01/15/2025 11:08 AM [facility] MCHC 34.0 31.0 - 36.0 g/dL 01/15/2025 11:08 AM [facility] PLATELET COUNT 260 140 - 440 10(3)/[facility] 01/15/2025 11:08 AM DIRECTOR ONLINE MARKETING [facility] RDW 12.0 11.8 - 15.5 % 01/15/2025 11:08 AM [facility] MPV 10.6 9.7 - 12.4 fL 01/15/2025 11:08 AM [facility] NEUTROPHILS 53.7 47.0 - 73.0 % 01/15/2025 11:08 AM [facility] LYMPHOCYTES 32.5 18.0 - 42.0 % 01/15/2025 11:08 AM [facility] MONOCYTES 11.0 4.0 - 12.0 % 01/15/2025 11:08 AM [facility] EOSINOPHILS 2.4 0.0 - 5.0 % 01/15/2025 11:08 AM [facility] BASOPHILS 0.4 0.0 - 1.0 % 01/15/2025 11:08 AM [facility] ABSOLUTE NEUTROPHILS 4.11 1.60 - 7.70 10(3)/[facility] 01/15/2025 11:08 AM [facility] ABSOLUTE LYMPHOCYTES 2.48 1.30 - 3.20 10(3)/[facility] 01/15/2025 11:08 AM [facility] ABSOLUTE MONOCYTES 0.84 0.20 - 1.00 10(3)/[facility] 01/15/2025 11:08 AM [facility] ABSOLUTE EOSINOPHIL 0.18 0.00 - 0.40 10(3)/[facility] 01/15/2025 11:08 AM [facility] ABSOLUTE BASOPHILS 0.03 0.00 - 0.10 10(3)/[facility] 01/15/2025 11:08 AM [facility] NRBC PER 100 WBC 0 01/15/20 11:08 AM [facility] Blood Venipuncture / Unknown 01/15/2025 10:55 AM [facility] 01/15/2025 11:03 AM [facility] us Alejandro Simeon DO HEMATOLOGY ORDERABLES F inal Result [facility] [address] [place] [address] * (ABNORMAL) CMP (Comprehensive Metabolic Panel) (01/15/2025 10:55 AM [facility]) SODIUM 139 136 - 145 mmol/L 01/15/2025 11:34 AM [facility] POTASSIUM 3.9 3.5 - 5.1 mmol/L 01/15/2025 11:34 AM [facility] CHLORIDE 101 98 - 107 mmol/L 01/15/2025 11:34 AM [facility] CO2, VENOUS 25 22 - 30 mmol/L 01/15/2025 11:34 AM [facility] ANION GAP 16.9 <18.0 mmol/L 01/15/2025 11:34 AM [facility] GLUCOSE 335(H) 70 - 99 mg/dL 01/15/2025 11:34 AM [facility] BUN 15 10 - 20 mg/dL 01/15/2025 11:34 AM [facility] CREATININE, BLOOD 0.89 0.60 - 1.00 mg/dL 01/15/2025 11:34 AM [facility] BUN/CREATININE RATIO 17 12 - 20 ratio 01/15/2025 11:34 AM [facility] TOTAL PROTEIN 7.7 6.0 - 8.0 g/dL 01/15/2025 11:34 AM [facility] ALBUMIN 4.3 3.5 - 5.0 g/dL 01/15/2025 11:34 AM [facility] A/G RATIO 1.3 1.0 - 2.2 01/15/2025 11:34 AM [facility] CALCIUM 9.7 8.7 - 10.5 mg/dL 01/15/2025 11:34 AM [facility] T BILI 0.3 0.2 - 1.2 mg/dL 01/15/2025 11:34 AM [facility] SGOT (AST) 29 <43 U/L 01/15/2025 11:34 AM [facility] SGPT (ALT) 35 <56 U/L 01/15/2025 11:34 AM [facility] ALKALINE PHOSPHATASE 115 40 - 150 U/L 01/15/2025 11:34 AM [facility] GFR, ESTIMATED >60 >=60 01/15/2025 11:34 AM DIRECTOR ONLINE MARKETING [facility] Comment: Creatinine Clearance is the preferred criteria for selecting drug dose adjustments in renally impaired patients. The GFR is provided as additional pertinent clinical information. GFR is reported in mL/min/1.73 sq m. Calculation based on the Chronic Kidney Disease Epidemiology Collaboration (CKD- EPI) equation refit without adjustment for race. GFR, EST. >60 >=60 025 11:34 AM DIRECTOR ONLINE MARKETING [facility] GFR, EST. NONAFRICAN >60 >=60 01/15/2025 11:34 AM DIRECTOR ONLINE MARKETING [facility] Blood Venipuncture / Unknown 01/15/2025 10:55 AM DIRECTOR ONLINE MARKETING 01/15/2025 11:03 AM DIRECTOR ONLINE MARKETING us Alejandro Simeon DO CHEMISTRY ORDERABLES Fi nal Result [facility] [address] [place] [address] * EKG 12 LEAD (01/15/2025 10:52 AM DIRECTOR ONLINE MARKETING) Ventricular Rate 99 BPM EXTERNAL EKG Atrial Rate 99 BPM EXTERNAL EKG P-R Interval 152 ms EXTERNAL EKG QRS Duration 78 ms EXTERNAL EKG Q-T Duration 350 ms EXTERNAL EKG QTC CALCULATION 449 ms EXTERNAL EKG P Marana 43 degrees EXTERNAL EKG R Marana -13 degrees EXTERNAL EKG T [place] 49 degrees EXTERNAL EKG 01/15/2025 10:5 2 AM DIRECTOR ONLINE MARKETING Impressions EXTERNAL EKG - 01/16/2025 11:05 PM DIRECTOR ONLINE MARKETING Normal sinus rhythm POOR R-WAVE PROGRESSION Nonspecific ST and T wave abnormality Abnormal ECG When compared with ECG of 30-OCT-2024 13:07, No significant change was found Confirmed by Stephanie Arellano ([id number]) on 01/16/2025 11:05:21 PM Narrative Procedure Note Stephanie Arellano MD - 01/16/2025 IMPRESSION: Normal sinus rhythm POOR R-WAVE PROGRESSION Nonspecific ST and T wave abnormality Abnormal ECG When compared with ECG of 30-OCT-2024 13:07, No significant change was found Confirmed by Stephanie Arellano ([id number]) on 01/16/2025 11:05:21 PM us Alejandro Simeon DO IMG ECG ORDERABLES Kaykay l Result EXTERNAL EKG * EKG SCAN (01/15/2025 12:00 AM DIRECTOR ONLINE MARKETING) 01/15/2025 us Provider Scan IMG ECG ORDERABLES Final Result Performing Organization Address City/[facility]/ZIP Co de Phone Number RESULTING AGENCY * (ABNORMAL) Hemoglobin A1C (10/30/2024 1:21 PM DIRECTOR ONLINE MARKETING) Pathologist [facility] HGB-A1C 13.1(H) 4.0 - 6.0 % 10/30/2024 2:18 PM DIRECTOR ONLINE MARKETING [facility] Est Average Glucose 329.3 mg/dL 10/30/2024 2:18 PM DIRECTOR ONLINE MARKETING [facility] Blood Venipuncture / Unknown 10/30/2024 1:21 PM DIRECTOR ONLINE MARKETING 10/30/2024 1:44 PM DIRECTOR ONLINE MARKETING Narrative [facility] - 10/30/2024 2:18 PM DIRECTOR ONLINE MARKETING HEMOGLOBIN A1C: DIABETIC PATIENTS: WELL-CONTROLLED: 6.2 - 7.0 INTERMEDIATE WELL-CONTROLLED: 7.0 - 9.0 POORLY-CONTROLLED: >9.0 us Mikaela Tang COMMUTER PILOT, BIOLOGICAL SCIENTIST CHEMISTRY ORDERABLES Final Result Performing Organization Address City/[facility]/ZIP Co de Phone Number [facility] [address] [place] [address] * Hepatitis Panel Acute (AHP) (11/07/2020 4:30 AM DIRECTOR ONLINE MARKETING) Pathologist [facility] HEPATITIS A IGM ANTIBODY NON DETECTED NON DETECTED [facility] ARCH [id number] 11/07/2020 2:40 PM DIRECTOR ONLINE MARKETING [facility] Comment: IGM Antibodies to HAV not detected. Does not exclude early acute or recovered HAV infection. HEP B CORE AB (IGM) NON DETECTED NON DETECTED [facility] ARCH [id number] A 11/07/2020 2:40 PM DIRECTOR ONLINE MARKETING [facility] Comment:IGM anti-HBC not det ected. Does not exclude the possibility of exposure to or infection with HBV. HEPATITIS B SURFACE ANTIGEN NON DETECTED NON DETECTED [facility] ARCH [id number] B 11/07/2020 2:40 PM DIRECTOR ONLINE MARKETING [facility] Comment:A nonreactive test r esult does not exclude the possibility of exposure to or infection with Hepatitis B virus. A nonreactive test result in individuals with prior exposure to hepatitis B may be due to antigen levels below the detection limit of this assay or lack of antigen reactivity to the antibodies in this assay. hepatitis C antibody 0.32 <1 S/CO [facility] ARCH [id number] B 11/07/2020 2:40 PM DIRECTOR ONLINE MARKETING [facility] Comment: Signal/Cutoff ratio < 0.79 is Nondetected Signal/Cutoff ratio 0.80-0.99 is Grayzone Signal/Cutoff ratio > 0.99 is Detected Supplemental assays are recommended if signal/cutoff ratio is >/=1.00. Signal/cutoff ratio result >/= 5.00 is 97% predictive of positivity for recombinant immunoblot assay (RIBA) and will be reported to the [place] Department of Public Health as required. Blood Venipuncture / Unknown 11/07/2020 4:30 AM DIRECTOR ONLINE MARKETING 11/07/2020 4:45 AM DIRECTOR ONLINE MARKETING us Wellington Lujan MD HEMATOLOGY ORDERABLES Final R esult [facility] [address] [place] [address] [address], from Last 3 Months or Most Recently Relevant to Health Maintenance Insurance MEDICAID AETNA [facility] Advance Directives * Full Code (Latest Code [...] measures to stabilize the patient. Care Teams Architectural Superintendent Relationship Specialty Start Date End Date Jose Beverly MD [address] [place] [address] PCP - General Family Medicine 05/02/16
--- OUTSIDE RECORDS SUMMARY | 2025-03-05 07:10 | XMS_ITS | Continuity of Care Document ---
Author Organization [facility]. If a dditional information is needed, contact Health Information Management at [phone] [address] [place] [address] Phone Care Team Providers Care Car Wash Attendant Automatic Name Role Phone Unavailable Unavailable Unavailable Unavailable Unavailable Unavailable Problems Otitis externa Onset:05-Jun-2019 Increased blood pressure Onset:05-Jun-2019 Allergies and Adverse Reactions Penicillins(Allergy) Onset: 05-Jun-2019 Reaction:UNKNOWN latex(Allergy) Onset: 05-Jun-2019 Reaction:UNKNOWN Social History Smoking Status Tobacco smoking consumption unknown Recorded:
--- OUTSIDE RECORDS SUMMARY | 2025-03-05 07:10 | XMS_ITS | Encounter Summary ---
Author Organization [facility] Address [address] [place] [id number] Care Team Providers Care Straddle Carrier Operator Name Role Phone Jose Beverly MD Primary Care Provider Brad Riojas MD Unavailable [phone] Kortney Coronado NP Unavailable [phone] Encounter Details Date Type Department Care Team (Late st Contact Info) Description 06/20/2024 [employer] Message Enc [facility] [address] [address] [place] PA [address] [place] [phone] Visit Follow Up Social History Tobacco Use [...] Sex Assigned at Female 01/14/2025 12:08 PM [employer] Legal Sex Female 9:38 PM [employer] Gender Identity Not on file Sexual Orientation [...] documented as of this encounter Care Teams Straddle Carrier Operator Relationship Specialty Start Date End Date Jose Beverly MD [address] [place] [phone] PCP - General FAMILY PRACTICE 01/11/19 Brad Riojas MD [address] [place] [phone] Vascular/Social Services VASCULAR SURGERY 12/26/23 01/31/25 Kortney Coronado NP [address] [place] [phone] Nurse Practitioner Nurse Practitioner Family 03/27/24 documented as of this encounter
--- OUTSIDE RECORDS SUMMARY | 2025-03-05 07:10 | XMS_ITS | Encounter Summary ---
Author Organization [facility] Address [address] [place] [address] Care Team Providers Care Casing Trimmer Name Role Phone Jose Beverly MD Primary Care Provider [phone] Brad Riojas MD Unavailable [phone] Kortney Coronado NP Unavailable [phone] Encounter Details Date Type Department Care Team (Late st Contact Info) Description 05/04/2019 Abstract [facility] CONVERSION [address] [place] [address] , Generic Conversion, Social History Tobacco Use [...] Sex Assigned at Female 01/14/2025 12:08 PM DIVERSITY SPECIALIST Legal Sex Female 9:38 PM DIVERSITY SPECIALIST Gender Identity Not on file Sexual Orientation [...] documented as of this encounter Care Teams Casing Trimmer Relationship Specialty Start Date End Date Jose Beverly MD [address] [place] [phone] PCP - General FAMILY PRACTICE 01/11/19 Brad Riojas MD [address] [place] [phone] Vascular/Core Laying Machine Operator VASCULAR SURGERY 12/26/23 01/31/25 Kortney Coronado NP [address] [place] [phone] Nurse Practitioner Nurse Practitioner Family 03/27/24 documented as of this encounter
--- NOTE | 2025-03-05 07:27 | ECG_ITS ---
Test Date: 2025-03-05 07:39:28 Measurements Intervals [place] Rate: 84 P: 52 SC: 133 QRS: 18 QRSD: 86 T: 29 QT: 396 QTc: 470 Interpretive Statements SINUS RHYTHM WITH SINUS ARRHYTHMIA BORDERLINE R WAVE PROGRESSION, ANTERIOR LEADS BORDERLINE ECG No previous ECG available for comparison Electronically Signed On 03-05-2025 07:49:33 CDT by Rober Dodd D.O.
[2025-03-05 07:32] LABS: Glucose Point of Care 320 mg/dl (65-105)
[2025-03-05] MEDS: MAGNESIUM SULF 4 GM/WATER100ML 4 GM/100 ML BAG IVPB (07:37)
[2025-03-05] MEDS: PROCHLORPERAZINE EDISYLATE 10 MG/2 ML VIAL IV PUSH (07:37)
[2025-03-05] MEDS: LACTATED RINGERS 1,000 ML 999 ML IV CONT (07:39)
--- OUTSIDE RECORDS SUMMARY | 2025-03-05 07:52 | XMS_ITS | Encounter Summary ---
Author Organization [facility] Address [address] [place] [id number] Care Team Providers Care Service Writer Advisor Name Role Phone Jose Beverly MD Primary Care Provider Brad Riojas MD Unavailable [phone] Kortney Coronado NP Unavailable [phone] Encounter Details Date Type Department Care Team (Late st Contact Info) Description 02/10/2018 Abstract [facility] CONVERSION [address] [place] [address] , Generic Conversion, Social History Tobacco Use Types Packs/Day Years Used Date Smoking Tobacco: Never Assessed Comments Unknown Sex and Gender Information Value Date Recorded Sex Assigned at Female 01/14/2025 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
--- OUTSIDE RECORDS SUMMARY | 2025-03-05 07:52 | XMS_ITS | Clinical Summary ---
Author Organization [facility] Address [address] [place] [address] Care Team Providers Care Supervisor Of Officials Name Role Phone Jose Delarosa MD Primary Care Provider Kortney Coronado SENSITIZED PAPER TESTER Unavailable [phone] Allergies Active Allergy Reactions Criticality Noted Date [...] Noted Date Diagnosed Date DKA (diabetic ketoacidosis) ([facility]) Intractable vomiting with nausea 02/24/2025 Other chest pain 10/30/2024 Sprain of left ankle, unspec ified ligament, initial encounter 06/20/2024 De Quervain's tenosynovitis, left 06/20/2024 PVD (peripheral vascular disease) 01/09/2024 Encounters Date Type Department Care Team Description 02/28/2025 12:50 PM CDT - 02/28/2025 1:35 PM CDT Surgery [facility] Endo/GI [address] [place] [address] Karely Gee MD EGD WITH BIOPSY 02/28/2025 12:22 PM CDT Anesthesia Event [facility] Endo/GI [address] [place] [address] Lily Solorzano MD Bolash-Best, Lacey M RN 02/24/2025 5:38 PM CDT - 03/02/2025 6:42 PM CDT Hospital Encounter [facility] 4th Floor Medical [address] [place] [address] Reg Bernardo MD Goyal, Pankaj, MD Mardani, Fareed, MD Discharge Disposition: Home or Self Care (Routine Discharge) 02/24/2025 Travel 02/23/2025 9:47 AM CDT - 02/23/2025 1:18 PM CDT Emergency [facility] Emergency [address] [place] [address] Alex Duarte MD Chest Pain; Shortness Of Breath Discharge Disposition: Home or Self Care (Routine Discharge) 02/23/2025 Travel 02/17/2025 Telephone [facility] [address] [place] [address] Kortney Coronado NP Fax 02/10/2025 Telephone [facility] [address] [facility] [address] [place] [address] Apple Middleton PA Referral (Chronic RIGHT ankle pain) 02/06/2025 12:46 PM CDT - 02/06/2025 11:59 PM CDT Hospital Encounter [facility] [address] [place] [address] Belén Goode MD Discharge Disposition: Home or Self Care (Routine Discharge) 02/06/2025 Travel 01/22/2025 9:45 AM REPORT DEVELOPER Office Visit [facility] [address] [place] [phone] Belén Goode MD Follow Up 01/22/2025 7:41 AM REPORT DEVELOPER - 01/22/2025 11:59 PM REPORT DEVELOPER Hospital Encounter [facility] [address] [facility] [place] [address] Zainab Huerta NP Discharge Disposition: Home or Self Care (Routine Discharge) 01/22/2025 Travel 01/17/2025 Telephone [facility] [address] [place] [phone] Belén Goode MD Appointment Request 01/14/2025 12:09 PM REPORT DEVELOPER - 01/14/2025 11:59 PM REPORT DEVELOPER Hospital Encounter [facility] [address] [place] [address] Jose Delarosa MD Discharge Disposition: Home or [...] = 0.6 oz pur e alcohol) seldom [facility] Utilities Answer Date Recorded In the past 12 months has th e [employer], gas, oil, or water [employer] threatened to shut off services in your [...] any time in the past 12 m [facility], were you homeless or living in a usp (including now)? No 02/24/2025 Comments No Sex and Gender Information Value Date Recorded Sex Assigned at Female 01/14/2025 12:08 PM REPORT DEVELOPER Legal Sex Female 9:38 PM REPORT DEVELOPER Gender Identity Not on file Sexual Orientation [...] AORTO ILIOFEM RUNOFF Routine 01/22/2025 9:00 AM REPORT DEVELOPER Leg pain, bilateral CREATININE STAT 01/22/2025 8:00 AM REPORT DEVELOPER MG SCREENING W DOMENICA AMAN DIGI Routine 01/14/2025 12:45 PM REPORT DEVELOPER Visit for screening mammogram LIPID PANEL Routine 01/31/2018 11:23 AM REPORT DEVELOPER from Last 3 Months or Most Recently Relevant to Health Maintenance Results * (ABNORMAL) POCT glucose (03/02/2025 5:16 PM CDT) Only the most recent of29 resultswithin the time period is included. GLUCOSE POC 289(H) 70 - 109 03/02/2025 5:34 PM CDT [facility] 03/02/2025 5:16 PM CDT Mg Kendrick MD POCT ORDERABLES - DEVICE Final Result [facility] [address] [place] [address], [phone] * (ABNORMAL) BASIC METABOLIC PANEL (03/02/2025 4:44 AM CDT) Only the most recent of6 resultswithin the time period is included. SODIUM S/P/B 133(L) 136 - 145 MMOL/L 03/02/2025 5:42 AM CDT [facility] POTASSIUM S/P/B 3.3(L) 3.5 - 5.1 MMOL/L 03/02/2025 5:42 AM CDT [facility] CHLORIDE S/P/B 101 97 - 115 MMOL/L 03/02/2025 5:42 AM CDT [facility] CO2 26.2 21.0 - 32.0 MMOL/L 03/02/2025 5:42 AM CDT [facility] GLUCOSE 209(H) 74 - 106 MG/DL 03/02/2025 5:42 AM CDT [facility] BUN 14 7 - 18 MG/DL 03/02/2025 5:42 AM CDT [facility] CREATININE S/P/B 0.54(L) 0.55 - 1.02 MG/DL 03/02/2025 5:42 AM CDT [facility] CALCIUM S/P/B 8.7 8.5 - 10.1 MG/DL 03/02/2025 5:42 AM CDT [facility] ANION GAP 5.8 2.0 - 10.0 MMOL/L 03/02/2025 5:42 AM CDT [facility] OSMOLALITY (CALC) 283 MOSM/KG 025 5:42 AM T [facility] Comment:REFERENCE RANGE NOT ESTABLISHED GFR ESTIMATE >90 >90 ML/MIN/1. 73 M2 03/02/2025 5:42 AM CDT [facility] GFR NOTES GFR REFERENCE S: 03/02/2025 5:42 AM CDT [facility] Comment: THE ESTIMATED GFR IS [...] us Mg Kendrick MD LABORATORY Final Result [facility] [address] [place] [address], [place] [phone] * (ABNORMAL) CBC W/DIFF AUTOMATED (03/02/2025 4:44 AM CDT) Only the most recent of7 resultswithin the time period is included. [facility] WBC 10.26 4.00 - 10.80 x10'3/uL 03/02/2025 5:15 AM CDT [facility] RBC 5.26 4.10 - 5.40 x10'6/uL 03/02/2025 5:15 AM CDT [facility] HGB 14.7 12.0 - 16.0 G/DL 03/02/2025 5:15 AM CDT [facility] HCT 43.1 36.0 - 47.0 % 03/02/2025 5:15 AM CDT [facility] MCV 81.9 78.0 - 100.0 FL 03/02/2025 5:15 AM CDT [facility] MCH 27.9 27.0 - 31.0 PG 03/02/2025 5:15 AM CDT [facility] MCHC 34.1 33.0 - 36.0 G/DL 03/02/2025 5:15 AM CDT [facility] RDW 12.3 11.5 - 14.5 % 03/02/2025 5:15 AM CDT [facility] PLT 215 150 - 350 x10'3/uL 03/02/2025 5:15 AM CDT [facility] MPV 9.7 7.4 - 10.4 FL 03/02/2025 5:15 AM CDT [facility] DIFFERENTIAL TYPE AUTOMATED DIFFERENTIAL 03/02/2025 5:15 AM CDT [facility] SEG NEUTROPHILS 46.5 % 5:15 AM CDT [facility] LYMPHOCYTES 39.2 % 03/02/2025 5:15 AM CDT [facility] MONOCYTES 11.1 % 03/02/2025 5:15 AM CDT [facility] EOSINOPHILS 1.9 % 03/02/2025 5:15 AM CDT [facility] BASOPHILS 0.3 % 03/02/2025 5:15 AM CDT [facility] IMMATURE GRANS % 1.0 % 03/02/20 5:15 AM CDT [facility] ABS. NEUTROPHILS 4.78 1.60 - 8.30 x10'3/uL 03/02/2025 5:15 AM CDT [facility] ABS. LYMPHOCYTES 4.02 0.80 - 4.70 x10'3/uL 03/02/2025 5:15 AM CDT [facility] ABS. MONOCYTES 1.14 0.00 - 1.50 x10'3/uL 03/02/2025 5:15 AM CDT [facility] ABS. EOSINOPHILS 0.19 0.00 - 0.40 x10'3/uL 03/02/2025 5:15 AM CDT [facility] ABS. BASOPHILS 0.03 0.00 - 0.20 x10'3/uL 03/02/2025 5:15 AM CDT [facility] ABS. IMMATURE GRANULOCYTES 0.10(H) 0.00 - 0.03 x10'3/uL 03/02/2025 5:15 AM CDT [facility] ABS. NUCLEATED RBC'S 0.00 0.00 - 0.01 x10'3/uL 03/02/2025 5:15 AM CDT [facility] NRBC % 0.0 % 03/02/2025 5:15 AM CDT [facility] 03/02/2025 4:44 AM CDT us Mg Kendrick MD LABORATORY Final Result [facility] [address] [place] [address], [id number] * ENDOSCOPY (SCAN ORDER) (02/28/2025 12:07 PM CDT) us Karely Gee MD SCANNING Final Resul t * (ABNORMAL) COMPREHENSIVE METABOLIC PANEL (02/28/2025 4:35 AM CDT) Only the most recent of4 resultswithin the time period is included. SODIUM S/P/B 132(L) 136 - 145 MMOL/L 02/28/2025 5:18 AM CDT [facility] POTASSIUM S/P/B 3.0(L) 3.5 - 5.1 MMOL/L 02/28/2025 5:18 AM CDT [facility] CHLORIDE S/P/B 96(L) 97 - 115 MMOL/L 02/28/2025 5:18 AM CDT [facility] CO2 26.4 21.0 - 32.0 MMOL/L 02/28/2025 5:18 AM CDT [facility] GLUCOSE 174(H) 74 - 106 MG/DL 02/28/2025 5:18 AM CDT [facility] BUN 6(L) 7 - 18 MG/DL 02/28/2025 5:18 AM CDT [facility] CREATININE S/P/B 0.49(L) 0.55 - 1.02 MG/DL 02/28/2025 5:18 AM CDT [facility] CALCIUM S/P/B 8.5 8.5 - 10.1 MG/DL 02/28/2025 5:18 AM CDT [facility] BILIRUBIN TOTAL S/P/B 0.7 0.2 - 1.0 MG/DL 02/28/2025 5:18 AM CDT [facility] ALKALINE PHOSPHATASE S/P/B 119(H) 46 - 118 U/L 02/28/2025 5:18 AM CDT [facility] AST 27 15 - 37 U/L 02/28/2025 5:18 AM CDT [facility] ALT 47 13 - 56 U/L 02/28/2025 5:18 AM CDT [facility] TOTAL PROTEIN S/P/B 6.8 6.4 - 8.2 G/DL 02/28/2025 5:18 AM CDT [facility] ALBUMIN S/P/B 3.2(L) 3.4 - 5.0 G/DL 02/28/2025 5:18 AM CDT [facility] ANION GAP 9.6 2.0 - 10.0 MMOL/L 02/28/2025 5:18 AM CDT [facility] OSMOLALITY (CALC) 276 MOSM/KG 025 5:18 AM CDT [facility] Comment:REFERENCE RANGE NOT ESTABLISHED GFR ESTIMATE >90 >90 ML/MIN/1. 73 M2 02/28/2025 5:18 AM CDT [facility] GFR NOTES GFR REFERENCE S: 02/28/2025 5:18 AM CDT [facility] Comment: THE ESTIMATED GFR IS [...] us Mg Kendrick MD LABORATORY Final Result [facility] [address] [place] [address], [id number] * Pathology (02/28/2025 12:00 AM CDT) PATHOLOGY [facility] Department of Laboratory Medicine [address] [place] [address] , extension [phone] Pathology Report Surgical Pathology Report Name: SHANTA BOSE Specimen #: [id number] Age: 10 1970 (Age: 54) Location: [address] Sex: F Procedure Date: 02/28/2025 Hospital #: [id number] Date Received: 02/28/2025 Date Reported: 03/04/2025 Provider: [...] interpretation, and sign out were performed at [facility], [address] [place] [address]. All immunohistochemical and histochemical tests were developed by and performed at [facility], [address] [place] [address]. All tests reported here have not been cleared or approved by the U.S. Food and Drug Administration (FDA). This laboratory is regulated under CLIA as qualified to perform high-complexity testing. These tests are used for clinical purposes. They should not be regarded as investigational or for research. Positive and negative controls show appropriate reactivity. Electronically Signed Out LIOR LAUREANO MD [facility] TISSUE GASTRIC BIOPSY SPECIMEN / Unknown 02/28/2025 12:29 PM CDT Tissue specimen (specimen) DUODENAL STRUCTURE / Unknown 02/28/2025 12:31 PM CDT Karely Gee MD PATHOLOGY/CYTOLOGY ORDERABL ES Final Result Performing Organization Address [facility] de Phone Number [facility] [address] [place] [address], [id number] * CORTISOL, TOTAL (02/27/2025 2:39 PM CDT) CORTISOL 30.0 mcg/dL 02/27/2025 6:14 PM CDT [facility] Comment: A.M. SPECIMENS: 5.3 TO 22.5 mcg/dL P.M. SPECIMENS: 3.4 TO 16.8 mcg/dL ASSAY PERFORMED BY CHEMILUMINESCENCE METHODOLOGY USING SensoraideAUR XPT REAGENT. PATIENT RESULTS DETERMINED BY ASSAYS USING DIFFERENT MANUFACTURERS FOR METHODS MAY NOT BE COMPARABLE. 02/27/2025 2:39 PM CDT Mg Kendrick MD LABORATORY Final Result Performing Organization Address [facility] de Phone Number [facility] [address] [place] [address], [id number] * CT ABD+PEL W CON (02/26/2025 3:10 [...] 3:13 PM Narrative 02/26/2025 3:43 PM CDT [facility] [address] [place], [place] [address] Examination: CT abdomen and pelvis with IV [...] Procedure Note Moise Duarte MD - 02/26/2025 [facility] [address] [place], [place] [address] Examination: CT abdomen and pelvis with IV [...] DETECTED NOT DETECTED 02/26/2025 1:11 PM CDT [facility] CORONAVIRUS 229E PCR (RESP) NOT DETECTED NOT DETECTED 02/26/2025 1:11 PM CDT [facility] CORONAVIRUS HKU1 PCR (RESP) NOT DETECTED NOT DETECTED 02/26/2025 1:11 PM CDT [facility] CORONAVIRUS NL63 PCR (RESP) NOT DETECTED NOT DETECTED 02/26/2025 1:11 PM CDT [facility] CORONAVIRUS OC43 PCR (RESP) NOT DETECTED NOT DETECTED 02/26/2025 1:11 PM CDT [facility] METAPNEUMOVIRUS PCR (RESP) NOT DETECTED NOT DETECTED 02/26/2025 1:11 PM CDT [facility] RHINOVIRUS/ENTEROV IRUS PCR (RESP) NOT DETECTED NOT DETECTED 02/26/2025 1:11 PM CDT [facility] INFLUENZA A PCR (RESP) NOT DETECTED NOT DETECTED 02/26/2025 1:11 PM CDT [facility] INFLUENZA B PCR (RESP) NOT DETECTED NOT DETECTED 02/26/2025 1:11 PM CDT [facility] PARAINFLUENZA 1 PCR (RESP) NOT DETECTED NOT DETECTED 02/26/2025 1:11 PM CDT [facility] PARAINFLUENZA 2 PCR (RESP) NOT DETECTED NOT DETECTED 02/26/2025 1:11 PM CDT [facility] PARAINFLUENZA 3 PCR (RESP) NOT DETECTED NOT DETECTED 02/26/2025 1:11 PM CDT [facility] PARAINFLUENZA 4 PCR (RESP) NOT DETECTED NOT DETECTED 02/26/2025 1:11 PM CDT [facility] RSV PCR (RESP) NOT DETECTED NOT DETECTED 02/26/2025 1:11 PM CDT [facility] B PARAPERTUSIS PCR (RESP) NOT DETECTED NOT DETECTED 02/26/2025 1:11 PM CDT [facility] BORDETELLA PERTUSSIS PCR (RESP) NOT DETECTED NOT DETECTED 02/26/2025 1:11 PM CDT [facility] CHLAMYDOPHILA PNEUMONIAE PCR (RESP) NOT DETECTED NOT DETECTED 02/26/2025 1:11 PM CDT [facility] MYCOPLASMA PNEUMONIAE PCR (RESP) NOT DETECTED NOT DETECTED 02/26/2025 1:11 PM CDT [facility] CORONAVIRUS SARS COV 2 PCR (RESP) NOT DETECTED NOT DETECTED 02/26/2025 1:11 PM CDT [facility] 02/26/2025 11:3 7 AM CDT us Mg Kendrick MD MICROBIOLOGY - GENERAL ORDERAB LES Final Result [facility] [address] [place] [address], [id number] * XR CHEST PORTABLE (02/26/2025 11:08 AM CDT) Only the most recent of2 resultswithin the time period is included. Anatomical Region Laterality Modality Chest Radiographic Lorin ging 02/26/2025 11:5 2 AM CDT Impressions 02/26/2025 11:52 AM CDT IMPRESSION: 1. No acute cardiopulmonary process is identified. Referred By: KRISTEN RUBIO Interpreted By: Ofe Claudio MD, 02/26/2025 11:52 AM Narrative 02/26/2025 11:52 AM CDT [address] [address] PROCEDURE: XR CHEST PORTABLE. 02/26/2025 11:07 AM. [...] Procedure Note Ofe Claudio MD - 02/26/[address] [address] PROCEDURE: XR CHEST PORTABLE. 02/26/2025 11:07 AM. [...] URINE CLEAN CATCH 02/26/2025 8:54 AM CDT [facility] SPECIAL REQUESTS NO SPECIAL REQUEST 02/26/2025 8:54 AM CDT [facility] CULTURE RESULT NO GROWTH (< OR = 1,000 CFU/ML) 02/27/2025 10:25 AM CDT [facility] URINE SPECIMEN OBTAINED BY CLEAN CATCH PROCEDURE / Unknown 02/26/2025 9:10 AM CDT 02/26/2025 9:25 AM CDT us Mg Kendrick MD MICROBIOLOGY - GENERAL ORDERAB LES Final Result Performing Organization Address [facility] Co de Phone Number [facility] [address] [place] [address], [phone] * (ABNORMAL) KETONES URINE (02/26/2025 9:00 AM CDT) [facility] KETONES MG/DL (U) ABOVE MEASUREMENT RANGE(A) NEGATIVE 02/26/2025 9:17 AM CDT [facility] URINE SPECIMEN / Unknown 02/26/2025 9:00 AM CDT us Mg Kendrick MD URINE ORDERABLES Final Result Performing Organization Address City/[facility] Co de Phone Number [facility] [address] [place] [address], [phone] * URINE DRUG SCREEN (TOXICOLOGY) (02/26/2025 9:00 AM CDT) PHENCYCLIDINE PCP (U) NEGATIVE NEGATIVE 02/26/2025 9:31 AM CDT [facility] BENZODIAZEPINES SCREEN (U) NEGATIVE NEGATIVE 02/26/2025 9:31 AM CDT [facility] COCAINE METABOLITES (U) NEGATIVE NEGATIVE 02/26/2025 9:31 AM CDT [facility] AMPHETAMINE (U) NEGATIVE NEGATIVE 9:31 AM CDT [facility] CANNABINOIDS SCREEN (U) NEGATIVE NEGATIVE 02/26/2025 9:31 AM CDT [facility] OPIATE SCREEN (U) NEGATIVE NEGATIVE 025 9:31 AM CDT [facility] BARBITURATES SCREEN (U) NEGATIVE NEGATIVE 02/26/2025 9:31 AM CDT [facility] URINE TOX COMMENT Unconfirmed screening results are to be used only for medical purposes. 02/26/2025 8:54 AM CDT [facility] CUTOFF CONCENTRATION (U) Cut-off Concentration for a positive result 02/26/2025 8:54 AM CDT [facility] Comment: Phencyclidine 25 ng/mL Benzodiazepines 200 ng/mL Cocaine 300 ng/mL Amphetamine 1000 ng/mL Cannabinoids 50 ng/mL Opiates 300 ng/mL Barbiturates 200 ng/mL URINE SPECIMEN / Unknown 02/26/2025 9:00 AM CDT Mg Kendrick MD URINE ORDERABLES Final Result [facility] [address] [place] [address], [phone] * (ABNORMAL) Blood gas, venous (02/26/2025 8:14 AM CDT) PH VENOUS 7.40 7.32 - 7.42 02/26/2025 10:14 AM CDT [facility] PCO2 VENOUS 39.9(L) 41.0 - 51.0 MMHG 02/26/2025 10:14 AM CDT [facility] PO2 VENOUS 33.2 25.0 - 40.0 MM HG 02/26/2025 10:14 AM CDT [facility] BICARB VENOUS 23.9(L) 24 - 28 MMOL/L 02/26/2025 10:14 AM CDT [facility] TOTAL CO2 VENOUS 25.2 25.0 - 29.0 MMOL/L 02/26/2025 10:14 AM CDT [facility] BASE DEFICIT VENOUS 0.3 0.0 - 3.0 MMOL/L 02/26/2025 10:14 AM CDT [facility] O2 SAT VENOUS 61 <75 % 02/26/2025 10:14 AM CDT [facility] 02/26/2025 8:14 AM CDT us Mg Kendrick MD LABORATORY Final Result Performing Organization Address City/[facility]/ZIP Co de Phone Number [facility] [address] [place] [address], [phone] * LACTIC ACID - SINGLE (02/26/2025 8:14 AM CDT) LACTIC ACID VENOUS 1.8 0.4 - 2.0 MMOL/L 02/26/2025 8:41 AM CDT [facility] 02/26/2025 8:14 AM CDT us Mg Kendrick MD LABORATORY Final Result Performing Organization Address City/[facility]/ZIP Co de Phone Number [facility] [address] [place] [address], [phone] * (ABNORMAL) CULTURE, BACTERIA BLOOD X2 (02/26/2025 8:13 AM CDT) SPEC DESCRIPTION BLOOD 02/26/2025 7:35 AM CDT [facility] SPECIAL REQUESTS NO SPECIAL REQUEST 02/26/2025 7:35 AM CDT [facility] GRAM STAIN RESULT IN ANAEROBIC BLOOD CULTURE GRAM POSITIVE RODS RESULTS PHONED TO AND READ BACK BY: [id number] GARY [id number] AT 1712 ON 03.02.25 BY [id number] 03/02/2025 5:13 PM CDT [facility] CULTURE RESULT IN ANAEROBIC BLOOD CULTURE ANAEROBIC DIPHTHEROID BACILLI (AA) 03/05/2025 7:26 AM CDT [facility] CULTURE RESULT RESULTS PHONED TO AND READ BACK BY: [id number] GARY [id number] AT 1711 ON 03.02.25 BY [id number] 03/05/2025 7:26 AM CDT [facility] BLOOD SPECIMEN OBTAINED FOR BLOOD CULTURE / Unknown 02/26/2025 8:13 AM CDT 02/26/2025 8:14 AM CDT us Mg Kendrick MD MICROBIOLOGY - GENERAL ORDERAB LES Final Result Performing Organization Address City/[facility]/ZIP Co de Phone Number [facility] [address] [place] [address], [phone] * LIPASE (02/26/2025 5:15 AM CDT) LIPASE 13 13 - 75 UNITS/L 02/26/2025 7:18 AM CDT [facility] 02/26/2025 5:15 AM CDT us Mg Kendrick MD LABORATORY Final Result Performing Organization Address City/[facility]/ZIP Co de Phone Number [facility] [address] [place] [address], [phone] * POTASSIUM, SERUM (02/25/2025 9:25 AM CDT) POTASSIUM S/P/B 4.3 3.5 - 5.1 MMOL/L 02/25/2025 10:22 AM CDT [facility] Comment:MILD HEMOLYSIS, RESU LT MAY BE AFFECTED. 02/25/2025 9:25 AM CDT us Reg Bernardo MD LABORATORY Final Result Performing Organization Address [facility] Co de Phone Number [facility] [address] [place] [address], [phone] * (ABNORMAL) PHOSPHORUS, INORGANIC PHOSPHATE (02/25/2025 3:10 AM CDT) Only the most recent of2 resultswithin the time period is included. PHOSPHORUS 2.0(L) 2.5 - 4.9 MG/DL 02/25/2025 3:45 AM CDT [facility] 02/25/2025 3:10 AM CDT Walt Moreno MD LABORATORY Final Result Performing Organization Address [facility] de Phone Number [facility] [address] [place] [address], [phone] * MAGNESIUM (02/25/2025 3:10 AM CDT) Only the most recent of2 resultswithin the time period is included. MAGNESIUM 2.1 1.6 - 2.6 MG/DL 02/25/2025 3:45 AM CDT [facility] 02/25/2025 3:10 AM CDT us Walt Moreno MD LABORATORY Final Result Performing Organization Address [facility] Co de Phone Number [facility] [address] [place] [address], [phone] * POCT ACUTE VENOUS PANEL (02/24/2025 10:19 PM CDT) SODIUM WHOLE BLOOD 140 138 - 146 mmol/L 02/24/2025 10:23 PM CDT [facility] POTASSIUM WHOLE BLOOD 3.8 3.5 - 4.9 mmol/L 02/24/2025 10:23 PM CDT [facility] CA IONIZED WH BLOOD 1.17 1.12 - 1.32 mmol/L 02/24/2025 10:23 PM CDT [facility] POC PH VENOUS 7.321 7.31 - 7.41 02/24/2025 10:23 PM CDT [facility] POC PCO2 VENOUS 46.9 41.0 - 51.0 MMHG 02/24/2025 10:23 PM CDT [facility] POC PO2 VENOUS 27 25 - 40 MMHG 02/24/2025 10:23 PM CDT [facility] POC HCO3 VENOUS 24.2 23 - 28 MMOL/L 02/24/2025 10:23 PM CDT [facility] POC TCO2 VENOUS 26 24 - 29 MMOL/L 02/24/2025 10:23 PM CDT [facility] POC BASE DEFICIT VENOUS 2 0 - 2 MMOL/L 02/24/2025 10:23 PM CDT [facility] POC HEMATOCRIT 46 38 - 51 % 02/24/2025 10:23 PM CDT [facility] TIME TEST WAS PERFORMED: 221802/24/2025 10:23 PM CDT [facility] 02/24/2025 10:1 9 PM CDT us Obiora Rosalio Bernardo MD POCT ORDERABLES - DEVICE Kaykay l Result [facility] [address] [place] [address], [phone] * (ABNORMAL) BETA-HYDROXYBUTYRATE (02/24/2025 10:17 PM CDT) BETA-HYDROXYBU TYRATE 1.8(H) 0.0 - 0.3 MMOL/L 02/24/2025 10:24 PM CDT [facility] 02/24/2025 10:1 7 PM CDT us Obiora Rosalio Bernardo MD LABORATORY Final Result Performing Organization Address [facility] de Phone Number [facility] [address] [place] [address], [id number] * (ABNORMAL) HEMOGLOBIN, GLYCATED (02/24/2025 10:17 PM CDT) HGB A1C 11.9(H) <5.7 % 02/25/2025 2:06 AM CDT [facility] ESTIMATED AVG GLUCOSE 295(H) 74 - 114 MG/DL 02/25/2025 2:06 AM CDT [facility] 02/24/2025 10:1 7 PM CDT us Obiora Rosalio Bernardo MD LABORATORY Final Result Performing Organization Address [facility] de Phone Number [facility] [address] [place] [address], [place] [phone] [id number] * (ABNORMAL) URINALYSIS (02/24/2025 6:30 PM CDT) COLOR (U) COLORLESS 02/24/2025 7:32 PM CDT [facility] TRANSPARENCY CLEAR 02/24/2025 7:32 PM CDT [facility] SPECIFIC GRAVITY (U) 1.047(H) 1.002 - 1.035 02/24/2025 7:32 PM CDT [facility] U PH 5.0 5 - 8 02/24/2025 7:32 PM CDT [facility] PROTEIN RANDOM (U) 20(A) NEGATIVE 02/24/2025 7:32 PM CDT [facility] GLUCOSE (U) ABOVE MEASUREMENT RANGE(A) NEGATIVE MG/DL 02/24/2025 7:32 PM CDT [facility] KETONES MG/DL (U) 80(A) NEGATIVE 02/24/2025 7:32 PM CDT [facility] BILIRUBIN (U) NEGATIVE NEGATIVE 02/24/2025 7:32 PM CDT [facility] BLOOD (U) NEGATIVE NEGATIVE 02/24/2025 7:32 PM CDT [facility] NITRITES NEGATIVE NEGATIVE 02/24/2025 7:32 PM CDT [facility] UROBILINOGEN NORMAL 0 - 1 EU/DL 02/24/2025 7:32 PM CDT [facility] LEUKOCYTES (U) NEGATIVE NEGATIVE 02/24/2025 7:32 PM CDT [facility] RBC/HPF <1 0 - 3 /HPF 02/24/2025 7:32 PM CDT [facility] WBC/HPF NONE 0 - 6 /HPF 02/24/2025 7:32 PM CDT [facility] BACTERIA (U) NONE /HPF 02/24/2025 7:32 PM CDT [facility] SQUAMOUS EPITHELIALS <1 02/24/2025 7:32 PM CDT [facility] BUDDING YEAST PRESENT 02/24/2025 7:32 PM CDT [facility] URINE SPECIMEN FROM URETHRA / Unknown 02/24/2025 6:30 PM CDT us Obiora I Tova VALDIVIA URINE ORDERABLES Final Result [facility] [address] [place] [address], [id number] * MRSA PCR nares SCREENING (02/24/2025 6:00 PM CDT) SPECIMEN SOURCE RESPIRATORY, NOSE 02/24/2025 6:02 PM CDT [facility] MRSA BY PCR NASAL METHICILLIN RESISTANT STAPH AUREUS NOT DETECTED METHICILLIN RESISTANT STAPH AUREUS NOT DETECTED 02/25/2025 10:56 AM CDT [facility] NASAL STRUCTURE / Unknown 02/24/2025 6:00 PM CDT Reg Bernardo MD MICROBIOLOGY - GENERAL ORDERA BLES Final Result Performing Organization Address [facility] Co de Phone Number [facility] [address] [place] [address], [place] [phone] * TROPONIN, QUANT (02/23/2025 12:15 PM CDT) Only the most recent of2 resultswithin the time period is included. TROPONIN I HIGH SENSITIVITY 6 0 - 53 ng/L 02/23/2025 12:54 PM CDT [facility] 02/23/2025 12:1 5 PM CDT Alex Duarte MD LABORATORY Final Result Performing Organization Address [facility] Co de Phone Number [facility] [address] [place] [address], [place] [phone] * INFLUENZA A & B (02/23/2025 10:23 AM CDT) SPECIMEN TYPE (INFLUENZA) NASOPHARYNGEAL SWAB 02/23/2025 10:24 AM CDT [facility] INFLUENZA A NEGATIVE NEGATIVE 02/23/2025 10:59 AM CDT [facility] Comment:NEGATIVE FOR INFLUEN ZA A VIRUS ANTIGEN INFLUENZA B NEGATIVE NEGATIVE 02/23/2025 10:59 AM CDT [facility] Comment:NEGATIVE FOR INFLUEN ZA B VIRUS ANTIGEN NASOPHARYNGEAL SWAB / Unknown 02/23/2025 10:23 AM CDT Carol Walsh MD MICROBIOLOGY - GENERAL ORDERABL ES Final Result Performing Organization Address [facility] Co de Phone Number [facility] [address] [place] [address], [phone] * PRO-BRAIN NATRIURETIC PEPTIDE (02/23/2025 10:16 AM CDT) PRO-B TYPE NATRIURETIC PEPTIDE 37 <125 PG/ML 02/23/2025 11:11 AM CDT [facility] Comment: AGE INDEPENDENT: <300 PG/ML [...] MD LABORATORY Final Result Performing Organization Address [facility] de Phone Number [facility] [address] [place] [address], [phone] * D-DIMER, QUANTITATIVE (02/23/2025 10:16 AM CDT) D-DIMER 327 0 - 500 ng{FEU}/mL 02/23/2025 11:03 AM CDT [facility] EXCLUSION STATEMENT 02/23/2025 11:03 AM CDT [facility] Comment: D-Dimer values less than [...] CDT Carol Walsh MD LABORATORY Final Result [facility] [address] [place] [address], [place] [phone] * ECG 12 lead (02/23/2025 10:15 AM CDT) 02/23/2025 10:1 5 AM CDT Narrative [facility] - 02/23/2025 1:25 PM CDT [facility] Test Date: 2025-02-23 Pat Name: SHANTA BOSE Department: 70 Room: EXAM QQ Gender: Female Security Monitor: : 1970 Requested By: CAROL WALSH Order Number: [id number] Reading MD: Bora Hoffman Measurements Intervals [place] Rate: 82 P: 44 [place]: 152 QRS: -7 QRSD: 85 T: 42 QT: 390 QTc: 458 Interpretive Statements SINUS RHYTHM POSSIBLE ANTERIOR MYOCARDIAL INFARCTION , PROBABLY OLD [30 ms Q WAVE IN V3/V4, OR R < 0.2 mV IN V4] Procedure Note Bora Hoffman MD - 02/23/2025 [facility] Test Date: 2025-02-23 Pat Name: SHANTA BOSE Department: 70 Room: EXAM QQ Gender: Female Security Monitor: : 1970 Requested By: CAROL WALSH Order Number: [id number] Reading KRYSTAL Hoffman Measurements Intervals [place] Rate: 82 P: 44 [place]: 152 QRS: -7 QRSD: 85 T: 42 [...] CDT IMPRESSION: 1. 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 2. Sub-4 mm lung nodules. Follow-up CT chest in one year. Ordered By: BELÉN GOODE Interpreted By: Sanford Vee MD, 02/07/2025 10:17 AM Narrative 02/07/2025 1:26 PM CDT [facility] [address] [place], [place] [address] EXAMINATION: CARDIAC COMPUTED TOMOGRAPHY ANGIOGRAM, ROUTINE CORONARY [...] ANGIOGRAM AND OTHER CARDIAC FINDINGS: Interpreted by college basketball coach. EXTRACARDIAC FINDINGS: Sub-4 mm lung nodules. Dependent atelectasis. The visualized thoracic aorta is normal. Visualized pulmonary artery appears normal. Small hiatal hernia. Spondylosis. Procedure Note Sanford Vee MD - 02/07/[address] [address] EXAMINATION: CARDIAC COMPUTED TOMOGRAPHY ANGIOGRAM, ROUTINE CORONARY [...] Spondylosis. IMPRESSION: 1. 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 2. Sub-4 mm lung nodules. Follow-up CT [...] 1:12 PM Narrative 03/03/2025 1:22 PM CDT [address] [address] EXAMINATION: CARDIAC COMPUTED TOMOGRAPHY with CORONARY ANGIOGRAM [...] Procedure Note Clive Olson MD - 03/03/2025 [facility] [address] [place], [place] [address] EXAMINATION: CARDIAC COMPUTED TOMOGRAPHY with CORONARY ANGIOGRAM [...] CTA AORTO ILIOFEM RUNOFF (01/22/2025 9:00 AM REPORT DEVELOPER) Anatomical Region Laterality Modality Abdomen, Pelvis, Extremity Compu tal Tomography 01/22/2025 6:25 PM REPORT DEVELOPER Impressions 01/22/2025 6:35 PM REPORT DEVELOPER IMPRESSION: 1. There is no evidence for abdominal aortic aneurysm or significant stenosis. There are no inflow issues. There is a two-vessel runoff on the right via the anterior tibial artery and peroneal artery. There is a three-vessel runoff on the left. 2. Hepatosplenomegaly. Referred By: ZAINAB HUERTA Interpreted By: Humberto Alvarado MD, 01/22/2025 6:25 PM Narrative 01/22/2025 6:35 PM REPORT DEVELOPER [address] [place] [address] Examination: CTA AORTO ILIOFEM RUNOFF Exam time: [...] Procedure Note Humberto Alvarado MD - 01/22/2025 [place] [id number] [facility] [place] [address] Examination: CTA AORTO ILIOFEM RUNOFF Exam time: 01/22/2025 8:45 AM INDICATION: Right lower leg pain TECHNIQUE: After administration of 120 mL Isovue-370 IV contrast via theright antecubital fossa, arterial phase multidetector CT images wereobtained from the lung bases to the feet. Multiplanar and MIP images werecreated and reviewed. In addition, 3D image processing was performed on [employer] workstation by a technologist, with images sent [...] Alvarado MD, 01/22/2025 6:25 PM Zainab Huerta SENSITIZED PAPER TESTER CT Fin al Result * CREATININE (01/22/2025 8:00 AM REPORT DEVELOPER) CREATININE S/P/B 0.60 0.55 - 1.02 MG/DL 01/22/2025 8:46 AM REPORT DEVELOPER [facility] GFR ESTIMATE >90 >89 ML/MIN/1. 73 M2 01/22/2025 8:46 AM REPORT DEVELOPER [facility] GFR NOTES GFR REFERENCE S: 01/22/2025 8:46 AM REPORT DEVELOPER [facility] Comment: THE ESTIMATED GFR IS CALCULATED [...] FAILURE: <15 ml/min/1.73 m2 01/22/2025 8:00 AM REPORT DEVELOPER Zainab Huerta NP LABORATORY Fin al Result [facility] [place] [address], * MG SCREENING W DOMENICA AMAN DIGI (01/14/2025 12:45 PM REPORT DEVELOPER) Anatomical Region Laterality Modality Breast Bilateral Mammography 01/14/2025 4:10 PM REPORT DEVELOPER Impressions 01/14/2025 4:10 PM REPORT DEVELOPER IMPRESSION: No suspicious change since the previous exams. Recommendation: 1: Routine Screening Bilateral in 1 Year Assessment: ACR BI-RADS 2 - BENIGN FINDING(S) Ordered By: JOSE DELAROSA Interpreted By: Reji Gao MD, 01/14/2025 4:10 PM Narrative 01/14/2025 4:10 PM REPORT DEVELOPER [address] [place] [address] Examination: Digital screening mammogram with CAD. Clinical [...] * (ABNORMAL) LIPID PANEL (01/31/2018 11:23 AM REPORT DEVELOPER) CHOLESTEROL 211(H) <200 MG/DL 01/31/2018 12:01 PM [facility] TRIGLYCERIDES 190(H) <150 MG/DL 01/31/2018 12:01 PM [facility] HDL 48 >40 MG/DL 01/31/2018 12:01 PM [facility] LDL (CALCULATED) 125 <130 MG/DL 02/01/20 12:01 PM [facility] Comment: AN LDL OF <100 IS OPTIMAL; HOWEVER, ELEVATED IS DEFINED >130.BY ATP III GUIDELINES, LDL GOALS ARE DEPENDENT UPON THE PATIENT'S OTHER RISK FACTORS. CHOL/HDL RATIO 4.4 0.0 - 5.0 01/31/2018 12:01 PM [facility] 01/31/2018 11:2 3 AM REPORT DEVELOPER 01/31/2018 11:25 AM REPORT DEVELOPER us Generic Conversion Md [facility] Final R esult [facility] [address] [place] [address], from Last 3 Months or Most Recently Relevant to Health Maintenance Insurance AET Advance Directives * Full Code (Latest Code Status on File) Date Activated Date Inactivated Comments 02/24/2025 5:45 PM 03/02/2025 8:52 PM Care Teams Supervisor Of Officials Relationship Specialty Start Date End Date Jose Delarosa MD [address] [place] [phone] PCP - General FAMILY PRACTICE 01/11/19 Kortney Coronado NP [address] [place] [phone] Nurse Practitioner Nurse Practitioner Family 03/27/24
--- OUTSIDE RECORDS SUMMARY | 2025-03-05 07:53 | XMS_ITS | Clinical Summary ---
Author Organization [facility] Address [address] [place] [address] Phone Care Team Providers [employer] Member Name Role Phone Jose Beverly MD Primary Care Provider [phone] Allergies Active Allergy Reactions Criticality Noted Date [...] daily as needed. Active ergocalciferol (VITAMIN D) 24189 UNIT Capsule Take 1 Capsule by mouth [...] Department Care Team Description 01/15/2025 10:46 AM ESTIMATING ENGINEER - 01/15/2025 3:52 PM ESTIMATING ENGINEER Emergency [facility] [address] [place] [address] Alejandro Simeon, Chest pain Discharge Disposition: Discharged to home or Selfcare 01/15/2025 Travel from Last 3 Months Social History Tobacco Use Types Packs/Day Years Used Date Smoking Tobacco: Never Smokeless Tobacco: Never Alcohol Use Standard Drinks/Week Comments Yes 1 (1 standard drink = 0.6 oz pur e alcohol) [facility] Utilities Answer Date Recorded In [...] declined 10/30/2024 How often do you attend synagogue or scientologist serv ices? Patient declined 10/30/2024 Do you belong to any clubs o r organizations such as synagogue groups, unions, fraternal or athletic groups, or [...] medical care, and heating? Patient declined 10/30/2024 [facility] - Occupational [...] any time in the past 12 m [facility], were you homeless or living in a jail (including now)? Patient declined 10/30/2024 Sexually Active Control Partners Comments Not Currently Comments No Sex and Gender Information Value Date Recorded Sex Assigned at Female 11/02/2024 6:03 AM ESTIMATING ENGINEER Legal Sex Female 10:10 PM CDT Gender Identity Female 11/02/2024 6:03 AM ESTIMATING ENGINEER Sexual Orientation Not on file Last Filed Vital Signs Vital Sign Reading Time Taken Comments Blood Pressure 115/63 01/15/2025 3:30 PM ESTIMATING ENGINEER Pulse 89 01/15/2025 3:45 PM ESTIMATING ENGINEER Temperature 36.3 C (97.3 F) 01/15/2025 10:51 AM ESTIMATING ENGINEER Respiratory Rate 19 01/15/2025 3:02 PM ESTIMATING ENGINEER Oxygen Saturation 92% 01/15/2025 3:45 PM ESTIMATING ENGINEER Inhaled Oxygen Concentration - - Weight 87.8 kg (193 lb 9 oz) 01/15/2025 10:51 AM ESTIMATING ENGINEER Height 167.6 cm (5' 6 ) 01/15/2025 10:51 AM ESTIMATING ENGINEER Body Mass Index 31.24 01/15/2025 10:51 AM ESTIMATING ENGINEER Plan of Treatment Health Maintenance Due Date [...] HIGH SENSITIVITY (HSTRP) STAT 01/15/2025 2:10 PM ESTIMATING ENGINEER XR CHEST SINGLE VIEW PORTABLE STAT 01/15/2025 11:30 AM ESTIMATING ENGINEER RSV,SARS-COV-2,INFLUE NZA A&B BY PCR STAT 01/15/2025 11:20 AM ESTIMATING ENGINEER GOLD TOP TUBE STAT 01/15/2025 10:55 AM ESTIMATING ENGINEER BLUE TOP TUBE STAT 01/15/2025 10:55 AM ESTIMATING ENGINEER CBC WITH AUTO DIFFERENTIAL STAT 01/15/2025 10:55 AM ESTIMATING ENGINEER EXTRA TUBES STAT 01/15/2025 10:55 AM ESTIMATING ENGINEER TROPONIN I, HIGH SENSITIVITY (HSTRP) STAT 01/15/2025 10:55 AM ESTIMATING ENGINEER COMPLETE BLOOD COUNT (CBC) WITH DIFF STAT 01/15/2025 10:55 AM ESTIMATING ENGINEER CMP (COMPREHENSIVE METABOLIC PANEL) STAT 01/15/2025 10:55 AM ESTIMATING ENGINEER EKG 12 LEAD STAT 01/15/2025 10:52 AM ESTIMATING ENGINEER EKG SCAN 01/15/2025 12:00 AM ESTIMATING ENGINEER HEMOGLOBIN A1C W/ ESTIMATED GLUCOSE STAT 10/30/2024 1:21 PM ESTIMATING ENGINEER HEPATITIS PANEL ACUTE (AHP) Routine 11/07/2020 4:30 AM ESTIMATING ENGINEER from Last 3 Months or Most Recently Relevant to Health Maintenance Results * TROPONIN I, HIGH SENSITIVITY (HSTRP) (01/15/2025 2:10 PM ESTIMATING ENGINEER) Only the most recent of2 resultswithin the time period is included. TROPONIN I, HIGH SENSITIVITY- PHIPPS <3 <=14 ng/L 01/15/2025 3:18 PM ESTIMATING ENGINEER [facility] Comment: High-sensitivity troponin I results are reported in ng/L making the result appear to be 1,000 times higher than the contemporary troponin I value which is reported in ng/ml. Results from [facility]. Blood Venipuncture / Unknown 01/15/2025 2:10 PM ESTIMATING ENGINEER 01/15/2025 2:47 PM ESTIMATING ENGINEER us Alejandro Simeon DO CHEMISTRY ORDERABLES Fi nal Result [facility] [address] [place] [address] * XR CHEST SINGLE VIEW PORTABLE (01/15/2025 11:30 AM ESTIMATING ENGINEER) Anatomical Region Laterality Modality Chest N/A Digital Radiogra phy 01/15/2025 12:0 0 PM ESTIMATING ENGINEER Impressions 01/15/2025 12:03 PM ESTIMATING ENGINEER IMPRESSION: No radiographic evidence of an acute cardiopulmonary abnormality. Narrative 01/15/2025 12:03 PM ESTIMATING ENGINEER EXAM DESCRIPTION: XR CHEST SINGLE VIEW PORTABLE [...] Donny Gould M.D. NS: NS Report ID: [id number] Reading Location: [id number] Procedure Note Donny Gould MD - 01/15/2025 [...] Donny Gould M.D. NS: NS Report ID: [id number] Reading Location: [id number] IMPRESSION: No radiographic evidence of an acute cardiopulmonary abnormality. us Alejandro Simeon DO IMG DIAGNOSTIC ORDERABL ES Final Result * RSV,SARS-COV-2,INFLUENZA A&B BY PCR (01/15/2025 11:20 AM ESTIMATING ENGINEER) FLU A Negative Negative, Error 01/15/2025 12:49 PM ESTIMATING ENGINEER [facility] FLU B Negative Negative 01/15/2025 12:49 PM ESTIMATING ENGINEER [facility] RESP SYNC VIRUS Negative Negative 12:49 PM ESTIMATING ENGINEER [facility] SARSCOV2 NOT DETECTED (Reference Range for this test is Not Detected) 01/15/2025 12:49 PM ESTIMATING ENGINEER [facility] Comment:This test was perfor med by a Reverse Book Sewing Machine Operator PCR Method. Swab NASOPHARYNGEAL STRUCTURE / Unknown Non-Phlebotomy Collection / Unknown 01/15/2025 11:20 AM ESTIMATING ENGINEER 01/15/2025 11:44 AM ESTIMATING ENGINEER Alejandro Simeon DO MICROBIOLOGY - GENERAL ORDERABLES Final Result Performing Organization Address [facility] Co de Phone Number [facility] [address] [place] [address] * Gold Top Tube (01/15/2025 10:55 AM ESTIMATING ENGINEER) Blood No Phlebotomy Charged / Unknown 01/15/2025 10:55 AM ESTIMATING ENGINEER 01/15/2025 11:05 AM ESTIMATING ENGINEER Alejandro Simeon DO CHEMISTRY ORDERABLES Fi nal Result [facility] [address] [place] [address] * Blue Top Tube (01/15/2025 10:55 AM ESTIMATING ENGINEER) Blood No Phlebotomy Charged / Unknown 01/15/2025 10:55 AM ESTIMATING ENGINEER 01/15/2025 11:05 AM ESTIMATING ENGINEER us Alejandro Simeon DO HEMATOLOGY ORDERABLES F inal Result [facility] [address] [place] [address] * CBC with Auto Differential (01/15/2025 10:55 AM ESTIMATING ENGINEER) WBC 7.64 4.00 - 12.00 10(3)/[facility] 01/15/2025 11:08 AM [facility] RBC 5.22 3.80 - 5.30 10(6)/[facility] 01/15/2025 11:08 AM [facility] HEMOGLOBIN (HGB) 15.1 12.0 - 15.8 g/dL 01/15/2025 11:08 AM [facility] HEMATOCRIT (HCT) 44.4 36.0 - 47.0 % 01/15/2025 11:08 AM ESTIMATING ENGINEER [facility] MCV 85.1 82.0 - 96.0 fL 01/15/2025 11:08 AM [facility] MCH 28.9 26.0 - 34.0 pg 01/15/2025 11:08 AM [facility] MCHC 34.0 31.0 - 36.0 g/dL 01/15/2025 11:08 AM [facility] PLATELET COUNT 260 140 - 440 10(3)/[facility] 01/15/2025 11:08 AM ESTIMATING ENGINEER [facility] RDW 12.0 11.8 - 15.5 % 01/15/2025 11:08 AM [facility] MPV 10.6 9.7 - 12.4 fL 01/15/2025 11:08 AM [facility] NEUTROPHILS 53.7 47.0 - 73.0 % 01/15/2025 11:08 AM [facility] LYMPHOCYTES 32.5 18.0 - 42.0 % 01/15/2025 11:08 AM [facility] MONOCYTES 11.0 4.0 - 12.0 % 01/15/2025 11:08 AM [facility] EOSINOPHILS 2.4 0.0 - 5.0 % 01/15/2025 11:08 AM [facility] BASOPHILS 0.4 0.0 - 1.0 % 01/15/2025 11:08 AM [facility] ABSOLUTE NEUTROPHILS 4.11 1.60 - 7.70 10(3)/[facility] 01/15/2025 11:08 AM [facility] ABSOLUTE LYMPHOCYTES 2.48 1.30 - 3.20 10(3)/[facility] 01/15/2025 11:08 AM [facility] ABSOLUTE MONOCYTES 0.84 0.20 - 1.00 10(3)/[facility] 01/15/2025 11:08 AM [facility] ABSOLUTE EOSINOPHIL 0.18 0.00 - 0.40 10(3)/[facility] 01/15/2025 11:08 AM [facility] ABSOLUTE BASOPHILS 0.03 0.00 - 0.10 10(3)/[facility] 01/15/2025 11:08 AM [facility] NRBC PER 100 WBC 0 01/15/20 11:08 AM [facility] Blood Venipuncture / Unknown 01/15/2025 10:55 AM [facility] 01/15/2025 11:03 AM [facility] us Alejandro Simeon DO HEMATOLOGY ORDERABLES F inal Result [facility] [address] [place] [address] * (ABNORMAL) CMP (Comprehensive Metabolic Panel) (01/15/2025 10:55 AM [facility]) SODIUM 139 136 - 145 mmol/L 01/15/2025 11:34 AM [facility] POTASSIUM 3.9 3.5 - 5.1 mmol/L 01/15/2025 11:34 AM [facility] CHLORIDE 101 98 - 107 mmol/L 01/15/2025 11:34 AM [facility] CO2, VENOUS 25 22 - 30 mmol/L 01/15/2025 11:34 AM [facility] ANION GAP 16.9 <18.0 mmol/L 01/15/2025 11:34 AM [facility] GLUCOSE 335(H) 70 - 99 mg/dL 01/15/2025 11:34 AM [facility] BUN 15 10 - 20 mg/dL 01/15/2025 11:34 AM [facility] CREATININE, BLOOD 0.89 0.60 - 1.00 mg/dL 01/15/2025 11:34 AM [facility] BUN/CREATININE RATIO 17 12 - 20 ratio 01/15/2025 11:34 AM [facility] TOTAL PROTEIN 7.7 6.0 - 8.0 g/dL 01/15/2025 11:34 AM [facility] ALBUMIN 4.3 3.5 - 5.0 g/dL 01/15/2025 11:34 AM [facility] A/G RATIO 1.3 1.0 - 2.2 01/15/2025 11:34 AM [facility] CALCIUM 9.7 8.7 - 10.5 mg/dL 01/15/2025 11:34 AM [facility] T BILI 0.3 0.2 - 1.2 mg/dL 01/15/2025 11:34 AM [facility] SGOT (AST) 29 <43 U/L 01/15/2025 11:34 AM [facility] SGPT (ALT) 35 <56 U/L 01/15/2025 11:34 AM [facility] ALKALINE PHOSPHATASE 115 40 - 150 U/L 01/15/2025 11:34 AM [facility] GFR, ESTIMATED >60 >=60 01/15/2025 11:34 AM ESTIMATING ENGINEER [facility] Comment: Creatinine Clearance is the preferred criteria for selecting drug dose adjustments in renally impaired patients. The GFR is provided as additional pertinent clinical information. GFR is reported in mL/min/1.73 sq m. Calculation based on the Chronic Kidney Disease Epidemiology Collaboration (CKD- EPI) equation refit without adjustment for race. GFR, EST. >60 >=60 025 11:34 AM ESTIMATING ENGINEER [facility] GFR, EST. NONAFRICAN >60 >=60 01/15/2025 11:34 AM ESTIMATING ENGINEER [facility] Blood Venipuncture / Unknown 01/15/2025 10:55 AM ESTIMATING ENGINEER 01/15/2025 11:03 AM ESTIMATING ENGINEER us Alejandro Simeon DO CHEMISTRY ORDERABLES Fi nal Result [facility] [address] [place] [address] * EKG 12 LEAD (01/15/2025 10:52 AM ESTIMATING ENGINEER) Ventricular Rate 99 BPM EXTERNAL EKG Atrial Rate 99 BPM EXTERNAL EKG P-R Interval 152 ms EXTERNAL EKG QRS Duration 78 ms EXTERNAL EKG Q-T Duration 350 ms EXTERNAL EKG QTC CALCULATION 449 ms EXTERNAL EKG P [place] 43 degrees EXTERNAL EKG R [place] -13 degrees EXTERNAL EKG T [place] 49 degrees EXTERNAL EKG 01/15/2025 10:5 2 AM ESTIMATING ENGINEER Impressions EXTERNAL EKG - 01/16/2025 11:05 PM ESTIMATING ENGINEER Normal sinus rhythm POOR R-WAVE PROGRESSION Nonspecific ST and T wave abnormality Abnormal ECG When compared with ECG of 30-OCT-2024 13:07, No significant change was found Confirmed by Stephanie Arellano ([id number]) on 01/16/2025 11:05:21 PM Narrative Procedure Note Stephanie Arellano MD - 01/16/2025 IMPRESSION: Normal sinus rhythm POOR R-WAVE PROGRESSION Nonspecific ST and T wave abnormality Abnormal ECG When compared with ECG of 30-OCT-2024 13:07, No significant change was found Confirmed by Stephanie Arellano ([id number]) on 01/16/2025 11:05:21 PM us Alejandro Simeon DO IMG ECG ORDERABLES Kaykay l Result EXTERNAL EKG * EKG SCAN (01/15/2025 12:00 AM ESTIMATING ENGINEER) 01/15/2025 us Provider Scan IMG ECG ORDERABLES Final Result Performing Organization Address City/[facility]/ZIP Co de Phone Number RESULTING AGENCY * (ABNORMAL) Hemoglobin A1C (10/30/2024 1:21 PM ESTIMATING ENGINEER) Pathologist [facility] HGB-A1C 13.1(H) 4.0 - 6.0 % 10/30/2024 2:18 PM ESTIMATING ENGINEER [facility] Est Average Glucose 329.3 mg/dL 10/30/2024 2:18 PM ESTIMATING ENGINEER [facility] Blood Venipuncture / Unknown 10/30/2024 1:21 PM ESTIMATING ENGINEER 10/30/2024 1:44 PM ESTIMATING ENGINEER Narrative [facility] - 10/30/2024 2:18 PM ESTIMATING ENGINEER HEMOGLOBIN A1C: DIABETIC PATIENTS: WELL-CONTROLLED: 6.2 - 7.0 INTERMEDIATE WELL-CONTROLLED: 7.0 - 9.0 POORLY-CONTROLLED: >9.0 us Mikaela Tang RETAIL SPECIAL EVENT ASSOCIATE, SCALLOP BINDER CHEMISTRY ORDERABLES Final Result Performing Organization Address City/[facility]/ZIP Co de Phone Number [facility] [address] [place] [address] * Hepatitis Panel Acute (AHP) (11/07/2020 4:30 AM ESTIMATING ENGINEER) Pathologist [facility] HEPATITIS A IGM ANTIBODY NON DETECTED NON DETECTED [facility] ARCH [id number] 11/07/2020 2:40 PM ESTIMATING ENGINEER [facility] Comment: IGM Antibodies to HAV not detected. Does not exclude early acute or recovered HAV infection. HEP B CORE AB (IGM) NON DETECTED NON DETECTED [facility] ARCH [id number] 11/07/2020 2:40 PM ESTIMATING ENGINEER [facility] Comment:IGM anti-HBC not det ected. Does not exclude the possibility of exposure to or infection with HBV. HEPATITIS B SURFACE ANTIGEN NON DETECTED NON DETECTED [facility] ARCH [id number] B 11/07/2020 2:40 PM ESTIMATING ENGINEER [facility] Comment:A nonreactive test r esult does not exclude the possibility of exposure to or infection with Hepatitis B virus. A nonreactive test result in individuals with prior exposure to hepatitis B may be due to antigen levels below the detection limit of this assay or lack of antigen reactivity to the antibodies in this assay. hepatitis C antibody 0.32 <1 S/CO [facility] ARCH [id number] B 11/07/2020 2:40 PM ESTIMATING ENGINEER [facility] Comment: Signal/Cutoff ratio < 0.79 is Nondetected Signal/Cutoff ratio 0.80-0.99 is Grayzone Signal/Cutoff ratio > 0.99 is Detected Supplemental assays are recommended if signal/cutoff ratio is >/=1.00. Signal/cutoff ratio result >/= 5.00 is 97% predictive of positivity for recombinant immunoblot assay (RIBA) and will be reported to the [place] [facility] as required. Blood Venipuncture / Unknown 11/07/2020 4:30 AM ESTIMATING ENGINEER 11/07/2020 4:45 AM ESTIMATING ENGINEER us Wellington Lujan MD HEMATOLOGY ORDERABLES Final R esult [facility] [address] [place] [address], from Last 3 Months or Most Recently Relevant to Health Maintenance Insurance MEDICAID AETNA [facility] Advance Directives * Full Code (Latest [...] measures to stabilize the patient. Care Teams [employer] Member Relationship Specialty Start Date End Date Jose Beverly MD [address] [place] [address] PCP - General Family Medicine 05/02/16
--- OUTSIDE RECORDS SUMMARY | 2025-03-05 07:53 | XMS_ITS | Encounter Summary ---
Author Organization [facility] Address [address] [place] [address] Care Team Providers Care Cnc Service Technician Name Role Phone Jose Beverly MD Primary Care Provider Brad Riojas MD Unavailable [phone] Kortney Coronado NP Unavailable [phone] Encounter Details Date Type Department Care Team (Late st Contact Info) Description 05/04/2019 Abstract [facility]FL CONVERSION [address] [place] [address] , Generic Conversion, Social History Tobacco Use [...] Sex Assigned at Female 01/14/2025 12:08 PM PECAN GROWER Legal Sex Female 9:38 PM PECAN GROWER Gender Identity Not on file Sexual Orientation [...] documented as of this encounter Care Teams Cnc Service Technician Relationship Specialty Start Date End Date Jose Beverly MD [address] [place] [phone] PCP - General FAMILY PRACTICE 01/11/19 Brad Riojas MD [address] [place] [phone] Vascular/Branch Service Representative VASCULAR SURGERY 12/26/23 01/31/25 Kortney Coronado NP [address] [place] [address] Nurse Practitioner Nurse Practitioner Family 03/27/24 documented as of this encounter
--- OUTSIDE RECORDS SUMMARY | 2025-03-05 07:53 | XMS_ITS | Encounter Summary ---
Author Organization [facility] Address [address] [place] [address] Care Team Providers Care Engine Specialist Name Role Phone Jose Beverly MD Primary Care Provider [phone] Brad Riojas MD Unavailable [phone] Kortney Coronado NP Unavailable [phone] Encounter Details Date Type Department Care Team (Late st Contact Info) Description 06/20/2024 [facility] [employer] Message Enc [facility] [address] [address] Apple Middleton PA [address] [place] [id number] Visit Follow Up Social History Tobacco Use [...] Assigned at Female 01/14/2025 12:08 PM BUSINESS SERVICES REPRESENTATIVE Legal Sex Female 9:38 PM BUSINESS SERVICES REPRESENTATIVE Gender Identity Not on file Sexual Orientation [...] documented as of this encounter Care Teams Engine Specialist Relationship Specialty Start Date End Date Jose Beverly MD [address] [place] [phone] PCP - General FAMILY PRACTICE 01/11/19 Brad Riojas MD [address] [place] [phone] Vascular/Valve Pipe Irrigator VASCULAR SURGERY 12/26/23 01/31/25 Kortney Coronado NP [address] [place] [address] Nurse Practitioner Nurse Practitioner Family 03/27/24 documented as of this encounter
[2025-03-05 07:54] LABS: Basophils Absolute Auto 0.04 K/mm3 (0.00-0.10); Basophils Percent Auto 0.5 % (0.0-1.0); Eosinophils Absolute Auto 0.02 K/mm3 (0.02-0.50); Eosinophils Percent Auto 0.2 % (1.0-6.0); Hematocrit 47.9 % (35.0-49.0); Hemoglobin 15.5 g/dL (12.0-15.0); Immature Granulocyte Absolute 0.09 K/mm3 (0.00-0.00); Immature Granulocyte Percent A 1.1 % (0.0-0.0); Lymphocytes Absolute Auto 1.39 K/mm3 (1.10-4.50); Lymphocytes Percent Auto 16.3 % (18.0-42.0); Mean Corpuscular HGB Conc 32.4 g/dL (32-36); Mean Corpuscular Hemoglobin 27.5 pg (27.0-31.0); Mean Corpuscular Volume 84.9 fL (78.0-102.0); Mean Platelet Volume 9.7 fl (9.2-11.8); Neutrophils Absolute Auto 6.39 K/mm3 (1.70-7.20); Neutrophils Percent Auto 74.9 % (50.0-70.0); Platelet Count Result 249 K/mm3 (150-420); Red Blood Count 5.64 M/mm3 (4.20-5.40); Red Cell Distribution Width 12.1 % (11.6-14.4); White Blood Count 8.5 K/mm3 (4.8-10.8)
[2025-03-05] MEDS: INSULIN HUMAN REGULAR (*BKC) 1,000 UNITS/10 ML VIAL 8 UNITS IV PUSH (07:55)
[2025-03-05 08:30] LABS: Lactic Acid Reflex 1.7 mmol/L (0.4-2.0)
[2025-03-05 08:37] LABS: Alanine Aminotransferase 86 U/L (14-59); Albumin Level 3.7 g/dL (3.4-5.0); Alkaline Phosphatase 12 U/L (46-116); Anion Gap 13 mmol/L (4-12); Aspartate Amino Transferase 46 U/L (15-37); Bilirubin,Total 0.6 mg/dL (0.00-1.00); Blood Urea Nitrogen 8 mg/dL (7-18); Calcium 8.7 mg/dL (8.5-10.1); Carbon Dioxide 28 mmol/L (21-32); Chloride 94 mmol/L (98-108); Estimated CRCL calculation 92 ml/min; Estimated Glomerular Filt Rate > 60; Glucose 324 mg/dL (70-99); Lipase 23 U/L (16-77); Osmolality Calculated 291 mOsm/kg (285-295); Potassium 3.5 mmol/L (3.5-5.1); Sodium 135 mmol/L (136-145)
[2025-03-05 08:42] LABS: Magnesium 1.7 mg/dL (1.8-2.4); Thyroid Stimulating Hormone 1.01 uIU/mL (0.36-3.74); Troponin I 5.2 ng/L (0.00-60.4)
[2025-03-05] MEDS: POTASSIUM CHLORIDE 20 MEQ ER TABLET PO (08:48)
[2025-03-05 08:55] LABS: Total Protein 7.6 g/dL (6.4-8.2)
[2025-03-05 08:58] LABS: Glucose Point of Care 236 mg/dl (65-105)
[2025-03-05 09:06] LABS: Bilirubin Urine Negative (Negative); Blood Urine Negative (Negative); Color Urine Light Yellow (Yellow); Glucose Urine UA 3+ (Negative); Ketones Urine 1+ (Negative); Leukocyte Esterase Ur Negative LEU/UL (Negative); Nitrate Urine Negative (Negative); Protein Urine Negative (Negative); Specific Grav Ur 1.015 (1.010-1.020); Urobilinogen Urine 0.2 mg/dL (0.2-1.0)
[2025-03-05 09:22] LABS: Add Urine Microscopic? YES; Appearance Urine Sl Cloudy (Clear); RBC Urine None seen /hpf (0-2); Squamous Epithelial Cell Urine None Seen /hpf (Few); WBC Urine None seen /hpf (0-3)
[2025-03-05 09:23] LABS: Bacteria Urine 3+ /hpf
== END 2025-03-05 09:50 | disposition home or self-care (01) ==
PROVIDERS: Emergency Provider Internal Medicine Critical Care Medicine; PCP Family Medicine
DX: E11.65 Type 2 diabetes mellitus with hyperglycemia (principal); I10 Essential (primary) hypertension; E78.5 Hyperlipidemia, unspecified
CPT/HCPCS: 36415; 80053; 81001; 82948; 83605; 83690; 83735; 84443; 84484; 85025; 93005; 96365; 96366; 96375; 99284; A9270; J0780; J1815; J3475; J7120

== ENCOUNTER 2025-06-01 15:12 | Emergency (ER) | payer OTHER, SELFPAY ==
--- NOTE | ~2025-06-01 | XR_ITS ---
EXAM: XR ankle RT min 3V, XR foot RT min 3V DATE: 06/01/2025 15:38 (accession [id number]), 06/01/2025 15:37 (accession [id number]) HISTORY: twisting injury, Lateral sided Rt. ankle pain . COMPARISON: 07/28/2024. FINDINGS: Normal mineralization. No acute fracture or dislocation Small linear ossific fragment paige cent to the medial malleolus, chronic finding. No lytic or blastic lesion. Mild scattered degenerativ e changes. Achilles and plantar enthesopathy. No erosion or periosteal change. Mild medial and latera l soft tissue swelling. IMPRESSION: No acute osseous finding in the right ankle or foot. Reviewed, dictated and finalized at location K. IMPRESSION: No acute osseous finding in the right ankle or foot.
[2025-06-01 15:13] VITALS: BP 149/85; PULSE 102; RESP 18; TEMP 36.6; O2SAT 96
--- OUTSIDE RECORDS SUMMARY | 2025-06-01 15:14 | XMS_ITS | Encounter Summary ---
Author Organization [facility] Address [address] [place] [address] Care Team Providers Care Centrifugal Wax Molder Name Role Phone Jose Beverly MD Primary Care Provider Brad Riojas MD Unavailable [phone] Kortney Coronado NP Unavailable [phone] Encounter Details Date Type Department Care Team (Late st Contact Info) Description 02/10/2018 Abstract [facility] CONVERSION [address] [place] [address] , Generic Conversion, Social History Tobacco Use Types Packs/Day Years Used Date Smoking Tobacco: Never Assessed Comments Unknown Sex and Gender Information Value Date Recorded Sex Assigned at Female 01/14/2025 12:08 PM ANALYSIS CONSULTANT Legal Sex Female 9:38 PM ANALYSIS CONSULTANT Gender Identity Not on file Sexual Orientation Not on file documented as of this encounter Plan of Treatment Not on file documented as of this encounter Visit Diagnoses Not on filedocumented in this encounter Additional Health Concerns Infection Onset Date Last Indicated Resolved Time COVID-19 Rule Out 09/16/2022 09/16/2022 09/16/2022 12:39 PM CDT COVID-19 Rule Out 03/13/2024 03/13/2024 03/13/2024 9:19 PM CDT Respiratory Rule Out 02/23/2025 02/23/2025 025 11:00 AM CDT COVID-19 Rule Out 02/26/2025 02/26/2025 02/26/2025 12:12 PM CDT Respiratory Rule Out 02/26/2025 02/26/2025 025 1:11 PM CDT documented as of this encounter Care Teams Centrifugal Wax Molder Relationship Specialty Start Date End Date Jose Beverly MD [address] [place] [phone] PCP - General FAMILY PRACTICE 01/11/19 Brad Riojas MD [address] [place] [phone] Vascular/Access Database Developer VASCULAR SURGERY 12/26/23 01/31/25 Kortney Coronado NP [address] [place] [id number] Nurse Practitioner Nurse Practitioner Family 03/27/24 documented as of this encounter
--- OUTSIDE RECORDS SUMMARY | 2025-06-01 15:14 | XMS_ITS | Clinical Summary ---
Author Organization [facility] Address [address] [place] [id number] Care Team Providers Care Regional Truck Driver Name Role Phone Jose Delarosa MD Primary Care Provider Kortney Coronado SALES AUDIT CLERK Unavailable [phone] Allergies Active Allergy Reactions Criticality Noted Date [...] hours as needed for Shortness of breath. 2 Active vitamin D2, ergocalciferol, (DRISDOL) 1.25 mg capsule Take 1 capsule (1.25 mg total) by mouth every 7 days. Active nystatin (MYCOSTATIN) powder Apply topically 4 (four) times daily. 30 g 3 Active conjugated estrogens (PREMARIN) 0.625 MG/GM vaginal cream Place vaginally daily. Active aspirin EC (ECOTRIN) 81 MG tablet Take 1 tablet (81 mg total) by mouth daily. 90 tablet 3 4 Active cilostazol (PLETAL) 100 MG tablet Take 1 tablet (100 mg total) by mouth 2 (two) times daily. 180 tablet 3 4 Active insulin glargine (LANTUS) 100 UNIT/ML injection (VIAL) Inject 50 Units into the skin nightly at bedtime. Active omeprazole (PRILOSEC) 40 MG capsule Take 1 capsule (40 mg total) by mouth daily. 30 capsule 1 5 Active insulin lispro (HUMALOG/ADMELO G) 100 UNIT/ML injection (VIAL) Inject 22 Units into the skin 3 (three) times daily before meals. Historical med dose changed 5 Active meloxicam (MOBIC) 7.5 MG tablet Take 1 tablet (7.5 mg total) by mouth daily. 30 tablet 5 Active Active Problems Problem Noted Date Diagnosed Date DKA (diabetic ketoacidosis) ([facility]) Intractable vomiting with nausea 02/24/2025 Other chest pain 10/30/2024 Sprain of left ankle, unspec ified ligament, initial encounter 06/20/2024 De Quervain's tenosynovitis, left 06/20/2024 PVD (peripheral vascular disease) 01/09/2024 Encounters Date Type Department Care Team Description 05/18/2025 3:16 PM CDT - 05/18/2025 4:26 PM CDT Emergency [facility] [address] [facility] [place] [address] Kwaku Lucio MD Foot Pain Discharge Disposition: Home or Self Care (Routine Discharge) 05/18/2025 Travel 05/10/2025 4:30 PM CDT - 05/10/2025 8:40 PM CDT Emergency [facility] Emergency [facility] [place] [address] Noah Real MD Dizziness (LEG SWELLING) Discharge Disposition: Home or Self Care (Routine Discharge) 05/10/2025 Travel 02/24/2025 5:38 PM CDT - 03/02/2025 6:42 PM CDT Hospital Encounter [facility] 4th Floor Medical [address] [place] [address] Reg Bernardo MD Goyal, Pankaj, MD Mardani, Fareed, MD Discharge Disposition: Home or Self Care (Routine Discharge) from Last 3 Months Immunizations Immunization Administration Dates Next Due Td (TDVAX) 12/19/2020 [...] = 0.6 oz pur e alcohol) seldom [facility] Utilities Answer Date Recorded In the past 12 months has [employer] ([employer]), gas, oil, or water [employer] [facility] threatened to shut off services in your [...] were you homeless or living in a mcc (including now)? No 02/24/2025 Comments No Sex and Gender Information Value Date Recorded Sex Assigned at Female 01/14/2025 12:08 PM YARN CONDITIONER Legal Sex Female 9:38 PM YARN CONDITIONER Gender Identity Not on file Sexual Orientation Not on file Last Filed Vital Signs Vital Sign Reading Time Taken Comments Blood Pressure 127/73 05/18/2025 4:26 PM CDT Pulse 88 05/18/2025 3:20 PM CDT Temperature 36.4 C (97.6 F) 05/18/2025 3:20 PM CDT Respiratory Rate 20 05/18/2025 4:26 PM CDT Oxygen Saturation 96% 05/18/2025 4:26 PM CDT Inhaled Oxygen Concentration - - Weight 87.1 kg (192 lb) 05/18/2025 3:20 PM CDT Height 167.6 cm (5' 6) 05/18/2025 3:20 PM CDT Body Mass Index 30.99 05/18/2025 3:20 PM CDT Plan of Treatment Health Maintenance Due Date Last Done Comments ASCVD Statin 1968 Colorectal Cancer Screening Colonoscopy (10 Years) 1968 Kidney Health Evaluation 1968 Annual Physical 1971 Diabetes: Retinopathy Eye Exam 1986 Hepatitis B Vaccines (1 of 3 - 19+ 3-dose series) 1987 Pneumococcal Vaccine: 50+ Years (1 of 2 - PCV) 1987 Zoster Vaccines (1 of 2) 2018 ASCVD LDL 01/31/2019 01/31/2018, 06/21/2017 Lipid Panel 11/13/2021 11/13/2020, 10/27, 01/31/2018, Additional history exists COVID-19 Vaccine ( - season) 2024 Hemoglobin A1C 05/26/2025 02/24/2025, 1202/2024, 04/27/2023, Additional history exists Mammogram Screening 01/14/2027 01/14/2025, 12/15/2023, 01/19/2022, Additional history exists DTaP, Tdap and Td Vaccines (3 - Td or Tdap) 12/19/2030 12/19/2020, 08/13/2010 Hepatitis C Completed 11/07/2020 Meningococcal B Vaccine Aged Out No l onger eligible based on patient's age to complete this topic Meningococcal Vaccine Aged Out No dayami romeo eligible based on patient's age to complete this topic RSV Immunizations Under 20 Months Aged Out No longer eligible based on patient's age to complete this topic Procedures Procedure Name Priority Date/Time Associated Diagnosis Comments XR FOOT RT 3V STAT 05/18/2025 3:43 PM CDT COMPREHENSIVE METABOLIC PANEL STAT 05/18/2025 3:38 PM CDT CBC W/DIFF AUTOMATED STAT 05/18/2025 3:38 PM CDT US ROSEANNA DUPLEX LOW EXT AMAN STAT 05/10/2025 8:07 PM CDT XR CHEST PORTABLE STAT 05/10/2025 6:0 0 PM CDT BETA-HYDROXYBUTYRATE STAT 05/10/2025 5:11 PM CDT MAGNESIUM STAT 05/10/2025 5:11 PM CDT PRO-BRAIN NATRIURETIC PEPTIDE STAT 05/10/2025 5:11 PM CDT LIPASE STAT 05/10/2025 5:11 PM CDT TROPONIN, QUANT STAT 05/10/2025 5:11 PM CDT BLOOD GAS, VENOUS STAT 05/10/2025 5:1 1 PM CDT COMPREHENSIVE METABOLIC PANEL STAT 05/10/2025 5:11 PM CDT CBC W/DIFF AUTOMATED STAT 05/10/2025 5:11 PM CDT ECG 12-LEAD STAT 05/10/2025 5:01 PM CDT POCT GLUCOSE - DOCKED DEVICE Routine 03/02/2025 5:16 PM CDT POCT GLUCOSE - DOCKED DEVICE Routine 03/02/2025 12:10 PM CDT POCT GLUCOSE - DOCKED DEVICE Routine 03/02/2025 5:50 AM CDT BASIC METABOLIC PANEL Routine 03/02/2025 4:44 AM CDT CBC W/DIFF AUTOMATED Routine 03/02/2025 4:44 AM CDT HEMOGLOBIN, GLYCOSYLATED Routine 02/24/2025 10:17 PM CDT MG SCREENING W DOMENICA AMAN DIGI Routine 01/14/2025 12:45 PM YARN CONDITIONER Visit for screening mammogram LIPID PANEL Routine 01/31/2018 11:23 AM YARN CONDITIONER from Last 3 Months or Most Recently Relevant to Health Maintenance Results * XR FOOT RT 3V (05/18/2025 3:43 PM CDT) Anatomical Region Laterality Modality Foot Radiographic Lorin ging 05/18/2025 3:58 PM CDT Impressions 05/18/2025 4:00 PM CDT IMPRESSION: No acute bony abnormality about the bones of the foot. Prominent Achilles and plantar enthesopathy is present similar compared back to September 2018. Increasing degenerative changes about the digits. Referred By: Interpreted By: Brandt Vital MD, 05/18/2025 3:58 PM Narrative 05/18/2025 4:[address] [place] [address] Procedure(s): XR FOOT RT 3V Date of service: 05/18/2025 3:32 PM Provided clinical information: 54 years, Female, pain Procedure and materials: 3 views RIGHT foot. Comparison studies: October 25, 2018. Findings: Prominent Achilles and plantar enthesopathy. Posterior process of the talus is present. No ankle effusion. First MTP joint space narrowing. DIP joint space narrowing is present involving the second, third and fourth digits greatest in the third digit. Procedure Note Brandt Vital MD - 05/18/[address] [place] [address] Procedure(s): XR FOOT RT 3V Date of service: 05/18/2025 3:32 PM Provided clinical information: 54 years, Female, pain Procedure and materials: 3 views RIGHT foot. Comparison studies: October 25, 2018. Findings: Prominent Achilles and plantar enthesopathy. Posterior process of the talus is present. No ankle effusion. First MTP joint space narrowing. DIP joint space narrowing is present involving the second, third andfourth digits greatest in the third digit. IMPRESSION: No acute bony abnormality about the bones of the foot. Prominent Achilles and plantar enthesopathy is present similar comparedback to September 2018. Increasing degenerative changes about the digits. Referred By: Interpreted By: Brandt Vital MD, 05/18/2025 3:58 PM Kwaku Lucio MD GENERAL IMAGING Final Result * (ABNORMAL) COMPREHENSIVE METABOLIC PANEL (05/18/2025 3:38 PM CDT) Only the most recent of2 resultswithin the time period is included. SODIUM S/P/B 135(L) 136 - 145 MMOL/L 05/18/2025 4:00 PM CDT [facility] POTASSIUM S/P/B 3.9 3.5 - 5.1 MMOL/L 05/18/2025 4:00 PM CDT [facility] CHLORIDE S/P/B 99 98 - 107 MMOL/L 05/18/2025 4:00 PM CDT [facility] CO2 27.1 21.0 - 32.0 MMOL/L 05/18/2025 4:00 PM CDT [facility] GLUCOSE 291(H) 70 - 99 MG/DL 05/18/2025 4:00 PM CDT [facility] Comment: FASTING GLUCOSE 100 TO 125 MG/DL IS CONSISTENT WITH IMPAIRED FASTING GLUCOSE. FASTING GLUCOSE >125 MG/DL IS CONSISTENT WITH DIABETES. RANDOM GLUCOSE >200 MG/DL WITH HYPERGLYCEMIC SYMPTOMS IS CONSISTENT WITH DIABETES. PER ADA GUIDELINES BUN 15 6 - 24 MG/DL 05/18/2025 4:00 PM CDT [facility] CREATININE S/P/B 0.68 0.55 - 1.02 MG/DL 05/18/2025 4:00 PM CDT [facility] CALCIUM S/P/B 9.7 8.4 - 10.5 MG/DL 05/18/2025 4:00 PM CDT [facility] BILIRUBIN TOTAL S/P/B 0.4 0.2 - 1.0 MG/DL 05/18/2025 4:00 PM T [facility] Comment: THIS ASSAY IS NOT RECOMMENDED FOR PATIENTS UNDERGOING TREATMENT WITH ELTROMBOPAG DUE TO THE POTENTIAL FOR FALSELY ELEVATED RESULTS. ALKALINE PHOSPHATASE S/P/B 112 46 - 118 U/L 05/18/2025 4:00 PM CDT [facility] AST 16 15 - 37 U/L 05/18/2025 4:00 PM CDT [facility] ALT 34 14 - 59 U/L 05/18/2025 4:00 PM CDT [facility] TOTAL PROTEIN S/P/B 6.9 6.4 - 8.2 G/DL 05/18/2025 4:00 PM CDT [facility] ALBUMIN S/P/B 3.5 3.4 - 5.0 G/DL 05/18/2025 4:00 PM CDT [facility] ANION GAP 8.9 5.0 - 15.0 MMOL/L 05/18/2025 4:00 PM CDT [facility] OSMOLALITY (CALC) 292 MOSM/KG 025 4:00 PM CDT [facility] Comment:REFERENCE RANGE NOT ESTABLISHED GFR ESTIMATE >90 >89 ML/MIN/1. 73 M2 05/18/2025 4:00 PM CDT [facility] GFR NOTES GFR REFERENCE S: 05/18/2025 4:00 PM CDT [facility] Comment: THE ESTIMATED GFR IS [...] ml/min/1.73 m2 G5,KIDNEY FAILURE: <15 ml/min/1.73 m2 05/18/2025 3:38 PM CDT us Kwaku Lucio MD LABORATORY Final Result [facility] [address] [place] [address], * (ABNORMAL) CBC W/DIFF AUTOMATED (05/18/2025 3:38 PM CDT) Only the most recent of3 resultswithin the time period is included. WBC 5.82 4.00 - 10.80 x10'3/uL 05/18/2025 3:44 PM CDT [facility] RBC 4.92 4.10 - 5.40 x10'6/uL 05/18/2025 3:44 PM CDT [facility] HGB 13.8 12.0 - 16.0 G/DL 05/18/2025 3:44 PM CDT [facility] HCT 42.1 36.0 - 47.0 % 05/18/2025 3:44 PM CDT [facility] MCV 85.6 78.0 - 100.0 FL 05/18/2025 3:44 PM CDT [facility] MCH 28.0 27.0 - 31.0 PG 05/18/2025 3:44 PM CDT [facility] MCHC 32.8(L) 33.0 - 36.0 G/DL 05/18/2025 3:44 PM CDT [facility] RDW 12.2 11.5 - 14.5 % 05/18/2025 3:44 PM CDT [facility] PLT 193 150 - 350 x10'3/uL 05/18/2025 3:44 PM CDT [facility] MPV 10.3 7.4 - 10.4 FL 05/18/2025 3:44 PM CDT [facility] CBC COMMENT NORMAL REFERENCE RANGE NOT ESTABLISHED FOR THE PROPORTIONAL LEUKOCYTE DIFFERENTIAL. 05/18/2025 3:44 PM CDT [facility] NEUTROPHILS % 51.5 % 05/18/2025 3:44 PM CDT [facility] LYMPHOCYTES % 32.1 % 05/18/2025 3:44 PM CDT [facility] MONOCYTES % 12.9 % 05/18/2025 3:44 PM CDT [facility] EOSINOPHILS % 2.9 % 05/18/2025 3:44 PM CDT [facility] BASOPHILS % 0.3 % 05/18/2025 3:44 PM CDT [facility] IMMATURE GRANS % 0.3 % 05/18/20 3:44 PM CDT [facility] NRBC % 0.0 % 05/18/2025 3:44 PM CDT [facility] ABS. NEUTROPHILS 2.99 1.60 - 8.30 x10'3/uL 05/18/2025 3:44 PM CDT [facility] ABS. LYMPHOCYTES 1.87 0.80 - 4.70 x10'3/uL 05/18/2025 3:44 PM CDT [facility] ABS. MONOCYTES 0.75 0.00 - 1.50 x10'3/uL 05/18/2025 3:44 PM CDT [facility] ABS. EOSINOPHILS 0.17 0.00 - 0.40 x10'3/uL 05/18/2025 3:44 PM CDT [facility] ABS. BASOPHILS 0.02 0.00 - 0.20 x10'3/uL 05/18/2025 3:44 PM CDT [facility] ABS. IMMATURE GRANULOCYTES 0.02 0.00 - 0.03 x10'3/uL 05/18/2025 3:44 PM CDT [facility] ABS. NUCLEATED RBC'S 0.00 0.00 - 0.01 x10'3/uL 05/18/2025 3:44 PM CDT [facility] 05/18/2025 3:38 PM CDT us Kwaku Lucio MD LABORATORY Final Result [facility] [address] [place] [address], * US ROSEANNA DUPLEX LOW EXT AMAN (05/10/2025 8:07 PM CDT) Anatomical Region Laterality Modality NA Ultrasound 05/10/2025 8:11 PM CDT Impressions 05/10/2025 8:37 PM CDT Impression: No sonographic evidence of deep vein thrombosis bilaterally. Dictated By: Neeta Mayberry MD on 05/10/2025 8:11 PM The attending radiologist has reviewed the image(s) and agrees with the content of this report. Referred By: JOSÉ MIGUEL ARCHIBALD Interpreted By: Neeta Mayberry MD, 05/10/2025 8:11 PM Narrative 05/10/2025 8:37 PM [id number] [place] [id number] Examination: Bilateral lower extremity venous ultrasound. Clinical Information: Leg swelling, worse on the right. Comparison: None. Technique: Grayscale, color Doppler and spectral waveform sonographic images of the lower extremity deep venous system were obtained. Findings: The bilateral common femoral, greater saphenous, proximal, mid and distal femoral and popliteal veins are patent and free of thrombus. The veins are normally compressible and have normal phasic flow and augmentation response. The paired peroneal and posterior tibial calf veins are patent. Procedure Note Chacho Rayo MD - 05/10/[id number] [place] [id number] Examination: Bilateral lower extremity venous ultrasound. Clinical Information: Leg swelling, worse on the right. Comparison: None. Technique: Grayscale, color Doppler and spectral waveform sonographicimages of the lower extremity deep venous system were obtained. Findings: The bilateral common femoral, greater saphenous, proximal, mid and distalfemoral and popliteal veins are patent and free of thrombus. The veins arenormally compressible and have normal phasic flow and augmentationresponse. The paired peroneal and posterior tibial calf veins are patent. Impression: No sonographic evidence of deep vein thrombosis bilaterally. Dictated By: Neeta Mayberry MD on 05/10/2025 8:11 PM The attending radiologist has reviewed the image(s) and agrees with thecontent of this report. Referred By: JOSÉ MIGUEL ARCHIBALD Interpreted By: Neeta Mayberry MD, 05/10/2025 8:11 PM us José Miguel Archibald MD ULTRASOUND Final Result * XR CHEST PORTABLE (05/10/2025 6:00 PM CDT) Anatomical Region Laterality Modality Chest Radiographic Lorin ging 05/10/2025 6:54 PM CDT Impressions 05/10/2025 6:55 PM CDT IMPRESSION:===== 1. NO ACUTE CARDIOPULMONARY FINDINGS. Referred By: Interpreted By: Ronn Morgan MD, 05/10/2025 6:54 PM Narrative 05/10/2025 6:[address] PM [address] [address] EXAMINATION: Chest X-Ray 1 View EXAM DATE/TIME: 05/10/2025 5:58 PM REASON FOR EXAM: Dizziness with chest pain and shortness of breath. COMPARISON: Chest from 02/26/2025. TECHNIQUE: Single upright frontal projection view of the chest was obtained. FINDINGS: There is no focal infiltrate or consolidative change. Heart size is within normal limits for technique. Pulmonary vasculature is within normal limits for technique. There is no large pleural effusion or pneumothorax. ===== Procedure Note Ronn Morgan MD - 05/10/[address] [address] EXAMINATION: Chest X-Ray 1 View EXAM DATE/TIME: 05/10/2025 5:58 PM REASON FOR EXAM: Dizziness with chest pain and shortness of breath. COMPARISON: Chest from 02/26/2025. TECHNIQUE: Single upright frontal projection view of the chest wasobtained. FINDINGS: There is no focal infiltrate or consolidative change. Heart sizeis within normal limits for technique. Pulmonary vasculature is withinnormal limits for technique. There is no large pleural effusion orpneumothorax. ===== IMPRESSION:===== 1. NO ACUTE CARDIOPULMONARY FINDINGS. Referred By: Interpreted By: Ronn Morgan MD, 05/10/2025 6:54 PM José Miguel Archibald MD GENERAL IMAGING Final Result * BETA-HYDROXYBUTYRATE (05/10/2025 5:11 PM CDT) BETA-HYDROXYBUT YRATE 0.1 0.0 - 0.3 MMOL/L 05/10/2025 5:34 PM CDT [facility] 05/10/2025 5:11 PM CDT José Miguel Archibald MD LABORATORY Final Result Performing Organization Address [facility] de Phone Number [facility] [address] [place] [address], [phone] * PRO-BRAIN NATRIURETIC PEPTIDE (05/10/2025 5:11 PM CDT) PRO-B TYPE NATRIURETIC PEPTIDE 24 <125 PG/ML 05/10/2025 5:50 PM CDT [facility] Comment: AGE INDEPENDENT: <300 PG/ML [...] OF 89% AND 72% FOR ACUTE CHF. 05/10/2025 5:11 PM CDT us José Miguel Archibald MD LABORATORY Final Result Performing Organization Address [facility] Co de Phone Number [facility] [address] [place] [address], [phone] * (ABNORMAL) Blood gas, venous (05/10/2025 5:11 PM CDT) PH VENOUS 7.40 7.32 - 7.42 05/10/2025 5:32 PM CDT [facility] PCO2 VENOUS 43.8 41.0 - 51.0 MMHG 05/10/2025 5:32 PM CDT [facility] PO2 VENOUS 65.1(H) 25.0 - 40.0 MM HG 05/10/2025 5:32 PM CDT [facility] BICARB VENOUS 26.5 24 - 28 MMOL/L 05/10/2025 5:32 PM CDT [facility] TOTAL CO2 VENOUS 27.9 25.0 - 29.0 MMOL/L 05/10/2025 5:32 PM CDT [facility] BASE EXCESS VENOUS 1.8 0 - 2 MMOL/L 05/10/2025 5:32 PM CDT [facility] O2 SAT VENOUS 93(H) <75 % 05/10/2025 5:32 PM CDT [facility] 05/10/2025 5:11 PM CDT us José Miguel Archibald MD LABORATORY Final Result Performing Organization Address City/[facility]/ZIP Co de Phone Number [facility] [address] [place] [address], [phone] * TROPONIN, QUANT (05/10/2025 5:11 PM CDT) Pathologist [facility] TROPONIN I HIGH SENSITIVITY 3 0 - 53 ng/L 05/10/2025 5:50 PM CDT [facility] 05/10/2025 5:11 PM CDT us José Miguel Archibald MD LABORATORY Final Result [facility] [address] [place] [address], [place] [phone] * MAGNESIUM (05/10/2025 5:11 PM CDT) MAGNESIUM 1.9 1.6 - 2.6 MG/DL 05/10/2025 5:50 PM CDT [facility] Comment:RESULT QUESTIONABLE DUE TO HEMOLYSIS, CONSIDER RECOLLECTION. 05/10/2025 5:11 PM CDT us José Miguel Archibald MD LABORATORY Final Result Performing Organization Address [facility] Co de Phone Number [facility] [address] [place] [address], [place] [phone] * LIPASE (05/10/2025 5:11 PM CDT) LIPASE 21 13 - 75 UNITS/L 05/10/2025 5:50 PM CDT [facility] 05/10/2025 5:11 PM CDT us José Miguel Archibald MD LABORATORY Final Result Performing Organization Address [facility] de Phone Number [facility] [address] [place] [address], [place] [phone] * ECG 12 lead (05/10/2025 5:01 PM CDT) 05/10/2025 5:01 PM CDT Narrative [facility] - 05/10/2025 9:21 PM CDT [facility] Test Date: 2025-05-10 Pat Name: SHANTA BOSE Department: 70 Room: EXAM Gender: Female Director Economic: Ramón ZULUAGA : 1970 Requested By: JOSÉ MIGUEL ARCHIBALD Order Number: [id number] Reading MD: Aj Escobedo Measurements Intervals [place] Rate: 83 P: 41 CA: 156 QRS: -13 QRSD: 90 T: 48 QT: 368 QTc: 433 Interpretive Statements SINUS RHYTHM Procedure Note Aj Escobedo MD - 05/10/2025 [facility] Test Date: 2025-05-10 Pat Name: SHANTA BOSE Department: 70 Room: EXAM SS Gender: Female Director Economic: Ramón ZULUAGA : 1970 Requested By: JOSÉ MIGUEL ARCHIBALD Order Number: [id number] Reading MD: Aj Escobedo Measurements Intervals [place] Rate: 83 P: 41 CA: 156 QRS: -13 QRSD: 90 T: 48 QT: 368 QTc: 433 Interpretive Statements SINUS RHYTHM us José Miguel Archibald MD ECG ORDERABLES Final Result Performing Organization Address City/[facility]/ZIP Co de Phone Number [facility] * (ABNORMAL) POCT glucose (03/02/2025 5:16 PM CDT) Only the most recent of3 resultswithin the time period is included. GLUCOSE POC 289(H) 70 - 109 03/02/2025 5:34 PM CDT [facility] 03/02/2025 5:16 PM CDT us Mg Kendrick MD POCT ORDERABLES - DEVICE Final Result Performing Organization Address [facility]/ZIP Co de Phone Number [facility] [address] [place] [address], [phone] * (ABNORMAL) BASIC METABOLIC PANEL (03/02/2025 4:44 AM CDT) SODIUM S/P/B 133(L) 136 - 145 MMOL/L 03/02/2025 5:42 AM CDT [facility] POTASSIUM S/P/B 3.3(L) 3.5 - 5.1 MMOL/L 03/02/2025 5:42 AM T [facility] CHLORIDE S/P/B 101 97 - 115 MMOL/L 03/02/2025 5:42 AM [facility] CO2 26.2 21.0 - 32.0 MMOL/L 03/02/2025 5:42 AM T [facility] GLUCOSE 209(H) 74 - 106 MG/DL 03/02/2025 5:42 AM T [facility] BUN 14 7 - 18 MG/DL 03/02/2025 5:42 AM [facility] CREATININE S/P/B 0.54(L) 0.55 - 1.02 MG/DL 03/02/2025 5:42 AM [facility] CALCIUM S/P/B 8.7 8.5 - 10.1 MG/DL 03/02/2025 5:42 AM [facility] ANION GAP 5.8 2.0 - 10.0 MMOL/L 03/02/2025 5:42 AM [facility] OSMOLALITY (CALC) 283 MOSM/KG 025 5:42 AM [facility] Comment:REFERENCE RANGE NOT ESTABLISHED GFR ESTIMATE >90 >90 ML/MIN/1. 73 M2 03/02/2025 5:42 AM [facility] GFR NOTES GFR REFERENCE S: 03/02/2025 5:42 AM [facility] Comment: THE ESTIMATED GFR IS [...] <15 ml/min/1.73 m2 03/02/2025 4:44 AM CDT Mg Kendrick MD LABORATORY Final Result Performing Organization Address [facility] Co de Phone Number [facility] [address] [place] [address], [phone] * (ABNORMAL) HEMOGLOBIN, GLYCATED (02/24/2025 10:17 PM CDT) HGB A1C 11.9(H) <5.7 % 02/25/2025 2:06 AM CDT [facility] ESTIMATED AVG GLUCOSE 295(H) 74 - 114 MG/DL 02/25/2025 2:06 AM CDT [facility] 02/24/2025 10:1 7 PM CDT Reg Bernardo MD LABORATORY Final Result Performing Organization Address [facility] de Phone Number [facility] [address] [place] [address], [place] [phone] * MG SCREENING W DOMENICA AMAN DIGI (01/14/2025 12:45 PM YARN CONDITIONER) Anatomical Region Laterality Modality Breast Bilateral Mammography 01/14/2025 4:10 PM YARN CONDITIONER Impressions 01/14/2025 4:10 PM YARN CONDITIONER IMPRESSION: No suspicious change since the previous exams. Recommendation: 1: Routine Screening Bilateral in 1 Year Assessment: ACR BI-RADS 2 - BENIGN FINDING(S) Ordered By: JOSE DELAROSA Interpreted By: Reji Gao MD, 01/14/2025 4:10 PM Narrative 01/14/2025 4:10 PM [employer] [place] [id number] [facility] [place] [id number] Examination: Digital screening mammogram with CAD. Clinical [...] followup in one year would seem adequate. Jose Delarosa MD MAMMO Final Resul t * (ABNORMAL) LIPID PANEL (01/31/2018 11:23 AM [employer]) CHOLESTEROL 211(H) <200 MG/DL 01/31/2018 12:01 PM [employer] [facility] TRIGLYCERIDES 190(H) <150 MG/DL 01/31/2018 12:[address] [facility] HDL 48 >40 MG/DL 01/31/2018 12:[address] [facility] LAB LDL (CALCULATED) 125 <130 MG/DL 02/01/20 18 12:[address] [facility] Comment: AN LDL OF <100 IS OPTIMAL; HOWEVER, ELEVATED IS DEFINED >130.BY ATP III GUIDELINES, LDL GOALS ARE DEPENDENT UPON THE PATIENT'S OTHER RISK FACTORS. CHOL/HDL RATIO 4.4 0.0 - 5.0 01/31/2018 12:[address] [facility] 01/31/2018 11:2 3 AM YARN CONDITIONER 01/31/2018 11:25 AM YARN CONDITIONER us Generic Conversion Md [facility] Final R esult [facility] [place] [address], from Last 3 Months or Most Recently Relevant to Health Maintenance Insurance [employer] Advance Directives * Full Code (Latest Code Status on File) Date Activated Date Inactivated Comments 02/24/2025 5:45 PM 03/02/2025 8:52 PM Care Teams Regional Truck [employer] Relationship Specialty Start Date End Date Jose Delarosa MD [address] [place] [phone] PCP - General FAMILY PRACTICE 01/11/19 Kortney Coronado NP [address] [place] [id number] Nurse Practitioner Nurse Practitioner Family 03/27/24
--- OUTSIDE RECORDS SUMMARY | 2025-06-01 15:15 | XMS_ITS | Data Portability ---
Author Organization [facility], [address] [facility] ([place]) Address [address] 4th [place] [address] Care Team Providers Care Forms Analysis Manager Name Role Phone JOSE DELAROSA Primary Care Provider RAJAT COBB Counter Helper Assessment Encounter Date Assessment Date Assessment LastModified by Organization Details LastModified Time 09/09/2024 09/09/2024 Discussed with h er in great detail about her LFTs which [...] well as the weight from FibroScan report. [email or web address] Not available 09/09/2024 12:09:58 03/11/2025 03/11/2025 1. Atypical ches t pain syndrome. Based on the negative troponin in the midst of DKA and a normal coronary artery CT angiogram with a calcium score of 0, my clinical suspicion for missed epicardial coronary artery disease is low. The patient may have microvascular disease and I recommend medical therapy as listed below. 2. Peripheral vascular disease with right posterior tibial artery occlusion. This may be an overread on the CT angiogram or congenital or embolic phenomena. I recommend medical therapy. She is on aspirin 81 mg a day, atorvastatin with a target LDL below 70 mg/dL's. Should she not reach a triglyceride level below 200 mg/dL I recommend adding Vascepa. Her leg pain is musculoskeletal and not claudication. I advised her to see podiatry. 3. Hypertension. I advised her to purchase a digital blood pressure monitor for home use and report the results to the primary office or us to titrate her medications primarily based on MAITE inhibitors or ARB's to obtain a target blood pressure below 130/85. 4. Untreated diabetes. We discussed the clinical significance of recurrent episodes of diabetic ketoacidosis and hyper glycemia. She understands it. She will see endocrinology. Cardiovascular follow-up yearly Thank you [email or web address] Not available 03/11/2025 12:49:31 04/04/2025 04/04/2025 REASONS FOR FOLLOW-UP: 1. Uncontrolled type 2 diabetes mellitus. 2. Hospitalization for uncontrolled diabetes when presenting in mild acidosis in late January 2025. 3. Insulin pump therapy. 4. BMI greater than 30. HISTORY OF PRESENT ILLNESS: Ms. Maranda Bose is a very pleasant patient returning to endocrine clinic. She was seen in hospital consultation at [facility] in early February 2025 for uncontrolled type 2 diabetes mellitus. She was admitted with mild acidosis. The patient required multiple admissions to hospitals for uncontrolled type 2 diabetes during the preceding year. The patient reported learning of a diagnosis of type 2 diabetes at perhaps 43 years of age. She has microvascular complications including retinopathy and peripheral neuropathy. She last had an eye exam at [facility] in [place]. She notes long history of uncontrolled type 2 diabetes. She had been using a Medtronic insulin pump and found this device stored in a box at home and resumed insulin pump therapy April 02, 2025. Prior to that, she had been taking Lantus 50 units at bedtime and Humalog 22 to 32 units at meals three times daily. Hemoglobin A1c during hospitalization was 11.9% in February 2025. The patient is not presently using the sensor for her closed-loop system. She reports glucose values in the 200s to 300s. BMI is greater than 30. Body weight is 10 pounds more as compared to December 2023. She reports holding on to fluid weight in her legs, which has caused her weight to increase. She does not follow any specific nutrition program for her diabetes. Insulin pump settings are outlined in the diabetes management flowsheet. She does not have a functioning glucometer of her own at home. The patient has hyperlipidemia. She reports taking statin therapy without any intolerances. She notes that she his busy with multiple jobs she holds. She follows in the outpatient setting with her primary care physician, Dr. Jose Delarosa. PHYSICAL EXAMINATION: CONST: The patient is in no acute distress. Appears well. Vitals as documented. BMI greater than 30. EYES: PERRL. EOMI. No scleral icterus or injection. No exophthalmos or lid lag. ENT: External inspection of the ears and nose is without scars, lesions, or masses. Oropharynx is pink, moist, and without lesions. Neck without thyromegaly, thyroid bruits, or carotid bruits. No cervical or supraclavicular lymphadenopathy. RESP: Lung villasenor clear to auscultation bilaterally with unlabored respiratory effort. CV: Normal S1, S2. No murmurs, rubs, or gallops appreciated. Regular rate and rhythm. DP pulses palpable. GI: Abdomen is soft and nontender. Normoactive bowel sounds. Unable to assess for organomegaly given body habitus. MSK: Trace lower extremity edema. No clubbing or cyanosis. Normocephalic. SKIN: No rashes or lesions. Mild pre-ulcerative callus seen. No foot wounds noted. Acanthosis and skin tags absent. Onychomycosis present. PSYCH: Alert and oriented x3. Appropriate mood and affect. NEURO: No focal neurologic deficits. Gait without abnormalities. No hand tremors. Monofilament sensation of the feet normal on examination April 04, 2025. Reviewed recent diagnostic tests, lab work, and imaging. These were reviewed with the patient. DIAGNOSTIC DATA: Hemoglobin A1c in February 2025 was 11.9%. ASSESSMENT: 1. Uncontrolled type 2 diabetes mellitus with multiple hospitalizations for uncontrolled hyperglycemia: Microvascular complications include peripheral neuropathy as well as retinopathy. 2. Historical noncompliance with prescribed diabetes programs and followup appointments: The patient previously was seen at [facility] Endocr[facility]ology. She has not consistently followed with any endocrine provider in the outpatient setting. 3. Hyperlipidemia. 4. BMI greater than 30. 5. Use of insulin pump therapy. RECOMMENDATIONS: 1. Potential benefits, risks, and adverse effects of the patient s endocrine medications were reviewed at the time of the appointment. We also reviewed appropriate timing of the patient s endocrine medications with respect to meals and other medications. The patient verbalized/indicat ed understanding of all education presented. 2. The patient was instructed on the plan of care. We discussed signs and symptoms to report. The patient/caregiver is aware and agreeable with plan. Return to clinic if signs or symptoms do not improve, worsen, or if new symptoms develop. The importance of achieving and maintaining a normal BMI was discussed. 3. Diagnostic studies as outlined in this note. Further recommendations will be based on these results as well as the patient s clinical course. 4. Return to endocrinology clinic in 3-4 months. 5. Multiple adjustments will be made in the patient's insulin pump settings as outlined in the diabetes management flowsheet. She met with [facility] at the time of her appointment April 04, 2025, to investigate and order the necessary items for her Guardian sensor so that she may create a closed-loop system with her Medtronic insulin pump. 6. Prescriptions were sent for glucometer, test strips, and lancets to the patient's pharmacy. 7. We reviewed blood pressure and lipid goals in detail today. 10. Continue statin therapy. 11. Compliance with her prescribed diabetes program in the outpatient setting was strongly encouraged. 12. The patient resides at home with two of her children. 13. We will obtain a copy of her most recent eye examination. I personally spent a total of 45 minutes on the patient on this date of service including both vmik-oq-vyif and mco-fqer-em-face time excluding any separately reportable services. [email or web address] Not available 04/04/2025 18:05:13 04/15/2025 04/15/2025 Did tell her navid t she is due in fall of this year for her hepatic steatosis follow-up. Will contact her around that time when she is due. Did tell her she is due for a colonoscopy for screening in July 2027 we will contact her around the time that she is due for that. For the nausea vomiting, does appear that this was secondary to her poor diabetic control since her diabetes has been under much better control this is no longer a problem. She will let me know if the nausea, the vomiting, the dry heaves do return at which time we might want to check a gastric emptying scan. She appeared to be perfectly fine with our plan and discussion at this time. [email or web address] Not available 04/15/2025 12:19:57 Plan of Treatment Reminders Order Date Submit Date Provider Last Modified By Organization Details Last Modified Time Details Appointments New Patient Visit 20.NEW 2024 09:40A M Sandi Matthew Not available Not available Not available Establish ed Patient 15.EST 2024 09:30A M Dr. Gio Huang Not available Not available Not available Lab CMP, serum or plasma 2024 025 [facility], [address] [place] [address], [id number], 04/06/2025 13:47:47 microalbu min, urine 2024 025 [facility], [address] [place] [address], [id number], 04/04/2025 17:53:55 TSH, serum or plasma 2024 025 [facility], [address] [place] [address], [id number], 04/04/2025 17:57:33 vitamin B12, serum 2024 025 [facility], [address] [place] [address], [id number], 04/06/2025 16:23:37 LDL, direct, serum 2024 025 [facility], [address] [place] [address], [id number], 04/04/2025 17:57:35 cholester ol, total, serum 2024 025 [facility], [address] [place] [address], [id number], 04/04/2025 17:57:36 Referral None recorded. Procedures None recorded. Surgeries None recorded. Imaging None recorded. Medication Orders None recorded. Patient TargetsNo targets recorded. Patient InstructionsNo instructions recorded. Reason for Referral None Reported. Results Created Date Observation Date Name Description Value Unit Range Abnormal Flag Note LastModifiedBy Organization Detail LastModifiedTime 09/02/20 24 09/02/2024 hepat ic funct ion panel , serum liver function panel Not Available [facility] [address] [place] [address], [id number], 09/02/2024 18:42:17 09/02/2009/02/2024 hepat ic funct ion panel , serum albumin 4.5 g/dL 3.5-5. 3 Not Available [facility] [address] [place] [address], [id number], 09/02/2024 18:42:17 09/02/2009/02/2024 hepat ic funct ion panel , serum direct bilirubin <0.1 mg/dL 0.1-0. 5 low Not Available [facility] [address] [place] [address], [id number], 09/02/2024 18:42:17 09/02/20 24 09/02/2024 hepat ic funct ion panel , serum indirect bilirubin * mg/dL 0.1-0. 6 Unabl e to calcu late Indir ect Bilir ubin due to low Direc t Bilir ubin Not Available [facility] [address] [place] [address], [id number], 09/02/2024 18:42:17 09/02/20 24 09/02/2024 hepat ic funct ion panel , serum total bilirubin 0.3 mg/dL 0.2-1. 0 Not Available [facility] [address] [place] [address], [id number], 09/02/2024 18:42:17 09/02/20 24 09/02/2024 hepat ic funct ion panel , serum ALP 125 U/L 44 - 127 Not Available [facility] [address] [place] [address], [id number], 09/02/2024 18:42:17 09/02/20 24 09/02/2024 hepat ic funct ion panel , serum AST (SGOT) 33 U/L 10-40 Not Available [facility] [address] [place] [address], [id number], 09/02/2024 18:42:17 09/02/20 24 09/02/2024 hepat ic funct ion panel , serum ALT (SGPT) 45 U/L 8-35 high Not Available [facility] [address] [place] [address], [id number], 09/02/2024 18:42:17 09/02/20 24 09/02/2024 hepat ic funct ion panel , serum total protein 7.1 g/dL 6.4-8. 3 Not Available [facility] [address] [place] [address], [id number], 09/02/2024 18:42:17 04/04/20 25 04/04/2025 hemog lobin A1c, QN, blood fingerstick A1C endo Not Available [facility] [address] [place] [address], [id number], 04/04/2025 15:27:11 04/04/20 25 04/04/2025 hemog lobin A1c, QN, blood hemoglobin A1C, finger 10.9 %_A1C 4.3 - 5.6 high Not Available [facility] [address] [place] [address], [id number], 04/04/2025 15:27:11 04/04/20 25 04/04/2025 hemog lobin A1c, QN, blood fingerstick estimated [address] Not Available [facility] [address] [place] [address], [id number], 04/04/2025 15:27:11 04/04/20 25 04/04/2025 micro album in, urine microalbumin ,random panel Not Available [facility] [address] [place] [address], [id number], 04/04/2025 17:53:55 04/04/20 25 04/04/2025 micro album in, urine microalbumin random 0.5 mg/dL Not Available [facility] [address] [place] [address], [id number], 04/04/2025 17:53:55 04/04/20 25 04/04/2025 micro album in, urine creatinine, urine random 80 mg/dL Refer ence range not estab lishe d for other than 24 hour colle ction . Not Available [facility] [address] [place] [address], [id number], 04/04/2025 17:53:55 04/04/20 25 04/04/2025 micro album in, urine microalb/cre at ratio 6 ug/mg (Micr oalbu min/C reati nine Ratio : Zarina l: <30 UG/MG Creat Micro album inuri a: 30-30 0 UG/MG Creat Clini chelly Album inuri a: >300 UG/MG Creat The class ifica tion of a patie nt's prote inuri a shoul d be based upon at least 2 or 3 abnor mal resul ts colle cted withi n a 3 to 6 month time frame . *No zarina l range s have been estab lishe d for rando m Micro album in or Creat inine .) Not Available [facility] [address] [place] [address], [id number], 04/04/2025 17:53:55 04/04/20 25 04/04/2025 TSH, serum or plasm a TSH; reflex to free T4 Not Available [facility] [address] [place] [address], [id number], 04/04/2025 17:57:33 04/04/20 25 04/04/2025 TSH, serum or plasm a TSH3 0.687 uIU/m L .340-5 .600 Not Available [facility] [address] [place] [address], [id number], 04/04/2025 17:57:33 04/04/20 25 04/04/2025 LDL, direc t, serum direct LDL high Not Available [facility] [address] [place] [address], [id number], 04/04/2025 17:57:35 04/04/20 25 04/04/2025 LDL, direc t, serum direct LDL 106 mg/dL 0-100 high Not Available [facility] [address] [place] [address], [id number], 04/04/2025 17:57:35 04/04/20 25 04/04/2025 snehal stero l, total , serum cholesterol Not Available [facility] [address] [place] [address], [id number], 04/04/2025 17:57:36 04/04/2004/04/2025 snehal stero l, total , serum cholesterol 180 mg/dL <25-20 0 Not Available [facility] [address] [place] [address], [id number], 04/04/2025 17:57:36 04/04/20 25 04/04/2025 CMP, serum or plasm a sodium 138 mmol/ L 136-14 6 Not Available [facility] [address] [place] [address], [id number], 04/06/2025 13:47:47 04/04/2004/04/2025 CMP, serum or plasm a chloride 103 mmol/ L 98-110 Not Available [facility] [address] [place] [address], [id number], 04/06/2025 13:47:47 04/04/2004/04/2025 CMP, serum or plasm a CO2 31 mEq/L 20-32 Not Available [facility] [address] [place] [address], [id number], 04/06/2025 13:47:47 04/04/2004/04/2025 CMP, serum or plasm a calcium 9.5 mg/dL 8.4-10 .4 Not Available [facility] [address] [place] [address], [id number], 04/06/2025 13:47:47 04/04/20 25 04/04/2025 CMP, serum or plasm a total protein 6.8 g/dL 6.4-8. 3 Not Available [facility] [address] [place] [address], [id number], 04/06/2025 13:47:47 04/04/20 25 04/04/2025 CMP, serum or plasm a albumin 4.5 g/dL 3.5-5. 3 Not Available [facility] [address] [place] [address], [id number], 04/06/2025 13:47:47 04/04/20 25 04/04/2025 CMP, serum or plasm a ALP 117 U/L 44 - 127 Not Available [facility] [address] [place] [address], [id number], 04/06/2025 13:47:47 04/04/20 25 04/04/2025 CMP, serum or plasm a AST (SGOT) 31 U/L 10-40 Not Available [facility] [address] [place] [address], [id number], 04/06/2025 13:47:47 04/04/20 25 04/04/2025 CMP, serum or plasm a total bilirubin 0.4 mg/dL 0.2-1. 2 Not Available [facility] [address] [place] [address], 32032, 04/06/2025 13:47:47 04/04/2004/04/2025 CMP, serum or plasm a BUN 13 mg/dL 7-21 Not Available [facility] [address] [place] [address], [id number], 04/06/2025 13:47:47 04/04/20 25 04/04/2025 CMP, serum or plasm a creatinine 0.7 mg/dL 0.7-1. 3 Not Available [facility] [address] [place] [address], [id number], 04/06/2025 13:47:47 04/04/20 25 04/04/2025 CMP, serum or plasm a CKD-epi GFR 101 eGFR was calcu lated using the 2020 CKD-E PI equat ion. (Signal Apprentice maryjane Brook y Disea se has an eGFR less than 60 mL/mi n/1.7 3mm for a perio d of three month s or more. ) This calcu latio n has not been valid ated for patie nt ages <18 or >90 years old. Not Available [facility] [address] [place] [address], [id number], 04/06/2025 13:47:47 04/04/2004/06/2025 CMP, serum or plasm a comp. met. panel Not Available [facility] [address] [place] [address], [id number], 04/06/2025 13:47:47 04/04/20 25 04/06/2025 CMP, serum or plasm a potassium 3.8 mmol/ L 3.5-5. 1 Not Available [facility] [address] [place] [address], 75819, 04/06/2025 13:47:47 04/04/20 25 04/06/2025 CMP, serum or plasm a anion gap 8 mmol/ L 10-22 low Not Available [facility] [address] [place] [address], 78473, 04/06/2025 13:47:47 04/04/2004/06/2025 CMP, serum or plasm a glucose 261 mg/dL 70-100 high Not Available [facility] [address] [place] [address], [id number], 04/06/2025 13:47:47 04/04/20 25 04/06/2025 CMP, serum or plasm a ALT (SGPT) 39 U/L 8-35 high Not Available [facility] [address] [place] [address], 68071, 04/06/2025 13:47:47 04/04/20 25 04/06/2025 vitam in B12, serum vitamin B12 535 pg/mL 180-91 4 <145 pg/mL = Defic ient 145 - 180 pg/mL = Inter media te Not Available [facility] [address], [place], [address], 04/06/2025 16:23:37 09/25/20 24 11/03/2023 imagi ng/di agnos tic resul t No observ ation record ed. [email or web address] Not Available 12:56:23 03/03/20 25 02/06/2025 CT, angio gram, coron honey arter ies, w/ contr ast [facility] [address] [facility] [address] EXAMIN ATION: CARDIA C COMPUT ED TOMOGR [...] volume render ing were perfor med at separa te dedica tal [facility]. To reduce radiat ion dose, sequen tial [...] EMMA FINDIN GS: Hidalgo ry stenos is venkatn g is report ed using the follow ing [...] Normal . Pulmon honey veins: 3 pulmon hoeny veins enteri ng normal ly into the [...] By: Dwayne Olson, 03/03/20 1:12 PM [email or web address] [facility] [address] [place], [address], 03/03/2025 15:38:06 03/11/2002/26/2025 CT, abdom en + pelvi s, w/ contr ast No observ ation record ed. [email or web address] Not Available 2024 11:57:04 03/11/20 25 01/22/2025 CT, angio gram, abdom inal aorta , w/ runof f, w/ contr ast No observ ation record ed. [email or web address] Not Available 2024 11:57:04 03/11/20 25 10/31/2024 (SHANAE) ankle brach ial index * No observ ation record ed. [email or web address] Not Available 2024 11:56:23 03/11/20 25 US, duple x, venou s, lower extre mity No observ ation record ed. [email or web address] Not Available 2024 11:57:04 03/11/20 nucle ar stres s test No observ ation record ed. [email or web address] Not Available 2024 11:57:05 03/11/20 25 US, echoc ardio gram No observ ation record ed. [email or web address] Not Available 2024 11:57:05 03/25/20 25 09/15/2022 imagi ng/di agnos tic resul t No observ ation record ed. [email or web address] Not Available 06:16:45 Result Notes Documentation Provider Name and Address Organization Details Recorded Time Ct, Angiogram, Coronary Arteries, W/ Contrast : [facility] [address] [place], [place] [address] EXAMINATION: CARDIAC COMPUTED TOMOGRAPHY with CORONARY ANGIOGRAM [...] Calcium score of 0. Ordered By: BELÉN RIOJAS Interpreted By: Clive Olson, 03/03/2025 1:12 PM Elyse Anderson [facility], [facility] 03/03/2025 15:38:06 Problems Name Problem SNOMED Code Status Onset Date Resolution Date Notes Provider Name and Address Organization Details Recorded Time Peripheral vascular disease 460905472 Active 2024 Leonor Bernardino null, [facility] 5 09:21:31 Diabetic ketoacidosi s without coma 905798127 Active 2024 Leonorthom Lebron null, [facility] 5 09:21:57 Peripheral neuropathy due to type 2 diabetes mellitus 3870061183381 Active 2024 Gio Huang M.D. [address] [place] [address], [address], [employer] [facility] 5 16:49:00 Hyperlipide yane 40467483 Active 2024 Gio Huang M.D. [address] [facility], [place], [address], [employer] 5 16:49:07 Nausea and vomiting 45408402 Active 2024 Charles Berman APRN, [employer] [address] [place] [address], 41396[address] 3, [employer] [facility] 5 12:20:04 Type 2 diabetes mellitus 70111748 Active 2023 Hina Drake [facility] 4 14:56:54 Esophageal reflux finding 588093692 Active 2023 Hina Drake [facility] 4 14:57:07 Steatotic liver disease 267359355 Active 2023 Charles Berman APRN, [employer] [address] [place] [address], 53945[address] 3, [employer] [facility] 5 12:20:08 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 Hina Drake null, [facility] 4 14:57:22 Essential hypertensio n 69567662 Active 2023 [facility] 4 14:57:33 Abdominal pain 65490485 Active 2023 Charles Berman APRN, [employer] [address] [place] [address], 13168[address], [employer] [facility] 4 13:54:09 Obesity 006147799 Active 2023 Charles Berman APRN, [employer] [address] [place] [address], 85302-426 3, [employer] [facility] 4 13:54:34 Gastroesoph ageal reflux disease without esophagitis 697144156 Active 2023 Charles Berman APRN, [employer] [address] [place] [address], 04658[address] 3, [employer] [facility] 4 13:54:44 Uncontrolle d type 2 diabetes mellitus 128589478 Active 2023 Charles Berman APRN, [employer] [address] [place] [address], 22715-[address] 3, [employer] [facility] 4 13:55:31 Problem Notes None recorded. Procedures Surgical History Date Name Laterality Status Provider Name and Address Organization Details Recorded Time 4 SC Fibroscan completed Rajat Cobb MD [address] [place] [address], [id number], [employer] 09/03/2024 09:55:36 section completed [facility] 03/11/2025 11:52:24 exploration using laparoscope completed [facility] 03/11/2025 11:52:40 exploration of carpal tunnel completed [facility] 03/11/2025 11:53:17 Imaging Results None recorded. Procedure Notes None recorded. Medical Equipment None Reported. Allergies Allergen ID Allergen Name Allergen Category Reaction Reaction Severity Criticality Documentation Date Start Date Code Code System Note Provider Name and Address Organization Details Recorded Time 5374168 mold extract environme nt Not available Not available Not available 12/27/20232007 12060 8 RxNorm Comme nt: Mold ; Not Available [facility] 4 04:14:26 2483955 latex gloves medicatio n Not available Not available Not available 12/27/20232011 02055 UNK Not Available [facility] 4 04:14:26 3646276 POLLEN EXTRACTS medicatio n Not available Not available Not available 09/04/20242007 79841 6 RxNorm Comme nt: Polle n ; Not Available [facility] 4 21:24:54 608664 Product containin g penicilli n (product) medicatio n swelling Not available Not available 12/25/20232007 50326 8001 SNOMED React ion: Swell ing; Not Available [facility] 4 23:34:40 963530 Tylenol with Codeine medicatio n swelling Not available Not available 12/25/20232007 59547 6 RxNorm React ion: Swell ing; Not Available [facility] 4 23:34:40 Medications Name Sig Start Date Stop Date Status Note LastModified by Organization Details LastModified Time Prescriptio n - Prior Authorizati on Request active Not Available Not Available N ot Available cilostazol 100 mg tablet Take 1 tablet twice a day by oral route. active Not Available Not Available No t Available atorvastati n 80 mg tablet active Not Available Not Available Not Available insulin glargine (U-100) 100 unit/mL subcutaneou s solution Inject 50 units every day by subcutane ous route at bedtime. 03/11 completed Not Available Not Available Not Available clindamycin HCl 300 mg capsule 03/11 completed Not Available Not Available Not Available albuterol sulfate 2.5 mg/3 mL (0.083 %) solution for nebulizatio n active Not Available Not Available Not Available azithromyci n 250 mg tablet 03/11 completed Not Available Not Available Not Available ibuprofen 800 mg tablet active Not Available Not Available Not Available fluconazole 150 mg tablet active Not Available Not Available Not Available clarithromy benita 500 mg tablet 03/11 completed Not Available Not Available Not Available hydrocodone 5 mg-acetamin ophen 325 mg tablet 04/15 completed Not Available Not Available Not Available meloxicam 15 mg tablet 03/11 completed Not Available Not Available Not Available ondansetron HCl 4 mg tablet active Not Available Not Available Not Available prednisone 20 mg tablet 03/11 completed Not Available Not Available Not Available gabapentin 400 mg capsule 03/11 completed Not Available Not Available Not Available clobetasol 0.05 % topical cream APPLY 1 APPLICATI ON TO AFFECTED SKIN TWICE DAILY active Not Available Not Available No t Available metronidazo le 500 mg tablet 03/11 completed Not Available Not Available Not Available ciprofloxac in 250 mg tablet 03/11 completed Not Available Not Available Not Available sulfamethox azole 800 mg-trimetho prim 160 mg tablet TAKE 1 TABLET BY MOUTH TWICE DAILY FOR 7 DAYS 03/11 completed Not Available Not Available Not Available omeprazole 40 mg capsule,del ayed release active Not Available Not Available Not Available Reglan 10 mg tablet Take 1 tablet 4 times a day by oral route. active Not Available Not Available No t Available fenofibrate micronized 134 mg capsule 04/15 completed Not Available Not Available Not Available meloxicam 7.5 mg tablet 04/15 completed Not Available Not Available Not Available terbinafine HCl 250 mg tablet 04/15 completed Not Available Not Available Not Available methocarbam ol 750 mg tablet 03/11 completed Not Available Not Available Not Available Humalog U-100 Insulin 100 unit/mL subcutaneou s solution USE UP TO 120 UNITS DAILY VIA INSULIN PUMP 04/15 completed Not Available Not Available Not Available hydrochloro thiazide 12.5 mg capsule 03/11 completed Not Available Not Available Not Available gabapentin 300 mg capsule 03/11 completed Not Available Not Available Not Available omeprazole 20 mg capsule,del ayed release 03/11 completed Not Available Not Available Not Available montelukast 10 mg tablet active Not Available Not Available Not Available furosemide 20 mg tablet 03/11 completed Not Available Not Available Not Available ergocalcife rol (vitamin D2) 1,250 mcg (50,000 unit) capsule active Not Available Not Available Not Available nystatin 100,000 unit/gram topical powder active Not Available Not Available Not Available albuterol sulfate HFA 90 mcg/actuati on aerosol inhaler active Not Available Not Available Not Available ondansetron 4 mg disintegrat ing tablet active Not Available Not Available N ot Available metformin ER 500 mg tablet,exte nded release 24 hr 03/11 completed Not Available Not Available Not Available Adult Aspirin EC Low Strength 81 mg tablet,gudelia yed release Take 1 tablet every day by oral route. active Not Available Not Available No t Available naproxen 500 mg tablet 04/15 completed Not Available Not Available Not Available neomycin-po lymyxin-hyd rocort 3.5 mg-10,000 unit/mL-1 % ear drops,susp 04/15 completed Not Available Not Available Not Available insulin lispro (U-100) 100 unit/mL subcutaneou s pen INJECT 25 UNITS 3 TIMES A DAY BY SUBCUTANE OUS ROUTE. active Not Available Not Available No t Available cyclobenzap rine 5 mg tablet 04/15 completed Not Available Not Available Not Available Premarin 0.625 mg/gram vaginal cream active Not Available Not Available Not Available Pain Relief Extra Strength (acetaminop hen) 500 mg tablet active Not Available Not Available Not Available Vitamin D active Not Available Not Damaris ilable Not Available Januvia 100 mg tablet 03/11 completed Not Available Not Available Not Available Lantus Solostar U-100 Insulin 100 unit/mL (3 mL) subcutaneou s pen Inject 50 units every day by subcutane ous route. 04/15 completed Not Available Not Available Not Available ClearLax 17 gram/dose oral powder active Not Available Not Available Not Available OneTouch Verio test strips 04/07 completed Not Available Not Available Not Available TRUEplus Insulin 1 mL 31 gauge x 5/16 syringe 03/11 completed Not Available Not Available Not Available Jardiance 10 mg tablet 03/11 completed Not Available Not Available Not Available Jardiance 25 mg tablet 03/11 completed Not Available Not Available Not Available Trulicity 1.5 mg/0.5 mL subcutaneou s pen injector 03/11 completed Not Available Not Available Not Available Trulicity 0.75 mg/0.5 mL subcutaneou s pen injector 03/11 completed Not Available Not Available Not Available OneTouch Verio Flex Meter 04/07 completed Not Available Not Available Not Available TRUEplus Pen Needle 29 gauge x 1/2 03/11 completed Not Available Not Available Not Available TRUEplus Pen Needle 31 gauge x 1/4 03/11 completed Not Available Not Available Not Available TRUEplus Pen Needle 32 gauge x 5/32 03/11 completed Not Available Not Available Not Available OneTouch Delica Plus Lancet 33 gauge 04/07 completed Not Available Not Available Not Available Trulicity 3 mg/0.5 mL subcutaneou s pen injector 03/11 completed Not Available Not Available Not Available Guardian 4 Glucose Sensor device CHANGE sensor every FIVE TO SEVEN DAYS as directed active Not Available Not Available No t Available Guardian 4 Transmitter device USE with Guardian 4 Sensors TO monitor blood glucose as directed active Not Available Not Available No t Available Vitals Date Recorded Body height Body mass index (BMI) Body weight Systolic And Diastolic Provider Name and Address Organization Details Last Updated DateTime 03/11/2025 167.64 cm 31.2 kg/m2 24450.05 g 142/86 mm[Hg] Earlene Martines [facility] 03/11/2025 11:44:38 Date Recorded Body height Body mass index (BMI) Body weight Heart rate Systolic And Diastolic Provider Name and Address Organization Details Last Updated DateTime 04/04/2025 167.64 cm 31.6 kg/m2 62513.67 g 96 /min 146/84 mm[Hg] Megha Arreguin [facility] 04/04/2025 15:26:04 Date Recorded Body height Body mass index (BMI) Body weight Systolic And Diastolic Provider Name and Address Organization Details Last Updated DateTime 04/15/2025 167.64 cm 31.8 kg/m2 19736.7 g 135/85 mm[Hg] Charles Berman, ACTUARIAL TECHNICIAN, [employer] [address], [phone], [facility] 04/15/2025 12:14:10 Date Recorded Body height Body mass index (BMI) Body weight Provider Name and Address Organization Details Last Updated DateTime 09/02/2024 167.64 cm 30.7 kg/m2 49608.55 g Chele Conrad [facility] 09/02/2024 16:49:06 Social History Question Answer Notes LastModified by [employer] Details LastModified Time Tobacco Smoking Status [facility] 11:51:54 How Many Times Per Week Do You Exercise? 3-4 Times Per Week [email or web address] Information not available 03/11/2025 Sex: Unknown Functional Status Question Answer Note LastModified by [employer] Details LastModified Time Do you use any illicit or recreational drugs? No [email or web address] Information not available 03/11/2025 What is your level of alcohol consumption? None [email or web address] Information not available 03/11/2025 What is your exercise level? Moderate [email or web address] Information not available 03/11/2025 Mental Status None recorded. Family History Relationship Description Onset Age of this Age Resolved Age Notes LastModified by Organization Details LastModified Time Mother Heart disease [email or web address] Not available 02/25 11:51:07 Mother Malignant neoplasm of lung [email or web address] Not available 02/25 11:51:17 Mother Malignant neoplasm of ovary Not available 02/25 11:51:26 Father Heart disease [email or web address] Not available 02/25 11:51:07 Maternal Grandmother Malignant neoplasm of lung [email or web address] Not available 02/25 11:51:32 Medical History No medical history recorded. Gynecological HistoryNo gynecological history recorded. Obstetrics History GPAL:G 0 P 0 0 0 0 Immunizations Vaccine Type Date Status Note Provider Nam e and Address Organization Details Recorded Time Influenza, split virus, quadrivalent, preservative 2 completed Earlene Martines [facility] 03/11/2025 11:45:49 Tdap 0 completed Earlene Martines [facility] 03/11/2025 11:45:49 Td (adult), 2 Lf tetanus toxoid, preservative free, adsorbed 1 completed [facility] 03/11/2025 11:45:49 Influenza, split virus, quadrivalent, PF 6 completed [facility] 03/11/2025 11:45:49 Past Encounters Encounter ID Performer Location Encounter Start Date Encounter Closed Date Diagnosis/Indication Diagnosis SNOMED-CT Code Diagnosis ICD10 Code Diagnosis Note [id number] Charles Berman APRN, [employer] [address] [facility] ([place]) [address] [facility] [place] [address] 04/30/2024 12:44:03 04/30/2024 14:11:58 Abdominal pain 04244871 R10.9 Obesity 166144089 E66.9 Gastroesop hageal reflux disease without esophagitis 435008271 K21.9 History of Garrison's esophagus 7325613198 9059366 Z87.19 Uncontroll ed type 2 diabetes mellitus 904885690 E11.65 [id number] Rajat Cobb MD [facility] [address] [place] [phone] 09/02/2024 16:37:02 09/02/2024 16:50:44 Steatotic liver disease 568852154 K76.0 [id number] Charles Berman APRN, [employer] [address] [facility] [place]) [address] [facility] [place] [address] 09/09/2024 11:45:15 09/09/2024 12:37:22 Steatotic liver disease 982410394 K76.0 [id number] Belén Riojas MD [facility] ([place]) [address] [facility] [address] [place] [address] 03/11/2025 11:37:27 03/12/2025 06:33:26 Essential hypertension 51415184 I10 Abdominal pain 44582734 R10.13 Peripheral vascular disease 736312249 I73.9 Diabetic k etoacidosis without coma 528965201 E11.10 [id number] Gio Huang M.D. [facility] ([place]) [address] [place] [address] 04/04/2025 15:11:06 04/04/2025 16:07:39 Uncontrolled type 2 diabetes mellitus 225053540 E11.65 Peripheral neuropathy due to type 2 diabetes mellitus 3726786738 107 E11.42 Hyperlipidemia 51885154 E78.5 Insulin pump present 450 585706 Z96.41 Body mass index 30+ - obesity 628152037 Z68.31 [id number] Charles Berman APRN, [employer] [address] [facility] ([place]) [address] [facility] [place] [address] 04/15/2025 11:36:42 04/15/2025 12:24:06 Nausea and vomiting 00195593 R11.2 Steatotic liver disease 178656381 K76.0 History of adenomatous polyp of colon 191000139 Z86.0101 Health Concerns Section Related Observation LastModified by Organization Detai ls LastModified Time None Recorded Concern Status LastModified by Organization Details LastModified Time None Recorded Advance Directives Directive None Recorded Payers Insurance Date Sequence Insurance Name Policy Number Policy Jj Covered Member ID Jj Member ID Guarantor Name 05/31/2025 1 [employer] [facility]TER [facility] ON OR AFTER 10/27/2020 (MEDICAID REPLACEMENT - HMO) Maranda Bose [id number] Maranda Bose Notes Date Note Type Note Provider Name and Address Organization Details Recorded Time 09/09/2024 text/html Patient is here to discuss [...] the last several months. Charles Berman APRN, [employer] [address] [place] [address], [phone], [employer] 09/09/2024 12:10:50 03/11/2025 text/html I had the pleasu re of seeing this very pleasant 54-year-old lady to follow-up after recent hospitalization for diabetic ketoacidosis. She already had 3 recent hospitalizations for the same problem. Apparently she is unable to locate her Medtronic insulin pump due to her very busy work schedule and circumstances at home. He has atypical chest pain syndrome but reportedly, serial cardiac enzymes indicated no evidence of myonecrosis at [facility] in February 2025. He has atypical sharp shooting stabbing sensation across the left chest without known consistent provoking or alleviating factors. He continues to have atypical pain in the right ankle especially when dorsiflexing the foot. She denies classic signs of claudication. Prior workup indicated normal coronary arteries and no calcification on coronary CT angiography in January 2025. Her echocardiogram in September 2024 showed normal cardiac chamber sizes, contractility, and trivial mitral and tricuspid regurgitation. Her ankle-brachial indices were normal, toe pressures are slightly diminished. CT angiogram showed excellent inflow and occluded right posterior tibial artery with otherwise normal tibial pedal runoff. Her popliteal pain completely resolved. She works 3 jobs and is very busy. She does not perceive severe cardiopulmonary restrictions to physical activity. Belén Riojas MD [address] [place] [address], [phone], [employer] 03/11/2025 12:50:10 04/15/2025 text/html 54-year-old mariama oliver primarily being seen in GI clinic to follow-up on a hospitalization that occurred from February 21, to March 02. She was discharged on March 02. She was in DKA.She has significant diabetes, looks like has had issues with diabetic control for quite some period of time. With her DKA diagnosis she was having a lot of nausea, vomiting, dry heaving, etc. She basically did this all throughout her hospitalization. Looks like they tried to do a gastric emptying scan when she was in the hospital however this could not be done due to all of her vomiting. I have no medical records from this hospitalization, all these records are with [facility].She was discharged on an insulin pump since she has been discharged and her diabetes is under much better control she has had no further dry heaving, nausea, or vomiting.She also wanted to make sure she was up-to-date with her colonoscopies, as well as her known hepatic steatosis monitoring. Charles Berman, ACTUARIAL TECHNICIAN, [employer] [address] [place] [address], [phone], [place] [facility] 04/15/2025 12:20:27 OBGyn Episode No OBEpisode recorded.
--- OUTSIDE RECORDS SUMMARY | 2025-06-01 15:15 | XMS_ITS | Clinical Summary ---
Author Organization [facility] Address [address] [place] [address] Phone Care Team Providers Care Bone Char Puller Name Role Phone Jose Beverly MD Primary Care Provider [phone] Allergies Active Allergy Reactions Criticality Noted Date [...] daily as needed. Active ergocalciferol (VITAMIN D) 17908 UNIT Capsule Take 1 Capsule by mouth [...] Hypertension Liver disease Overview (11/06/2020): stage 3 Social History Tobacco Use Types Packs/Day Years Used Date Smoking Tobacco: Never Smokeless Tobacco: Never Alcohol Use Standard Drinks/Week Comments Yes 1 (1 standard drink = 0.6 oz pur e alcohol) [facility] Utilities Answer Date Recorded In the past 12 months has th e [employer], [employer], oil, or water [employer] threatened to shut off services in your home? Patient declined 10/30/2024 Social Connection and Isolation Panel Answer Date Recorded In a typical week, how many times do you talk on the phone with family, friends, or neighbors? Patient declined 10/30/2024 How often do you get togethe r with friends or relatives? Patient declined 10/30/2024 How often do you attend nondenominational or worship serv ices? Patient declined 10/30/2024 Do you belong to any clubs o r organizations such as nondenominational groups, unions, fraternal or athletic groups, or [...] medical care, and heating? Patient declined 10/30/2024 [facility] - Occupational Stress [...] time in the past 12 m [facility], were you homeless or living in a [facility] (including now)? Patient declined 10/30/2024 Sexually Active Control Partners Comments Not Currently Comments No Sex and Gender Information Value Date Recorded Sex Assigned at Female 11/02/2024 6:03 AM SHELLFISH MANAGER Legal Sex Female 10:10 PM CDT Gender Identity Female 11/02/2024 6:03 AM SHELLFISH MANAGER Sexual Orientation Not on file Last Filed Vital Signs Vital Sign Reading Time Taken Comments Blood Pressure 115/63 01/15/2025 3:30 PM SHELLFISH MANAGER Pulse 89 01/15/2025 3:45 PM SHELLFISH MANAGER Temperature 36.3 C (97.3 F) 01/15/2025 10:51 AM SHELLFISH MANAGER Respiratory Rate 19 01/15/2025 3:02 PM SHELLFISH MANAGER Oxygen Saturation 92% 01/15/2025 3:45 PM SHELLFISH MANAGER Inhaled Oxygen Concentration - - Weight 87.8 kg (193 lb 9 oz) 01/15/2025 10:51 AM SHELLFISH MANAGER Height 167.6 cm (5' 6) 01/15/2025 10:51 AM SHELLFISH MANAGER Body Mass Index 31.24 01/15/2025 10:51 AM SHELLFISH MANAGER Plan of Treatment Health Maintenance Due Date Last Done Comments Diabetes: Eye Exam 1968 Diabetes: Foot Exam 1968 Hepatitis B Immunization (1 of 3 - 19+ 3-dose series) 1987 Pneumococcal Immunization (50+ years) (1 of 2 - PCV) 1987 Cologuard 2013 Colonoscopy 2013 Colorectal Cancer Screening 2013 Immunochemical Fecal Occult Blood 2013 Zoster Immunization (1 of 2) 2018 SARS-COV-2 Immunization ( season) 2024 Diabetes: Hemoglobin [...] 12/19/2020, 08/13/2010 TdaP Immunization Completed 05/07/2024, 08/13/2010 Human Papillomavirus (HPV) Immunization Aged Out No longer eligible based on patient's age to complete this topic Meningococcal Immunization (ACWY) Aged Out No longer eligible based on patient's age to complete this topic Rotavirus Immunization Aged Out No lo nger eligible based on patient's age to complete this topic Procedures Procedure Name Priority Date/Time Associated Diagnosis Comments CMP (COMPREHENSIVE METABOLIC PANEL) STAT 01/15/2025 10:55 AM SHELLFISH MANAGER HEMOGLOBIN A1C W/ ESTIMATED GLUCOSE STAT 10/30/2024 1:21 PM SHELLFISH MANAGER HEPATITIS PANEL ACUTE (AHP) Routine 11/07/2020 4:30 AM SHELLFISH MANAGER from Last 3 Months or Most Recently Relevant to Health Maintenance Results * (ABNORMAL) CMP (Comprehensive Metabolic Panel) (01/15/2025 10:55 AM SHELLFISH MANAGER) SODIUM 139 136 - 145 mmol/L 01/15/2025 11:34 AM SHELLFISH MANAGER [facility] POTASSIUM 3.9 3.5 - 5.1 mmol/L 01/15/2025 11:34 AM SHELLFISH MANAGER [facility] CHLORIDE 101 98 - 107 mmol/L 01/15/2025 11:34 AM SHELLFISH MANAGER [facility] CO2, VENOUS 25 22 - 30 mmol/L 01/15/2025 11:34 AM [facility] ANION GAP 16.9 <18.0 mmol/L 01/15/2025 11:34 AM [facility] GLUCOSE 335(H) 70 - 99 mg/dL 01/15/2025 11:34 AM [facility] BUN 15 10 - 20 mg/dL 01/15/2025 11:34 AM [facility] CREATININE, BLOOD 0.89 0.60 - 1.00 mg/dL 01/15/2025 11:34 AM [facility] BUN/CREATININE RATIO 17 12 - 20 ratio 01/15/2025 11:34 AM [facility] TOTAL PROTEIN 7.7 6.0 - 8.0 g/dL 01/15/2025 11:34 AM [facility] ALBUMIN 4.3 3.5 - 5.0 g/dL 01/15/2025 11:34 AM [facility] A/G RATIO 1.3 1.0 - 2.2 01/15/2025 11:34 AM [facility] CALCIUM 9.7 8.7 - 10.5 mg/dL 01/15/2025 11:34 AM [facility] T BILI 0.3 0.2 - 1.2 mg/dL 01/15/2025 11:34 AM [facility] SGOT (AST) 29 <43 U/L 01/15/2025 11:34 AM [facility] SGPT (ALT) 35 <56 U/L 01/15/2025 11:34 AM [facility] ALKALINE PHOSPHATASE 115 40 - 150 U/L 01/15/2025 11:34 AM [facility] GFR, ESTIMATED >60 >=60 01/15/2025 11:34 AM [facility] Comment: Creatinine Clearance is the preferred criteria for selecting drug dose adjustments in renally impaired patients. The GFR is provided as additional pertinent clinical information. GFR is reported in mL/min/1.73 sq m. Calculation based on the Chronic Kidney Disease Epidemiology Collaboration (CKD- EPI) equation refit without adjustment for race. GFR, EST. >60 >=60 025 11:34 AM SHELLFISH MANAGER [facility] GFR, EST. NONAFRICAN >60 >=60 01/15/2025 11:34 AM SHELLFISH MANAGER [facility] Blood Venipuncture / Unknown 01/15/2025 10:55 AM SHELLFISH MANAGER 01/15/2025 11:03 AM SHELLFISH MANAGER us Alejandro Simeon DO CHEMISTRY ORDERABLES Fi nal Result [facility] [address] [place] [address] * (ABNORMAL) Hemoglobin A1C (10/30/2024 1:21 PM SHELLFISH MANAGER) HGB-A1C 13.1(H) 4.0 - 6.0 % 10/30/2024 2:18 PM SHELLFISH MANAGER [facility] Est Average Glucose 329.3 mg/dL 10/30/2024 2:18 PM SHELLFISH MANAGER [facility] Blood Venipuncture / Unknown 10/30/2024 1:21 PM SHELLFISH MANAGER 10/30/2024 1:44 PM SHELLFISH MANAGER Narrative [facility] - 10/30/2024 2:18 PM SHELLFISH MANAGER HEMOGLOBIN A1C: DIABETIC PATIENTS: WELL-CONTROLLED: 6.2 - 7.0 INTERMEDIATE WELL-CONTROLLED: 7.0 - 9.0 POORLY-CONTROLLED: >9.0 us Mikaela Tang NATURAL DEVELOPER, ACCOUNTS EXECUTIVE CHEMISTRY ORDERABLES Final Result [facility] [address] [place] [address] * Hepatitis Panel Acute (AHP) (11/07/2020 4:30 AM SHELLFISH MANAGER) HEPATITIS A IGM ANTIBODY NON DETECTED NON DETECTED [facility] [id number] A 11/07/2020 2:40 PM SHELLFISH MANAGER [facility] Comment: IGM Antibodies to HAV not detected. Does not exclude early acute or recovered HAV infection. HEP B CORE AB (IGM) NON DETECTED NON DETECTED [facility] [id number] A 11/07/2020 2:40 PM SHELLFISH MANAGER [facility] Comment:IGM anti-HBC not det ected. Does not exclude the possibility of exposure to or infection with HBV. HEPATITIS B SURFACE ANTIGEN NON DETECTED NON DETECTED [facility] [id number] B 11/07/2020 2:40 PM SHELLFISH MANAGER [facility] Comment:A nonreactive test r esult does not exclude the possibility of exposure to or infection with Hepatitis B virus. A nonreactive test result in individuals with prior exposure to hepatitis B may be due to antigen levels below the detection limit of this assay or lack of antigen reactivity to the antibodies in this assay. hepatitis C antibody 0.32 <1 S/CO [facility] [id number] B 11/07/2020 2:40 PM SHELLFISH MANAGER [facility] Comment: Signal/Cutoff ratio < 0.79 is Nondetected Signal/Cutoff ratio 0.80-0.99 is Grayzone Signal/Cutoff ratio > 0.99 is Detected Supplemental assays are recommended if signal/cutoff ratio is >/=1.00. Signal/cutoff ratio result >/= 5.00 is 97% predictive of positivity for recombinant immunoblot assay (RIBA) and will be reported to the [place] Department of Public Health as required. Blood Venipuncture / Unknown 11/07/2020 4:30 AM SHELLFISH MANAGER 11/07/2020 4:45 AM SHELLFISH MANAGER us Wellington Lujan MD HEMATOLOGY ORDERABLES Final R esult [facility] [address] [place] [address], [place] from Last 3 Months or Most Recently Relevant to Health Maintenance Insurance MEDICAID AETNA [facility] Advance Directives * Full Code (Latest [...] measures to stabilize the patient. Care Teams Bone Char Puller Relationship Specialty Start Date End Date Jose Beverly MD [address] [place] [address] PCP - General Family Medicine 05/02/16
--- OUTSIDE RECORDS SUMMARY | 2025-06-01 15:15 | XMS_ITS | Encounter Summary ---
Author Organization [facility] Address [address] [place] [address] Care Team Providers Care Fireproof Door Assembler Name Role Phone Jose Beverly MD Primary Care Provider Brad Riojas MD Unavailable [phone] Kortney Coronado NP Unavailable [phone] Encounter Details Date Type Department Care Team (Late st Contact Info) Description 06/20/2024 Nextance Message Enc [facility] [address] [address] [place] [address] [place] [id number] Visit Follow Up Social History Tobacco Use [...] Sex Assigned at Female 01/14/2025 12:08 PM ORANGE PEEL OPERATOR Legal Sex Female 9:38 PM ORANGE PEEL OPERATOR Gender Identity Not on file Sexual Orientation Not on file documented as of this encounter Plan of Treatment Not on file documented as of this encounter Visit Diagnoses Not on filedocumented in this encounter Additional Health Concerns Infection Onset Date Last Indicated Resolved Time Respiratory Rule Out 02/23/2025 02/23/2025 025 11:00 AM CDT COVID-19 Rule Out 02/26/2025 02/26/2025 02/26/2025 12:12 PM CDT Respiratory Rule Out 02/26/2025 02/26/2025 025 1:11 PM CDT documented as of this encounter Care Teams Fireproof Door Assembler Relationship Specialty Start Date End Date Jose Beverly MD [address] [place] [phone] PCP - General FAMILY PRACTICE 01/11/19 Brad Riojas MD [address] [place] [phone] Vascular/Partner Manager VASCULAR SURGERY 12/26/23 01/31/25 Kortney Coronado NP [address] [place] [address] Nurse Practitioner Nurse Practitioner Family 03/27/24 documented as of this encounter
--- OUTSIDE RECORDS SUMMARY | 2025-06-01 15:16 | XMS_ITS | Encounter Summary ---
Author Organization [facility] Address [address] [place] [address] Care Team Providers Care Powerhouse Mechanic Helper Name Role Phone Jose Beverly MD Primary Care Provider Brad Riojas MD Unavailable [phone] Kortney Coronado NP Unavailable [phone] Encounter Details Date Type Department Care Team (Late st Contact Info) Description 05/04/2019 Abstract [facility] CONVERSION [address] [place] [address] , Generic Conversion, Social History Tobacco Use [...] Sex Assigned at Female 01/14/2025 12:08 PM INDUSTRIAL CONVEYOR BELT REPAIRER Legal Sex Female 9:38 PM INDUSTRIAL CONVEYOR BELT REPAIRER Gender Identity Not on file Sexual Orientation [...] documented as of this encounter Care Teams Powerhouse Mechanic Helper Relationship Specialty Start Date End Date Jose Beverly MD [address] [place] [phone] PCP - General FAMILY PRACTICE 01/11/19 Brad Riojas MD [address] [place] [phone] Vascular/Lugger VASCULAR SURGERY 12/26/23 01/31/25 Kortney Coronado NP [address] [place] [phone] Nurse Practitioner Nurse Practitioner Family 03/27/24 documented as of this encounter
--- NOTE | 2025-06-01 15:20 | ED_ITS ---
HPI - Extremity Injury (Lower) General Chief Complaint: Extremity Injury, Lower Stated Complaint: right foot ankle Time Seen by Provider: 06/01/25 15:19 Source: patient Mode of arrival: ambulatory Limitations: no limitations History of Present Illness HPI Narrative: Patient is a 54-year-old female with a right ankle injury today. Patient was walking and tripped over a chair and rolled her right ankle. She has pain on the lateral aspect of the ankle more so than the medial aspect. As an aside, the patient also has diabetes 2 poorly controlled and has a toenail missing with some localized redness on the same right foot of the great toe. complaint: ankle injury ( Right) Onset (ago): day(s) ( 1) Type of Injury: inversion and other ( right great toe had her cutting the toenail too short and now it is missing the toenail and localized redness) Place: home Severity: mild Severity scale (1-10): 3 Relieving factors: immobilization Exacerbating factors: weight bearing, movement and palpation Context: fall and walking Associated symptoms: swelling and able to partially bear weight Other symptoms: none Treatments prior to arrival: other ( none) Related Data Home Medications ?Medication ?Instructions ?Recorded ?Confirmed ?Last Taken ?Type albuterol sulfate 2.5 mg/3 mL 2.5 mg inhalation PRN PRN Wheezing 08/01/23 07/28/24 Unknown History (0.083 %) solution for nebulization atorvastatin 80 mg tablet 80 mg PO DAILY 08/01/23 07/28/24 Unknown History dulaglutide 0.75 mg/0.5 mL 0.75 mg subcut USEASDIRECTD 08/01/23 07/28/24 Unknown History [facility] fenofibrate micronized 134 mg 134 mg PO DAILY 08/01/23 07/28/24 Unknown History capsule furosemide 20 mg tablet 40 mg PO DAILY 08/01/23 07/28/24 Unknown History gabapentin 300 mg capsule 300 mg PO PRN PRN Pain, Moderate 08/01/23 07/28/24 Unknown History hydrochlorothiazide 12.5 mg capsule 12.5 mg PO DAILY 08/01/23 07/28/24 Unknown History metformin 500 mg tablet,extended 1,000 mg PO BID 08/01/23 07/28/24 Unknown History release 24 hr montelukast 10 mg tablet 10 mg PO DAILY 08/01/23 07/28/24 Unknown History omeprazole 20 mg capsule,delayed 40 mg PO DAILY 08/01/23 07/28/24 Unknown History release sitagliptin phosphate 100 mg 100 mg PO DAILY 08/01/23 07/28/24 Unknown History tablet (Januvia) blood sugar diagnostic (OneTouch 03/04/25 03/04/25 Unknown History Verio test strips) pen needle, diabetic 31 gauge x 03/04/25 03/04/25 Unknown History 11/30 (TRUEplus Pen Needle) sucralfate 100 mg/mL oral 100 mg PO DAILY 03/04/25 03/04/25 Unknown History suspension Allergies Allergy/AdvReac Type Severity Reaction Status Date / Time codeine Allergy Mild n/v Verified 06/01/25 16:24 ampicillin Allergy Unknown Anaphylactic Verified 06/01/25 16:24 Shock latex Allergy Unknown Unknown Verified 06/01/25 16:24 Review of Systems Review of Systems: All systems reviewed & are unremarkable except as noted in HPI and below Constitutional: Constitutional: Reports no additional constitutional complaints Eyes: Eyes: Reports no additional eye complaints ENT: Reports system reviewed and no additional complaints, except as documented Cardiovascular: Cardiovascular: Reports no additional cardiovascular complaints Respiratory: Respiratory: Reports no additional respiratory complaints Gastrointestinal: Gastrointestinal: Reports no additional gastrointestinal complaints Genitourinary: Genitourinary: Reports no additional female genitourinary complaints Musculoskeletal: Musculoskeletal: Reports no additional musculoskeletal complaints Integumentary/Breasts: Skin/Breast: Reports system reviewed and no additional complaints, except as docu Neurologic: Reports system reviewed and no additional complaints, except as documented Psychiatric: Psychiatric: Reports no additional psychiatric complaints Endocrine: Endocrine: Reports no additional endocrine complaints Hematologic/Lymphatic: Hematologic/Lymphatic: Reports no additional hematologic/lymphatic complaints Allergic/Immunologic: Allergic/Immunologic: Reports no additional allergic/immunologic complaints PMFSH Past Medical History Medical History MEADOWS (nonalcoholic steatohepatitis) Dyslipidemia Hypertension Diabetes mellitus Patient denies medical problems Exam Const: General: healthy appearing Nutritional Appearance: well nourished Orientation/consciousness: patient oriented x3 Limitations: no limitations HENMT: Head: normal to inspection Ears: external ears normal Face/Nose/Sinus: Normal external nose present Eyes: Conjunctivae: conjunctivae normal Pupils: Equal, round and reactive pupils present EOM: EOMs intact bilaterally Neck: Neck: normal visual inspection Chest: Chest palpation & inspection: normal inspection of the chest Resp: Effort & Inspection: normal respiratory effort and not labored Auscultation: clear to auscultation bilaterally and no crackles Cardio: Rate: regular rate Rhythm: regular rhythm Heart sounds: no murmurs Skin: General skin exam: No normal color Rashes: no rashes Wounds: no wounds Other: right ankle lateral aspect has ecchymosis and swelling; right great toe is missing the toenail and there is some skin crusting from healing nail bed skin and localized erythema mildly Neuro: General: patient oriented x3, moves all extremities, no meningeal signs, no focal motor deficits and CN's II-XI intact bilaterally Extrem: General: abnormal to inspection Other: right ankle is swollen more so on the lateral aspect with some ecchymosis and tenderness to palpation Psych: Mental Status: mental status grossly normal Affect: normal affect Attitude: cooperative Course Vital Signs Vital signs: Vital Signs Temperature 36.6 C 06/01/25 15:13 Pulse Rate 102 H 06/01/25 15:13 Respiratory Rate 18 06/01/25 15:13 Blood Pressure 149/85 H 06/01/25 15:13 Pulse Oximetry 96 06/01/25 15:13 Oxygen Delivery Room Air 06/01/25 15:13 Temperature 36.6 C 06/01/25 15:13 Pulse Rate 102 H 06/01/25 15:13 Respiratory Rate 18 06/01/25 15:13 Blood Pressure 149/85 H 06/01/25 15:13 Pulse Oximetry 96 06/01/25 15:13 Oxygen Delivery Room Air 06/01/25 15:13 MDM - Extremity Injury (Lower) MDM Narrative Medical decision making narrative: patient is a 54-year-old female with a right ankle injury as well as a right great toe erythema. We will get an x-ray of the right ankle in the right foot. We will check on tetanus status and give her antibiotics. Imaging Data Attestation: I personally reviewed and interpreted this imaging study as follows: Radiologist's impression: X-ray of the right ankle and foot were negative for acute process Discharge Plan Discharge Clinical Impression: Sprain of ankle, right Qualifiers: Encounter type: initial encounter Involved ligament of ankle: other ligament Qualified Code(s): S93.491A - Sprain of other ligament of right ankle, initial encounter Cellulitis of great toe Qualifiers: Laterality: right Qualified Code(s): L03.031 - Cellulitis of right toe Patient Disposition: Home Condition: Stable Instructions: Antibiotic Form, Ankle Sprain (DC), Cellulitis (ED) Additional Instructions: please follow-up with the primary doctor in the next week. Please make a plan to get better control of your diabetes per our discussion of poor diabetic control at this time. You may need to see a community recreation coordinator if the toe does not get better after antibiotics. Patient Language: Citizen Of [place] Prescriptions: New sulfamethoxazole-trimethoprim [Bactrim DS] 800-160 mg tablet 1 tablet PO BID 7 Days Qty: 14 0RF No Action ibuprofen 800 mg tablet 800 mg PO TID PRN (Reason: pain) 7 Days Qty: 21 0RF acetaminophen 500 mg tablet 1,000 mg PO TID PRN (Reason: kg) 7 Days Qty: 42 0RF methocarbamol 750 mg tablet 1,500 mg PO TID Qty: 35 0RF sucralfate 100 mg/mL suspension 100 mg PO DAILY (DME) OneTouch Verio test strips Strip MISCELLANEOUS (DME) pen needle, diabetic [TRUEplus Pen Needle] 31 gauge x 1/4 needle MISCELLANEOUS ondansetron 4 mg tablet,disintegrating 4 mg PO Q4H Qty: 10 0RF Rx Instructions: give 1st dose 30min before emetogenic chemo prochlorperazine maleate [Compazine] 5 mg tablet 5 mg PO Q8H PRN (Reason: nausea and vomiting) 2 Days Qty: 14 0RF atorvastatin 80 mg tablet 80 mg PO DAILY albuterol sulfate 2.5 mg /3 mL (0.083 %) solution for nebulization 2.5 mg inhalation PRN PRN (Reason: Wheezing) fenofibrate micronized 134 mg capsule 134 mg PO DAILY hydrochlorothiazide 12.5 mg capsule 12.5 mg PO DAILY gabapentin 300 mg capsule 300 mg PO PRN PRN (Reason: Pain, Moderate) omeprazole 20 mg capsule,delayed release(DR/EC) 40 mg PO DAILY montelukast 10 mg tablet 10 mg PO DAILY furosemide 20 mg tablet 40 mg PO DAILY metformin 500 mg tablet extended release 24 hr 1,000 mg PO BID Januvia 100 mg tablet 100 mg PO DAILY Trulicity 0.75 mg/0.5 mL pen injector 0.75 mg SUBCUT USEASDIRECTD Rx Instructions: TWICE MONTHLY naproxen 500 mg tablet 500 mg PO BID PRN (Reason: pain) Qty: 14 0RF Follow-up/Referrals: Rush,MD Jose [Primary Care Provider] - Time of Disposition: 16:20
--- NOTE | 2025-06-01 15:30 | PC.NURSE ---
XRAY AT THE BEDSIDE
--- OUTSIDE RECORDS SUMMARY | 2025-06-01 15:49 | XMS_ITS | Clinical Summary ---
Author Organization [facility] Address [address] [place] [address] Care Team Providers Care Welding Foreman Name Role Phone Jose Delarosa MD Primary Care Provider Kortney Coronado PROPERTY CLAIM REP Unavailable [phone] Allergies Active Allergy Reactions Criticality Noted Date [...] Noted Date Diagnosed Date DKA (diabetic ketoacidosis) ([facility]/HCC [facility]) Intractable vomiting with nausea 02/24/2025 Other chest pain 10/30/2024 Sprain of left ankle, unspec ified ligament, initial encounter 06/20/2024 De Quervain's tenosynovitis, left 06/20/2024 PVD (peripheral vascular disease) 01/09/2024 Encounters Date Type Department Care Team Description 05/18/2025 3:16 PM CDT - 05/18/2025 4:26 PM CDT Emergency [facility] [address] [place] [address] Kwaku Lucio MD Foot Pain Discharge Disposition: Home or Self Care (Routine Discharge) 05/18/2025 Travel 05/10/2025 4:30 PM CDT - 05/10/2025 8:40 PM CDT Emergency [facility] Emergency [facility] [place] [address] Noah Real MD Dizziness (LEG SWELLING) Discharge Disposition: Home or Self Care (Routine Discharge) 05/10/2025 Travel 02/24/2025 5:38 PM CDT - 03/02/2025 6:42 PM CDT Hospital Encounter [facility] 4th Floor Medical [address] [place] [address] Reg Bernardo MD Goyal, Pankaj, MD Mardani, [...] = 0.6 oz pur e alcohol) seldom [facility] Utilities Answer Date Recorded In the past 12 months has e [employer], gas, oil, or water [email or web address] threatened to shut off services in your [...] were you homeless or living in a assisted (including now)? No 02/24/2025 Comments No Sex and Gender Information Value Date Recorded Sex Assigned at Female 01/14/2025 12:08 PM SEISMOGRAPH SUPERVISOR Legal Sex Female 9:38 PM SEISMOGRAPH SUPERVISOR Gender Identity Not on file Sexual [...] DOMENICA AMAN DIGI Routine 01/14/2025 12:45 PM SEISMOGRAPH SUPERVISOR Visit for screening mammogram LIPID PANEL Routine 01/31/2018 11:23 AM SEISMOGRAPH SUPERVISOR from Last 3 Months or Most Recently [...] 3:58 PM Narrative 05/18/2025 4:00 PM [address] [place] [address] Procedure(s): XR FOOT RT 3V Date of [...] Procedure Note Brandt Vital MD - 05/18/[address] [place] [address] Procedure(s): XR FOOT RT 3V Date of [...] - 145 MMOL/L 05/18/2025 4:00 PM CDT [facility] POTASSIUM S/P/B 3.9 3.5 - 5.1 MMOL/L 05/18/2025 4:00 PM CDT [facility] CHLORIDE S/P/B 99 98 - 107 MMOL/L 05/18/2025 4:00 PM CDT [facility] CO2 27.1 21.0 - 32.0 MMOL/L 05/18/2025 4:00 PM CDT [facility] GLUCOSE 291(H) 70 - 99 MG/DL 05/18/2025 4:00 PM CDT [facility] Comment: FASTING GLUCOSE 100 TO 125 MG/DL IS CONSISTENT WITH IMPAIRED FASTING GLUCOSE. FASTING GLUCOSE >125 MG/DL IS CONSISTENT WITH DIABETES. RANDOM GLUCOSE >200 MG/DL WITH HYPERGLYCEMIC SYMPTOMS IS CONSISTENT WITH DIABETES. PER ADA GUIDELINES BUN 15 6 - 24 MG/DL 05/18/2025 4:00 PM CDT [facility] CREATININE S/P/B 0.68 0.55 - 1.02 MG/DL 05/18/2025 4:00 PM CDT [facility] CALCIUM S/P/B 9.7 8.4 - 10.5 MG/DL 05/18/2025 4:00 PM CDT [facility] BILIRUBIN TOTAL S/P/B 0.4 0.2 - 1.0 MG/DL 05/18/2025 4:00 PM T [facility] Comment: THIS ASSAY IS NOT RECOMMENDED FOR PATIENTS UNDERGOING TREATMENT WITH ELTROMBOPAG DUE TO THE POTENTIAL FOR FALSELY ELEVATED RESULTS. ALKALINE PHOSPHATASE S/P/B 112 46 - 118 U/L 05/18/2025 4:00 PM CDT [facility] AST 16 15 - 37 U/L 05/18/2025 4:00 PM CDT [facility] ALT 34 14 - 59 U/L 05/18/2025 4:00 PM CDT [facility] TOTAL PROTEIN S/P/B 6.9 6.4 - 8.2 G/DL 05/18/2025 4:00 PM CDT [facility] ALBUMIN S/P/B 3.5 3.4 - 5.0 G/DL 05/18/2025 4:00 PM CDT [facility] ANION GAP 8.9 5.0 - 15.0 MMOL/L 05/18/2025 4:00 PM CDT [facility] OSMOLALITY (CALC) 292 MOSM/KG 025 4:00 PM CDT [facility] Comment:REFERENCE RANGE NOT ESTABLISHED GFR ESTIMATE >90 >89 ML/MIN/1. 73 M2 05/18/2025 4:00 PM CDT [facility] GFR NOTES GFR REFERENCE S: 05/18/2025 4:00 PM CDT [facility] Comment: THE ESTIMATED GFR IS [...] us Kwaku Lucio MD LABORATORY Final Result [facility] [address] [place] [address], * (ABNORMAL) CBC W/DIFF AUTOMATED (05/18/2025 3:38 PM CDT) Only the most recent of3 resultswithin the time period is included. WBC 5.82 4.00 - 10.80 x10'3/uL 05/18/2025 3:44 PM CDT [facility] RBC 4.92 4.10 - 5.40 x10'6/uL 05/18/2025 3:44 PM CDT [facility] HGB 13.8 12.0 - 16.0 G/DL 05/18/2025 3:44 PM CDT [facility] HCT 42.1 36.0 - 47.0 % 05/18/2025 3:44 PM CDT [facility] MCV 85.6 78.0 - 100.0 FL 05/18/2025 3:44 PM CDT [facility] MCH 28.0 27.0 - 31.0 PG 05/18/2025 3:44 PM CDT [facility] MCHC 32.8(L) 33.0 - 36.0 G/DL 05/18/2025 3:44 PM CDT [facility] RDW 12.2 11.5 - 14.5 % 05/18/2025 3:44 PM CDT [facility] PLT 193 150 - 350 x10'3/uL 05/18/2025 3:44 PM CDT [facility] MPV 10.3 7.4 - 10.4 FL 05/18/2025 3:44 PM CDT [facility] CBC COMMENT NORMAL REFERENCE RANGE NOT ESTABLISHED FOR THE PROPORTIONAL LEUKOCYTE DIFFERENTIAL. 05/18/2025 3:44 PM CDT [facility] NEUTROPHILS % 51.5 % 05/18/2025 3:44 PM CDT [facility] LYMPHOCYTES % 32.1 % 05/18/2025 3:44 PM CDT [facility] MONOCYTES % 12.9 % 05/18/2025 3:44 PM CDT [facility] EOSINOPHILS % 2.9 % 05/18/2025 3:44 PM CDT [facility] BASOPHILS % 0.3 % 05/18/2025 3:44 PM CDT [facility] IMMATURE GRANS % 0.3 % 05/18/20 3:44 PM CDT [facility] NRBC % 0.0 % 05/18/2025 3:44 PM CDT [facility] ABS. NEUTROPHILS 2.99 1.60 - 8.30 x10'3/uL 05/18/2025 3:44 PM CDT [facility] ABS. LYMPHOCYTES 1.87 0.80 - 4.70 x10'3/uL 05/18/2025 3:44 PM CDT [facility] ABS. MONOCYTES 0.75 0.00 - 1.50 x10'3/uL 05/18/2025 3:44 PM CDT [facility] ABS. EOSINOPHILS 0.17 0.00 - 0.40 x10'3/uL 05/18/2025 3:44 PM CDT [facility] ABS. BASOPHILS 0.02 0.00 - 0.20 x10'3/uL 05/18/2025 3:44 PM CDT [facility] ABS. IMMATURE GRANULOCYTES 0.02 0.00 - 0.03 x10'3/uL 05/18/2025 3:44 PM CDT [facility] ABS. NUCLEATED RBC'S 0.00 0.00 - 0.01 x10'3/uL 05/18/2025 3:44 PM CDT [facility] 05/18/2025 3:38 PM CDT us Kwaku Lucio MD LABORATORY Final Result [facility] [address] [place] [address], * US ROSEANNA DUPLEX LOW EXT AMAN [...] 8:11 PM Narrative 05/10/2025 8:37 PM [address]T [id number] [place] [address] Examination: Bilateral lower extremity venous ultrasound. Clinical [...] Procedure Note Chacho Rayo MD - 05/10/[id number] [place] [id number] Examination: Bilateral lower extremity venous ultrasound. Clinical [...] 6:54 PM Narrative 05/10/2025 6:55 PM CDT [address] [address] EXAMINATION: Chest X-Ray 1 View EXAM DATE/TIME: [...] Procedure Note Ronn Morgan MD - 05/10/[address] [address] EXAMINATION: Chest X-Ray 1 View EXAM DATE/TIME: [...] - 0.3 MMOL/L 05/10/2025 5:34 PM CDT [facility] 05/10/2025 5:11 PM CDT José Miguel Archibald MD LABORATORY Final Result Performing Organization Address [facility] de Phone Number [facility] [address] [place] [address], [phone] * PRO-BRAIN NATRIURETIC PEPTIDE (05/10/2025 5:11 PM CDT) PRO-B TYPE NATRIURETIC PEPTIDE 24 <125 PG/ML 05/10/2025 5:50 PM CDT [facility] Comment: AGE INDEPENDENT: <300 [...] Final Result Performing Organization Address [facility] Co de Phone Number [facility] [address] [place] [address], [phone] * (ABNORMAL) Blood gas, venous (05/10/2025 5:11 PM CDT) PH VENOUS 7.40 7.32 - 7.42 05/10/2025 5:32 PM CDT [facility] PCO2 VENOUS 43.8 41.0 - 51.0 MMHG 05/10/2025 5:32 PM CDT [facility] PO2 VENOUS 65.1(H) 25.0 - 40.0 MM HG 05/10/2025 5:32 PM CDT [facility] BICARB VENOUS 26.5 24 - 28 MMOL/L 05/10/2025 5:32 PM CDT [facility] TOTAL CO2 VENOUS 27.9 25.0 - 29.0 MMOL/L 05/10/2025 5:32 PM CDT [facility] BASE EXCESS VENOUS 1.8 0 - 2 MMOL/L 05/10/2025 5:32 PM CDT [facility] O2 SAT VENOUS 93(H) <75 % 05/10/2025 5:32 PM CDT [facility] 05/10/2025 5:11 PM CDT us José Miguel Archibald MD LABORATORY Final Result Performing Organization Address City/[facility]/ZIP Co de Phone Number [facility] [address] [place] [address], [phone] * TROPONIN, QUANT (05/10/2025 5:11 PM CDT) Pathologist [facility] TROPONIN I HIGH SENSITIVITY 3 0 - 53 ng/L 05/10/2025 5:50 PM CDT [facility] 05/10/2025 5:11 PM CDT us José Miguel Archibald MD LABORATORY Final Result [facility] [address] [place] [address], [place] [phone] * MAGNESIUM (05/10/2025 5:11 PM CDT) MAGNESIUM 1.9 1.6 - 2.6 MG/DL 05/10/2025 5:50 PM CDT [facility] Comment:RESULT QUESTIONABLE DUE TO HEMOLYSIS, CONSIDER RECOLLECTION. 05/10/2025 5:11 PM CDT us José Miguel Archibald MD LABORATORY Final Result Performing Organization Address [facility] Co de Phone Number [facility] [address] [place] [address], [place] [phone] * LIPASE (05/10/2025 5:11 PM CDT) LIPASE 21 13 - 75 UNITS/L 05/10/2025 5:50 PM CDT [facility] 05/10/2025 5:11 PM CDT us José Miguel Archibald MD LABORATORY Final Result Performing Organization Address [facility] de Phone Number [facility] [address] [place] [address], [place] [phone] * ECG 12 lead (05/10/2025 5:01 PM CDT) 05/10/2025 5:01 PM CDT Narrative [facility] - 05/10/2025 9:21 PM CDT [facility] Test Date: 2025-05-10 Pat Name: SHANTA BOSE Department: 70 Room: EXAM Gender: Female Foreclosure Paralegal: Ramón ZULUAGA : 1970 Requested By: JOSÉ MIGUEL ARCHIBALD Order Number: [id number] Reading MD: Aj Escobedo Measurements Intervals [place] Rate: 83 P: 41 NV: 156 QRS: -13 QRSD: 90 T: 48 QT: 368 QTc: 433 Interpretive Statements SINUS RHYTHM Procedure Note Aj Escobedo MD - 05/10/2025 [facility] Test Date: 2025-05-10 Pat Name: SHANTA BOSE Department: 70 Room: EXAM SS Gender: Female Foreclosure Paralegal: Ramón ZULUAGA : 1970 Requested By: JOSÉ MIGUEL ARCHIBADL Order Number: [id number] Reading MD: Aj Escobedo Measurements Intervals [place] Rate: 83 P: 41 NV: 156 QRS: -13 QRSD: 90 T: 48 QT: 368 QTc: 433 Interpretive Statements SINUS RHYTHM us José Miguel Archibald MD ECG ORDERABLES Final Result Performing Organization Address City/[facility]/ZIP Co de Phone Number [facility] * (ABNORMAL) POCT glucose (03/02/2025 5:16 PM CDT) Only the most recent of3 resultswithin the time period is included. GLUCOSE POC 289(H) 70 - 109 03/02/2025 5:34 PM CDT [facility] 03/02/2025 5:16 PM CDT us Mg Kendrick MD POCT ORDERABLES - DEVICE Final Result Performing Organization Address [facility]/ZIP Co de Phone Number [facility] [address] [place] [address], [phone] * (ABNORMAL) BASIC METABOLIC PANEL (03/02/2025 4:44 AM CDT) SODIUM S/P/B 133(L) 136 - 145 MMOL/L 03/02/2025 5:42 AM CDT [facility] POTASSIUM S/P/B 3.3(L) 3.5 - 5.1 MMOL/L 03/02/2025 5:42 AM T [facility] CHLORIDE S/P/B 101 97 - 115 MMOL/L 03/02/2025 5:42 AM [facility] CO2 26.2 21.0 - 32.0 MMOL/L 03/02/2025 5:42 AM T [facility] GLUCOSE 209(H) 74 - 106 MG/DL 03/02/2025 5:42 AM T [facility] BUN 14 7 - 18 MG/DL 03/02/2025 5:42 AM [facility] CREATININE S/P/B 0.54(L) 0.55 - 1.02 MG/DL 03/02/2025 5:42 AM [facility] CALCIUM S/P/B 8.7 8.5 - 10.1 MG/DL 03/02/2025 5:42 AM [facility] ANION GAP 5.8 2.0 - 10.0 MMOL/L 03/02/2025 5:42 AM [facility] OSMOLALITY (CALC) 283 MOSM/KG 025 5:42 AM [facility] Comment:REFERENCE RANGE NOT ESTABLISHED GFR ESTIMATE >90 >90 ML/MIN/1. 73 M2 03/02/2025 5:42 AM [facility] GFR NOTES GFR REFERENCE S: 03/02/2025 5:42 AM [facility] Comment: THE ESTIMATED [...] Final Result Performing Organization Address [facility] Co de Phone Number [facility] [address] [place] [address], [phone] * (ABNORMAL) HEMOGLOBIN, GLYCATED (02/24/2025 10:17 PM CDT) HGB A1C 11.9(H) <5.7 % 02/25/2025 2:06 AM CDT [facility] ESTIMATED AVG GLUCOSE 295(H) 74 - 114 MG/DL 02/25/2025 2:06 AM CDT [facility] 02/24/2025 10:1 7 PM CDT Reg Bernardo MD LABORATORY Final Result Performing Organization Address [facility] de Phone Number [facility] [address] [place] [address], [place] [phone] * MG SCREENING W DOMENICA AMAN DIGI (01/14/2025 12:45 PM SEISMOGRAPH SUPERVISOR) Anatomical Region Laterality Modality Breast Bilateral Mammography 01/14/2025 4:10 PM SEISMOGRAPH SUPERVISOR Impressions 01/14/2025 4:10 PM SEISMOGRAPH SUPERVISOR IMPRESSION: No suspicious change since the previous exams. Recommendation: 1: Routine Screening Bilateral in 1 Year Assessment: ACR BI-RADS 2 - BENIGN FINDING(S) Ordered By: JOSE DELAROSA Interpreted By: Reji Gao MD, 01/14/2025 4:10 PM Narrative 01/14/2025 4:10 PM SEISMOGRAPH SUPERVISOR [place] [phone] [place] [phone] Examination: Digital screening mammogram with CAD. Clinical [...] * (ABNORMAL) LIPID PANEL (01/31/2018 11:23 AM SEISMOGRAPH SUPERVISOR) CHOLESTEROL 211(H) <200 MG/DL 01/31/2018 12:01 PM SEISMOGRAPH SUPERVISOR [facility] TRIGLYCERIDES 190(H) <150 MG/DL 01/31/2018 12:01 PM [facility] HDL 48 >40 MG/DL 01/31/2018 12:01 PM [facility] LDL (CALCULATED) 125 <130 MG/DL 02/01/20 18 12:01 PM [facility] Comment: AN LDL OF <100 IS OPTIMAL; HOWEVER, ELEVATED IS DEFINED >130.BY ATP III GUIDELINES, LDL GOALS ARE DEPENDENT UPON THE PATIENT'S OTHER RISK FACTORS. CHOL/HDL RATIO 4.4 0.0 - 5.0 01/31/2018 12:01 PM [facility] 01/31/2018 11:2 3 AM SEISMOGRAPH SUPERVISOR 01/31/2018 11:25 AM SEISMOGRAPH SUPERVISOR us Generic Conversion Md [facility] Final R esult [facility] [place] [address], from Last 3 Months or Most Recently Relevant to Health Maintenance Insurance [employer] Advance Directives * Full Code (Latest Code Status on File) Date Activated Date Inactivated Comments 02/24/2025 5:45 PM 03/02/2025 8:52 PM Care Teams Welding Foreman Relationship Specialty Start Date End Date Jose Delarosa MD [address] [place] [phone] PCP - General FAMILY PRACTICE 01/11/19 Kortney Coronado NP [address] [place] [address] Nurse Practitioner Nurse Practitioner Family 03/27/24
--- OUTSIDE RECORDS SUMMARY | 2025-06-01 15:49 | XMS_ITS | Encounter Summary ---
Author Organization [facility] Address [address] [place] [address] Care Team Providers Care Fountain Vending Mechanic Name Role Phone Jose Beverly MD Primary Care Provider [phone] Brad Riojas MD Unavailable [phone] Kortney Coronado NP Unavailable [phone] Encounter Details Date Type Department Care Team (Late st Contact Info) Description 06/20/2024 [employer] Message Enc [facility] [address] [address] Apple Middleton PA [address] [place] [phone] Visit Follow Up Social History Tobacco Use [...] Sex Assigned at Female 01/14/2025 12:08 PM RESIDENTIAL CARPENTER Legal Sex Female 9:38 PM RESIDENTIAL CARPENTER Gender Identity Not on file Sexual Orientation [...] documented as of this encounter Care Teams Fountain Vending Mechanic Relationship Specialty Start Date End Date Jose Beverly MD [address] [place] [phone] PCP - General FAMILY PRACTICE 01/11/19 Brad Riojsa MD [address] [place] [phone] Vascular/Engagement Specialist VASCULAR SURGERY 12/26/23 01/31/25 Kortney Coronado NP [address] [place] [phone] Nurse Practitioner Nurse Practitioner Family 03/27/24 documented as of this encounter
--- OUTSIDE RECORDS SUMMARY | 2025-06-01 15:49 | XMS_ITS | Encounter Summary ---
Author Organization [facility] Address [address] [place] [address] Care Team Providers Care Silk Screen Repairer Name Role Phone Jose Beverly MD Primary Care Provider Brad Riojas MD Unavailable [phone] Kortney Coronado NP Unavailable [phone] Encounter Details Date Type Department Care Team (Late st Contact Info) Description 02/10/2018 Abstract [facility] CON[facility] [address] [place] [address] , Generic Conversion, Social History Tobacco Use Types Packs/Day Years Used Date Smoking Tobacco: Never Assessed Comments Unknown Sex and Gender Information Value Date Recorded Sex Assigned at Female 01/14/2025 12:08 PM AD WRITER Legal Sex Female 9:38 PM AD WRITER Gender Identity Not on file Sexual Orientation [...] documented as of this encounter Care Teams Silk Screen Repairer Relationship Specialty Start Date End Date Jose Beverly MD [address] [place] [phone] PCP - General FAMILY PRACTICE 01/11/19 Brad Riojas MD [address] [place] [phone] Vascular/Center Lead Consultant VASCULAR SURGERY 12/26/23 01/31/25 Kortney Coronado NP [address] [place] [phone] Nurse Practitioner Nurse Practitioner Family 03/27/24 documented as of this encounter
--- OUTSIDE RECORDS SUMMARY | 2025-06-01 15:49 | XMS_ITS | Clinical Summary ---
Author Organization [facility] Address [address] [place] [address] Phone Care Team Providers Care Public Service Representative Name Role Phone Jose Beverly MD Primary Care Provider [phone] Allergies Active Allergy Reactions Criticality Noted Date [...] daily as needed. Active ergocalciferol (VITAMIN D) 18249 UNIT Capsule Take 1 Capsule by mouth [...] drink = 0.6 oz pur e alcohol) [facility] Utilities Answer Date Recorded In the past 12 months has th e [employer], [employer], oil, or water [employer] threatened to shut off services in your home? Patient declined 10/30/2024 Social Connection and Isolation Panel Answer Date Recorded In a typical week, how many times do you talk on the phone with family, friends, or neighbors? Patient declined 10/30/2024 How often do you get togethe r with friends or relatives? Patient declined 10/30/2024 How often do you attend muslim or faith serv ices? Patient declined 10/30/2024 Do you belong to any clubs o r organizations such as muslim groups, unions, fraternal or athletic groups, or [...] medical care, and heating? Patient declined 10/30/2024 [facility] - Occup[facility] [...] time in the past 12 m [facility], were you homeless or living in a [facility] (including now)? Patient declined 10/30/2024 Sexually Active Control Partners Comments Not Currently Comments No Sex and Gender Information Value Date Recorded Sex Assigned at Female 11/02/2024 6:03 AM CAMPAIGN MANAGEMENT SPECIALIST Legal Sex Female 10:10 PM CDT Gender Identity Female 11/02/2024 6:03 AM CAMPAIGN MANAGEMENT SPECIALIST Sexual Orientation Not on file Last Filed Vital Signs Vital Sign Reading Time Taken Comments Blood Pressure 115/63 01/15/2025 3:30 PM CAMPAIGN MANAGEMENT SPECIALIST Pulse 89 01/15/2025 3:45 PM CAMPAIGN MANAGEMENT SPECIALIST Temperature 36.3 C (97.3 F) 01/15/2025 10:51 AM CAMPAIGN MANAGEMENT SPECIALIST Respiratory Rate 19 01/15/2025 3:02 PM CAMPAIGN MANAGEMENT SPECIALIST Oxygen Saturation 92% 01/15/2025 3:45 PM CAMPAIGN MANAGEMENT SPECIALIST Inhaled Oxygen Concentration - - Weight 87.8 kg (193 lb 9 oz) 01/15/2025 10:51 AM CAMPAIGN MANAGEMENT SPECIALIST Height 167.6 cm (5' 6) 01/15/2025 10:51 AM CAMPAIGN MANAGEMENT SPECIALIST Body Mass Index 31.24 01/15/2025 10:51 AM CAMPAIGN MANAGEMENT SPECIALIST Plan of Treatment Health Maintenance Due Date [...] (COMPREHENSIVE METABOLIC PANEL) STAT 01/15/2025 10:55 AM CAMPAIGN MANAGEMENT SPECIALIST HEMOGLOBIN A1C W/ ESTIMATED GLUCOSE STAT 10/30/2024 1:21 PM CAMPAIGN MANAGEMENT SPECIALIST HEPATITIS PANEL ACUTE (AHP) Routine 11/07/2020 4:30 AM CAMPAIGN MANAGEMENT SPECIALIST from Last 3 Months or Most Recently Relevant to Health Maintenance Results * (ABNORMAL) CMP (Comprehensive Metabolic Panel) (01/15/2025 10:55 AM CAMPAIGN MANAGEMENT SPECIALIST) SODIUM 139 136 - 145 mmol/L 01/15/2025 11:34 AM CAMPAIGN MANAGEMENT SPECIALIST [facility] POTASSIUM 3.9 3.5 - 5.1 mmol/L 01/15/2025 11:34 AM CAMPAIGN MANAGEMENT SPECIALIST [facility] CHLORIDE 101 98 - 107 mmol/L 01/15/2025 11:34 AM CAMPAIGN MANAGEMENT SPECIALIST [facility] CO2, VENOUS 25 22 - 30 mmol/L 01/15/2025 11:34 AM [facility] ANION GAP 16.9 <18.0 mmol/L 01/15/2025 11:34 AM [facility] GLUCOSE 335(H) 70 - 99 mg/dL 01/15/2025 11:34 AM [facility] BUN 15 10 - 20 mg/dL 01/15/2025 11:34 AM [facility] CREATININE, BLOOD 0.89 0.60 - 1.00 mg/dL 01/15/2025 11:34 AM [facility] BUN/CREATININE RATIO 17 12 - 20 ratio 01/15/2025 11:34 AM [facility] TOTAL PROTEIN 7.7 6.0 - 8.0 g/dL 01/15/2025 11:34 AM [facility] ALBUMIN 4.3 3.5 - 5.0 g/dL 01/15/2025 11:34 AM [facility] A/G RATIO 1.3 1.0 - 2.2 01/15/2025 11:34 AM [facility] CALCIUM 9.7 8.7 - 10.5 mg/dL 01/15/2025 11:34 AM [facility] T BILI 0.3 0.2 - 1.2 mg/dL 01/15/2025 11:34 AM [facility] SGOT (AST) 29 <43 U/L 01/15/2025 11:34 AM [facility] SGPT (ALT) 35 <56 U/L 01/15/2025 11:34 AM [facility] ALKALINE PHOSPHATASE 115 40 - 150 U/L 01/15/2025 11:34 AM [facility] GFR, ESTIMATED >60 >=60 01/15/2025 11:34 AM [facility] Comment: Creatinine Clearance is the preferred criteria for selecting drug dose adjustments in renally impaired patients. The GFR is provided as additional pertinent clinical information. GFR is reported in mL/min/1.73 sq m. Calculation based on the Chronic Kidney Disease Epidemiology Collaboration (CKD- EPI) equation refit without adjustment for race. GFR, EST. >60 >=60 025 11:34 AM CAMPAIGN MANAGEMENT SPECIALIST [facility] GFR, EST. NONAFRICAN >60 >=60 01/15/2025 11:34 AM CAMPAIGN MANAGEMENT SPECIALIST [facility] Blood Venipuncture / Unknown 01/15/2025 10:55 AM CAMPAIGN MANAGEMENT SPECIALIST 01/15/2025 11:03 AM CAMPAIGN MANAGEMENT SPECIALIST us Alejandro Simeon DO CHEMISTRY ORDERABLES Fi nal Result [facility] [address] [place] [address] * (ABNORMAL) Hemoglobin A1C (10/30/2024 1:21 PM CAMPAIGN MANAGEMENT SPECIALIST) HGB-A1C 13.1(H) 4.0 - 6.0 % 10/30/2024 2:18 PM CAMPAIGN MANAGEMENT SPECIALIST [facility] Est Average Glucose 329.3 mg/dL 10/30/2024 2:18 PM CAMPAIGN MANAGEMENT SPECIALIST [facility] Blood Venipuncture / Unknown 10/30/2024 1:21 PM CAMPAIGN MANAGEMENT SPECIALIST 10/30/2024 1:44 PM CAMPAIGN MANAGEMENT SPECIALIST Narrative [facility] - 10/30/2024 2:18 PM CAMPAIGN MANAGEMENT SPECIALIST HEMOGLOBIN A1C: DIABETIC PATIENTS: WELL-CONTROLLED: 6.2 - 7.0 INTERMEDIATE WELL-CONTROLLED: 7.0 - 9.0 POORLY-CONTROLLED: >9.0 us Mikaela Tang SILK SCREEN OPERATOR, MEDICAL MASSAGE THERAPIST CHEMISTRY ORDERABLES Final Result [facility] [address] [place] [address] * Hepatitis Panel Acute (AHP) (11/07/2020 4:30 AM CAMPAIGN MANAGEMENT SPECIALIST) HEPATITIS A IGM ANTIBODY NON DETECTED NON DETECTED [facility] ARCH [id number] 11/07/2020 2:40 PM CAMPAIGN MANAGEMENT SPECIALIST [facility] Comment: IGM Antibodies to HAV not detected. Does not exclude early acute or recovered HAV infection. HEP B CORE AB (IGM) NON DETECTED NON DETECTED [facility] ARCH [id number] 11/07/2020 2:40 PM CAMPAIGN MANAGEMENT SPECIALIST [facility] Comment:IGM anti-HBC not det ected. Does not exclude the possibility of exposure to or infection with HBV. HEPATITIS B SURFACE ANTIGEN NON DETECTED NON DETECTED [facility] ARCH [id number] B 11/07/2020 2:40 PM CAMPAIGN MANAGEMENT SPECIALIST [facility] Comment:A nonreactive test r esult does not exclude the possibility of exposure to or infection with Hepatitis B virus. A nonreactive test result in individuals with prior exposure to hepatitis B may be due to antigen levels below the detection limit of this assay or lack of antigen reactivity to the antibodies in this assay. hepatitis C antibody 0.32 <1 S/CO [facility] ARCH [id number] B 11/07/2020 2:40 PM CAMPAIGN MANAGEMENT SPECIALIST [facility] Comment: Signal/Cutoff ratio < 0.79 is Nondetected Signal/Cutoff ratio 0.80-0.99 is Grayzone Signal/Cutoff ratio > 0.99 is Detected Supplemental assays are recommended if signal/cutoff ratio is >/=1.00. Signal/cutoff ratio result >/= 5.00 is 97% predictive of positivity for recombinant immunoblot assay (RIBA) and will be reported to the [place] [facility] Public [facility] as required. Blood Venipuncture / Unknown 11/07/2020 4:30 AM CAMPAIGN MANAGEMENT SPECIALIST 11/07/2020 4:45 AM CAMPAIGN MANAGEMENT SPECIALIST us Wellington Lujan MD HEMATOLOGY ORDERABLES Final R esult [facility] [address] [place] [address], [place] from Last 3 Months or Most Recently Relevant to Health Maintenance Insurance MEDICAID [employer] [facility] Advance Directives * Full Code (Latest [...] measures to stabilize the patient. Care Teams Public Service Representative Relationship Specialty Start Date End Date Jose Beverly MD [address] [place] [address] PCP - General Family Medicine 05/02/16
--- OUTSIDE RECORDS SUMMARY | 2025-06-01 15:51 | XMS_ITS | Encounter Summary ---
Author Organization [facility] Address [address] [place] [id number] Care Team Providers Care Editor & Co Founder Name Role Phone Jose Beverly MD Primary Care Provider [phone] Brad Riojas MD Unavailable [phone] Kortney Coronado NP Unavailable [phone] Encounter Details Date Type Department Care Team (Late st Contact Info) Description 05/04/2019 Abstract [facility] CONVERSION [address] [place] [address] , Generic Conversion, Social History Tobacco Use [...] Sex Assigned at Female 01/14/2025 12:08 PM ARMY RANGER Legal Sex Female 9:38 PM ARMY RANGER Gender Identity Not on file Sexual Orientation [...] documented as of this encounter Care Teams Editor & Co Founder Relationship Specialty Start Date End Date Jose Beverly MD [address] [place] [phone] PCP - General FAMILY PRACTICE 01/11/19 Brad Riojas MD [address] [place] [phone] Vascular/Trench Pipe Layer VASCULAR SURGERY 12/26/23 01/31/25 Kortney Coronado NP [address] [place] [id number] Nurse Practitioner Nurse Practitioner Family 03/27/24 documented as of this encounter
[2025-06-01] MEDS: TETANUS,DIPHTHERIA,AC PERTUSSIS ADULT 0.5 ML (ADACEL) IM (16:29)
[2025-06-01] MEDS: SULFAMETHOXAZOLE/TRIMETHOPRIM 800/160 MG DS TABLET 1 TAB PO (16:29)
[2025-06-01 16:31] VITALS: BP 137/63; PULSE 82; RESP 16; TEMP 36.5; O2SAT 95
== END 2025-06-01 16:48 | disposition home or self-care (01) ==
PROVIDERS: Emergency Provider Emergency Medicine; PCP Family Medicine
DX: S93.491A Sprain of other ligament of right ankle, initial encounter (principal); L03.031 Cellulitis of right toe; E11.9 Type 2 diabetes mellitus without complications; I10 Essential (primary) hypertension; W01.0XXA Fall on same level from slipping, tripping and stumbling without subsequent striking against object, initial encounter; Z23 Encounter for immunization
CPT/HCPCS: 29515; 73610; 73630; 90471; 90715; 99283; A9270; L4350

== ENCOUNTER 2025-06-16 22:36 | Emergency (ER) | payer OTHER, SELFPAY ==
[2025-06-16 22:37] VITALS: BP 157/68; PULSE 91; RESP 20; TEMP 36.6; O2SAT 96
--- OUTSIDE RECORDS SUMMARY | 2025-06-16 22:38 | XMS_ITS | Clinical Summary ---
Author Organization [facility] Address [address] [place] [address] Care Team Providers Care Stripper Shovel Operator Name Role Phone Jose Delarosa MD Primary Care Provider Kortney Coronado POWDER COATER Unavailable Allergies Active Allergy Reactions Criticality Noted Date [...] Noted Date Diagnosed Date DKA (diabetic ketoacidosis) ([facility]) Intractable vomiting with nausea 02/24/2025 Other chest pain 10/30/2024 Sprain of left ankle, unspec ified ligament, initial encounter 06/20/2024 De Quervain's tenosynovitis, left 06/20/2024 PVD (peripheral vascular disease) 01/09/2024 Encounters Date Type Department Care Team Description 05/18/2025 3:16 PM CDT - 05/18/2025 4:26 PM CDT Emergency [facility] [address] [facility] [place] [address] Kwaku Lucio MD Foot Pain Discharge Disposition: Home or Self Care (Routine Discharge) 05/18/2025 Travel 05/10/2025 4:30 PM CDT - 05/10/2025 8:40 PM CDT Emergency [facility] [place] [address] Noah Real MD Dizziness (LEG SWELLING) Discharge Disposition: Home or Self Care (Routine Discharge) 05/10/2025 Travel from Last 3 Months Immunizations Immunization Administration [...] 0.6 oz pur e alcohol) seldom [facility] Utilities Answer Date [...] any time in the past 12 m [facility], were you homeless or living in a retirement (including now)? No 02/24/2025 Comments No Sex and Gender Information Value Date Recorded Sex Assigned at Female 01/14/2025 12:08 PM INK GRINDER Legal Sex Female 9:38 PM INK GRINDER Gender Identity Not on file Sexual Orientation [...] COVID-19 Vaccine ( season) 2024 Hemoglobin A1C 05/26/2025 02/24/2025, 12/0 [...] ECG 12-LEAD STAT 05/10/2025 5:01 PM CDT HEMOGLOBIN, GLYCOSYLATED Routine 02/24/2025 10:17 PM CDT MG SCREENING W DOMENICA AMAN DIGI Routine 01/14/2025 12:45 PM INK GRINDER Visit for screening mammogram LIPID PANEL Routine 01/31/2018 11:23 AM INK GRINDER from Last 3 Months or Most Recently [...] 3:58 PM Narrative 05/18/2025 4:00 PM [address] [place] [address] Procedure(s): XR FOOT RT 3V Date of [...] Procedure Note Brandt Vital MD - 05/18/2025 [facility] [address] [place] [address] Procedure(s): XR FOOT RT 3V Date of [...] By: Brandt Vital MD, 05/18/2025 3:58 PM Kwakuemerald Lucio MD GENERAL IMAGING Final Result * (ABNORMAL) COMPREHENSIVE METABOLIC PANEL (05/18/2025 3:38 PM CDT) Only the most recent of2 resultswithin the time period is included. SODIUM S/P/B 135(L) 136 - 145 MMOL/L 05/18/2025 4:00 PM CD[address] [facility] POTASSIUM S/P/B 3.9 3.5 - 5.1 MMOL/L 05/18/2025 4:00 PM CD[address] [facility] CHLORIDE S/P/B 99 98 - 107 MMOL/L 05/18/2025 4:00 PM CDT [facility] CO2 27.1 21.0 - 32.0 MMOL/L 05/18/2025 4:00 PM CDT [facility] GLUCOSE 291(H) 70 - 99 MG/DL 05/18/2025 4:00 PM [facility] Comment: FASTING GLUCOSE 100 TO 125 MG/DL IS CONSISTENT WITH IMPAIRED FASTING GLUCOSE. FASTING GLUCOSE >125 MG/DL IS CONSISTENT WITH DIABETES. RANDOM GLUCOSE >200 MG/DL WITH HYPERGLYCEMIC SYMPTOMS IS CONSISTENT WITH DIABETES. PER ADA GUIDELINES BUN 15 6 - 24 MG/DL 05/18/2025 4:00 PM [facility] CREATININE S/P/B 0.68 0.55 - 1.02 MG/DL 05/18/2025 4:00 PM [facility] CALCIUM S/P/B 9.7 8.4 - 10.5 MG/DL 05/18/2025 4:00 PM [facility] BILIRUBIN TOTAL S/P/B 0.4 0.2 - 1.0 MG/DL 05/18/2025 4:00 PM [facility] Comment: THIS ASSAY IS NOT RECOMMENDED FOR PATIENTS UNDERGOING TREATMENT WITH ELTROMBOPAG DUE TO THE POTENTIAL FOR FALSELY ELEVATED RESULTS. ALKALINE PHOSPHATASE S/P/B 112 46 - 118 U/L 05/18/2025 4:00 PM [facility] AST 16 15 - 37 U/L 05/18/2025 4:00 PM [facility] ALT 34 14 - 59 U/L 05/18/2025 4:00 PM [facility] TOTAL PROTEIN S/P/B 6.9 6.4 - 8.2 G/DL 05/18/2025 4:00 PM [facility] ALBUMIN S/P/B 3.5 3.4 - 5.0 G/DL 05/18/2025 4:00 PM [facility] ANION GAP 8.9 5.0 - 15.0 MMOL/L 05/18/2025 4:00 PM [facility] OSMOLALITY (CALC) 292 MOSM/KG 025 4:00 PM [facility] Comment:REFERENCE RANGE NOT ESTABLISHED GFR ESTIMATE >90 >89 ML/MIN/1. 73 M2 05/18/2025 4:00 PM [facility] GFR NOTES GFR REFERENCE S: 05/18/2025 4:00 PM CDT [facility] Comment: THE ESTIMATED GFR IS [...] us Kwaku Lucio MD LABORATORY Final Result [facility] [address] [place] [address], * (ABNORMAL) CBC W/DIFF AUTOMATED (05/18/2025 3:38 PM CDT) Only the most recent of2 resultswithin the time period is included. WBC 5.82 4.00 - 10.80 x10'3/uL 05/18/2025 3:44 PM CDT [facility] RBC 4.92 4.10 - 5.40 x10'6/uL 05/18/2025 3:44 PM CDT [facility] HGB 13.8 12.0 - 16.0 G/DL 05/18/2025 3:44 PM CDT [facility] HCT 42.1 36.0 - 47.0 % 05/18/2025 3:44 PM CDT [facility] MCV 85.6 78.0 - 100.0 FL 05/18/2025 3:44 PM CDT [facility] MCH 28.0 27.0 - 31.0 PG 05/18/2025 3:44 PM CDT [facility] MCHC 32.8(L) 33.0 - 36.0 G/DL 05/18/2025 3:44 PM CDT [facility] RDW 12.2 11.5 - 14.5 % 05/18/2025 3:44 PM CDT [facility] PLT 193 150 - 350 x10'3/uL 05/18/2025 3:44 PM CDT [facility] MPV 10.3 7.4 - 10.4 FL 05/18/2025 3:44 PM CDT [facility] CBC COMMENT NORMAL REFERENCE RANGE NOT ESTABLISHED FOR THE PROPORTIONAL LEUKOCYTE DIFFERENTIAL. 05/18/2025 3:[address] PM [address] [facility] NEUTROPHILS % 51.5 % 05/18/2025 3:44 PM CD[address] [facility] LYMPHOCYTES % 32.1 % 05/18/2025 3:44 PM CD[address] [facility] MONOCYTES % 12.9 % 05/18/2025 3:44 PM CDT [facility] EOSINOPHILS % 2.9 % 05/18/2025 3:44 PM CDT [facility] BASOPHILS % 0.3 % 05/18/2025 3:44 PM CD[address] [facility] IMMATURE GRANS % 0.3 % 05/18/20 3:44 PM [address] [facility] NRBC % 0.0 % 05/18/2025 3:44 PM CDT [facility] ABS. NEUTROPHILS 2.99 1.60 - 8.30 x10'3/uL 05/18/2025 3:44 PM CDT [facility] ABS. LYMPHOCYTES 1.87 0.80 - 4.70 x10'3/uL 05/18/2025 3:44 PM CD[address] [facility] ABS. MONOCYTES 0.75 0.00 - 1.50 x10'3/uL 05/18/2025 3:44 PM CD[address] [facility] ABS. EOSINOPHILS 0.17 0.00 - 0.40 x10'3/uL 05/18/2025 3:44 PM CD[address] [facility] ABS. BASOPHILS 0.02 0.00 - 0.20 x10'3/uL 05/18/2025 3:44 PM CDT [facility] ABS. IMMATURE GRANULOCYTES 0.02 0.00 - 0.03 x10'3/uL 05/18/2025 3:44 PM [address] [facility] ABS. NUCLEATED RBC'S 0.00 0.00 - 0.01 x10'3/uL 05/18/2025 3:44 PM [address] [facility] 05/18/2025 3:38 PM CDT us Kwaku Lucio MD LABORATORY Final Result [facility] [address] [place] [address], * US ROSEANNA DUPLEX LOW EXT AMAN [...] 8:11 PM Narrative 05/10/2025 8:37 PM CDT [facility] [address] [place], [place] [address] [facility] [address] [place], [place] [address] Examination: Bilateral lower extremity venous ultrasound. Clinical [...] Procedure Note Chacho Rayo MD - 05/10/[address] [address] Examination: Bilateral lower extremity venous ultrasound. Clinical [...] 6:54 PM Narrative 05/10/2025 6:55 PM CDT [address] [address] EXAMINATION: Chest X-Ray 1 View EXAM DATE/TIME: [...] Procedure Note Ronn Morgan MD - 05/10/[address] [address] EXAMINATION: Chest X-Ray 1 View EXAM DATE/TIME: [...] - 0.3 MMOL/L 05/10/2025 5:34 PM CDT [facility] 05/10/2025 5:11 PM CDT José Miguel Archibald MD LABORATORY Final Result [facility] [address] [place] [address], [place] [phone] * PRO-BRAIN NATRIURETIC PEPTIDE (05/10/2025 5:11 PM CDT) Pathologist [facility] PRO-B TYPE NATRIURETIC PEPTIDE 24 <125 PG/ML 05/10/2025 5:50 PM CDT [facility] Comment: AGE INDEPENDENT: <300 PG/ML [...] FOR ACUTE CHF. 05/10/2025 5:11 PM CDT José Miguel Archibald MD LABORATORY Final Result [facility] [address] [place] [address], [place] [phone] * (ABNORMAL) Blood gas, venous (05/10/2025 5:11 PM CDT) Pathologist [facility] PH VENOUS 7.40 7.32 - 7.42 05/10/2025 5:32 PM CDT [facility] PCO2 VENOUS 43.8 41.0 - 51.0 MMHG 05/10/2025 5:32 PM CDT [facility] PO2 VENOUS 65.1(H) 25.0 - 40.0 MM HG 05/10/2025 5:32 PM CDT [facility] BICARB VENOUS 26.5 24 - 28 MMOL/L 05/10/2025 5:32 PM CDT [facility] TOTAL CO2 VENOUS 27.9 25.0 - 29.0 MMOL/L 05/10/2025 5:32 PM CDT [facility] BASE EXCESS VENOUS 1.8 0 - 2 MMOL/L 05/10/2025 5:32 PM CDT [facility] O2 SAT VENOUS 93(H) <75 % 05/10/2025 5:32 PM CDT [facility] 05/10/2025 5:11 PM CDT us José Miguel Archibald MD LABORATORY Final Result Performing Organization Address [facility] Co de Phone Number [facility] [address] [place] [address], [place] [phone] * TROPONIN, QUANT (05/10/2025 5:11 PM CDT) Pathologist [facility] TROPONIN I HIGH SENSITIVITY 3 0 - 53 ng/L 05/10/2025 5:50 PM CDT [facility] 05/10/2025 5:11 PM CDT us José Miguel Archibald MD LABORATORY Final Result Performing Organization Address [facility] de Phone Number [facility] [address] [place] [address], [place] [phone] * MAGNESIUM (05/10/2025 5:11 PM CDT) Pathologist [facility] MAGNESIUM 1.9 1.6 - 2.6 MG/DL 05/10/2025 5:50 PM CDT [facility] Comment:RESULT QUESTIONABLE DUE TO HEMOLYSIS, CONSIDER RECOLLECTION. 05/10/2025 5:11 PM CDT us José Miguel Archibald MD LABORATORY Final Result Performing Organization Address [facility] de Phone Number [facility] [address] [place] [address], [place] [phone] * LIPASE (05/10/2025 5:11 PM CDT) Pathologist [facility] LIPASE 21 13 - 75 UNITS/L 05/10/2025 5:50 PM CDT [facility] 05/10/2025 5:11 PM CDT us José Miguel Archibald MD LABORATORY Final Result Performing Organization Address City/[facility] Co de Phone Number [facility] [address] [place] [address], [phone] * ECG 12 lead (05/10/2025 5:01 PM CDT) 05/10/2025 5:01 PM CDT Narrative [facility] - 05/10/2025 9:21 PM CDT [facility] Test Date: 2025-05-10 Pat Name: SHANTA ARREDONDOWOOD Department: 70 Room: EXAM SS Gender: Female Wash Oil Cooler Operator: Ramón ZULUAGA DOB: 1970 Requested By: JOSÉ MIGUEL ARCHIBALD Order Number: [id number] [facility]: Aj Escobedo Measurements Intervals [place] Rate: 83 P: 41 IA: 156 QRS: -13 QRSD: 90 T: 48 QT: 368 QTc: 433 Interpretive Statements SINUS RHYTHM Procedure Note Aj Escobedo MD - 05/10/2025 [facility] Test Date: 2025-05-10 Pat Name: SHANTA COREASKWOOD Department: 70 Room: EXAM SS Gender: Female Wash Oil Cooler Operator: Ramón ZULUAGA DOB: 1970 Requested By: JOSÉ MIGUEL ARCHIBALD Order Number: [id number] [facility]: Aj Escobedo Measurements Intervals [place] Rate: 83 P: 41 IA: 156 QRS: -13 QRSD: 90 T: 48 QT: 368 QTc: 433 Interpretive Statements SINUS RHYTHM us José Miguel Archibald MD ECG ORDERABLES Final Result Performing Organization Address [facility] Co de Phone Number [facility] * (ABNORMAL) HEMOGLOBIN, GLYCATED (02/24/2025 10:17 PM CDT) HGB A1C 11.9(H) <5.7 % 02/25/2025 2:06 AM CDT [facility] ESTIMATED AVG GLUCOSE 295(H) 74 - 114 MG/DL 02/25/2025 2:06 AM CDT [facility] 02/24/2025 10:1 7 PM CDT us Reg Bernardo MD LABORATORY Final Result Performing Organization Address [facility] Co de Phone Number [facility] [address] [place] [address], [place] [phone] * MG SCREENING W DOMENICA AMAN DIGI (01/14/2025 12:45 PM INK GRINDER) Anatomical Region Laterality Modality Breast Bilateral Mammography 01/14/2025 4:10 PM INK GRINDER Impressions 01/14/2025 4:10 PM INK GRINDER IMPRESSION: No suspicious change since the previous exams. Recommendation: 1: Routine Screening Bilateral in 1 Year Assessment: ACR BI-RADS 2 - BENIGN FINDING(S) Ordered By: JOSE DELAROSA Interpreted By: Reji Gao MD, 01/14/2025 4:10 PM Narrative 01/14/2025 4:10 PM INK GRINDER [address] [place] [address] Examination: Digital screening mammogram with CAD. Clinical [...] * (ABNORMAL) LIPID PANEL (01/31/2018 11:23 AM INK GRINDER) CHOLESTEROL 211(H) <200 MG/DL 01/31/2018 12:01 PM INK GRINDER [facility] TRIGLYCERIDES 190(H) <150 MG/DL 01/31/2018 12:01 PM [facility] HDL 48 >40 MG/DL 01/31/2018 12:01 PM [facility] LDL (CALCULATED) 125 <130 MG/DL 02/01/20 18 12:01 PM [facility] Comment: AN LDL OF <100 IS OPTIMAL; HOWEVER, ELEVATED IS DEFINED >130.BY ATP III GUIDELINES, LDL GOALS ARE DEPENDENT UPON THE PATIENT'S OTHER RISK FACTORS. CHOL/HDL RATIO 4.4 0.0 - 5.0 01/31/2018 12:01 PM [facility] 01/31/2018 11:2 3 AM INK GRINDER 01/31/2018 11:25 AM INK GRINDER us Generic Conversion Md [facility] LABORAT[facility] Final R esult [facility] [address] [place] [address], from Last 3 Months or Most Recently Relevant to Health Maintenance Insurance [employer] Advance Directives * Full Code (Latest Code Status on File) Date Activated Date Inactivated Comments 02/24/2025 5:45 PM 03/02/2025 8:52 PM Care Teams Stripper Shovel Operator Relationship Specialty Start Date End Date Jose Delarosa MD [address] [place] [phone] PCP - General FAMILY PRACTICE 01/11/19 Kortney Coronado NP [address] [place] [phone] Nurse Practitioner Nurse Practitioner Family 03/27/24
--- OUTSIDE RECORDS SUMMARY | 2025-06-16 22:38 | XMS_ITS | Encounter Summary ---
Author Organization [facility] Address [address] [place] [address] Care Team Providers Care Manuscript Reader Name Role Phone Jose Beverly MD Primary Care Provider Brad Riojas MD Unavailable [phone] Kortney Coronado NP Unavailable [phone] Encounter Details Date Type Department Care Team (Late st Contact Info) Description 02/10/2018 Abstract [facility] CONVERSION [address] [place] [address] , Generic Conversion, Social History Tobacco Use Types Packs/Day Years Used Date Smoking Tobacco: Never Assessed Comments Unknown Sex and Gender Information Value Date Recorded Sex Assigned at Female 01/14/2025 12:08 PM 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
--- OUTSIDE RECORDS SUMMARY | 2025-06-16 22:39 | XMS_ITS | Data Portability ---
Author Organization [facility], [address] [facility] ([place]) Address [address] 4th [place] [address] Care Team Providers Care Staff Air Defense Officer Name Role Phone JOSE DELAROSA Primary Care Provider RAJAT COBB Visual Developer Assessment Encounter Date Assessment Date Assessment LastModified [...] well as the weight from FibroScan report. [email or web address] Not available 09/09/2024 12:09:58 03/11/2025 03/11/2025 1. [...] She was seen in hospital consultation at [facility] in early February 2025 for uncontrolled type [...] She last had an eye exam at [facility] in [place]. She notes long history of uncontrolled type [...] appointments: The patient previously was seen at [facility] Endocrinology. She has not consistently followed [...] on this date of service including both fplb-[id number] and fwr-ddjp-gu-face time excluding any separately reportable services. dpk [...] our plan and discussion at this time. Not available 04/15/2025 12:19:57 Plan of Treatment Reminders Order Date Submit Date Provider Last Modified By Organization Details Last Modified Time Details Appointments Estab saturnino Rodgers nt 15.ES T 2024 09:30A M Dr. Gio Huang Not available Not available Not available Fibro scan Proce dures 30.[place] O 2024 01:30P M Gastroenterol ogy Not available Not available Not available Diego Rodgers nt 20.ES T 2024 02:20P M Dr. Rajat Cobb Not available Not available Not available Lab CMP, serum or plasm a 2024 025 [facility] Only - [facility] Laboratory, [address] [place] [address], [id number], 04/06/2025 13:47:47 micro album in, urine 2024 025 [facility] - [facility], [address] [place] [address], 33039, 04/04/2025 17:53:55 TSH, serum or plasm a 2024 025 [facility] - [facility], [address] [place] [address], [id number], 04/04/2025 17:57:33 vitam in B12, serum 2024 025 [facility] - [facility], [address] [place] [address], 43659, 04/06/2025 16:23:37 LDL, direc t, serum 2024 025 [facility] - [facility], [address] [place] [address], [id number], 04/04/2025 17:57:35 snehal stero l, total , serum 2024 025 [facility] - [facility], [address] [place] [address], 48457, 04/04/2025 17:57:36 Referral None recor ded. Procedures None recor ded. Surgeries None recor ded. Imaging None recor ded. Medication Orders None recor ded. Patient TargetsNo targets recorded. Patient InstructionsNo instructions recorded. Reason for Referral None Reported. Results Created Date Observation Date Name Description Value Unit Range Abnormal Flag Note LastModifiedBy Organization Detail LastModifiedTime 09/02/2009/02/2024 hepat ic funct ion panel , serum liver function panel Not Available [facility] [address] [place] [address], [id number], 09/02/2024 18:42:17 09/02/2009/02/2024 hepat ic funct ion panel , serum albumin 4.5 g/dL 3.5-5. 3 Not Available [facility] - [facility] [address] [place] [address], 20591, 09/02/2024 18:42:17 09/02/2009/02/2024 hepat ic funct ion panel , serum direct bilirubin <0.1 mg/dL 0.1-0. 5 low Not Available [facility] - [facility] [address] [place] [address], 87931, 09/02/2024 18:42:17 09/02/2009/02/2024 hepat ic funct ion panel , serum indirect bilirubin * mg/dL 0.1-0. 6 Unabl e to calcu late Indir ect Bilir ubin due to low Direc t Bilir ubin Not Available [facility] - [facility] [address] [place] [address], 83410, 09/02/2024 18:42:17 09/02/2009/02/2024 hepat ic funct ion panel , serum total bilirubin 0.3 mg/dL 0.2-1. 0 Not Available [facility] - [facility] [address] [place] [address], 06523, 09/02/2024 18:42:17 09/02/20 24 09/02/2024 hepat ic funct ion panel , serum ALP 125 U/L 44 - 127 Not Available [facility] - [facility] [address] [place] [address], 86977, 09/02/2024 18:42:17 09/02/20 24 09/02/2024 hepat ic funct ion panel , serum AST (SGOT) 33 U/L 10-40 Not Available [facility] - [facility] [address] [place] [address], 74331, 09/02/2024 18:42:17 09/02/20 24 09/02/2024 hepat ic funct ion panel , serum ALT (SGPT) 45 U/L 8-35 high Not Available [facility] - [facility] [address] [place] [address], 64528, 09/02/2024 18:42:17 09/02/20 24 09/02/2024 hepat ic funct ion panel , serum total protein 7.1 g/dL 6.4-8. 3 Not Available [facility] - [facility] [address] [place] [address], 37636, 09/02/2024 18:42:17 04/04/20 25 04/04/2025 hemog lobin A1c, QN, blood fingerstick A1C endo Not Available [facility] [address] [place] [address], 58925, 04/04/2025 15:27:11 04/04/20 25 04/04/2025 hemog lobin A1c, QN, blood hemoglobin A1C, finger 10.9 %_A1C 4.3 - 5.6 high Not Available [facility] - [facility] [address] [place] [address], 53237, 04/04/2025 15:27:11 04/04/20 25 04/04/2025 hemog lobin A1c, QN, blood fingerstick estimated ave [address] Not Available [facility] [address] [place] [address], 16527, 04/04/2025 15:27:11 04/04/20 25 04/04/2025 micro album in, urine microalbumin ,random panel Not Available [facility] [address] [place] [address], 74045, 04/04/2025 17:53:55 04/04/2004/04/2025 micro album in, urine microalbumin random 0.5 mg/dL Not Available [facility] - [facility] [address] [place] [address], 92909, 04/04/2025 17:53:55 04/04/2004/04/2025 micro album in, urine creatinine, urine random 80 mg/dL Refer ence range not estab lishe d for other than 24 hour colle ction . Not Available [facility] - [facility] [address] [place] [address], 23475, 04/04/2025 17:53:55 04/04/2004/04/2025 micro album in, urine microalb/cre at ratio [...] in or Creat inine .) Not Available [facility] - [facility] [address] [place] [address], 79258, 04/04/2025 17:53:55 04/04/2004/04/2025 TSH, serum or plasm a TSH; reflex to free T4 Not Available [facility] - [facility] [address] [place] [address], 41784, 04/04/2025 17:57:33 04/04/2004/04/2025 TSH, serum or plasm a TSH3 0.687 uIU/m L .340-5 .600 Not Available [facility] - [facility] [address] [place] [address], 66969, 04/04/2025 17:57:33 04/04/20 25 04/04/2025 LDL, direc t, serum direct LDL high Not Available [facility] - [facility] [address] [place] [address], 66603, 04/04/2025 17:57:35 04/04/20 25 04/04/2025 LDL, direc t, serum direct LDL 106 mg/dL 0-100 high Not Available [facility] - [facility] [address] [place] [address], 67863, 04/04/2025 17:57:35 04/04/20 25 04/04/2025 snehal stero l, total , serum cholesterol Not Available [facility] [address] [place] [address], 62701, 04/04/2025 17:57:36 04/04/20 25 04/04/2025 snehal stero l, total , serum cholesterol 180 mg/dL <25-20 0 Not Available [facility] - [facility] [address] [place] [address], 77638, 04/04/2025 17:57:36 04/04/20 25 04/04/2025 CMP, serum or plasm a sodium 138 mmol/ L 136-14 6 Not Available [facility] - [facility] [address] [place] [address], 37218, 04/06/2025 13:47:47 04/04/2004/04/2025 CMP, serum or plasm a chloride 103 mmol/ L 98-110 Not Available [facility] - [facility] [address] [place] [address], 88641, 04/06/2025 13:47:47 04/04/20 25 04/04/2025 CMP, serum or plasm a CO2 31 mEq/L 20-32 Not Available [facility] - [facility] [address] [place] [address], 26424, 04/06/2025 13:47:47 04/04/20 25 04/04/2025 CMP, serum or plasm a calcium 9.5 mg/dL 8.4-10 .4 Not Available [facility] - [facility] [address] [place] [address], 17300, 04/06/2025 13:47:47 04/04/20 25 04/04/2025 CMP, serum or plasm a total protein 6.8 g/dL 6.4-8. 3 Not Available [facility] - [facility] [address] [place] [address], 15176, 04/06/2025 13:47:47 04/04/20 25 04/04/2025 CMP, serum or plasm a albumin 4.5 g/dL 3.5-5. 3 Not Available [facility] - [facility] [address] [place] [address], 35569, 04/06/2025 13:47:47 04/04/20 25 04/04/2025 CMP, serum or plasm a ALP 117 U/L 44 - 127 Not Available [facility] - [facility] [address] [place] [address], 01545, 04/06/2025 13:47:47 04/04/20 25 04/04/2025 CMP, serum or plasm a AST (SGOT) 31 U/L 10-40 Not Available [facility] [address] [place] [address], 21834, 04/06/2025 13:47:47 04/04/2004/04/2025 CMP, serum or plasm a total bilirubin 0.4 mg/dL 0.2-1. 2 Not Available [facility] - [facility] [address] [place] [address], 38715, 04/06/2025 13:47:47 04/04/2004/04/2025 CMP, serum or plasm a BUN 13 mg/dL 7-21 Not Available [facility] - [facility] [address] [place] [address], 10006, 04/06/2025 13:47:47 04/04/20 25 04/04/2025 CMP, serum or plasm a creatinine 0.7 mg/dL 0.7-1. 3 Not Available [facility] - [facility] [address] [place] [address], 67856, 04/06/2025 13:47:47 04/04/20 25 04/04/2025 CMP, serum or plasm a CKD-epi GFR 101 eGFR was calcu lated using the 2020 CKD-E PI equat ion. (Transitional Nurse maryjane Kidne y Disea se has an eGFR less than 60 mL/mi n/1.7 3mm for a perio d of three month s or more. ) This calcu latio n has not been valid ated for patie nt ages <18 or >90 years old. Not Available [facility] Only - [facility] [address] [place] [address], 88512, 04/06/2025 13:47:47 04/04/2004/06/2025 CMP, serum or plasm a comp. met. panel Not Available [facility] [address] [place] [address], 14086, 04/06/2025 13:47:47 04/04/2004/06/2025 CMP, serum or plasm a potassium 3.8 mmol/ L 3.5-5. 1 Not Available [facility] - [facility] [address] [place] [address], 25223, 04/06/2025 13:47:47 04/04/2004/06/2025 CMP, serum or plasm a anion gap 8 mmol/ L 10-22 low Not Available [facility] - [facility] [address] [place] [address], 51330, 04/06/2025 13:47:47 04/04/2004/06/2025 CMP, serum or plasm a glucose 261 mg/dL 70-100 high Not Available [facility] - [facility] [address] [place] [address], 10530, 04/06/2025 13:47:47 04/04/20 25 04/06/2025 CMP, serum or plasm a ALT (SGPT) 39 U/L 8-35 high Not Available [facility] Only - [facility] [address] [place] [address], 55037, 04/06/2025 13:47:47 04/04/20 25 04/06/2025 vitam in B12, serum vitamin B12 535 pg/mL 180-91 4 <145 pg/mL = Defic ient 145 - 180 pg/mL = Inter media te Not Available [facility] Only - [facility] [address] [place] [address], 34389, 04/06/2025 16:23:37 09/25/20 24 11/03/2023 imagi ng/di agnos tic resul t No observ ation record ed. [email or web address] Not Available 12:56:23 03/03/20 25 02/06/2025 CT, angio gram, coron honey arter ies, w/ contr ast [facility] [address] [facility] [address] EXAMIN ATION: CARDIA C COMPUT ED TOMOGR [...] at separa te dedica tal [facility]. To reduce radiat ion dose, sequen tial [...] EMMA FINDIN GS: Hidalgo ry stenos is gradin g is report ed using the follow [...] score of 0. Ordere d By: BELÉN RIOJAS Electr onical ly Signed By: Dwayne Olson on 03/03/20 1:22 PM Interp reted By: Dwayne Olson, 03/03/20 1:12 PM [email or web address] Nd Only - [facility] Rad [address] [facility], [place], [address], 03/03/2025 15:38:06 03/11/2002/26/2025 CT, abdom en + pelvi s, w/ contr ast No observ ation record ed. [email or web address] Not Available 2024 11:57:04 03/11/2001/22/2025 CT, angio gram, abdom inal aorta , w/ runof f, w/ contr ast No observ ation record ed. [email or web address] Not Available 2024 11:57:04 03/11/2010/31/2024 (SHANAE) ankle brach ial index * No observ ation record ed. [email or web address] Not Available 2024 11:56:23 03/11/20 US, duple x, venou s, lower extre mity No observ ation record ed. [email or web address] Not Available 2024 11:57:04 03/11/20 nucle ar stres s test No observ ation record ed. [email or web address] Not Available 2024 11:57:05 03/11/20 US, echoc ardio gram No observ ation record ed. [email or web address] Not Available 2024 11:57:05 03/25/20 25 09/15/2022 imagi ng/di agnos tic resul t No observ ation record ed. [email or web address] Not Available 06:16:45 Result Notes Documentation Provider Name and Address Organization Details Recorded Time Ct, Angiogram, Coronary Arteries, W/ Contrast : [address] [address] EXAMINATION: CARDIAC COMPUTED TOMOGRAPHY with CORONARY ANGIOGRAM [...] By: Clive Olson, 03/03/2025 1:12 PM Elyse parr, [facility] 03/03/2025 15:38:06 Problems Name Problem SNOMED Code Status Onset Date Resolution Date Notes Provider Name and Address Organization Details Recorded Time Type 2 diabetes mellitus 80149818 [facility] 14[facility]56:54 Esophageal reflux finding 121407604 Active 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 4 14:57:22 Essential hypertensio n 64100809 Active 2023 Hina Drake [facility] 4 14:57:33 Abdominal pain 93209978 Active 2023 Charels Berman APRN, REPAIR WELDER [address] [place] [address], 95090[address] 3, [facility] 4 13:54:09 Obesity 118875745 Active 2023 Charles Berman APRN, REPAIR WELDER [address] [place] [address], 55062[address] 3, [facility] 4 13:54:34 Gastroesoph ageal reflux disease without esophagitis 980105156 Active 2023 Charles Berman APRN, REPAIR WELDER [address] [place] [address], 25608[address], [facility] 4 13:54:44 Uncontrolle d type 2 diabetes mellitus 771434243 Active 2023 Charles Berman APRN, REPAIR WELDER [address] [place] [address], 81102-[address] 3, [facility] 4 13:55:31 Peripheral vascular disease 781721513 Active 2024 [facility]alomon [facility] 5 09:21:31 Diabetic ketoacidosi s without coma 288275508 Active 2024 [facility] 5 09:21:57 Peripheral neuropathy due to type 2 diabetes mellitus 9867773681741 Active 2024 Gio Huang M.D. [address] [place] [address], 45[address], [facility] 5 16:49:00 Hyperlipide yane 65156335 Active 2024 Gio Huang M.D. [address] [place] [address], 22316-875 3, [facility] 5 16:49:07 Nausea and vomiting 21532062 Active 2024 Charles Berman APRN, REPAIR WELDER [address] [place] [address], 42069-100 3, [facility] 5 12:20:04 Problem Notes None recorded. Procedures Surgical History Date Name Laterality Status Provider Name and Address Organization Details Recorded Time 4 SC Fibroscan completed Rajat Cobb MD [address] [place] [address], [phone], [facility] 09/03/2024 09:55:36 section completed [facility] 03/11/2025 11:52:24 exploration using laparoscope completed [facility] 03/11/2025 11:52:40 exploration of carpal tunnel completed [facility] 03/11/2025 11:53:17 Imaging Results None recorded. Procedure Notes None recorded. Medical Equipment None Reported. Allergies Allergen ID Allergen Name Allergen Category Reaction Reaction Severity Criticality Documentation Date Start Date Code Code System Note Provider Name and Address Organization Details Recorded Time 7991128 mold extract environme nt Not available Not available Not available 12/27/20232007 54745 8 RxNorm Comme nt: Mold ; Not Available [facility] 4 04:14:26 2616838 latex gloves medicatio n Not available Not available Not available 12/27/20232011 17061 UNK Not Available [facility] 4 04:14:26 [id number] POLLEN EXTRACTS medicatio n Not available Not available Not available 09/04/20242007 55850 6 RxNorm Comme nt: Polle n ; Not Available [facility] 4 21:24:54 375523 Product containin g penicilli n (product) medicatio n swelling Not available Not available 12/25/20232007 95386 8001 SNOMED React ion: Swell ing; Not Available [facility] 4 23:34:40 668989 Tylenol with Codeine medicatio n swelling Not available Not available 12/25/20232007 89782 6 RxNorm React ion: Swell ing; Not Available [facility] 4 23:34:40 Medications Name Sig Start Date [...] Updated DateTime 03/11/2025 167.64 cm 31.2 kg/m2 72304.05 g 142/86 mm[Hg] Earlene Martines [facility] 03/11/2025 11:44:38 Date Recorded Body height Body mass index (BMI) Body weight Heart rate Systolic And Diastolic Provider Name and Address Organization Details Last Updated DateTime 04/04/2025 167.64 cm 31.6 kg/m2 58444.67 g 96 /min 146/84 mm[Hg] Megha Arreguin [facility] 04/04/2025 15:26:04 Date Recorded Body height Body mass index (BMI) Body weight Systolic And Diastolic Provider Name and Address Organization Details Last Updated DateTime 04/15/2025 167.64 cm 31.8 kg/m2 87686.7 g 135/85 mm[Hg] Charles Berman, BUSINESS APPLICATIONS MANAGER, REPAIR WELDER [address] [place] [address], [phone], [facility] 04/15/2025 12:14:10 Date Recorded Body height Body mass index (BMI) Body weight Provider Name and Address Organization Details Last Updated DateTime 09/02/2024 167.64 cm 30.7 kg/m2 36084.55 g Chele Conrad [facility] 09/02/2024 16:49:06 Social History Question Answer Notes LastModified by [email or web address] Details LastModified Time Tobacco Smoking Status Never [facility]oker [facility] 03/11/2025 11:51:54 How Many Times Per Week Do You Exercise? 3-4 Times Per Week [email or web address] Information not available 03/11/2025 Sex: Unknown Functional Status Question Answer Note LastModified by [email or web address] Details LastModified Time Do you use any illicit or recreational drugs? No [email or web address] Information not available 03/11/2025 What is your level of alcohol consumption? None [email or web address] Information not available 03/11/2025 What is your exercise level? Moderate Information not available 03/11/2025 Mental Status None recorded. Family History Relationship Description Onset Age of this Age Resolved Age Notes LastModified by Organization Details LastModified Time Mother Heart disease [email or web address] Not available 02/25 11:51:07 Mother Malignant neoplasm of lung [email or web address] Not available 02/25 11:51:17 Mother Malignant neoplasm of ovary [email or web address] Not available 02/25 11:51:26 Father Heart disease [email or web address] Not available 02/25 11:51:07 Maternal Grandmother Malignant neoplasm of lung [email or web address] Not available 02/25 11:51:32 Medical History No medical history recorded. Gynecological HistoryNo gynecological history recorded. Obstetrics History GPAL:G 0 P 0 0 0 0 Immunizations Vaccine Type Date Status Note Provider Nam e and Address Organization Details Recorded Time Influenza, split virus, quadrivalent, preservative 2 [facility] 11:45:49 Tdap 0 completed Earlene [facility] 03/11/2025 11:45:49 Td (adult), 2 Lf tetanus toxoid, preservative free, adsorbed 1 completed Earlene [facility] 03/11/2025 11:45:49 Influenza, split virus, quadrivalent, PF 6 [facility] 03/11/2025 11:45:49 Past Encounters Encounter ID Performer Location Encounter Start Date Encounter Closed Date Diagnosis/Indication Diagnosis SNOMED-CT Code Diagnosis ICD10 Code Diagnosis Note [id number] Charles Berman APRN, REPAIR WELDER [address] [facility] ([place]) [address] [facility] [place] [address] 04/30/2024 12:44:03 04/30/2024 14:11:58 Abdominal pain 08055214 R10.9 Obesity 515991408 E66.9 Gastroesop hageal reflux disease without esophagitis 812119702 K21.9 History of Garrison's esophagus 9127302452 9505714 Z87.19 Uncontroll ed type 2 diabetes mellitus 167617444 E11.65 [id number] Rajat Cobb MD [address] Boards [address] [place] [address] 09/02/2024 16:37:02 09/02/2024 16:50:44 Steatotic liver disease 500140694 K76.0 [id number] Charles Berman APRN, REPAIR WELDER [address] [facility] [place]) [address] [facility] [place] [address] 09/09/2024 11:45:15 09/09/2024 12:37:22 Steatotic liver disease 159011773 K76.0 [id number] Belén Riojas MD [facility] Cardiolog y ([place]) [address] [facility] 3[address] [place] [address] 03/11/2025 11:37:27 03/12/2025 06:33:26 Essential hypertension 25521166 I10 Abdominal pain 47856488 R10.13 Peripheral vascular disease 266374300 I73.9 Diabetic k etoacidosis without coma 357783239 E11.10 [id number] Gio Huang M.D. 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 2 diabetes mellitus 1357131986 107 E11.42 Hyperlipidemia 09294127 E78.5 Insulin pump present 450 347881 Z96.41 Body mass index 30+ - obesity 104756767 Z68.31 [id number] Charles Berman APRN, REPAIR WELDER [address] [facility] [place] [address] [facility] [place] [address] 04/15/2025 11:36:42 04/15/2025 12:24:06 Nausea and vomiting 08713127 R11.2 Steatotic liver disease 947819540 K76.0 History of adenomatous polyp of colon 675720334 Z86.0101 Health Concerns Section Related Observation LastModified by Organization Detai ls LastModified Time None Recorded Concern Status LastModified by Organization Details LastModified Time None Recorded Advance Directives Directive None Recorded Payers Insurance Date Sequence Insurance Name Policy Number Policy Jj Covered Member ID Jj Member ID Guarantor Name 05/31/2025 1 [employer] [facility] [facility] [place] Marilee [facility] ON OR AFTER 10/27/2020 (MEDICAID REPLACEMENT - HMO) Maranda oBse [id number] Maranda Bose Notes Date Note Type Note [...] the last several months. Charles Berman APRN, REPAIR WELDER [address] [place] [address], [phone], [facility] 09/09/2024 12:10:50 03/11/2025 text/html I had the [...] enzymes indicated no evidence of myonecrosis at [facility] in February 2025. He has atypical sharp [...] physical activity. Belén Riojas MD [address] [place] [address], [phone], [facility] 03/11/2025 12:50:10 04/15/2025 text/html 54-year-old mariama oliver [...] this hospitalization, all these records are with [facility].She was discharged on an insulin pump since she has been discharged and her diabetes is under much better control she has had no further dry heaving, nausea, or vomiting.She also wanted to make sure she was up-to-date with her colonoscopies, as well as her known hepatic steatosis monitoring. Charles Berman, BUSINESS APPLICATIONS MANAGER, REPAIR WELDER [address] [place] [address], [phone], [facility] 04/15/2025 12:20:27 OBGyn Episode No OBEpisode recorded.
--- OUTSIDE RECORDS SUMMARY | 2025-06-16 22:39 | XMS_ITS | Continuity of Care Document ---
Author Organization [facility]. If a dditional information is needed, contact Health Information Management at [phone] Address [address] [place] [address] Phone Care Team Providers Care Typing Section Chief Name Role Phone Unavailable Unavailable Unavailable Unavailable Unavailable Unavailable Problems Otitis externa Onset:05-Jun-2019 Increased blood pressure Onset:05-Jun-2019 Allergies and Adverse Reactions Penicillins(Allergy) Onset: 05-Jun-2019 Reaction:UNKNOWN latex(Allergy) Onset: 05-Jun-2019 Reaction:UNKNOWN Social History Smoking Status Tobacco smoking consumption unknown Recorded:
--- OUTSIDE RECORDS SUMMARY | 2025-06-16 22:39 | XMS_ITS | Encounter Summary ---
Author Organization [facility] Address [address] [place] [id number] Care Team Providers Care Preforming Machine Operator Name Role Phone Jose Beverly MD Primary Care Provider Brad Riojas MD Unavailable [phone] Kortney Coronado NP Unavailable [phone] Encounter Details Date Type Department Care Team (Late st Contact Info) Description 06/20/2024 [place] Message Enc [facility] [address] [address] Apple [place] PA [address] [place] [id number] Visit Follow Up Social History Tobacco Use [...] Sex Assigned at Female 01/14/2025 12:08 PM SENIOR ATTORNEY Legal Sex Female 9:38 PM SENIOR ATTORNEY Gender Identity Not on file Sexual Orientation [...] documented as of this encounter Care Teams Preforming Machine Operator Relationship Specialty Start Date End Date Jose Beverly MD [address] [place] [phone] PCP - General FAMILY PRACTICE 01/11/19 Brad Riojas MD [address] [place] [phone] Vascular/[employer] VASCULAR SURGERY 12/26/23 01/31/25 Kortney Coronado NP [address] [place] [address] Nurse Practitioner Nurse Practitioner Family 03/27/24 documented as of this encounter
--- OUTSIDE RECORDS SUMMARY | 2025-06-16 22:39 | XMS_ITS | Encounter Summary ---
Author Organization [facility] Address [address] [place] [address] Care Team Providers Care Tea Plantation Worker Name Role Phone Jose Beverly MD Primary Care Provider Brad Riojas MD Unavailable [phone] Kortney Coronado NP Unavailable [phone] Encounter Details Date Type Department Care Team (Late st Contact Info) Description 05/04/2019 Abstract [facility] CONVERSION [address] [place] [address] , Generic Conversion, Social History Tobacco Use [...] Sex Assigned at Female 01/14/2025 12:08 PM FILER FINISH Legal Sex Female 9:38 PM FILER FINISH Gender Identity Not on file Sexual Orientation [...] documented as of this encounter Care Teams Tea Plantation Worker Relationship Specialty Start Date End Date Jose Beverly MD [address] [place] [phone] PCP - General FAMILY PRACTICE 01/11/19 Brad Riojas MD [address] [place] [phone] Vascular/Decal Decorator VASCULAR SURGERY 12/26/23 01/31/25 Kortney Coronado NP [address] [place] [phone] Nurse Practitioner Nurse Practitioner Family 03/27/24 documented as of this encounter
--- OUTSIDE RECORDS SUMMARY | 2025-06-16 22:39 | XMS_ITS | Clinical Summary ---
Author Organization [facility] Address [address] [place] [address] Phone Care Team Providers Care Employee Operations Examiner Name Role Phone Jose Beverly MD Primary Care Provider [phone] Allergies Active Allergy Reactions Criticality Noted Date [...] daily as needed. Active ergocalciferol (VITAMIN D) 56910 UNIT Capsule Take 1 Capsule by mouth [...] drink = 0.6 oz pur e alcohol) [facility] Utilities Answer Date Recorded In the past 12 months has th e [employer], [employer], oil, or water [employer] threatened to shut off services in your home? Patient declined 10/30/2024 Social Connection and Isolation Panel Answer Date Recorded In a typical week, how many times do you talk on the phone with family, friends, or neighbors? Patient declined 10/30/2024 How often do you get togethe r with friends or relatives? Patient declined 10/30/2024 How often do you attend synagogue or restoration serv ices? Patient declined 10/30/2024 [...] care, and heating? Patient declined 10/30/2024 [facility] - Occupational Stress [...] any time in the past 12 [facility], were you homeless or living in a chcf (including now)? Patient declined 10/30/2024 Sexually Active Control Partners Comments Not Currently Comments No Sex and Gender Information Value Date Recorded Sex Assigned at Female 11/02/2024 6:03 AM CLINICAL PSYCHOLOGIST PRIVATE PRACTICE Legal Sex Female 10:10 PM CDT Gender Identity Female 11/02/2024 6:03 AM CLINICAL PSYCHOLOGIST PRIVATE PRACTICE Sexual Orientation Not on file Last Filed Vital Signs Vital Sign Reading Time Taken Comments Blood Pressure 115/63 01/15/2025 3:30 PM CLINICAL PSYCHOLOGIST PRIVATE PRACTICE Pulse 89 01/15/2025 3:45 PM CLINICAL PSYCHOLOGIST PRIVATE PRACTICE Temperature 36.3 C (97.3 F) 01/15/2025 10:51 AM CLINICAL PSYCHOLOGIST PRIVATE PRACTICE Respiratory Rate 19 01/15/2025 3:02 PM CLINICAL PSYCHOLOGIST PRIVATE PRACTICE Oxygen Saturation 92% 01/15/2025 3:45 PM CLINICAL PSYCHOLOGIST PRIVATE PRACTICE Inhaled Oxygen Concentration - - Weight 87.8 kg (193 lb 9 oz) 01/15/2025 10:51 AM CLINICAL PSYCHOLOGIST PRIVATE PRACTICE Height 167.6 cm (5' 6) 01/15/2025 10:51 AM CLINICAL PSYCHOLOGIST PRIVATE PRACTICE Body Mass Index 31.24 01/15/2025 10:51 AM CLINICAL PSYCHOLOGIST PRIVATE PRACTICE Plan of Treatment Health Maintenance Due Date [...] A1c 04/30/2025 024, 04/27/2023, 11/05/2020 Influenza Immunization (#1) 2025 08/22/2022, 1 Mammogram 01/14/2026 01/14/2025, 12/28, 12/15/2023, Additional history [...] (COMPREHENSIVE METABOLIC PANEL) STAT 01/15/2025 10:55 AM CLINICAL PSYCHOLOGIST PRIVATE PRACTICE HEMOGLOBIN A1C W/ ESTIMATED GLUCOSE STAT 10/30/2024 1:21 PM CLINICAL PSYCHOLOGIST PRIVATE PRACTICE HEPATITIS PANEL ACUTE (AHP) Routine 11/07/2020 4:30 AM CLINICAL PSYCHOLOGIST PRIVATE PRACTICE from Last 3 Months or Most Recently Relevant to Health Maintenance Results * (ABNORMAL) CMP (Comprehensive Metabolic Panel) (01/15/2025 10:55 AM CLINICAL PSYCHOLOGIST PRIVATE PRACTICE) SODIUM 139 136 - 145 mmol/L 01/15/2025 11:34 AM CLINICAL PSYCHOLOGIST PRIVATE PRACTICE [facility] POTASSIUM 3.9 3.5 - 5.1 mmol/L 01/15/2025 11:34 AM CLINICAL PSYCHOLOGIST PRIVATE PRACTICE [facility] CHLORIDE 101 98 - 107 mmol/L 01/15/2025 11:34 AM CLINICAL PSYCHOLOGIST PRIVATE PRACTICE [facility] CO2, VENOUS 25 22 - 30 mmol/L 01/15/2025 11:34 AM [facility] ANION GAP 16.9 <18.0 mmol/L 01/15/2025 11:34 AM [facility] GLUCOSE 335(H) 70 - 99 mg/dL 01/15/2025 11:34 AM [facility] BUN 15 10 - 20 mg/dL 01/15/2025 11:34 AM [facility] CREATININE, BLOOD 0.89 0.60 - 1.00 mg/dL 01/15/2025 11:34 AM [facility] BUN/CREATININE RATIO 17 12 - 20 ratio 01/15/2025 11:34 AM [facility] TOTAL PROTEIN 7.7 6.0 - 8.0 g/dL 01/15/2025 11:34 AM [facility] ALBUMIN 4.3 3.5 - 5.0 g/dL 01/15/2025 11:34 AM [facility] A/G RATIO 1.3 1.0 - 2.2 01/15/2025 11:34 AM [facility] CALCIUM 9.7 8.7 - 10.5 mg/dL 01/15/2025 11:34 AM [facility] T BILI 0.3 0.2 - 1.2 mg/dL 01/15/2025 11:34 AM [facility] SGOT (AST) 29 <43 U/L 01/15/2025 11:34 AM [facility] SGPT (ALT) 35 <56 U/L 01/15/2025 11:34 AM [facility] ALKALINE PHOSPHATASE 115 40 - 150 U/L 01/15/2025 11:34 AM [facility] GFR, ESTIMATED >60 >=60 01/15/2025 11:34 AM [facility] Comment: Creatinine Clearance is the preferred criteria for selecting drug dose adjustments in renally impaired patients. The GFR is provided as additional pertinent clinical information. GFR is reported in mL/min/1.73 sq m. Calculation based on the Chronic Kidney Disease Epidemiology Collaboration (CKD- EPI) equation refit without adjustment for race. GFR, EST. >60 >=60 025 11:34 AM CLINICAL PSYCHOLOGIST PRIVATE PRACTICE [facility] GFR, EST. NONAFRICAN >60 >=60 01/15/2025 11:34 AM CLINICAL PSYCHOLOGIST PRIVATE PRACTICE [facility] Blood Venipuncture / Unknown 01/15/2025 10:55 AM CLINICAL PSYCHOLOGIST PRIVATE PRACTICE 01/15/2025 11:03 AM CLINICAL PSYCHOLOGIST PRIVATE PRACTICE us Alejandro Simeon DO CHEMISTRY ORDERABLES Fi nal Result [facility] [address] [place] [address] * (ABNORMAL) Hemoglobin A1C (10/30/2024 1:21 PM CLINICAL PSYCHOLOGIST PRIVATE PRACTICE) Pathologist [facility] HGB-A1C 13.1(H) 4.0 - 6.0 % 10/30/2024 2:18 PM CLINICAL PSYCHOLOGIST PRIVATE PRACTICE [facility] Est Average Glucose 329.3 mg/dL 10/30/2024 2:18 PM CLINICAL PSYCHOLOGIST PRIVATE PRACTICE [facility] Blood Venipuncture / Unknown 10/30/2024 1:21 PM CLINICAL PSYCHOLOGIST PRIVATE PRACTICE 10/30/2024 1:44 PM CLINICAL PSYCHOLOGIST PRIVATE PRACTICE Narrative [facility] - 10/30/2024 2:18 PM CLINICAL PSYCHOLOGIST PRIVATE PRACTICE HEMOGLOBIN A1C: DIABETIC PATIENTS: WELL-CONTROLLED: 6.2 - 7.0 INTERMEDIATE WELL-CONTROLLED: 7.0 - 9.0 POORLY-CONTROLLED: >9.0 us Mikaela Tang FINANCIAL SERVICE PROFESSIONAL, ADVERTISING SALES ASSOCIATE CHEMISTRY ORDERABLES Final Result [facility] [address] [place] [address] * Hepatitis Panel Acute (AHP) (11/07/2020 4:30 AM CLINICAL PSYCHOLOGIST PRIVATE PRACTICE) Pathologist [facility] HEPATITIS A IGM ANTIBODY NON DETECTED NON DETECTED [facility] ARCH [id number] A 11/07/2020 2:40 PM CLINICAL PSYCHOLOGIST PRIVATE PRACTICE [facility] Comment: IGM Antibodies to HAV not detected. Does not exclude early acute or recovered HAV infection. HEP B CORE AB (IGM) NON DETECTED NON DETECTED [facility] ARCH [id number] A 11/07/2020 2:40 PM CLINICAL PSYCHOLOGIST PRIVATE PRACTICE [facility] Comment:IGM anti-HBC not det ected. Does not exclude the possibility of exposure to or infection with HBV. HEPATITIS B SURFACE ANTIGEN NON DETECTED NON DETECTED [facility] ARCH [id number] B 11/07/2020 2:40 PM CLINICAL PSYCHOLOGIST PRIVATE PRACTICE [facility] Comment:A nonreactive test r esult does not exclude the possibility of exposure to or infection with Hepatitis B virus. A nonreactive test result in individuals with prior exposure to hepatitis B may be due to antigen levels below the detection limit of this assay or lack of antigen reactivity to the antibodies in this assay. hepatitis C antibody 0.32 <1 S/CO [facility] ARCH [id number] B 11/07/2020 2:40 PM CLINICAL PSYCHOLOGIST PRIVATE PRACTICE [facility] Comment: Signal/Cutoff ratio < 0.79 is Nondetected Signal/Cutoff ratio 0.80-0.99 is Grayzone Signal/Cutoff ratio > 0.99 is Detected Supplemental assays are recommended if signal/cutoff ratio is >/=1.00. Signal/cutoff ratio result >/= 5.00 is 97% predictive of positivity for recombinant immunoblot assay (RIBA) and will be reported to the [place] Department of Public Health as required. Blood Venipuncture / Unknown 11/07/2020 4:30 AM CLINICAL PSYCHOLOGIST PRIVATE PRACTICE 11/07/2020 4:45 AM CLINICAL PSYCHOLOGIST PRIVATE PRACTICE us Wellington Lujan MD HEMATOLOGY ORDERABLES Final R esult [facility] [address] [place] [address], [place] from Last 3 Months or Most Recently Relevant to Health Maintenance Insurance MEDICAID AETNA [facility] Advance Directives * Full Code (Latest [...] measures to stabilize the patient. Care Teams Employee Operations Examiner Relationship Specialty Start Date End Date Jose Beverly MD [address] [place] [address] PCP - General Family Medicine 05/02/16
[2025-06-16 23:50] VITALS: BP 148/78; PULSE 82; RESP 18; O2SAT 98
--- NOTE | 2025-06-17 04:22 | ED_ITS ---
HPI - Skin/Abscess/Foreign Bdy General Chief complaint: Skin/Abscess/Foreign Body Stated complaint: rash Time Seen by Provider: 06/16/25 22:37 Source: patient Mode of arrival: ambulatory Limitations: no limitations History of Present Illness HPI narrative: Patient is a 54-year-old female with a left under breast rash as well as pannus inflammation. Patient has recurrent skin changes under the breast and pannus. 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 and gets easily sweaty and irritation under skin folds) Associated symptoms: denies other symptoms Treatments prior to arrival: none Related Data Home Medications ?Medication ?Instructions ?Recorded ?Confirmed ?Last Taken ?Type albuterol sulfate 2.5 mg/3 mL 2.5 mg inhalation PRN PRN Wheezing 08/01/23 07/28/24 Unknown History (0.083 %) solution for nebulization atorvastatin 80 mg tablet 80 mg PO DAILY 08/01/23 07/28/24 Unknown History dulaglutide 0.75 mg/0.5 mL 0.75 mg subcut USEASDIRECTD 08/01/23 07/28/24 Unknown History [facility] fenofibrate micronized 134 mg 134 mg PO DAILY 08/01/23 07/28/24 Unknown History capsule furosemide 20 mg tablet 40 mg PO DAILY 08/01/23 07/28/24 Unknown History gabapentin 300 mg capsule 300 mg PO PRN PRN Pain, Moderate 08/01/23 07/28/24 Unknown History hydrochlorothiazide 12.5 mg capsule 12.5 mg PO DAILY 08/01/23 07/28/24 Unknown History metformin 500 mg tablet,extended 1,000 mg PO BID 08/01/23 07/28/24 Unknown History release 24 hr montelukast 10 mg tablet 10 mg PO DAILY 08/01/23 07/28/24 Unknown History omeprazole 20 mg capsule,delayed 40 mg PO DAILY 08/01/23 07/28/24 Unknown History release sitagliptin phosphate 100 mg 100 mg PO DAILY 08/01/23 07/28/24 Unknown History tablet (Januvia) [facility] 03/04/25 03/04/25 Unknown History Verio test strips) pen needle, diabetic 31 gauge x 03/04/25 03/04/25 Unknown History 11/30 (TRUEplus Pen Needle) sucralfate 100 mg/mL oral 100 mg PO DAILY 03/04/25 03/04/25 Unknown History suspension Allergies Allergy/AdvReac Type Severity Reaction Status Date / Time codeine Allergy Mild n/v Verified 06/16/25 23:53 ampicillin Allergy Unknown Anaphylactic Verified 06/16/25 23:53 Shock latex Allergy Unknown Unknown Verified 06/16/25 23:53 Review of Systems Review of Systems: All systems reviewed & are unremarkable except as noted in HPI and below Constitutional: Constitutional: Reports no additional constitutional complaints Eyes: Eyes: Reports no additional eye complaints ENT: Reports system reviewed and no additional complaints, except as documented Cardiovascular: Cardiovascular: Reports no additional cardiovascular complaints Respiratory: Respiratory: Reports no additional respiratory complaints Gastrointestinal: Gastrointestinal: Reports no additional gastrointestinal complaints Genitourinary: Genitourinary: Reports no additional female genitourinary complaints Musculoskeletal: Musculoskeletal: Reports no additional musculoskeletal complaints Integumentary/Breasts: Skin/Breast: Reports system reviewed and no additional complaints, except as docu Neurologic: Reports system reviewed and no additional complaints, except as documented Psychiatric: Psychiatric: Reports no additional psychiatric complaints Endocrine: Endocrine: Reports no additional endocrine complaints Hematologic/Lymphatic: Hematologic/Lymphatic: Reports no additional he matologic/lymphatic complaints Allergic/Immunologic: Allergic/Immunologic: Reports no additional allergic/immunologic complaints [facility] Past Medical History Medical History MEADOWS (nonalcoholic steatohepatitis) Dyslipidemia Hypertension Diabetes mellitus Patient denies medical problems Exam Const: General: healthy appearing Nutritional Appearance: well nourished Orientation/consciousness: patient oriented x3 HENMT: Head: normal to inspection Ears: external ears normal Face/Nose/Sinus: Normal external nose present Eyes: Conjunctivae: conjunctivae normal Pupils: Equal, round and reactive pupils present EOM: EOMs intact bilaterally Neck: Neck: normal visual inspection Chest: Chest palpation & inspection: normal inspection of the chest Resp: Effort & Inspection: normal respiratory effort and not labored Auscultation: clear to auscultation bilaterally and no crackles Cardio: Rate: regular rate Rhythm: regular rhythm Heart sounds: no m urmurs GI: Inspection: non-distended Auscultation: normal bowel sounds and bowel sounds present : General: Yes bladder normal to palpation Back/Spine/Pelvis: Back: no CVA tenderness Skin: General skin exam: normal color Rashes: rash noted Wounds: no wounds Other: female director multimedia present; left under breast has erythema and tinea like changes of [place] as well as under pannus Neuro: General: patient oriented x3 and moves all extremities Cranial nerves: Yes Nystagmus not present Extrem: General: normal to inspection Psych: Mental Status: mental status grossly normal Affect: normal affect Attitude: cooperative Course Vital Signs Vital signs: Vital Signs Temperature 36.6 C 06/16/25 22:37 Pulse Rate 91 06/16/25 22:37 Respiratory Rate 20 06/16/25 22:37 Blood Pressure 157/68 H 06/16/25 22:37 Pulse Oximetry 96 06/16/25 22:37 Oxygen Delivery Room Air 06/16/25 22:37 Temperature 36.6 C 06/16/25 22:37 Pulse Rate 82 06/16/25 23:50 Respiratory Rate 18 06/16/25 23:50 Blood Pressure 148/78 H 06/16/25 23:50 Pulse Oximetry 98 06/16/25 23:50 Oxygen Delivery Room Air 06/16/25 23:50 MDM - Skin/Abscess/Foreign Bdy MDM Narrative Medical decision making narrative: patient is a 54-year-old female with skin rash under the left breast and pannus. We will do Diflucan oral for 3 days and Lotrisone cream. Discharge Plan Discharge Clinical Impression: Tinea cruris Patient Disposition: Home Condition: Stable Instructions: Skin Yeast Infection (ED) Patient Language: Guatemalan Prescriptions: New fluconazole [Diflucan] 100 mg tablet 200 mg PO DAILY 3 Days Qty: 6 0RF clotrimazole-betamethasone 1-0.05 % cream 1 applic topical BID PRN (Reason: rash) Qty: 15 0RF No Action ibuprofen 800 mg tablet 800 mg PO TID PRN (Reason: pain) 7 Days Qty: 21 0RF acetaminophen 500 mg tablet 1,000 mg PO TID PRN (Reason: kg) 7 Days Qty: 42 0RF methocarbamol 750 mg tablet 1,500 mg PO TID Qty: 35 0RF sucralfate 100 mg/mL suspension 100 mg PO DAILY (DME) OneTouch Verio test strips Strip MISCELLANEOUS (DME) pen needle, diabetic [TRUEplus Pen Needle] 31 gauge x 1/4 needle MISCELLANEOUS ondansetron 4 mg tablet,disintegrating 4 mg PO Q4H Qty: 10 0RF Rx Instructions: give 1st dose 30min before emetogenic chemo prochlorperazine maleate [Compazine] 5 mg tablet 5 mg PO Q8H PRN (Reason: nausea and vomiting) 2 Days Qty: 14 0RF sulfamethoxazole-trimethoprim [Bactrim DS] 800-160 mg tablet 1 tablet PO BID 7 Days Qty: 14 0RF atorvastatin 80 mg tablet 80 mg PO DAILY albuterol sulfate 2.5 mg /3 mL (0.083 %) solution for nebulization 2.5 mg inhalation PRN PRN (Reason: Wheezing) fenofibrate micronized 134 mg capsule 134 mg PO DAILY hydrochlorothiazide 12.5 mg capsule 12.5 mg PO DAILY gabapentin 300 mg capsule 300 mg PO PRN PRN (Reason: Pain, Moderate) omeprazole 20 mg capsule,delayed release(DR/EC) 40 mg PO DAILY montelukast 10 mg tablet 10 mg PO DAILY furosemide 20 mg tablet 40 mg PO DAILY metformin 500 mg tablet extended release 24 hr 1,000 mg PO BID Januvia 100 mg tablet 100 mg PO DAILY Trulicity 0.75 mg/0.5 mL pen injector 0.75 mg SUBCUT USEASDIRECTD Rx Instructions: TWICE MONTHLY naproxen 500 mg tablet 500 mg PO BID PRN (Reason: pain) Qty: 14 0RF Follow-up/Referrals: Rush,MD Jose [Primary Care Provider] - Time of Disposition: 23:42
== END 2025-06-16 23:50 | disposition home or self-care (01) ==
PROVIDERS: Emergency Provider Emergency Medicine; PCP Family Medicine
DX: B35.6 Tinea cruris (principal); I10 Essential (primary) hypertension; E11.9 Type 2 diabetes mellitus without complications; E78.5 Hyperlipidemia, unspecified
CPT/HCPCS: 99283